=== PATIENT | female | born 1965 ===

== ENCOUNTER 2016-07-08 15:04 | Emergency (ER) | payer MEDICAID ==
[2016-07-08 15:05] VITALS: BMI 20.1
[2016-07-08 15:20] VITALS: BP 140/72; PULSE 72; RESP 20; TEMP 98.2; O2SAT 98
--- NOTE | 2016-07-08 16:05 | ED PDOC ---
Upper Extremity Pain/Injury Time Seen by Provider: 07/08/16 15:41 Chief Complaint (Nursing): Upper Extremity Problem/Injury Chief Complaint (Provider): wrist pain History Per: Patient History/Exam Limitations: no limitations Exacerbating Factor(s): Strenuous Use Of Affected Area, Movement Additional Complaint(s): F in ED with wrist pain injury occurred yesterday after falling in shower- admits to pain with ROM, motrin/tylenol not working. numbness to finger to left wrist on radial side. limited ROM due to pain. Past Medical History Reviewed: Historical Data, Nursing Documentation, Vital Signs Vital Signs: Last Vital Signs Temp 98.2 F 07/08/16 15:17 Pulse 72 07/08/16 15:17 Resp 20 07/08/16 15:17 BP 140/72 07/08/16 15:17 Pulse Ox 98 07/08/16 15:17 - Medical History PMH: Asthma, Back Problems, Bronchitis, Kidney Stones (RIGHT), Chronic Kidney Disease Denies: Diabetes, Hepatitis, HIV, HTN, Seizures, Sexually Transmitted Disease - Family History Family History: States: Unknown Family Hx - Immunization History Hx Tetanus Toxoid Vaccination: Yes Hx Influenza Vaccination: Yes Hx Pneumococcal Vaccination: Yes - Home Medications Home Medications: Ambulatory Orders Medication Instructions Recorded Albuterol HFA [Ventolin HFA 90 1 - 2 puff IH Q6H PRN #1 inhaler 07/02/16 mcg/actuation (8 g)] Famotidine [Pepcid] 20 mg PO BID #28 tab 07/02/16 Nicotine 7 mg/24 hr [Nicoderm CQ] 1 patch TD DAILY #14 patch 07/02/16 predniSONE [predniSONE Tab] 10 mg PO DAILY #110 tab 07/02/16 Tramadol HCl [Ultram] 50 mg PO Q6 #6 tab 07/08/16 - Allergies Allergies/Adverse Reactions: Allergies Allergy/AdvReac Type Severity Reaction Status Date / Time No Known Allergies Allergy Verified 07/08/16 15:17 Review of Systems ROS Statement: Except As Marked, All Systems Reviewed And Found Negative Musculoskeletal: Positive for: Other (wrist pain) Physical Exam - Reviewed Nursing Documentation Reviewed: Yes Vital Signs Reviewed: Yes - Physical Exam Appears: Positive for: Non-toxic, No Acute Distress, Uncomfortable (in pain/ crying. ) Head Exam: Positive for: ATRAUMATIC, NORMAL INSPECTION, NORMOCEPHALIC Skin: Positive for: Normal Color, Warm, DRY Cardiovascular/Chest: Positive for: Regular Rate, Rhythm Respiratory: Positive for: CNT, Normal Breath Sounds Extremity: Positive for: Other (left wrist: pain-on ROM tenderness to radial side-mild swelling to wrist. ) Neurologic/Psych: Positive for: Alert, Oriented - ECG O2 Sat by Pulse Oximetry: 98 - Radiology X-Ray: Interpreted by Vt X-Ray Interpretation: No Acute Disease - Progress ED Course And Treament: xray./ultram Medical Decision Making Medical Decision Making: dx: wrist pain velcro wrist splint ultram #6 tabs given Disposition - Clinical Impression Clinical Impression: Wrist injury - Patient ED Disposition Is Patient to be Admitted: No Counseled Patient/Family Regarding: Need For Followup, Rx Given - Disposition Disposition: Routine/Home Disposition Time: 16:04 Condition: STABLE Prescriptions: Tramadol HCl [Ultram] 50 mg PO Q6 #6 tab Instructions: Wrist Injury (ED)
--- NOTE | 2016-07-09 13:26 | RAD ---
PROCEDURE: Left Wrist Radiographs. HISTORY: wrist pain COMPARISON: None. FINDINGS: BONES: Bone alignment and mineralization are normal. There is no acute fracture or bone destruction. JOINTS: Normal. The proximal and distal carpal rows are maintained. SOFT TISSUES: Normal. OTHER FINDINGS: None. IMPRESSION: Normal examination.
== END 2016-07-08 16:10 | disposition home or self-care (01) ==
LOC: H.ER 15:04
DX: S69.92XA Unspecified injury of left wrist, hand and finger(s), initial encounter (principal); W19.XXXA Unspecified fall, initial encounter; Y92.002 Bathroom of unspecified non-institutional (private) residence as the place of occurrence of the external cause

== ENCOUNTER 2016-07-08 23:38 | Emergency (ER) | payer MEDICAID ==
[2016-07-08 23:39] VITALS: BMI 20.1
[2016-07-08 23:49] VITALS: BP 130/83; PULSE 72; RESP 20; TEMP 97.6; O2SAT 96
--- NOTE | 2016-07-09 00:50 | ED PDOC ---
Upper Extremity Pain/Injury Time Seen by Provider: 07/09/16 00:18 Chief Complaint (Nursing): Upper Extremity Problem/Injury Chief Complaint (Provider): Left Wrist Pain History Per: Patient History/Exam Limitations: no limitations Onset/Duration Of Symptoms: Days (x a couple of days) Current Symptoms Are (Timing): Still Present Severity: Moderate Additional Complaint(s): Oriana Hayes is a 51 year old female, with no pertinent past medical history, who presents to the ED on 07/09/16 for the evaluation of persistent left wrist pain that she has experienced since having fallen a couple of days ago. Patient was seen in the ED earlier for the same complaint, but reports that she has returned as the Rx Tramadol has provided no relief. No new complaints. Of note, as patient reports she is currently in recovery for opiate abuse, she has requested that she not receive narcotics/strong pain medications. PMD: none provided Past Medical History Reviewed: Historical Data, Nursing Documentation, Vital Signs Vital Signs: Last Vital Signs Temp 97.6 F 07/08/16 23:45 Pulse 72 07/08/16 23:45 Resp 20 07/08/16 23:45 BP 130/83 07/08/16 23:45 Pulse Ox 96 07/08/16 23:45 - Medical History PMH: Asthma, Back Problems, Bronchitis, Kidney Stones (RIGHT), Chronic Kidney Disease Denies: Diabetes, Hepatitis, HIV, HTN, Seizures, Sexually Transmitted Disease - Surgical History Surgical History: No Surg Hx - Family History Family History: States: Unknown Family Hx - Social History Current smoker - smoking cessation education provided: Yes Drugs: Opiates (snorts/sniffs heroin) - Immunization History Hx Tetanus Toxoid Vaccination: Yes Hx Influenza Vaccination: Yes Hx Pneumococcal Vaccination: Yes - Home Medications Home Medications: Ambulatory Orders Medication Instructions Recorded Albuterol HFA [Ventolin HFA 90 1 - 2 puff IH Q6H PRN #1 inhaler 07/02/16 mcg/actuation (8 g)] Famotidine [Pepcid] 20 mg PO BID #28 tab 07/02/16 Nicotine 7 mg/24 hr [Nicoderm CQ] 1 patch TD DAILY #14 patch 07/02/16 predniSONE [predniSONE Tab] 10 mg PO DAILY #110 tab 07/02/16 Tramadol HCl [Ultram] 50 mg PO Q6 #6 tab 07/08/16 - Allergies Allergies/Adverse Reactions: Allergies Allergy/AdvReac Type Severity Reaction Status Date / Time No Known Allergies Allergy Verified 07/08/16 15:17 Review of Systems Musculoskeletal: Positive for: Arm Pain (left wrist) Physical Exam - Reviewed Nursing Documentation Reviewed: Yes Vital Signs Reviewed: Yes - Physical Exam Appears: Positive for: Non-toxic, No Acute Distress Pulses-Radial (L): 2+ Extremity: Positive for: Normal ROM (pain with ROM of left wrist), Tenderness ( left wrist radial side), Capillary Refill (<2 seconds), Swelling (mild, left wrist). Negative for: Deformity Neurologic/Psych: Positive for: Alert, Oriented. Negative for: Motor/Sensory Deficits - ECG O2 Sat by Pulse Oximetry: 96 (RA) Pulse Ox Interpretation: Normal Medical Decision Making Medical Decision Makin:18 Initial Impression: left wrist pain Previous records reviewed: 07/08/16 ED Evaluation Initial Plan: * Motrin 600mg PO Scribe Attestation: Documented by Yaima Arora, acting as a scribe for Juliana Krishnan PA-C. Provider Scribe Attestation: All medical record entries made by the Scribe were at my direction and personally dictated by me. I have reviewed the chart and agree that the record accurately reflects my personal performance of the history, physical exam, medical decision making, and the department course for this patient. I have also personally directed, reviewed, and agree with the discharge instructions and disposition. Disposition - Clinical Impression Clinical Impression: Wrist injury - Disposition Referrals: Salbador Novak MD [Primary Care Provider] - Disposition: Routine/Home Disposition Time: 01:10 Condition: STABLE Instructions: Wrist Injury (ED)
== END 2016-07-09 01:16 | disposition home or self-care (01) ==
LOC: H.ER 23:38
DX: M25.532 Pain in left wrist (principal); N18.9 Chronic kidney disease, unspecified

== ENCOUNTER 2016-07-13 19:39 | Emergency (ER) | payer MEDICAID ==
[2016-07-13 19:39] VITALS: BMI 20.1
[2016-07-13 20:04] VITALS: BP 119/74; PULSE 62; RESP 20; TEMP 96.2; O2SAT 95
--- NOTE | 2016-07-13 20:20 | ED PDOC ---
HPI: Abdomen Time Seen by Provider: 07/13/16 20:15 Chief Complaint (Nursing): GI Problem Chief Complaint (Provider): constipation History Per: Patient History/Exam Limitations: no limitations Onset/Duration Of Symptoms: Days (x 2-3) Outside of [place] travel?: No Associated Symptoms: Constipation, Other (passing a lot of gas). denies: Fever , Chills, Nausea, Vomiting, Diarrhea Additional Complaint(s): Oriana Hayes is a 51 year old female, with a previous medical history of asthma, who presents to the ED with complaints of constipation ongoing for the past 2-3 days. Pt reports starting a methadone program last week. Pt reports associated symptoms of abdominal pain and heavy gas. Pt denies any nausea, vomiting, fever or chills. Past Medical History Reviewed: Historical Data, Nursing Documentation, Vital Signs Vital Signs: Last Vital Signs Temp 96.2 F L 07/13/16 20:02 Pulse 62 07/13/16 20:02 Resp 20 07/13/16 20:02 BP 119/74 07/13/16 20:02 Pulse Ox 95 07/13/16 20:22 - Medical History PMH: Asthma, Back Problems, Bronchitis, Kidney Stones (RIGHT), Chronic Kidney Disease Denies: Diabetes, Hepatitis, HIV, HTN, Seizures, Sexually Transmitted Disease - Family History Family History: States: Unknown Family Hx - Immunization History Hx Tetanus Toxoid Vaccination: Yes Hx Influenza Vaccination: Yes Hx Pneumococcal Vaccination: Yes - Home Medications Home Medications: Ambulatory Orders Medication Instructions Recorded Albuterol HFA [Ventolin HFA 90 1 - 2 puff IH Q6H PRN #1 inhaler 07/02/16 mcg/actuation (8 g)] Famotidine [Pepcid] 20 mg PO BID #28 tab 07/02/16 Nicotine 7 mg/24 hr [Nicoderm CQ] 1 patch TD DAILY #14 patch 07/02/16 predniSONE [predniSONE Tab] 10 mg PO DAILY #110 tab 07/02/16 Tramadol HCl [Ultram] 50 mg PO Q6 #6 tab 07/08/16 Docusate [Colace] 100 mg PO BID #20 cap 07/13/16 Phosphate Enema [Fleet Enema 135 133 ml RC ONCE #1 nma 07/13/16 Ml] Polyethylene Glycol 3350 [Miralax] 1 - 2 tsp PO BID #238 powder 07/13/16 - Allergies Allergies/Adverse Reactions: Allergies Allergy/AdvReac Type Severity Reaction Status Date / Time No Known Allergies Allergy Verified 07/08/16 15:17 Review of Systems ROS Statement: Except As Marked, All Systems Reviewed And Found Negative Constitutional: Negative for: Fever, Chills Gastrointestinal: Positive for: Abdominal Pain, Constipation. Negative for: Nausea, Vomiting, Diarrhea Physical Exam - Reviewed Nursing Documentation Reviewed: Yes Vital Signs Reviewed: Yes - Physical Exam Appears: Positive for: Well, Non-toxic, No Acute Distress Head Exam: Positive for: ATRAUMATIC, NORMAL INSPECTION, NORMOCEPHALIC Skin: Positive for: Normal Color, Warm, Dry Gastrointestinal/Abdominal: Positive for: Bowel Sounds, Soft, Tenderness ( diffuse). Negative for: Distended Neurologic/Psych: Positive for: Alert, Oriented - ECG O2 Sat by Pulse Oximetry: 95 (RA) Pulse Ox Interpretation: Normal Medical Decision Making Medical Decision Making: Initial Impression: constipation Initial Plan: * physical exam * disposition Scribe Attestation: Documented by Ene Haro, acting as a scribe for Estefany Alexandre PA-C. Provider Scribe Attestation: All medical record entries made by the Scribe were at my direction and personally dictated by me. I have reviewed the chart and agree that the record accurately reflects my personal performance of the history, physical exam, medical decision making, and the department course for this patient. I have also personally directed, reviewed, and agree with the discharge instructions and disposition Disposition - Clinical Impression Clinical Impression: Constipation due to opioid therapy - Disposition Disposition Time: 21:00 Condition: STABLE Prescriptions: Docusate [Colace] 100 mg PO BID #20 cap Phosphate Enema [Fleet Enema 135 Ml] 133 ml RC ONCE #1 nma Polyethylene Glycol 3350 [Miralax] 1 - 2 tsp PO BID #238 powder Instructions: Constipation (ED), High Fiber Diet (ED)
== END 2016-07-13 20:29 | disposition home or self-care (01) ==
LOC: H.ER 19:39
DX: K59.00 Constipation, unspecified (principal)

== ENCOUNTER 2016-07-16 19:50 | Emergency (ER) | payer MEDICAID ==
[2016-07-16 19:51] VITALS: BMI 20.1
[2016-07-16 21:02] VITALS: RESP 17
--- NOTE | 2016-07-16 21:11 | ED PDOC ---
HPI: General Adult Time Seen by Provider: 07/16/16 20:12 Chief Complaint (Nursing): Fever Chief Complaint (Provider): Myalgias in Arms and Legs/Fever History Per: Patient History/Exam Limitations: no limitations Onset/Duration Of Symptoms: Days (x2) Current Symptoms Are (Timing): Still Present Additional Complaint(s): Oriana Hayes is a 51 year old female with a history of heroin abuse and asthma that presents to the ED with body aches in her arms and legs, as well as a tactile fever that she has been experiencing for the past two days. Patient states that she used to be a heroin abuser, but started a methadone program 10 days ago for heroin addiction treatment. She denies any cough, rhinorrhea, shortness of breath, diarrhea, vomiting, or abdominal pain. PMD: Umer Novak Past Medical History Reviewed: Historical Data, Nursing Documentation, Vital Signs Vital Signs: Last Vital Signs Temp 98.9 F 07/16/16 19:59 Pulse 62 07/16/16 21:56 Resp 17 07/16/16 21:02 BP 106/55 L 07/16/16 21:56 Pulse Ox 96 07/16/16 21:16 - Medical History PMH: Asthma, Back Problems, Bronchitis, Kidney Stones (RIGHT), Chronic Kidney Disease Denies: Diabetes, Hepatitis, HIV, HTN, Seizures, Sexually Transmitted Disease - Family History Family History: States: Unknown Family Hx - Immunization History Hx Tetanus Toxoid Vaccination: Yes Hx Influenza Vaccination: Yes Hx Pneumococcal Vaccination: Yes - Home Medications Home Medications: Ambulatory Orders Medication Instructions Recorded Albuterol HFA [Ventolin HFA 90 1 - 2 puff IH Q6H PRN #1 inhaler 07/02/16 mcg/actuation (8 g)] Famotidine [Pepcid] 20 mg PO BID #28 tab 07/02/16 Nicotine 7 mg/24 hr [Nicoderm CQ] 1 patch TD DAILY #14 patch 07/02/16 predniSONE [predniSONE Tab] 10 mg PO DAILY #110 tab 07/02/16 Tramadol HCl [Ultram] 50 mg PO Q6 #6 tab 07/08/16 Docusate [Colace] 100 mg PO BID #20 cap 07/13/16 Phosphate Enema [Fleet Enema 135 133 ml RC ONCE #1 nma 07/13/16 Ml] Polyethylene Glycol 3350 [Miralax] 1 - 2 tsp PO BID #238 powder 07/13/16 - Allergies Allergies/Adverse Reactions: Allergies Allergy/AdvReac Type Severity Reaction Status Date / Time No Known Allergies Allergy Verified 07/08/16 15:17 Review of Systems Constitutional: Positive for: Fever, Other (body aches in her arms and legs) ENT: Negative for: Nose Discharge Respiratory: Negative for: Cough, Shortness of Breath Gastrointestinal: Negative for: Nausea, Vomiting, Abdominal Pain, Diarrhea Physical Exam - Reviewed Nursing Documentation Reviewed: Yes Vital Signs Reviewed: Yes - Physical Exam Appears: Positive for: Non-toxic, No Acute Distress (Patient appears comfortable ) Head Exam: Positive for: ATRAUMATIC, NORMOCEPHALIC Skin: Positive for: Normal Color, Warm. Negative for: Rash Cardiovascular/Chest: Positive for: Regular Rate, Rhythm. Negative for: Murmur Respiratory: Positive for: Normal Breath Sounds. Negative for: Respiratory Distress Gastrointestinal/Abdominal: Positive for: Soft. Negative for: Tenderness Neurologic/Psych: Positive for: Alert, Oriented. Negative for: Other (no slurred speech) - Laboratory Results Result Diagrams: 07/16/16 21:39 07/16/16 21:39 - ECG O2 Sat by Pulse Oximetry: 96 (RA) Pulse Ox Interpretation: Normal - Progress Re-evaluation Time: 01:20 Condition: Re-examined, Improved Medical Decision Making Medical Decision Makin:31 Initial Impression: Heroin Withdrawal Syndrome (currently on methadone) r/o UTI and (less likely) Flu Initial Plan: * CMP * CBC * Creatinine Phosphokinase * Urine dipstick * Toradol 30 mg IM * Clonidine 0.2 mg PO * Clonidine 1 patch TD Q7D * Reevalution Scribe Attestation: Documented by Elisha Echevarria, acting as a scribe for Autumn Song MD. Provider Scribe Attestation: All medical record entries made by the Adams were at my direction and personally dictated by me. I have reviewed the chart and agree that the record accurately reflects my personal performance of the history, physical exam, medical decision making, and the department course for this patient. I have also personally directed, reviewed, and agree with the discharge instructions and disposition Disposition - Clinical Impression Clinical Impression: Opioid withdrawal, Elevated creatine kinase level - Patient ED Disposition Is Patient to be Admitted: No Doctor Will See Patient In The: Office Counseled Patient/Family Regarding: Studies Performed, Diagnosis, Need For Followup - Disposition Referrals: [facility] [Outside] Disposition: Routine/Home Disposition Time: 01:21 Condition: GOOD Additional Instructions: Drink plenty of fluids. Take advil for pain. Follow up with your PCP in 2-3 days. Instructions: Opioid Withdrawal (ED)
[2016-07-16 21:46] LABS: BASO % 0.2 % (0.0-2.0); EOS % 0.2 % (0.0-4.0); HEMATOCRIT 32.6 % (34.0-47.0); LYMPH # 1.2 K/uL (1.0-4.3); LYMPH % 8.2 % (20.0-40.0); MEAN CELL VOLUME 94.2 fl (81.0-99.0); MEAN CORPUSCULAR HEMOGLOBIN 30.5 pg (27.0-31.0); MEAN CORPUSCULAR HGB CONC 32.4 g/dL (33.0-37.0); MEAN PLATELET VOLUME 9.2 fl (7.2-11.7); MONO # 0.9 K/uL (0.0-0.8); MONO % 5.9 % (0.0-10.0); NEUT # 12.3 K/uL (1.8-7.0); NEUT % 85.5 % (50.0-75.0); PLATELET COUNT 199 K/uL (130-400); RED CELL DISTRIBUTION WIDTH 14.5 % (11.5-14.5); WHITE BLOOD COUNT 14.4 K/uL (4.8-10.8)
[2016-07-16 22:09] LABS: ALB/GLOB RATIO 1.1 (1.0-2.1); ALKALINE PHOSPHATASE 76 U/L (38-126); ALT/SGPT 44 U/L (9-52); AST/SGOT 47 U/L (14-36); BILIRUBIN,TOTAL 0.6 mg/dl (0.2-1.3); BLOOD UREA NITROGEN 13 mg/dl (7-17); CALCIUM 8.2 mg/dL (8.4-10.2); CARBON DIOXIDE 26 mmol/L (22-30); CHLORIDE 99 mmol/L (98-107); GFR AFRICAN-AMERICAN > 60; GLUCOSE,RANDOM 119 mg/dL (65-105); POTASSIUM 3.4 MMOL/L (3.6-5.0); SODIUM 137 mmol/l (132-148); TOTAL PROTEIN 6.6 G/DL (6.3-8.2)
[2016-07-16] MEDS ORDERED: Sodium Chloride 0.9% 1,000 ML IV STA (22:13)
[2016-07-16 22:40] LABS: NEUTROPHIL 82 % (42-75); TOTAL CELLS COUNTED 100
[2016-07-17 01:31] VITALS: BP 112/69; PULSE 63; TEMP 98.1; O2SAT 98
== END 2016-07-17 01:35 | disposition home or self-care (01) ==
LOC: H.ER 19:50
DX: F11.10 Opioid abuse, uncomplicated (principal); R94.4 Abnormal results of kidney function studies; N18.9 Chronic kidney disease, unspecified; Z87.442 Personal history of urinary calculi; J45.909 Unspecified asthma, uncomplicated

== ENCOUNTER 2016-08-07 18:07 | Inpatient (IN) | payer MEDICAID ==
[2016-08-07 18:07] VITALS: BMI 20.1
[2016-08-07] MEDS ORDERED: Albuterol-Ipratrop 3 mg / 0.5 (3 ml) UD IH STA (18:15)
[2016-08-07] MEDS ORDERED: Magnesium Sulfate 2 gm/50 ml 2 GM/50 ML BAG IVPB ONE (18:16)
--- NOTE | 2016-08-07 18:20 | ED PDOC ---
HPI: SOB/CHF/COPD Time Seen by Provider: 08/07/16 18:10 Chief Complaint (Nursing): Shortness Of Breath Chief Complaint (Provider): Shortness of Breath History Per: Patient, EMS History/Exam Limitations: no limitations Onset/Duration Of Symptoms: Days (x2) Current Symptoms Are (Timing): Still Present Initiating Event: Upper Respiratory Illness Severity: Moderate Associated Symptoms: Fever (Tmax 101F), Productive Cough (yellow sputum), Other (wheezing). denies: Chest Pain, Bloody Cough, Ankle/Leg Swelling Additional Complaint(s): Oriana Hayes is a 51 year old female, with a past medical history inclusive of asthma, bronchitis and heroin abuse (snorts 8-9 bags daily, last yesterday), who presents to the ED on 08/07/16, via ALS, for the evaluation of a moderate amount of shortness of breath that she has experienced over the past 2 days. Associated fever (Tmax 101F) also reported in addition to both wheezing and a productive cough with yellow sputum, though she denies any chest pain, hemoptysis or extremity swelling. Paramedics had administered 2 nebulizer treatments as well as Solu-Medrol 125mg IV en route to hospital with only minimal improvement. PMD: Lobo Graham Past Medical History Reviewed: Historical Data, Nursing Documentation, Vital Signs Vital Signs: Last Vital Signs Temp 101 F H 08/07/16 18:08 Pulse 88 08/07/16 18:08 Resp 18 08/07/16 18:08 BP 146/86 08/07/16 18:08 Pulse Ox 99 08/07/16 18:38 - Medical History PMH: Asthma, Back Problems, Bronchitis, Kidney Stones (RIGHT), Chronic Kidney Disease Denies: Diabetes, Hepatitis, HIV, HTN, Seizures, Sexually Transmitted Disease - Surgical History Surgical History: No Surg Hx - Family History Family History: States: Unknown Family Hx - Social History Current smoker - smoking cessation education provided: Yes (heavy (>10 cigarettes/day)) Alcohol: None Drugs: Opiates (snorts 8-9 bags of heroin QD) - Immunization History Hx Tetanus Toxoid Vaccination: Yes Hx Influenza Vaccination: Yes Hx Pneumococcal Vaccination: Yes - Home Medications Home Medications: Ambulatory Orders Medication Instructions Recorded Albuterol HFA [Ventolin HFA 90 1 - 2 puff IH Q6H PRN #1 inhaler 07/02/16 mcg/actuation (8 g)] Famotidine [Pepcid] 20 mg PO BID #28 tab 07/02/16 Nicotine 7 mg/24 hr [Nicoderm CQ] 1 patch TD DAILY #14 patch 07/02/16 predniSONE [predniSONE Tab] 10 mg PO DAILY #110 tab 07/02/16 Tramadol HCl [Ultram] 50 mg PO Q6 #6 tab 07/08/16 Docusate [Colace] 100 mg PO BID #20 cap 07/13/16 Phosphate Enema [Fleet Enema 135 133 ml RC ONCE #1 nma 07/13/16 Ml] Polyethylene Glycol 3350 [Miralax] 1 - 2 tsp PO BID #238 powder 07/13/16 - Allergies Allergies/Adverse Reactions: Allergies Allergy/AdvReac Type Severity Reaction Status Date / Time No Known Allergies Allergy Verified 07/08/16 15:17 Review of Systems ROS Statement: Except As Marked, All Systems Reviewed And Found Negative Constitutional: Positive for: Fever (Tmax 101F) Cardiovascular: Negative for: Chest Pain, Edema Respiratory: Positive for: Cough, Shortness of Breath, Sputum (yellow), Wheezing. Negative for: Hemoptysis Physical Exam - Reviewed Nursing Documentation Reviewed: Yes Vital Signs Reviewed: Yes - Physical Exam Appears: Positive for: Non-toxic, No Acute Distress Head Exam: Positive for: ATRAUMATIC, NORMOCEPHALIC Skin: Positive for: Normal Color, Warm, Dry Eye Exam: Positive for: Normal appearance, PERRL ENT: Positive for: Normal ENT Inspection. Negative for: Pharyngeal Erythema, Tonsillar Exudate, Tonsillar Swelling Neck: Positive for: Normal, Painless ROM, Supple Cardiovascular/Chest: Positive for: Regular Rate, Rhythm. Negative for: Edema, Murmur Respiratory: Positive for: Rhonchi (b/l), Wheezing (b/l expiratory). Negative for: Accessory Muscle Use, Respiratory Distress Gastrointestinal/Abdominal: Positive for: Normal Exam, Soft. Negative for: Tenderness Extremity: Positive for: Normal ROM. Negative for: Swelling Neurologic/Psych: Positive for: Alert, Oriented - ECG O2 Sat by Pulse Oximetry: 99 (RA) Pulse Ox Interpretation: Normal Medical Decision Making Medical Decision Makin:10 Initial Impression: fever, cough, shortness of breath; will r/o pneumonia Initial Plan: * EKG * CXR * VBG Shock Panel * Labs * Upreg * Udip * Magnesium Sulfate 2gm IVPB * Duonebs 3ml INH * Peak Flow Pre/Post Treatment * Reevaluation Scribe Attestation: Documented by Yaima Arora, acting as a scribe for Robin Vidal MD. Provider Scribe Attestation: All medical record entries made by the Scribe were at my direction and personally dictated by me. I have reviewed the chart and agree that the record accurately reflects my personal performance of the history, physical exam, medical decision making, and the department course for this patient. I have also personally directed, reviewed, and agree with the discharge instructions and disposition. Disposition - Clinical Impression Clinical Impression: Exacerbation of asthma - Patient ED Disposition Is Patient to be Admitted: Transfer of Care - Disposition Disposition: Transfer of Care Disposition Time: 19:00 Condition: FAIR Patient Signed Over To: Steven Ruffin
[2016-08-07] MEDS ORDERED: Magnesium Sulfate 2 gm/50 ml 2 GM/50 ML BAG ONE (18:28)
[2016-08-07] MEDS ORDERED: Albuterol-Ipratrop 3 mg / 0.5 (3 ml) UD ONE (18:28)
--- NOTE | 2016-08-07 19:11 | ED PDOC ---
- Laboratory Results Result Diagrams: 08/07/16 19:19 08/07/16 18:40 - ECG O2 Sat by Pulse Oximetry: 99 (RA) Pulse Ox Interpretation: Normal Medical Decision Making Medical Decision Makin:00 Patient endorsed over to me by Robin Vidal MD, pending results of ED workup , reevaluation and final disposition. CXR appears similar to prior, though suspicious for pneumonia. Will treat with both Rocephin IVPB and Zithromax IVPB. 20:10 Upon provider reevaluation, patient is still experiencing shortness of breath despite administration of IV steroids, nebulizer treatments and magnesium sulfate. Wheezing is still ausculated bilaterally, with patient now being hypoxic with a pulse oximetry reading of 88% on room air. Patient will be hospitalized for further evaluation/treatment of asthma exacerbation and hypoxia. Plan has been discussed with patient, who is in agreement. Scribe Attestation: Documented by Yaima Arora, acting as a scribe for Steven Ruffin MD. Provider Scribe Attestation: All medical record entries made by the Scribe were at my direction and personally dictated by me. I have reviewed the chart and agree that the record accurately reflects my personal performance of the history, physical exam, medical decision making, and the department course for this patient. I have also personally directed, reviewed, and agree with the discharge instructions and disposition. Disposition - Clinical Impression Clinical Impression: Exacerbation of asthma - POA Present On Arrival: None - Disposition Disposition: Hospitalized as Observation Patient Disposition Time: 20:10 Condition: FAIR
[2016-08-07 19:22] LABS: BASO % 0.7 % (0.0-2.0); EOS % 0.1 % (0.0-4.0); HEMATOCRIT 36.9 % (34.0-47.0); LYMPH # 1.5 K/uL (1.0-4.3); LYMPH % 22.1 % (20.0-40.0); MEAN CELL VOLUME 92.4 fl (81.0-99.0); MEAN CORPUSCULAR HEMOGLOBIN 30.7 pg (27.0-31.0); MEAN CORPUSCULAR HGB CONC 33.3 g/dL (33.0-37.0); MEAN PLATELET VOLUME 9.3 fl (7.2-11.7); MONO # 0.8 K/uL (0.0-0.8); MONO % 11.9 % (0.0-10.0); NEUT # 4.3 K/uL (1.8-7.0); NEUT % 65.2 % (50.0-75.0); NRBC % 0.1 % (0.0-0.0); RED CELL DISTRIBUTION WIDTH 14.1 % (11.5-14.5); WHITE BLOOD COUNT 6.6 K/uL (4.8-10.8)
[2016-08-07 19:51] LABS: BLOOD UREA NITROGEN 10 mg/dl (7-17); CALCIUM 8.4 mg/dL (8.4-10.2); CARBON DIOXIDE 24 mmol/L (22-30); CHLORIDE 98 mmol/L (98-107); GFR AFRICAN-AMERICAN > 60; GLUCOSE,RANDOM 98 mg/dL (65-105); POTASSIUM 4.1 MMOL/L (3.6-5.0); SODIUM 133 mmol/l (132-148)
[2016-08-07 19:52] LABS: ALB/GLOB RATIO 0.9 (1.0-2.1); ALKALINE PHOSPHATASE 81 U/L (38-126); ALT/SGPT 26 U/L (9-52); AST/SGOT 31 U/L (14-36); BILIRUBIN,TOTAL 0.3 mg/dl (0.2-1.3); TOTAL PROTEIN 7.6 G/DL (6.3-8.2)
[2016-08-07] MEDS ORDERED: Sodium Chloride 0.9% 1,000 ML IV STA (20:03)
[2016-08-07] MEDS ORDERED: Azithromycin 500 MG in Sodium Chloride 0.9% 250 ML IVPB STA (20:03)
[2016-08-07] MEDS ORDERED: Albuterol-Ipratrop 3 mg / 0.5 (3 ml) UD INH STA ×2 (20:06→20:10)
[2016-08-08] MEDS: methylPREDNISolone 80 MG in Sodium Chloride 0.9% 50 ML IVPB SCH ×3 (01:05→16:20)
[2016-08-08] MEDS ORDERED: Albuterol-Ipratrop 3 mg / 0.5 (3 ml) UD INH PRN (02:16)
[2016-08-08 06:52] LABS: BASO % 0.2 % (0.0-2.0); HEMATOCRIT 36.9 % (34.0-47.0); LYMPH % 15.5 % (20.0-40.0); MEAN CELL VOLUME 92.4 fl (81.0-99.0); MEAN CORPUSCULAR HEMOGLOBIN 30.7 pg (27.0-31.0); MEAN CORPUSCULAR HGB CONC 33.3 g/dL (33.0-37.0); MEAN PLATELET VOLUME 9.3 fl (7.2-11.7); MONO # 0.3 K/uL (0.0-0.8); MONO % 4.7 % (0.0-10.0); NEUT % 79.6 % (50.0-75.0); WHITE BLOOD COUNT 6.3 K/uL (4.8-10.8)
[2016-08-08 07:09] LABS: ALB/GLOB RATIO 0.9 (1.0-2.1); ALKALINE PHOSPHATASE 72 U/L (38-126); ALT/SGPT 24 U/L (9-52); AST/SGOT 25 U/L (14-36); BILIRUBIN,TOTAL 0.3 mg/dl (0.2-1.3); BLOOD UREA NITROGEN 8 mg/dl (7-17); CALCIUM 8.7 mg/dL (8.4-10.2); CARBON DIOXIDE 27 mmol/L (22-30); CHLORIDE 101 mmol/L (98-107); GFR AFRICAN-AMERICAN > 60; GLUCOSE,RANDOM 139 mg/dL (65-105); POTASSIUM 5.3 MMOL/L (3.6-5.0); SODIUM 138 mmol/l (132-148); TOTAL PROTEIN 7.5 G/DL (6.3-8.2)
--- NOTE | 2016-08-08 07:14 | CP.PCM.HP ---
History of Present Illness - History of Present Illness History of Present Illness: pt admitted forpna and asthma exacerbation. pt is + smoker, has h/o heroin abuse on methadone-rn tarik called methadone program who verified 60mg methadone qd. pt offer no other complaitns besides wheezing, ocugh/congestion, nbw nad cxr reviwed. Present on Admission - Present on Admission Any Indicators Present on Admission: No Review of Systems - Respiratory Respiratory: As Per HPI, Cough, Wheezing, Chest Congestion Past Patient History - Infectious Disease Hx of Infectious Diseases: None - Past Medical History & Family History Past Medical History?: Yes - Past Social History Smoking Status: Current Some Days Smoker - CARDIAC Hx Hypertension: No - PULMONARY Hx Respiratory Disorders: Yes - NEUROLOGICAL Hx Seizures: No - HEENT Hx HEENT Problems: No - RENAL Hx Chronic Kidney Disease: Yes - ENDOCRINE/METABOLIC Hx Endocrine Disorders: No - HEMATOLOGICAL/ONCOLOGICAL Hx AIDS: No Hx Human Immunodeficiency Virus (HIV): No - INTEGUMENTARY Hx Dermatological Problems: Yes (TATTOOS) - MUSCULOSKELETAL/RHEUMATOLOGICAL Hx Musculoskeletal Disorders: Yes Hx Back Pain: Yes Hx Falls: Yes (FELL 5 DAYS AGO 06-21-) - GASTROINTESTINAL Hx Gastrointestinal Disorders: No - GENITOURINARY/GYNECOLOGICAL Hx Sexually Transmitted Disorders: No - PSYCHIATRIC Hx Psychophysiologic Disorder: Yes (SNORTS/SNIFFS HEROINE-USED TO BE IN A PROGRAM) Hx Substance Use: Yes (SNIFFS HERONE 8-9 BAGS DAILY.LAST USED YESTERDAY.) - SURGICAL HISTORY Hx Surgeries: Yes Other/Comment: rt kidney stones - ANESTHESIA Hx Anesthesia: Yes Hx Anesthesia Reactions: No Meds Allergies/Adverse Reactions: Allergies Allergy/AdvReac Type Severity Reaction Status Date / Time No Known Allergies Allergy Verified 08/07/16 20:02 Physical Exam - Constitutional Appears: Well, Non-toxic, No Acute Distress - Head Exam Head Exam: ATRAUMATIC, NORMAL INSPECTION, NORMOCEPHALIC - Eye Exam Eye Exam: EOMI, Normal appearance, PERRL Pupil Exam: NORMAL ACCOMODATION, PERRL - ENT Exam ENT Exam: Mucous Membranes Moist, Normal Exam - Neck Exam Neck exam: Positive for: Normal Inspection - Respiratory Exam Respiratory Exam: Clear to Auscultation Bilateral, NORMAL BREATHING PATTERN - Cardiovascular Exam Cardiovascular Exam: REGULAR RHYTHM, RRR, +S1, +S2 - GI/Abdominal Exam GI & Abdominal Exam: Normal Bowel Sounds, Soft. absent: Tenderness - Extremities Exam Extremities exam: Positive for: full ROM, normal capillary refill, normal inspection, pedal pulses present - Back Exam Back exam: NORMAL INSPECTION - Neurological Exam Neurological exam: Alert, CN II-XII Intact, Normal Gait, Oriented x3, Reflexes Normal - Psychiatric Exam Psychiatric exam: Normal Affect, Normal Mood - Skin Skin Exam: Dry, Intact, Normal Color, Warm Results - Vital Signs Recent Vital Signs: Last Vital Signs Temp 97.5 F L 08/08/16 05:02 Pulse 57 L 08/08/16 05:02 Resp 19 08/08/16 05:02 BP 111/67 08/08/16 05:02 Pulse Ox 98 08/08/16 05:02 - Labs Result Diagrams: 08/08/16 04:45 08/08/16 04:45 Labs: Laboratory Results - last 24 hr 08/07/16 20:45 Influenza Typ A,B (EIA) Negative for flu a/b Assessment & Plan (1) DVT prophylaxis Assessment and Plan: scd and aehose ambulation Status: Acute (2) Heroin abuse Assessment and Plan: on methadone, dose confirmed by rn Status: Acute (3) Exacerbation of asthma Assessment and Plan: w/ pna noted on cxr-rocephin, zithromax, duonebs/steroids phenergen trend cxr Status: Acute (4) Pneumonia Assessment and Plan: rocephin/zithromax Status: Acute Priority: High Decision To Admit - Pt Status Changed To: Hospital Disposition Of: Observation - . Bed Request Type: Telemetry Admitting Physician: Eveline Batista
[2016-08-08] MEDS: Albuterol-Ipratrop 3 mg / 0.5 (3 ml) UD INH SCH ×4 (08:25→20:04)
[2016-08-08] MEDS: guaiFENesin-DM 600-30 mg ER Tab PO SCH ×2 (08:34→16:21)
[2016-08-08] MEDS: Azithromycin 500 MG in Sodium Chloride 0.9% 250 ML IVPB SCH (08:36)
--- NOTE | 2016-08-08 08:42 | CARD ---
APPROVED REPORT EKG Measurement Heart [id number] <Conclusion> Normal sinus rhythm Moderate voltage criteria for LVH, may be normal variant Borderline ECG
[2016-08-08] MEDS ORDERED: cefTRIAXone 2 GM in Sodium Chloride 0.9% 100 ML IVPB SCH (09:00)
--- NOTE | 2016-08-08 11:05 | RAD ---
HISTORY: sob COMPARISON: Chest x-ray performed 04/24/15 TECHNIQUE: Chest PA and lateral FINDINGS: LUNGS: Central vascular congestion. Interstitial prominence. Hyperinflation may be seen in setting of COPD. Emphysematous changes. Please note that chest x-ray has limited sensitivity for the detection of pulmonary masses. PLEURA: No significant pleural effusion identified. No definite pneumothorax . CARDIOVASCULAR: Heart size appears top normal. OSSEOUS STRUCTURES: Osseous demineralization. Degenerative changes. VISUALIZED UPPER ABDOMEN: Unremarkable. OTHER FINDINGS: None. IMPRESSION: Central vascular congestion. Interstitial prominence. COPD/emphysema.
[2016-08-08 15:53] LABS: BLOOD UREA NITROGEN 11 mg/dl (7-17); CARBON DIOXIDE 28 mmol/L (22-30); CHLORIDE 96 mmol/L (98-107); GFR AFRICAN-AMERICAN > 60; GLUCOSE,RANDOM 122 mg/dL (65-105); POTASSIUM 4.7 MMOL/L (3.6-5.0); SODIUM 131 mmol/l (132-148)
[2016-08-08 20:25] LABS: BLOOD UREA NITROGEN 13 mg/dl (7-17); CALCIUM 8.7 mg/dL (8.4-10.2); CARBON DIOXIDE 25 mmol/L (22-30); CHLORIDE 95 mmol/L (98-107); GFR AFRICAN-AMERICAN > 60; GLUCOSE,RANDOM 172 mg/dL (65-105); POTASSIUM 4.4 MMOL/L (3.6-5.0); SODIUM 128 mmol/l (132-148)
[2016-08-08] MEDS: Menthol/Methyl Salicylate Oinment TOP PRN (22:03)
[2016-08-09] MEDS: methylPREDNISolone 80 MG in Sodium Chloride 0.9% 50 ML IVPB SCH ×3 (00:42→16:17)
--- NOTE | 2016-08-09 06:52 | CP.PCM.PN ---
Subjective - Date & Time of Evaluation Date of Evaluation: 08/09/16 Time of Evaluation: 06:52 - Subjective Subjective: pt comfortable in bed off o2. still wheezing but better. no f/c, n/v/d. bw improving. pt asking for 1 more day of therapya nd iv anbx. bw noted. rpeat cx rin am Objective - Vital Signs/Intake and Output Vital Signs (last 24 hours): Temp Pulse Resp BP Pulse Ox 97.9 F 57 L 19 134/77 95 08/09/16 05:09 08/09/16 05:09 08/09/16 05:09 08/09/16 05:09 08/09/16 05:09 - Medications Medications: Current Medications Albuterol/Ipratropium (Duoneb 3 Mg/0.5 Mg (3 Ml) Ud) 3 ml INH RQID [facility] Last Admin: 08/08/16 20:04 Dose: 3 ml Albuterol/Ipratropium (Duoneb 3 Mg/0.5 Mg (3 Ml) Ud) 3 ml INH RQ6 PRN PRN Reason: Shortness of Breath Last Admin: 08/08/16 02:32 Dose: 3 ml Camphor/Menthol (Bengay) 1 applic TOP QID PRN PRN Reason: pain Last Admin: 08/08/16 22:03 Dose: 1 applic Guaifenesin/Dextromethorphan (Mucinex-Dm 600-30 Mg) 2 tab PO BID [facility] Last Admin: 08/08/16 16:21 Dose: 2 tab Methylprednisolone 80 mg/ (Sodium Chloride) 50 mls @ 100 mls/hr IVPB Q8 [facility] Last Admin: 08/09/16 00:42 Dose: 100 mls/hr Ceftriaxone Sodium 1 gm/ (Sodium Chloride) 100 mls @ 100 mls/hr IVPB DAILY [facility] Last Admin: 08/08/16 09:54 Dose: 100 mls/hr Azithromycin 500 mg/ Sodium (Chloride) 250 mls @ 250 mls/hr IVPB DAILY [facility] Last Admin: 08/08/16 08:36 Dose: 250 mls/hr Methadone HCl (Methadone) 60 mg PO DAILY [facility] Last Admin: 08/08/16 09:52 Dose: 60 mg Nicotine (Nicoderm Cq) 1 patch TD DAILY [facility] Last Admin: 08/08/16 08:33 Dose: 1 patch - Labs Labs: 04/26/17 20:00 - Constitutional Appears: Well, Non-toxic, No Acute Distress - Head Exam Head Exam: ATRAUMATIC, NORMAL INSPECTION, NORMOCEPHALIC - Eye Exam Eye Exam: EOMI, Normal appearance, PERRL Pupil Exam: NORMAL ACCOMODATION, PERRL - ENT Exam ENT Exam: Mucous Membranes Moist, Normal Exam - Neck Exam Neck Exam: Full ROM, Normal Inspection. absent: Lymphadenopathy - Respiratory Exam Respiratory Exam: Wheezes, NORMAL BREATHING PATTERN Additional comments: improving - Cardiovascular Exam Cardiovascular Exam: REGULAR RHYTHM, RRR, +S1, +S2. absent: Murmur - GI/Abdominal Exam GI & Abdominal Exam: Soft, Normal Bowel Sounds. absent: Tenderness - Exam Bimanual exam: NORMAL BIMANUAL EXAM - Extremities Exam Extremities Exam: Full ROM, Normal Capillary Refill, Normal Inspection. absent : Joint Swelling, Pedal Edema - Back Exam Back Exam: NORMAL INSPECTION - Neurological Exam Neurological Exam: Alert, Awake, CN II-XII Intact, Normal Gait, Oriented x3 - Psychiatric Exam Psychiatric exam: Normal Affect, Normal Mood - Skin Skin Exam: Dry, Intact, Normal Color, Warm Assessment and Plan (1) DVT prophylaxis Status: Acute (2) Heroin abuse Status: Acute (3) Exacerbation of asthma Status: Acute (4) Pneumonia Status: Acute - Assessment and Plan (Free Text) Assessment: (1) DVT prophylaxis Assessment and Plan: scd and aehose ambulation Status: Acute (2) Heroin abuse Assessment and Plan: on methadone, dose confirmed by rn Status: Acute (3) Exacerbation of asthma Assessment and Plan: w/ pna noted on cxr-rocephin, zithromax, duonebs/steroids phenergen trend cxr Status: Acute (4) Pneumonia Assessment and Plan: rocephin/zithromax Status: Acute Priority: High
[2016-08-09 07:12] LABS: HEMATOCRIT 34.4 % (34.0-47.0); MEAN CELL VOLUME 92.6 fl (81.0-99.0); MEAN CORPUSCULAR HEMOGLOBIN 30.8 pg (27.0-31.0); MEAN CORPUSCULAR HGB CONC 33.3 g/dL (33.0-37.0); RED CELL DISTRIBUTION WIDTH 14.4 % (11.5-14.5); WHITE BLOOD COUNT 9.2 K/uL (4.8-10.8)
[2016-08-09 07:18] LABS: BLOOD UREA NITROGEN 11 mg/dl (7-17); CALCIUM 8.7 mg/dL (8.4-10.2); CARBON DIOXIDE 26 mmol/L (22-30); CHLORIDE 97 mmol/L (98-107); GFR AFRICAN-AMERICAN > 60; GLUCOSE,RANDOM 139 mg/dL (65-105); POTASSIUM 4.6 MMOL/L (3.6-5.0); SODIUM 134 mmol/l (132-148)
[2016-08-09] MEDS: Albuterol-Ipratrop 3 mg / 0.5 (3 ml) UD INH SCH ×4 (07:26→19:54)
[2016-08-09] MEDS: Azithromycin 500 MG in Sodium Chloride 0.9% 250 ML IVPB SCH (08:54)
[2016-08-09] MEDS: Menthol/Methyl Salicylate Oinment TOP PRN (09:04)
[2016-08-09 09:13] LABS: VENOUS BLOOD GAS BASE EXCESS 1.3 mmol/L (0.0-2.0); VENOUS BLOOD GAS PCO2 44 mmHg (40-60); VENOUS BLOOD PH 7.39 (7.32-7.43)
[2016-08-09] MEDS: guaiFENesin-DM 600-30 mg ER Tab PO SCH ×2 (09:56→16:17)
--- NOTE | 2016-08-09 14:16 | PQF GENQUE ---
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 Aspiration pneumonia Please document specific aspirate (food, liquids, etc.) Bacterial (specify organism) Bronchopneumonia (specify organism) Interstitual pneumonia Organizing pneumonia/BOOP RSV pneumonia Viral pneumonia OR Other pneumonia (specify organism or type) OR Unable to determine OR Unknown 2. Please specify the organism causing the pneumonia if known after work up completed Note: CAP, HAP, and HCAP indicate where the pneumonia was acquired, not a specific type. This form is a permanent part of the medical record Clarification of your documentation is requested to better reflect the severity of illness and intensity of treatment of your patient. Indicators present [] Specify: [] [] Specify: [] [] Specify: [] [] Specify: [] Location in the medical record that reflects the above clinical findings: [] Treatment Provided: [] PHYSICIAN'S RESPONSE Based on your medical judgment of the clinical indicators outlined above please clarify the following: [] Practitioner response bacterial CAP [] If unable to determine, please check the box, sign and date. Present On Admission (POA) Indicator: [x] Present at the time of admission [] Not present at the time of admission [] Clinically Undetermined In responding to this query, please exercise your independent professional judgment. The fact that a question is asked does not imply that any particular answer is desired or expected. Thank you for your clarification on this documentation. If you have any questions please call. * Thank you, Sofiya Tobin RN BSN ext. #[phone] MTDD
--- NOTE | 2016-08-09 14:22 | PQF GENQUE ---
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 of a moderate amount of SOB that she has experienced over the past 2 day; fever ( Tmax 101F) also reported in addition to both wheezing and a productive cough with yellow sputum, Paramedics had administered 2 nebulizer treatments as well as Solu-Medrol 125mg IV en route to hospital with only minimal improvement. H and P: H and P; pt admitted for pna and asthma exacerbation. pt is + smoker, has h/o heroin abuse on methadone-rn tarik called methadone program who verified 60mg methadone qd. PSYCH: Hx Psychophysiologic Disorder: Yes (SNORTS/SNIFFS HEROINE-used to be in a program) Hx Substance Use: Yes (SNIFFS HERONE 8-9 BAGS DAILY.LAST USED YESTERDAY Imp.: 2) Heroin abuse Assessment and Plan: on methadone, dose confirmed by rn Status: Acute (3) Exacerbation of asthma Assessment and Plan: w/ pna noted on cxr-rocephin, zithromax, duonebs/steroids phenergen trend cxr Status: Acute 4) Pneumonia Assessment and Plan: rocephin/zithromax Status: Acute Priority: High This form is a permanent part of the medical record Clarification of your documentation is requested to better reflect the severity of illness and intensity of treatment of your patient. Indicators present [] Specify: [] [] Specify: [] [] Specify: [] [] Specify: [] Location in the medical record that reflects the above clinical findings: [] Treatment Provided: [] PHYSICIAN'S RESPONSE Based on your medical judgment of the clinical indicators outlined above please clarify the following: [] Practitioner response mild intermittent [] If unable to determine, please check the box, sign and date. Present On Admission (POA) Indicator: [] Present at the time of admission [] Not present at the time of admission [] Clinically Undetermined In responding to this query, please exercise your independent professional judgment. The fact that a question is asked does not imply that any particular answer is desired or expected. Thank you for your clarification on this documentation. If you have any questions please call. * Thank you, Sofiya Tobin RN BSN ext. #[phone] MTDD
[2016-08-10] MEDS: methylPREDNISolone 80 MG in Sodium Chloride 0.9% 50 ML IVPB SCH (01:50)
[2016-08-10] MEDS ORDERED: methylPREDNISolone 40 MG in Sodium Chloride 0.9% 50 ML IVPB SCH (07:06)
[2016-08-10] MEDS: Albuterol-Ipratrop 3 mg / 0.5 (3 ml) UD INH SCH ×2 (07:22→11:08)
--- NOTE | 2016-08-10 07:50 | CP.PCM.PN ---
Subjective - Date & Time of Evaluation Date of Evaluation: 08/10/16 Time of Evaluation: 07:50 - Subjective Subjective: doing well no distress. off o2 x 48h. for dc n o f/c n/v/d. Objective - Vital Signs/Intake and Output Vital Signs (last 24 hours): Temp Pulse Resp BP Pulse Ox 98.2 F 60 17 155/81 H 96 08/10/16 01:00 08/10/16 01:00 08/10/16 01:00 08/10/16 01:00 08/10/16 01:00 - Medications Medications: Current Medications Acetaminophen (Tylenol 325mg Tab) 650 mg PO Q4 PRN PRN Reason: Pain, moderate (4-7) Last Admin: 08/09/16 20:56 Dose: 650 mg Albuterol/Ipratropium (Duoneb 3 Mg/0.5 Mg (3 Ml) Ud) 3 ml INH RQID [facility] Last Admin: 08/10/16 07:22 Dose: 3 ml Albuterol/Ipratropium (Duoneb 3 Mg/0.5 Mg (3 Ml) Ud) 3 ml INH RQ6 PRN PRN Reason: Shortness of Breath Last Admin: 08/08/16 02:32 Dose: 3 ml Camphor/Menthol (Bengay) 1 applic TOP QID PRN PRN Reason: pain Last Admin: 08/09/16 09:04 Dose: 1 applic Guaifenesin/Dextromethorphan (Mucinex-Dm 600-30 Mg) 2 tab PO BID [facility] Last Admin: 08/09/16 16:17 Dose: 2 tab Ceftriaxone Sodium 1 gm/ (Sodium Chloride) 100 mls @ 100 mls/hr IVPB DAILY [facility] Last Admin: 08/09/16 08:54 Dose: 100 mls/hr Azithromycin 500 mg/ Sodium (Chloride) 250 mls @ 250 mls/hr IVPB DAILY [facility] Last Admin: 08/09/16 08:54 Dose: 250 mls/hr Methylprednisolone 40 mg/ (Sodium Chloride) 50.64 mls @ 100 mls/hr IVPB Q8 [facility] Methadone HCl (Methadone) 60 mg PO DAILY [facility] Last Admin: 08/09/16 08:46 Dose: 60 mg Nicotine (Nicoderm Cq) 1 patch TD DAILY [facility] Last Admin: 08/09/16 08:47 Dose: 1 patch - Labs Labs: 08/09/16 05:35 08/09/16 05:35 - Constitutional Appears: Well, Non-toxic, No Acute Distress - Head Exam Head Exam: ATRAUMATIC, NORMAL INSPECTION, NORMOCEPHALIC - Eye Exam Eye Exam: EOMI, Normal appearance, PERRL Pupil Exam: NORMAL ACCOMODATION, PERRL - ENT Exam ENT Exam: Mucous Membranes Moist, Normal Exam - Neck Exam Neck Exam: Full ROM, Normal Inspection. absent: Lymphadenopathy - Respiratory Exam Respiratory Exam: Clear to Ausculation Bilateral, NORMAL BREATHING PATTERN - Cardiovascular Exam Cardiovascular Exam: REGULAR RHYTHM, RRR, +S1, +S2. absent: Murmur - GI/Abdominal Exam GI & Abdominal Exam: Soft, Normal Bowel Sounds. absent: Tenderness - Extremities Exam Extremities Exam: Full ROM, Normal Capillary Refill, Normal Inspection. absent : Joint Swelling, Pedal Edema - Back Exam Back Exam: NORMAL INSPECTION - Neurological Exam Neurological Exam: Alert, Awake, CN II-XII Intact, Normal Gait, Oriented x3 - Psychiatric Exam Psychiatric exam: Normal Affect, Normal Mood - Skin Skin Exam: Dry, Intact, Normal Color, Warm Assessment and Plan (1) DVT prophylaxis Assessment & Plan: scd nad ae hose, ambulation Status: Acute (2) Heroin abuse Assessment & Plan: methdone. to be restarted outpt. cm aware for need to contact program Status: Acute (3) Exacerbation of asthma Assessment & Plan: doing well, cont meds, for dc taper steroids Status: Acute (4) Pneumonia Assessment & Plan: cont rocephin/.zithromax Status: Acute
[2016-08-10 08:11] VITALS: BP 162/85; PULSE 98; RESP 18; TEMP 97.8; O2SAT 97
[2016-08-10 08:11] LABS: BASO % 0.1 % (0.0-2.0); HEMATOCRIT 34.8 % (34.0-47.0); LYMPH # 1.2 K/uL (1.0-4.3); LYMPH % 13.4 % (20.0-40.0); MEAN CELL VOLUME 93.4 fl (81.0-99.0); MEAN CORPUSCULAR HEMOGLOBIN 30.8 pg (27.0-31.0); MEAN PLATELET VOLUME 9.4 fl (7.2-11.7); MONO # 0.4 K/uL (0.0-0.8); NEUT # 7.3 K/uL (1.8-7.0); NEUT % 82.5 % (50.0-75.0); RED CELL DISTRIBUTION WIDTH 14.3 % (11.5-14.5); WHITE BLOOD COUNT 8.8 K/uL (4.8-10.8)
[2016-08-10 08:27] LABS: ALB/GLOB RATIO 0.9 (1.0-2.1); ALKALINE PHOSPHATASE 66 U/L (38-126); ALT/SGPT 30 U/L (9-52); AST/SGOT 27 U/L (14-36); BILIRUBIN,TOTAL 0.1 mg/dl (0.2-1.3); BLOOD UREA NITROGEN 12 mg/dl (7-17); CALCIUM 8.9 mg/dL (8.4-10.2); CARBON DIOXIDE 29 mmol/L (22-30); CHLORIDE 97 mmol/L (98-107); GFR AFRICAN-AMERICAN > 60; GLUCOSE,RANDOM 124 mg/dL (65-105); POTASSIUM 4.5 MMOL/L (3.6-5.0); SODIUM 134 mmol/l (132-148); TOTAL PROTEIN 7.3 G/DL (6.3-8.2)
[2016-08-10] MEDS: guaiFENesin-DM 600-30 mg ER Tab PO SCH (09:24)
[2016-08-10] MEDS: Azithromycin 500 MG in Sodium Chloride 0.9% 250 ML IVPB SCH (10:20)
[2016-08-10] MEDS: Menthol/Methyl Salicylate Oinment TOP PRN (13:26)
--- NOTE | 2016-08-11 21:17 | CP.PCM.DIS ---
Provider - Provider Date of Admission: 08/08/16 12:32 Attending physician: Eveline Batista MD Time Spent in preparation of Discharge (in minutes): 15 Diagnosis - Discharge Diagnosis (1) DVT prophylaxis Status: Acute (2) Heroin abuse Status: Acute (3) Exacerbation of asthma Status: Acute (4) Pneumonia Status: Acute Priority: High Hospital Course - Lab Results Lab Results: Most Recent Lab Values WBC 8.8 K/uL (4.8-10.8) 08/10/16 07:45 RBC 3.73 Mil/uL (3.80-5.20) L 08/10/16 07:45 Hgb 11.5 g/dL (12.0-16.0) L 08/10/16 07:45 Hct 34.8 % (34.0-47.0) 08/10/16 07:45 MCV 93.4 fl (81.0-99.0) 08/10/16 07:45 MCH 30.8 pg (27.0-31.0) 08/10/16 07:45 MCHC 33.0 g/dL (33.0-37.0) 08/10/16 07:45 RDW 14.3 % (11.5-14.5) 08/10/16 07:45 Plt Count 185 K/uL (130-400) 08/10/16 07:45 MPV 9.4 fl (7.2-11.7) 08/10/16 07:45 Neut % (Auto) 82.5 % (50.0-75.0) H 08/10/16 07:45 Lymph % (Auto) 13.4 % (20.0-40.0) L 08/10/16 07:45 Mcclain % (Auto) 4.0 % (0.0-10.0) 08/10/16 07:45 Eos % (Auto) 0.0 % (0.0-4.0) 08/10/16 07:45 Baso % (Auto) 0.1 % (0.0-2.0) 08/10/16 07:45 Neut # 7.3 K/uL (1.8-7.0) H 08/10/16 07:45 Lymph # 1.2 K/uL (1.0-4.3) 08/10/16 07:45 Mcclain # 0.4 K/uL (0.0-0.8) 08/10/16 07:45 Eos # 0.0 K/uL (0.0-0.7) 08/10/16 07:45 Baso # 0.0 K/uL (0.0-0.2) 08/10/16 07:45 pO2 59 mm/Hg (30-55) H 08/07/16 19:00 VBG pH 7.39 (7.32-7.43) 08/07/16 19:00 VBG pCO2 44 mmHg (40-60) 08/07/16 19:00 VBG HCO3 25.8 mmol/L 08/07/16 19:00 VBG Total CO2 28.0 mmol/L (22-28) 08/07/16 19:00 VBG O2 Sat (Calc) 95.3 % (40-65) H 08/07/16 19:00 VBG Base Excess 1.3 mmol/L (0.0-2.0) 08/07/16 19:00 VBG Potassium 3.9 mmol/L (3.6-5.2) 08/07/16 19:00 Sodium 127.0 mmol/L (132-148) L 08/07/16 19:00 Chloride 100.0 mmol/L (98-107) 08/07/16 19:00 Glucose 104 mg/dL (65-105) 08/07/16 19:00 Lactate 0.6 mmol/L (0.7-2.1) L 08/07/16 19:00 FiO2 21.0 % 08/07/16 19:00 Sodium 134 mmol/l (132-148) 08/10/16 07:45 Potassium 4.5 MMOL/L (3.6-5.0) 08/10/16 07:45 Chloride 97 mmol/L (98-107) L 08/10/16 07:45 Carbon Dioxide 29 mmol/L (22-30) 08/10/16 07:45 Anion Gap 13 (10-20) 08/10/16 07:45 BUN 12 mg/dl (7-17) 08/10/16 07:45 Creatinine 0.5 mg/dL (0.7-1.2) L 08/10/16 07:45 Est GFR ( Amer) > 60 08/10/16 07:45 Est GFR (Non-Af Amer) > 60 08/10/16 07:45 Random Glucose 124 mg/dL (65-105) H 08/10/16 07:45 Calcium 8.9 mg/dL (8.4-10.2) 08/10/16 07:45 Total Bilirubin 0.1 mg/dl (0.2-1.3) L 08/10/16 07:45 AST 27 U/L (14-36) 08/10/16 07:45 ALT 30 U/L (9-52) 08/10/16 07:45 Alkaline Phosphatase 66 U/L (38-126) 08/10/16 07:45 Total Protein 7.3 G/DL (6.3-8.2) 08/10/16 07:45 Albumin 3.5 g/dL (3.5-5.0) 08/10/16 07:45 Globulin 3.9 gm/dL (2.2-3.9) 08/10/16 07:45 Albumin/Globulin Ratio 0.9 (1.0-2.1) L 08/10/16 07:45 Venous Blood Potassium 3.9 mmol/L (3.6-5.2) 08/07/16 19:00 Urine Opiates Screen Negative (NEGATIVE) 08/07/16 19:30 Urine Methadone Screen Positive (NEGATIVE) H 08/07/16 19:30 Ur Barbiturates Screen Negative (NEGATIVE) 08/07/16 19:30 Ur Phencyclidine Scrn Negative (NEGATIVE) 08/07/16 19:30 Ur Amphetamines Screen Negative (NEGATIVE) 08/07/16 19:30 U Benzodiazepines Scrn Negative (NEGATIVE) 08/07/16 19:30 U Oth Cocaine Metabols Negative (NEGATIVE) 08/07/16 19:30 U Cannabinoids Screen Negative (NEGATIVE) 08/07/16 19:30 Influenza Typ A,B (EIA) Negative for flu a/b (NEGATIVE) 08/07/16 20:45 Discharge Exam - Head Exam Head Exam: ATRAUMATIC, NORMAL INSPECTION, NORMOCEPHALIC Discharge Plan - Discharge Medications Prescriptions: Albuterol HFA [Ventolin HFA 90 mcg/actuation (8 g)] 1 - 2 puff IH Q6H PRN #1 inhaler PRN Reason: Wheezing Amoxicillin/Clavulanate [Augmentin 875 MG-125 MG] 1 tab PO BID #14 tab guaiFENesin/Dextromethorphan [Mucinex-DM 600-30 mg] 2 tab PO BID #30 tab Menthol/Methyl Salicylate [BenGay] 1 applic TOP QID PRN #1 unit PRN Reason: pain Nicotine 7 mg/24 hr [Nicoderm CQ] 1 patch TD DAILY #14 patch predniSONE [Prednisone] 10 mg PO DAILY #60 tab - Follow Up Plan Condition: FAIR Disposition: HOME/ ROUTINE Instructions: Asthma (DC) Additional Instructions: doing well, no distress for dc final dx-asthma exacerbation
== END 2016-08-10 14:36 | disposition home or self-care (01) | DRG 89 ==
LOC: H.ER 18:07 → H.ERHOLD 20:10 → H.TEL 21:19 → OBSVTOIN 08-08 12:32 → H.MEDSURG1 08-09 14:20
PROVIDERS: ADMIT Family Medicine; ATTEND Family Medicine
DX: J15.9 Unspecified bacterial pneumonia (principal); R09.02 Hypoxemia; J45.21 Mild intermittent asthma with (acute) exacerbation; F11.10 Opioid abuse, uncomplicated; N18.9 Chronic kidney disease, unspecified; F17.210 Nicotine dependence, cigarettes, uncomplicated

== ENCOUNTER 2016-10-18 14:42 | Emergency (ER) | payer MEDICAID ==
[2016-10-18 14:42] VITALS: BMI 20.1
[2016-10-18 14:48] VITALS: PULSE 64; TEMP 97.6
[2016-10-18 15:03] VITALS: BP 138/78
[2016-10-18] MEDS ORDERED: Albuterol-Ipratrop 3 mg / 0.5 (3 ml) UD INH STA ×3 (15:05→16:25)
[2016-10-18 15:12] VITALS: RESP 18
--- NOTE | 2016-10-18 15:19 | ED PDOC ---
HPI: SOB/CHF/COPD Time Seen by Provider: 10/18/16 15:10 Chief Complaint (Nursing): Shortness Of Breath History Per: Patient History/Exam Limitations: clinical condition Onset/Duration Of Symptoms: Mins Current Symptoms Are (Timing): Still Present Quality: Sharp Exacerbating Factor(s): Coughing Current Respiratory Medications: See Home Med List Severity: Moderate Associated Symptoms: Chest Pain, Productive Cough. denies: Fever, Chills, Sweating, Bloody Cough, Heart Racing, Leg/Calf Pain, Ankle/Leg Swelling, Dizziness, Light-headedness Additional Complaint(s): CC: dyspnea HPI: 51 y/o woman w/ PMH of severe persistent asthma presents to the ED w/ dyspnea secondary to acute asthma exacerbation. The patient reports dyspnea started about 1 hour ago while she was at her [id number]'s house. The patient was speaking with her in-law when he began to have shortness of breath. The patient also complains of non-bloody productive cough w/ green/yellow sputum. The patient also has sharp pleuritic chest pain with inspiration. The patient used x2 puffs of her rescue inhaler about 30 minutes ago w/ no relief. The patient usually treats asthma w/ albuterol pump and home nebulizer. The patient received methadone treatment today @ noon as per regular schedule ( clinic in [place], receives treatment daily @ noon). The patient continues to smoke cigarettes at 0.5 pack/day but denies alcohol use. The patient denies headaches, dizziness, abdominal pain, n/v/d, dysuria, and fevers. PMH: severe persistent asthma (ventolin and nebulizer at home) PSH: right kidney (stones removed) SOC: smokes 0.5 pack/day, denies alcohol, on methadone 7 days a week at noon in [facility] ROS: negative for 12 points assessed unless otherwise reported in HPI - Risk Factors PE Risk Factors: Neg: Extremity Immobilization/Fx, Decreased Mobilty /Activity, Recent Major Surgery, Active Cancer, Previous DVT, Previous PE, CHF, Venous Stasis, Estrogen Usage, Recent Major Trauma Past Medical History Vital Signs: Last Vital Signs Temp 97.6 F 10/18/16 14:44 Pulse 64 10/18/16 14:44 Resp 18 10/18/16 15:10 BP 138/78 10/18/16 15:03 Pulse Ox 96 10/18/16 17:21 - Medical History PMH: Asthma, Back Problems, Bronchitis, Kidney Stones (RIGHT), Chronic Kidney Disease Denies: Diabetes, Hepatitis, HIV, HTN, Seizures, Sexually Transmitted Disease - Family History Family History: States: Unknown Family Hx - Immunization History Hx Tetanus Toxoid Vaccination: Yes Hx Influenza Vaccination: Yes Hx Pneumococcal Vaccination: Yes - Home Medications Home Medications: Ambulatory Orders Medication Instructions Recorded Albuterol HFA [Ventolin HFA 90 1 - 2 puff IH Q6H PRN #1 inhaler 08/10/16 mcg/actuation (8 g)] Methadone 60 mg PO DAILY tab 08/10/16 Albuterol 0.083% [Albuterol 3 ml IH Q4 #150 neb 10/01/16 Sulfate 3 Ml] Albuterol HFA [Ventolin HFA 90 2 puff IH Q6 #1 inhaler 10/01/16 mcg/actuation (8 g)] Prednisone [Deltasone] 3 tab PO DAILY #12 tablet 10/01/16 Albuterol HFA [Ventolin HFA 90 2 puff IH [id number] PRN #1 bottle 10/18/16 mcg/actuation (8 g)] Prednisone 50 mg PO DAILY #4 tab 10/18/16 - Allergies Allergies/Adverse Reactions: Allergies Allergy/AdvReac Type Severity Reaction Status Date / Time No Known Allergies Allergy Verified 08/07/16 20:02 Curb-65 Severity Score - CURB-65 Severity Score Confusion: No Bun >19mg/dl (>7mmol/L): No Respiratory Rate greater than/equal to 30: No Systolic BP <90 or Diastolic BP less than/equal 60mmHg: No Age >64: No Curb-65 Score: 0 Percentage 30-day mortality: 0.6% Wells Criteria for PE - Wells Criteria for Pulmonary Embolism Clinical Signs and Symptoms of DVT: No P.E is #1 Diagnosis, or Equally Likely: No Heart Rate >100: No Immobilization at least 3 days;Surgery previous 4 weeks: No Previous, objectively diagnosed PE or DVT: No Hemoptysis: No Malignancy w/treatment within 6 months, or palliative: No Total Score: 0 Review of Systems ROS Statement: Except As Marked, All Systems Reviewed And Found Negative Constitutional: Positive for: Weight loss. Negative for: Fever, Chills, Sweats Cardiovascular: Negative for: Palpitations, Edema Respiratory: Positive for: Cough, Shortness of Breath, Pleuritic Pain, Sputum, Wheezing. Negative for: Hemoptysis Gastrointestinal: Negative for: Nausea, Vomiting, Abdominal Pain, Diarrhea Genitourinary Female: Negative for: Dysuria Neurological: Negative for: Headache, Dizziness Psych: Positive for: Anxiety Physical Exam - Physical Exam Appears: Positive for: No Acute Distress (patient somnolent during interview) Head Exam: Positive for: ATRAUMATIC, NORMAL INSPECTION, NORMOCEPHALIC Skin: Positive for: Normal Color, Warm, Dry Cardiovascular/Chest: Positive for: Regular Rate, Rhythm, Edema, Tachycardia Respiratory: Positive for: Rhonchi, Wheezing (diffuse wheeze). Negative for: Accessory Muscle Use, Respiratory Distress Pulses-Carotid (L): 2+ Pulses-Carotid (R): 2+ Pulses-Radial (L): 2+ Pulses-Radial (R): 2+ Gastrointestinal/Abdominal: Positive for: Bowel Sounds. Negative for: Tenderness Extremity: Negative for: Tenderness, Pedal Edema, Calf Tenderness - Laboratory Results Result Diagrams: 10/18/16 15:25 10/18/16 15:25 - ECG O2 Sat by Pulse Oximetry: 96 Medical Decision Making Medical Decision Makin51 y/o woman w/ PMH of severe persistent asthma presents to the ED w/ dyspnea secondary to acute asthma exacerbation CBC w/ diff: mild anemia Hb 11.6 (baseline Hb) CMP: hypokalemic K+ 3.5 urine preg: menopausal blood culture EKG: NSR, no ST-elevation/depression, no inverted T waves, no prolonged QT interval, no prolonged segments CXR: no acute pulmonary disease process peak flow duoneb x2 methylprednisolone 125 mg IVP re-evaluated 16:40 feels better lung sounds less wheeze but still course k-dur 20 mg PO given duoneb x1 Discharge to home Disposition - Clinical Impression Clinical Impression: Acute asthma exacerbation, Exacerbation of asthma - Patient ED Disposition Is Patient to be Admitted: No Discussed With : Ene Sawyer Counseled Patient/Family Regarding: Studies Performed, Diagnosis, Need For Followup, Smoking Cessation - Disposition Referrals: [facility] [Outside] Disposition: Routine/Home Disposition Time: 17:20 Condition: STABLE Prescriptions: Albuterol HFA [Ventolin HFA 90 mcg/actuation (8 g)] 2 puff IH [id number] PRN #1 bottle PRN Reason: Shortness Of Breath Prednisone 50 mg PO DAILY #4 tab Instructions: Asthma (GEN), Bronchospasm (DC) Print Language: ICELANDIC - POA Present On Arrival: None
--- NOTE | 2016-10-18 15:20 | RAD ---
HISTORY: SOB COMPARISON: 08/07/2016. TECHNIQUE: Chest PA and lateral FINDINGS: LUNGS: Hyperinflation, manifestations of COPD. No active pulmonary disease. PLEURA: No significant pleural effusion identified. No pneumothorax apparent. CARDIOVASCULAR: Normal. OSSEOUS STRUCTURES: No significant abnormalities.Scoliosis, secondary degenerative change at multiple levels. VISUALIZED UPPER ABDOMEN: Normal. OTHER FINDINGS: None. IMPRESSION: No active disease. No significant interval change compared to the prior examination(s).
[2016-10-18] MEDS ORDERED: Albuterol-Ipratrop 3 mg / 0.5 (3 ml) UD ONE ×2 (15:31→16:47)
[2016-10-18 15:37] LABS: BASO # 0.1 K/uL (0.0-0.2); EOS # 0.1 K/uL (0.0-0.7); EOS % 1.1 % (0.0-4.0); HEMOGLOBIN 11.6 g/dL (12.0-16.0); LYMPH % 29.2 % (20.0-40.0); MEAN CELL VOLUME 92.5 fl (81.0-99.0); MEAN CORPUSCULAR HEMOGLOBIN 30.2 pg (27.0-31.0); MEAN CORPUSCULAR HGB CONC 32.7 g/dL (33.0-37.0); MEAN PLATELET VOLUME 8.3 fl (7.2-11.7); MONO # 0.6 K/uL (0.0-0.8); MONO % 9.5 % (0.0-10.0); NEUT # 4.1 K/uL (1.8-7.0); NEUT % 59.2 % (50.0-75.0); RBC 3.83 Mil/uL (3.80-5.20); RED CELL DISTRIBUTION WIDTH 14.5 % (11.5-14.5); WHITE BLOOD COUNT 6.9 K/uL (4.8-10.8)
[2016-10-18 15:57] LABS: ALB/GLOB RATIO 1.1 (1.0-2.1); ALBUMIN 3.5 g/dL (3.5-5.0); ALT/SGPT 39 U/L (9-52); AST/SGOT 30 U/L (14-36); BLOOD UREA NITROGEN 10 mg/dl (7-17); CALCIUM 8.4 mg/dL (8.4-10.2); GFR AFRICAN-AMERICAN > 60; GFR NON-AFRICAN AMERICAN > 60
[2016-10-18] MEDS ORDERED: Potassium Chloride 20 mEq ER Tab PO STA (16:16)
[2016-10-18] MEDS ORDERED: Potassium Chloride 20 mEq ER Tab PO ONE (16:43)
[2016-10-18] MEDS ORDERED: Albuterol 0.083% Inhal Sol (2.5 mg/3 mL) UD ONE (16:43)
[2016-10-18 18:03] VITALS: O2SAT 95
--- NOTE | 2016-10-19 14:53 | CARD ---
APPROVED REPORT EKG Measurement Heart [id number] <Conclusion> Normal sinus rhythm Minimal voltage criteria for LVH, may be normal variant Borderline ECG
== END 2016-10-18 18:22 | disposition home or self-care (01) ==
LOC: H.ER 14:42
DX: J45.901 Unspecified asthma with (acute) exacerbation (principal)

== ENCOUNTER 2016-11-04 20:26 | Emergency (ER) | payer MEDICAID ==
[2016-11-04 20:26] VITALS: BMI 20.1
[2016-11-04 20:38] VITALS: RESP 18; O2SAT 96
[2016-11-04] MEDS ORDERED: Albuterol-Ipratrop 3 mg / 0.5 (3 ml) UD INH STA ×2 (20:43→20:47)
[2016-11-04] MEDS ORDERED: Magnesium Sulfate 2 GM in Sodium Chloride 0.9% 100 ML IV STA (20:43)
[2016-11-04] MEDS ORDERED: Magnesium Sulfate 2 gm/50 ml 2 GM/50 ML BAG ONE (20:50)
[2016-11-04 21:07] LABS: BASO # 0.1 K/uL (0.0-0.2); BASO % 0.6 % (0.0-2.0); EOS # 0.1 K/uL (0.0-0.7); EOS % 0.7 % (0.0-4.0); HEMOGLOBIN 13.4 g/dL (12.0-16.0); LYMPH # 2.3 K/uL (1.0-4.3); LYMPH % 26.1 % (20.0-40.0); MEAN CELL VOLUME 92.3 fl (81.0-99.0); MEAN CORPUSCULAR HEMOGLOBIN 30.9 pg (27.0-31.0); MEAN CORPUSCULAR HGB CONC 33.5 g/dL (33.0-37.0); MEAN PLATELET VOLUME 8.1 fl (7.2-11.7); MONO # 0.6 K/uL (0.0-0.8); MONO % 6.8 % (0.0-10.0); NEUT # 5.8 K/uL (1.8-7.0); NEUT % 65.8 % (50.0-75.0); NRBC % 0.1 % (0.0-0.0); RBC 4.32 Mil/uL (3.80-5.20); RED CELL DISTRIBUTION WIDTH 14.9 % (11.5-14.5); WHITE BLOOD COUNT 8.9 K/uL (4.8-10.8)
[2016-11-04] MEDS ORDERED: Magnesium Sulfate 2 gm/50 ml 2 GM/50 ML BAG IVPB ONE (21:07)
[2016-11-04 21:08] LABS: ABG ALLEN TEST YES; ARTERIAL BLOOD GAS HCO3 28.3 mmol/L (21-28); ARTERIAL BLOOD GAS O2 SAT 99.4 % (95-98); ARTERIAL BLOOD GAS PCO2 57 mm/Hg (35-45); ARTERIAL BLOOD GAS PH 7.35 (7.35-7.45); ARTERIAL BLOOD GAS PO2 140 mm/Hg (80-100); ARTERIAL BLOOD GAS TCO2 33.2 mmol/L (22-28)
[2016-11-04 21:17] LABS: BLOOD UREA NITROGEN 13 mg/dl (7-17); CALCIUM 8.8 mg/dL (8.4-10.2); GFR AFRICAN-AMERICAN > 60; GFR NON-AFRICAN AMERICAN > 60
--- NOTE | 2016-11-04 21:17 | ED PDOC ---
HPI: SOB/CHF/COPD Time Seen by Provider: 11/04/16 20:35 Chief Complaint (Nursing): Shortness Of Breath Chief Complaint (Provider): Shortness of breath History Per: Patient, EMS History/Exam Limitations: no limitations Onset/Duration Of Symptoms: Hrs (since this morning, 11x hours prior to arrival) Current Symptoms Are (Timing): Still Present Initiating Event: Other (patient smoked crack cocaine this morning) Severity: Moderate Additional Complaint(s): 51 year old female with a pertinent medical history of asthma is brought into the ED by EMS with complaints of shortness of breath. Patient is an active smoker, and this morning she smoked crack cocaine, which is when she started experiencing shortness of breath. En-route to the hospital, patient was given 125mg solu-medrol and a dose of duoneb. Upon arrival to the ED she reported feeling slightly better. She denies having fevers, chills, chest pain, any other symptoms. PMD: Billy Novak MD Past Medical History Reviewed: Historical Data, Nursing Documentation, Vital Signs Vital Signs: Last Vital Signs Temp 98.7 F 11/04/16 20:37 Pulse 91 H 11/04/16 20:37 Resp 18 11/04/16 20:38 BP 149/94 H 11/04/16 20:37 Pulse Ox 96 11/04/16 21:26 - Medical History PMH: Asthma, Back Problems, Bronchitis, Kidney Stones (RIGHT), Chronic Kidney Disease Denies: Diabetes, Hepatitis, HIV, HTN, Seizures, Sexually Transmitted Disease - Family History Family History: States: Unknown Family Hx - Social History Current smoker - smoking cessation education provided: Yes Drugs: Other (crack cocaine, heroin) - Immunization History Hx Tetanus Toxoid Vaccination: Yes Hx Influenza Vaccination: Yes Hx Pneumococcal Vaccination: Yes - Home Medications Home Medications: Ambulatory Orders Medication Instructions Recorded Albuterol HFA [Ventolin HFA 90 1 - 2 puff IH Q6H PRN #1 inhaler 08/10/16 mcg/actuation (8 g)] Methadone 60 mg PO DAILY tab 08/10/16 Albuterol 0.083% [Albuterol 3 ml IH Q4 #150 neb 10/01/16 Sulfate 3 Ml] Albuterol HFA [Ventolin HFA 90 2 puff IH Q6 #1 inhaler 06/19/17 mcg/actuation (8 g)] Prednisone [Deltasone] 3 tab PO DAILY #12 tablet 10/01/16 Albuterol HFA [Ventolin HFA 90 2 puff IH [id number] PRN #1 bottle 10/18/16 mcg/actuation (8 g)] Prednisone 50 mg PO DAILY #4 tab 10/18/16 - Allergies Allergies/Adverse Reactions: Allergies Allergy/AdvReac Type Severity Reaction Status Date / Time No Known Allergies Allergy Verified 08/07/16 20:02 Review of Systems ROS Statement: Except As Marked, All Systems Reviewed And Found Negative Constitutional: Negative for: Fever, Chills Cardiovascular: Negative for: Chest Pain Respiratory: Positive for: Shortness of Breath Physical Exam - Reviewed Nursing Documentation Reviewed: Yes Vital Signs Reviewed: Yes - Physical Exam Appears: Positive for: Non-toxic, No Acute Distress. Negative for: Well (thin appearing) Head Exam: Positive for: ATRAUMATIC, NORMOCEPHALIC Skin: Positive for: Normal Color, Warm, Dry Eye Exam: Positive for: Normal appearance Cardiovascular/Chest: Positive for: Regular Rate, Rhythm Respiratory: Positive for: Wheezing (diffuse bilateral wheezing). Negative for : Respiratory Distress Extremity: Positive for: Normal ROM. Negative for: Tenderness, Deformity, Swelling Neurologic/Psych: Positive for: Alert, Oriented (3x, speaking in full sentences) - Laboratory Results Result Diagrams: 11/04/16 21:04 11/04/16 21:04 - ECG O2 Sat by Pulse Oximetry: 96 (RA) Pulse Ox Interpretation: Normal Nebulizer Treatments/Peak Flow - Duonebs Number of Bronchodilator Doses given?: 3 (1x dose enroute to ED, 2x doses in ED) - Pre/Post Peak Flow Pre Treatment Peak Flow: 2 (in ED) Post treatment Peak Flow: 2 (in ED) - Steroid Treatment Steroid: IV (125mg solumedrol administered by EMS) - Clinical Response Clinical Response: Improved Medical Decision Making Medical Decision Makin:35 Initial impression: 51 year old female with asthma exacerbation and crack cocaine abuse. Initial plan: * ABG shock panel * EKG * BMP * drug screen urinary * CBC * duoneb 3ml INH 2x times * magnesium sulfate 2gm sodium chloride .9% 100ml IV * magnesium sulfate 2gm in 50ml water IVPB * peak flow pre post treatment * urinalysis * reevaluation 2230 Pt's wheezing vastly improved. Pt. is feeling better, will prescribe prednisone and d/c home with return precautions. Counseled patient on smoking and drug cessation. Told to f/u w/ PMD in 1-2 days. Scribe Attestation: Documented by Nerissa Bales, acting as a scribe for Steven Ruffin MD. Provider Scribe Attestation: All medical record entries made by the Scribe were at my direction and personally dictated by me. I have reviewed the chart and agree that the record accurately reflects my personal performance of the history, physical exam, medical decision making, and the department course for this patient. I have also personally directed, reviewed, and agree with the discharge instructions and disposition. Disposition - Clinical Impression Clinical Impression: COPD exacerbation - Patient ED Disposition Is Patient to be Admitted: No - Disposition Referrals: Salbador Novak MD [Staff Provider] - Disposition: Routine/Home Disposition Time: 22:32 Condition: STABLE
[2016-11-04 22:52] VITALS: BP 131/72; PULSE 83; TEMP 98
--- NOTE | 2016-11-05 11:09 | CARD ---
APPROVED REPORT EKG Measurement Heart [id number] <Conclusion> Normal sinus rhythm Possible Left atrial enlargement Left ventricular hypertrophy Abnormal ECG
== END 2016-11-04 22:54 | disposition home or self-care (01) ==
LOC: H.ER 20:26
DX: J44.1 Chronic obstructive pulmonary disease with (acute) exacerbation (principal); F14.10 Cocaine abuse, uncomplicated; J45.901 Unspecified asthma with (acute) exacerbation; F17.200 Nicotine dependence, unspecified, uncomplicated

== ENCOUNTER 2016-11-25 00:26 | Emergency (ER) | payer MEDICAID ==
[2016-11-25 00:27] VITALS: BMI 20.1
[2016-11-25 00:54] VITALS: TEMP 98.6
[2016-11-25] MEDS ORDERED: Albuterol-Ipratrop 3 mg / 0.5 (3 ml) UD INH STA (00:55)
[2016-11-25] MEDS ORDERED: methylPREDNISolone 125 MG in Sodium Chloride 0.9% 50 ML IVPB STA (00:55)
[2016-11-25] MEDS ORDERED: Magnesium Sulfate 2 gm/50 ml 2 GM/50 ML BAG IVPB ONE (00:56)
[2016-11-25] MEDS ORDERED: Albuterol-Ipratrop 3 mg / 0.5 (3 ml) UD ONE (00:59)
--- NOTE | 2016-11-25 00:59 | ED PDOC ---
HPI: SOB/CHF/COPD Time Seen by Provider: 11/25/16 00:41 Chief Complaint (Nursing): Shortness Of Breath Chief Complaint (Provider): Shortness of Breath History Per: Patient History/Exam Limitations: no limitations Onset/Duration Of Symptoms: Hrs Current Symptoms Are (Timing): Still Present Initiating Event: Other Current Respiratory Medications: See Home Med List Severity: Moderate Pain Scale Rating Of: 0 Associated Symptoms: denies: Fever, Chills, Sweating, Chest Pain, Dizziness Similar Symptoms Previously: yes Recently: Seen In ED Additional History Per: Patient Additional Complaint(s): 51 y/o female with pmhx of Asthma, Back Problems, Bronchitis, COPD, Kidney Stones (RIGHT), Chronic Kidney Disease presents to the ED with cc of shortness of breath, states she was recently discharged from the hospital and has been taking her medications as prescribed, this morning she took her steriod and around 10pm when she started to feel short of breath she took her another inhaler that she does not remember the name, but did not feel better, so came to the ED. Denies any associated chest pain, dizziness, numbness, abdominal pain , dysuria or cough Past Medical History Vital Signs: Last Vital Signs Temp 98.6 F 11/25/16 00:40 Pulse 88 11/25/16 00:40 Resp 22 11/25/16 01:22 BP 130/93 H 11/25/16 00:40 Pulse Ox 98 11/25/16 02:35 - Medical History PMH: Asthma, Back Problems, Bronchitis, COPD, Kidney Stones (RIGHT), Chronic Kidney Disease Denies: Diabetes, Hepatitis, HIV, HTN, Seizures, Sexually Transmitted Disease - Family History Family History: States: Unknown Family Hx - Immunization History Hx Tetanus Toxoid Vaccination: Yes Hx Influenza Vaccination: Yes Hx Pneumococcal Vaccination: Yes - Home Medications Home Medications: Ambulatory Orders Medication Instructions Recorded Methadone 60 mg PO DAILY tab 08/10/16 Albuterol HFA [Ventolin HFA 90 2 puff IH [id number] PRN #1 bottle 11/09/16 mcg/actuation (8 g)] Albuterol HFA [Ventolin HFA 90 1 - 2 puff IH Q6 PRN #1 inhaler 11/25/16 mcg/actuation (8 g)] Methylprednisolone [Medrol Dosepak] 4 mg PO ASDIR #1 pkg 11/25/16 - Allergies Allergies/Adverse Reactions: Allergies Allergy/AdvReac Type Severity Reaction Status Date / Time No Known Allergies Allergy Verified 11/11/16 14:25 Review of Systems Constitutional: Negative for: Fever, Chills Cardiovascular: Negative for: Chest Pain, Palpitations Respiratory: Positive for: Shortness of Breath. Negative for: Cough, Pleuritic Pain Gastrointestinal: Negative for: Vomiting, Abdominal Pain Genitourinary Female: Negative for: Dysuria, Frequency Physical Exam - Physical Exam Appears: Positive for: Uncomfortable Cardiovascular/Chest: Positive for: Regular Rate, Rhythm, Chest Non Tender. Negative for: JVD, Murmur Respiratory: Positive for: Crackles, Wheezing Gastrointestinal/Abdominal: Positive for: Normal Exam, Bowel Sounds, Soft. Negative for: Tenderness Extremity: Negative for: Tenderness, Pedal Edema Neurologic/Psych: Positive for: Alert, drapery head former II-XII, Oriented - Laboratory Results Result Diagrams: 11/25/16 01:15 11/25/16 01:15 - ECG O2 Sat by Pulse Oximetry: 98 - Radiology X-Ray: Interpreted by Nm X-Ray Interpretation: No Acute Disease - Progress ED Course And Treament: cbc. cmp, urine tox albuterol neb X3 125mg solumedrol once Mg x1 chest xray re-evaluate At re-evaluation pt lungs improved greatly, reports feeling much better; pt is stable for discharge Nebulizer Treatments/Peak Flow - Duonebs Number of Bronchodilator Doses given?: 3 - Steroid Treatment Steroid: IV - Clinical Response Clinical Response: Improved Disposition - Clinical Impression Clinical Impression: Moderate COPD (chronic obstructive pulmonary disease) - Patient ED Disposition Is Patient to be Admitted: No - Disposition Disposition: Routine/Home Disposition Time: 03:10 Condition: IMPROVED Prescriptions: Albuterol HFA [Ventolin HFA 90 mcg/actuation (8 g)] 1 - 2 puff IH Q6 PRN #1 inhaler PRN Reason: Shortness Of Breath Methylprednisolone [Medrol Dosepak] 4 mg PO ASDIR #1 pkg Instructions: COPD (Chronic Obstructive Pulmonary Disease) (ED) Forms: [employer] (Togolese)
[2016-11-25] MEDS ORDERED: Magnesium Sulfate 2 gm/50 ml 2 GM/50 ML BAG ONE (01:00)
[2016-11-25] MEDS: Albuterol-Ipratrop 3 mg / 0.5 (3 ml) UD INH STA (01:04)
[2016-11-25 01:29] LABS: HEMOGLOBIN 12.4 g/dL (12.0-16.0); MEAN CORPUSCULAR HEMOGLOBIN 30.7 pg (27.0-31.0); RBC 4.04 Mil/uL (3.80-5.20); RED CELL DISTRIBUTION WIDTH 13.9 % (11.5-14.5); WHITE BLOOD COUNT 8.9 K/uL (4.8-10.8)
[2016-11-25 01:36] LABS: ALB/GLOB RATIO 1.2 (1.0-2.1); ALBUMIN 3.7 g/dL (3.5-5.0); ALT/SGPT 35 U/L (9-52); AST/SGOT 32 U/L (14-36); BLOOD UREA NITROGEN 12 mg/dl (7-17); CALCIUM 9.2 mg/dL (8.4-10.2); GFR AFRICAN-AMERICAN > 60; GFR NON-AFRICAN AMERICAN > 60
[2016-11-25 01:43] LABS: BARBITURATES, UR NEGATIVE (NEGATIVE); BENZODIAZEPINES, UR NEGATIVE (NEGATIVE); OPIATES, UR POSITIVE (NEGATIVE); PHENCYCLIDINE, UR NEGATIVE (NEGATIVE)
[2016-11-25 05:12] VITALS: BP 137/77; PULSE 75; RESP 16; O2SAT 97
--- NOTE | 2016-11-25 08:34 | RAD ---
HISTORY: sob COMPARISON: No prior. FINDINGS: LUNGS: No active pulmonary disease. PLEURA: No significant pleural effusion identified, no pneumothorax apparent. CARDIOVASCULAR: Normal. OSSEOUS STRUCTURES: No significant abnormalities. VISUALIZED UPPER ABDOMEN: Normal. OTHER FINDINGS: Bibasilar nodular densities possibly representing nipple . Recommend repeat with nipple markers. IMPRESSION: Bibasilar nodular densities possibly representing nipple . Recommend repeat with nipple markers.
== END 2016-11-25 06:25 | disposition home or self-care (01) ==
LOC: H.ER 00:26
DX: J44.9 Chronic obstructive pulmonary disease, unspecified (principal); F17.210 Nicotine dependence, cigarettes, uncomplicated; F19.10 Other psychoactive substance abuse, uncomplicated

== ENCOUNTER 2017-11-09 22:09 | Emergency (ER) | payer MEDICAID, OTHER ==
[2017-11-09 22:10] VITALS: BMI 23.8
[2017-11-09 22:38] VITALS: RESP 18
[2017-11-09] MEDS ORDERED: Albuterol-Ipratrop 3 mg / 0.5 (3 ml) UD INH STA ×2 (22:46)
--- NOTE | 2017-11-09 22:49 | ED PDOC ---
HPI: SOB/CHF/COPD Time Seen by Provider: 11/09/17 22:42 Chief Complaint (Nursing): Shortness Of Breath Chief Complaint (Provider): SOB History Per: Patient History/Exam Limitations: no limitations Additional Complaint(s): Pt reports SOB and wheezing X 1 day, used MDI at home without relief. Denies fever, CP, cough. Past Medical History Reviewed: Nursing Documentation, Vital Signs Vital Signs: Last Vital Signs Temp 98.3 F 11/09/17 23:45 Pulse 86 11/09/17 23:45 Resp 18 11/09/17 23:45 BP 140/96 H 11/09/17 23:45 Pulse Ox 94 L 11/09/17 23:45 - Medical History PMH: Asthma, Back Problems, Bronchitis, COPD, Kidney Stones (RIGHT), Chronic Kidney Disease Denies: HIV, HTN, Seizures, Sexually Transmitted Disease - Family History Family History: States: Unknown Family Hx - Social History Current smoker - smoking cessation education provided: Yes - Immunization History Hx Tetanus Toxoid Vaccination: Yes Hx Influenza Vaccination: Yes Hx Pneumococcal Vaccination: Yes - Home Medications Home Medications: Ambulatory Orders Medication Instructions Recorded Albuterol HFA [Ventolin HFA 90 2 puff IH BID PRN 03/09/ mcg/actuation (8 g)] Albuterol 0.083% [Albuterol 3 ml IH BID 08/11/17 Sulfate 3 Ml] Albuterol Sulfate [Proair Hfa] 0.09 mg IH 5XD #1 inh 08/11/17 Albuterol/Ipratropium [Duoneb 3 6 ml IH Q4H PRN #100 neb 08/11/17 MG/3 Ml-0.5 MG/3 Ml 3 Ml] Spacer, Inhalation [Aerochamber] 1 dev IH DAILY #1 dev 08/11/17 Albuterol/Ipratropium [Duoneb 3 3 ml IH QID PRN #50 neb 09/24/17 MG/3 Ml-0.5 MG/3 Ml 3 Ml] Prednisone [Deltasone] 20 mg PO DAILY #5 tablet 09/24/17 Albuterol 0.083% [Albuterol 0.083% 3 ml IH Q6H PRN #30 neb 11/09/17 Inhal Maryam (2.5 mg/3 ml) UD] Albuterol HFA [Ventolin HFA 90 2 puff IH [id number] PRN #1 bottle 11/09/17 mcg/actuation (8 g)] Prednisone 50 mg PO DAILY #4 tab 11/09/17 - Allergies Allergies/Adverse Reactions: Allergies Allergy/AdvReac Type Severity Reaction Status Date / Time No Known Allergies Allergy Verified 11/09/17 22:36 Review of Systems Constitutional: Negative for: Fever, Chills Cardiovascular: Negative for: Chest Pain, Palpitations Respiratory: Positive for: Shortness of Breath, Wheezing. Negative for: Cough, Sputum Gastrointestinal: Negative for: Abdominal Pain Skin: Negative for: Rash, Lesions Neurological: Negative for: Headache Physical Exam - Reviewed Nursing Documentation Reviewed: Yes Vital Signs Reviewed: Yes - Physical Exam Appears: Positive for: Well (Speaking full sentences), No Acute Distress Skin: Positive for: Normal Color, Warm, Dry Eye Exam: Positive for: Normal appearance, EOMI, PERRL Cardiovascular/Chest: Positive for: Regular Rate, Rhythm Respiratory: Positive for: Wheezing. Negative for: Decreased Breath Sounds, Accessory Muscle Use, Rales, Respiratory Distress Extremity: Positive for: Normal ROM Neurologic/Psych: Positive for: Alert, Oriented - Laboratory Results Result Diagrams: 11/09/17 23:21 11/09/17 23:21 - ECG Interpretation Of ECG: NSR @ 83, SHERIN, LVH. O2 Sat by Pulse Oximetry: 95 - Radiology X-Ray: Interpreted by Ne X-Ray Interpretation: No Acute Disease - Progress Re-evaluation Time: 23:30 Condition: Improved Medical Decision Making Medical Decision Makin yo female with wheezing. - labs - EKG - CXR - Albuterol/atrovent nebs - Solumedrol Disposition - Clinical Impression Clinical Impression: Asthma exacerbation - Disposition Disposition: Routine/Home Disposition Time: 23:40 Condition: IMPROVED Additional Instructions: FOLLOW-UP WITH PMD WITHIN 2 DAYS FOR REEVALUATION. Prescriptions: Albuterol HFA [Ventolin HFA 90 mcg/actuation (8 g)] 2 puff IH [id number] PRN #1 bottle PRN Reason: Shortness Of Breath Albuterol 0.083% [Albuterol 0.083% Inhal Maryam (2.5 mg/3 ml) UD] 3 ml IH Q6H PRN # 30 neb PRN Reason: Shortness Of Breath Prednisone 50 mg PO DAILY #4 tab Instructions: Asthma in Adults Forms: [facility] (Ukrainian)
[2017-11-09 23:28] LABS: BASO # 0.1 K/uL (0.0-0.2); BASO % 0.7 % (0.0-2.0); EOS % 0.5 % (0.0-4.0); HEMOGLOBIN 14.2 g/dL (12.0-16.0); LYMPH # 2.3 K/uL (1.0-4.3); LYMPH % 23.8 % (20.0-40.0); MEAN CELL VOLUME 94.1 fl (81.0-99.0); MEAN CORPUSCULAR HEMOGLOBIN 31.5 pg (27.0-31.0); MEAN CORPUSCULAR HGB CONC 33.5 g/dL (33.0-37.0); MEAN PLATELET VOLUME 9.6 fl (7.2-11.7); MONO % 10.7 % (0.0-10.0); NEUT # 6.1 K/uL (1.8-7.0); NEUT % 64.3 % (50.0-75.0); NRBC % 0.1 % (0.0-0.0); RBC 4.51 Mil/uL (3.80-5.20); RED CELL DISTRIBUTION WIDTH 13.1 % (11.5-14.5); WHITE BLOOD COUNT 9.5 K/uL (4.8-10.8)
[2017-11-09 23:39] LABS: ALB/GLOB RATIO 1.3 (1.0-2.1); ALBUMIN 4.2 g/dL (3.5-5.0); ALT/SGPT 46 U/L (9-52); AST/SGOT 31 U/L (14-36); BLOOD UREA NITROGEN 10 mg/dl (7-17); CALCIUM 9.1 mg/dL (8.4-10.2); GFR AFRICAN-AMERICAN > 60; GFR NON-AFRICAN AMERICAN > 60
[2017-11-09 23:45] VITALS: BP 140/96; PULSE 86
[2017-11-10 05:46] VITALS: TEMP 98.3
--- NOTE | 2017-11-10 09:08 | RAD ---
Date of service: 11/09/2017 HISTORY: Wheezing COMPARISON: Chest radiograph dated 11/25/2016. TECHNIQUE: Chest PA and lateral FINDINGS: LUNGS: No active pulmonary disease. PLEURA: No significant pleural effusion identified. No pneumothorax apparent. CARDIOVASCULAR: Cardiomediastinal silhouette stably prior. OSSEOUS STRUCTURES: Scoliosis, unchanged. VISUALIZED UPPER ABDOMEN: Normal. OTHER FINDINGS: None. IMPRESSION: No active disease.
[2017-11-10 10:47] VITALS: O2SAT 95
--- NOTE | 2017-11-11 17:53 | CARD ---
APPROVED REPORT Date of service: 11/09/2017 EKG Measurement Heart [id number] <Conclusion> Normal sinus rhythm Biatrial enlargement Left ventricular hypertrophy Abnormal ECG
== END 2017-11-09 22:45 | disposition home or self-care (01) ==
LOC: H.ER 22:09
DX: J45.901 Unspecified asthma with (acute) exacerbation (principal); F17.200 Nicotine dependence, unspecified, uncomplicated; N18.9 Chronic kidney disease, unspecified; Z87.442 Personal history of urinary calculi; J44.9 Chronic obstructive pulmonary disease, unspecified
CPT/HCPCS: 71046; 80053; 85025; 93005; 94150; 94640; 96374; 99285; J2930

== ENCOUNTER 2017-11-10 20:07 | Emergency (ER) | payer OTHER ==
[2017-11-10 20:07] VITALS: BMI 23.8
[2017-11-10] MEDS ORDERED: Magnesium Sulfate 1 GM in Dextrose 5% In Water 100 ML IV STA (20:38)
[2017-11-10] MEDS ORDERED: Magnesium Sulfate 2 gm/50 ml 2 GM/50 ML BAG ONE (20:47)
[2017-11-10] MEDS ORDERED: Albuterol-Ipratrop 3 mg / 0.5 (3 ml) UD ONE (20:48)
[2017-11-10] MEDS: Albuterol-Ipratrop 3 mg / 0.5 (3 ml) UD IH SCH ×3 (20:52→21:28)
[2017-11-10] MEDS ORDERED: Magnesium Sulfate 2 GM in Sodium Chloride 0.9% 100 ML IVPB ONE (21:03)
--- NOTE | 2017-11-10 21:05 | ED PDOC ---
HPI: SOB/CHF/COPD Time Seen by Provider: 11/10/17 20:33 Chief Complaint (Nursing): Respiratory Distress Chief Complaint (Provider): Asthma History Per: Patient History/Exam Limitations: no limitations Additional Complaint(s): Oriana Hayes is a 52 y/o female with history of asthma who presents to the ED complaining of asthma. Patient was seen yesterday for asthma exacerbation and was discharged with prescription for albuterol and prednisone. Patient states she took meds but she admits that she was smoking all day today which brought her asthma back on. She reports a cough but denies fever, chest pain, nausea or vomiting. Past Medical History Reviewed: Historical Data, Nursing Documentation, Vital Signs Vital Signs: Last Vital Signs Temp 97.1 F L 11/10/17 20:16 Pulse 88 11/10/17 20:16 Resp 18 11/10/17 20:38 BP 154/84 H 11/10/17 20:16 Pulse Ox 97 11/10/17 22:16 - Medical History PMH: Asthma, Back Problems, Bronchitis, COPD, Kidney Stones (RIGHT), Chronic Kidney Disease Denies: HIV, HTN, Seizures, Sexually Transmitted Disease - Family History Family History: States: Unknown Family Hx - Social History Current smoker - smoking cessation education provided: Yes - Immunization History Hx Tetanus Toxoid Vaccination: Yes Hx Influenza Vaccination: Yes Hx Pneumococcal Vaccination: Yes - Home Medications Home Medications: Ambulatory Orders Medication Instructions Recorded Albuterol HFA [Ventolin HFA 90 2 puff IH BID PRN 03/09/ mcg/actuation (8 g)] Albuterol 0.083% [Albuterol 3 ml IH BID 08/11/17 Sulfate 3 Ml] Albuterol Sulfate [Proair Hfa] 0.09 mg IH 5XD #1 inh 08/11/17 Albuterol/Ipratropium [Duoneb 3 6 ml IH Q4H PRN #100 neb 08/11/17 MG/3 Ml-0.5 MG/3 Ml 3 Ml] Spacer, Inhalation [Aerochamber] 1 dev IH DAILY #1 dev 08/11/17 Albuterol/Ipratropium [Duoneb 3 3 ml IH QID PRN #50 neb 09/24/17 MG/3 Ml-0.5 MG/3 Ml 3 Ml] Prednisone [Deltasone] 20 mg PO DAILY #5 tablet 09/24/17 Albuterol 0.083% [Albuterol 0.083% 3 ml IH Q6H PRN #30 neb 11/09/17 Inhal Maryam (2.5 mg/3 ml) UD] Albuterol HFA [Ventolin HFA 90 2 puff IH [id number] PRN #1 bottle 11/09/17 mcg/actuation (8 g)] Prednisone 50 mg PO DAILY #4 tab 11/09/17 - Allergies Allergies/Adverse Reactions: Allergies Allergy/AdvReac Type Severity Reaction Status Date / Time No Known Allergies Allergy Verified 11/09/17 22:36 Review of Systems ROS Statement: Except As Marked, All Systems Reviewed And Found Negative Constitutional: Negative for: Fever Cardiovascular: Negative for: Chest Pain Respiratory: Positive for: Cough Gastrointestinal: Negative for: Nausea, Vomiting Physical Exam - Reviewed Nursing Documentation Reviewed: Yes Vital Signs Reviewed: Yes - Physical Exam Comments: GENERAL APPEARANCE: Patient is awake, alert, oriented x 3. SKIN: Warm, dry; (-) cyanosis. EYES: (-) conjunctival pallor. ENMT: Mucous membranes moist. Airway patent: (-) stridor. Pharynx: (-) swelling, (-) erythema. NECK: (-) tenderness, (-) stiffness, (-) lymphadenopathy. CHEST AND RESPIRATORY: (+) bilateral expiratory and inspiratory wheezing; (-) rales, (-) rhonchi, (-) rub; breath sounds equal bilaterally, (+) mild respiratory distress. Able to speak full sentences. HEART AND CARDIOVASCULAR: (-) irregularity; (-) murmur, (-) gallop. ABDOMEN AND GI: Soft; (-) tenderness. EXTREMITIES: (-) deformity, (-) edema. NEURO AND PSYCH: Mental status as above; (-) focal findings. - Laboratory Results Result Diagrams: 11/10/17 21:01 11/10/17 21:01 - ECG O2 Sat by Pulse Oximetry: 97 (RA) Pulse Ox Interpretation: Normal Medical Decision Making Medical Decision Making: Time: 20:38 Initial Plan: --CMP --CBC w/ differential --CXR 2 views --Albuterol 3 ml IH --Magnesisum --Dextrose --Prednisone CXR : NAD, as read by PA On re-evaluation, patient reports improvement of symptoms, denies any chest pain or dyspnea. On exam, patient remains AAOx3, in no acute distress. Lungs still with faint b/l expiratory wheezing, cardiac RRR, repeat neuro exam shows no focal findings. Lab results reviewed : wbc 14, rest of labs wnl. Diagnostic results d/w the patient in great detail. Diagnosis of asthma exacerbation d/w the patient. Based on history, exam and diagnostic results, plan will be for observation as the patient returned for asthma exacerbation within 24 hours. However the patient is refusing. She wants to leave AMA. Patient refuses further care, evaluation or treatment in the ER. Patient informed of the reasons for the following and planned treatment, which patient understands, however still refuses. Patient informed of the risk and benefits of treatment. Informed that the risk could include worsening of current conditions, undiagnosed conditions, disability or even . Patient understands the following risk and the benefits of treatment. Patient has the capacity to make decisions and still refuses treatment by RN, PA and ER MD. Patient encouraged to return to the ER at any time and to follow up with pmd. Patient instructed to follow-up with the clinic in 1-2 days without fail. Advised to take medication as prescribed. Return to the emergency room at any time for any new or worsening symptoms. Patient states he fully agrees with and understands discharge instructions. States that he agrees with the plan and disposition. Verbalized and repeated discharge instructions and plan. I have given the patient opportunity to ask any additional questions. Scribe Attestation: Documented by Julien Santillan, acting as a scribe for Luz Bhatia PA-C Provider Scribe Attestation: All medical record entries made by the Scribe were at my direction and personally dictated by me. I have reviewed the chart and agree that the record accurately reflects my personal performance of the history, physical exam, medical decision making, and the department course for this patient. I have also personally directed, reviewed, and agree with the discharge instructions and disposition. Disposition - Clinical Impression Clinical Impression: Asthma exacerbation - Patient ED Disposition Is Patient to be Admitted: No (Patient wants to leave AMA.) Counseled Patient/Family Regarding: Studies Performed, Diagnosis, Need For Followup - Disposition Referrals: [facility] [Outside] Disposition: Against Medical Advice Disposition Time: 22:00 Condition: STABLE Additional Instructions: Thank you for letting us take care of you today. You are choosing to leave against medical advice. You were treated for asthma. The emergency medical care you received today was directed towards the acute presenting symptoms. Continue to take prescribed medication. It may take several days for your symptoms to resolve. Return to the Emergency Department at any time if symptoms worsen, do not improve, or if any other problems arise. Please contact your doctor in 2 days for re-evaluation and follow up / or call one of the physicians/clinics you have been referred to that are listed on the Patient Visit Information form that is included in your discharge packet. Bring any paperwork you were given at discharge with you along with any medications to your follow up visit. Our treatment cannot replace ongoing medical care by a primary care provider (PCP) outside of the emergency department. Thank you for allowing the [facility] team to be part of your care today. Instructions: Asthma, Adult (DC), Leaving Against Medical Advice Forms: [employer] ([place]) - PA / RELATIONS DIRECTOR / Resident Statement MD/DO has reviewed & agrees with the documentation as recorded.
[2017-11-10 21:10] LABS: BASO # 0.1 K/uL (0.0-0.2); BASO % 0.4 % (0.0-2.0); EOS % 0.1 % (0.0-4.0); MEAN CELL VOLUME 94.1 fl (81.0-99.0); MEAN CORPUSCULAR HEMOGLOBIN 31.2 pg (27.0-31.0); MEAN CORPUSCULAR HGB CONC 33.2 g/dL (33.0-37.0); MEAN PLATELET VOLUME 9.1 fl (7.2-11.7); MONO # 1.3 K/uL (0.0-0.8); MONO % 9.1 % (0.0-10.0); NEUT # 9.9 K/uL (1.8-7.0); NEUT % 69.4 % (50.0-75.0); RBC 4.47 Mil/uL (3.80-5.20); RED CELL DISTRIBUTION WIDTH 12.7 % (11.5-14.5); WHITE BLOOD COUNT 14.2 K/uL (4.8-10.8)
[2017-11-10 21:22] LABS: ALB/GLOB RATIO 1.3 (1.0-2.1); ALBUMIN 4.5 g/dL (3.5-5.0); ALT/SGPT 47 U/L (9-52); AST/SGOT 35 U/L (14-36); BLOOD UREA NITROGEN 17 mg/dl (7-17); CALCIUM 9.5 mg/dL (8.4-10.2); GFR AFRICAN-AMERICAN > 60; GFR NON-AFRICAN AMERICAN > 60
[2017-11-10] MEDS ORDERED: Magnesium Sulfate 2 gm/50 ml 2 GM/50 ML BAG IVPB ONE (21:30)
[2017-11-11 03:13] VITALS: BP 137/86; PULSE 83; RESP 16; TEMP 98
[2017-11-11 03:16] VITALS: O2SAT 96
--- NOTE | 2017-11-11 07:57 | RAD ---
Date of service: 11/10/2017 HISTORY: wheezing COMPARISON: No prior. TECHNIQUE: Chest PA and lateral FINDINGS: LUNGS: No active pulmonary disease. PLEURA: No significant pleural effusion identified. No pneumothorax apparent. CARDIOVASCULAR: Normal. OSSEOUS STRUCTURES: Stable thoracolumbar scoliosis. VISUALIZED UPPER ABDOMEN: Normal. OTHER FINDINGS: Bilateral nipple shadows reiterated. IMPRESSION: No interval acute cardiopulmonary disease appreciated.
[2017-11-11] MEDS ORDERED: Albuterol-Ipratrop 3 mg / 0.5 (3 ml) UD ONE (10:52)
== END 2017-11-10 22:28 | disposition left against medical advice (07) ==
LOC: H.ER 20:07
DX: J45.901 Unspecified asthma with (acute) exacerbation (principal); J44.9 Chronic obstructive pulmonary disease, unspecified; F17.200 Nicotine dependence, unspecified, uncomplicated
CPT/HCPCS: 71046; 80053; 85025; 94640; 96365; 96375; 99285; J2930

== ENCOUNTER 2017-11-11 05:55 | Observation (INO) | payer OTHER ==
[2017-11-11 06:12] VITALS: BMI 27.4
[2017-11-11] MEDS ORDERED: Albuterol-Ipratrop 3 mg / 0.5 (3 ml) UD ONE (06:32)
[2017-11-11] MEDS ORDERED: Albuterol-Ipratrop 3 mg / 0.5 (3 ml) UD INH STA ×2 (06:52)
--- NOTE | 2017-11-11 07:00 | ED PDOC ---
HPI: SOB/CHF/COPD Time Seen by Provider: 11/11/17 06:49 Chief Complaint (Nursing): Shortness Of Breath History Per: Patient History/Exam Limitations: no limitations Onset/Duration Of Symptoms: Mins Current Symptoms Are (Timing): Better Additional Complaint(s): Hx of COPD, active smoker returns to the ER for wheezing, states that her trigger was smoking cigarettes and stress at home. On arrival to ED, patient states she' starting to feel better. Denies intubations, has been admitted for COPD in criss past, never to ICU. Past Medical History Vital Signs: Last Vital Signs Temp 97.6 F 11/11/17 06:10 Pulse 91 H 11/11/17 06:10 Resp 20 11/11/17 06:10 BP 141/73 11/11/17 06:10 Pulse Ox 94 L 11/11/17 06:10 - Medical History PMH: Asthma, Back Problems, Bronchitis, COPD, Kidney Stones (RIGHT), Chronic Kidney Disease Denies: HIV, HTN, Seizures, Sexually Transmitted Disease - Family History Family History: States: Unknown Family Hx - Immunization History Hx Tetanus Toxoid Vaccination: Yes Hx Influenza Vaccination: Yes Hx Pneumococcal Vaccination: Yes - Home Medications Home Medications: Ambulatory Orders Medication Instructions Recorded Albuterol HFA [Ventolin HFA 90 2 puff IH BID PRN 03/09/17 mcg/actuation (8 g)] Albuterol 0.083% [Albuterol 3 ml IH BID 08/11/17 Sulfate 3 Ml] Albuterol Sulfate [Proair Hfa] 0.09 mg IH 5XD #1 inh 08/11/17 Albuterol/Ipratropium [Duoneb 3 6 ml IH Q4H PRN #100 neb 08/11/17 MG/3 Ml-0.5 MG/3 Ml 3 Ml] Spacer, Inhalation [Aerochamber] 1 dev IH DAILY #1 dev 08/11/17 Albuterol/Ipratropium [Duoneb 3 3 ml IH QID PRN #50 neb 09/24/17 MG/3 Ml-0.5 MG/3 Ml 3 Ml] Prednisone [Deltasone] 20 mg PO DAILY #5 tablet 09/24/17 Albuterol 0.083% [Albuterol 0.083% 3 ml IH Q6H PRN #30 neb 11/09/17 Inhal Maryam (2.5 mg/3 ml) UD] Albuterol HFA [Ventolin HFA 90 2 puff IH [id number] PRN #1 bottle 11/09/17 mcg/actuation (8 g)] Prednisone 50 mg PO DAILY #4 tab 11/09/17 - Allergies Allergies/Adverse Reactions: Allergies Allergy/AdvReac Type Severity Reaction Status Date / Time No Known Allergies Allergy Verified 11/09/17 22:36 Review of Systems ROS Statement: Except As Marked, All Systems Reviewed And Found Negative Respiratory: Positive for: Wheezing Physical Exam - Reviewed Nursing Documentation Reviewed: Yes Vital Signs Reviewed: Yes - Physical Exam Appears: Positive for: Well, Non-toxic, No Acute Distress Head Exam: Positive for: ATRAUMATIC, NORMAL INSPECTION, NORMOCEPHALIC Skin: Positive for: Normal Color, Warm, DRY Eye Exam: Positive for: EOMI, Normal appearance, PERRL ENT: Positive for: Normal ENT Inspection Neck: Positive for: Normal, Painless ROM Cardiovascular/Chest: Positive for: Regular Rate, Rhythm Respiratory: Positive for: Wheezing. Negative for: Accessory Muscle Use, Respiratory Distress Gastrointestinal/Abdominal: Positive for: Normal Exam, Soft Back: Positive for: Normal Inspection Extremity: Positive for: Normal ROM Neurologic/Psych: Positive for: Alert, Oriented - ECG O2 Sat by Pulse Oximetry: 94 Pulse Ox Interpretation: Normal Medical Decision Making Medical Decision MakinAM Patient retuns to ED for COPD Exacerbation No accessory muscle usage, no respiratory distress Admission offered to patient but once again declining Will give duonebs, patient already took steroids [address] Vidal pending re-eval after nebs Disposition - Clinical Impression Clinical Impression: COPD exacerbation - Patient ED Disposition Is Patient to be Admitted: Transfer of Care - Disposition Disposition: Transfer of Care Disposition Time: 07:00 Condition: STABLE Patient Signed Over To: Robin Vidal Handoff Comments: pending copd
[2017-11-11 10:49] VITALS: O2SAT 95
[2017-11-11] MEDS ORDERED: Albuterol-Ipratrop 3 mg / 0.5 (3 ml) UD IH STA (10:51)
--- NOTE | 2017-11-11 12:53 | ED PDOC ---
- ECG O2 Sat by Pulse Oximetry: 95 Medical Decision Making Medical Decision Making: Advised 24 hr obs and initially agreeable but now wishes to go home. awarte of risks including respiratory failure and . Disposition - Clinical Impression Clinical Impression: COPD exacerbation - POA Present On Arrival: None - Disposition Disposition: Routine/Home Disposition Time: 12:52 Condition: FAIR
[2017-11-11 13:00] VITALS: BP 144/88; PULSE 69; RESP 19; TEMP 98
--- NOTE | 2017-11-11 16:15 | CP.PCM.PCO ---
Physician Communication Note - Physician Communication Note Physician Communication Note: Signed out AMA from ER before I saw the patient
== END 2017-11-11 13:01 | disposition home or self-care (01) ==
LOC: H.ER 05:55 → H.ERHOLD 09:58
PROVIDERS: ADMIT Internal Medicine; ATTEND Internal Medicine
DX: J44.1 Chronic obstructive pulmonary disease with (acute) exacerbation (principal); F17.210 Nicotine dependence, cigarettes, uncomplicated; Z87.442 Personal history of urinary calculi
CPT/HCPCS: 94640; 99284; G0378

== ENCOUNTER 2017-11-12 23:28 | Emergency (ER) | payer OTHER ==
[2017-11-12 23:29] VITALS: BMI 27.4
[2017-11-12 23:57] VITALS: RESP 20; O2SAT 96
[2017-11-12] MEDS ORDERED: Albuterol-Ipratrop 3 mg / 0.5 (3 ml) UD INH STA ×3 (23:58→23:59)
[2017-11-13] MEDS ORDERED: Albuterol-Ipratrop 3 mg / 0.5 (3 ml) UD ONE ×3 (00:10→01:03)
[2017-11-13 00:36] LABS: BASO % 0.1 % (0.0-2.0); HEMOGLOBIN 13.5 g/dL (12.0-16.0); LYMPH # 0.5 K/uL (1.0-4.3); LYMPH % 4.3 % (20.0-40.0); MEAN CELL VOLUME 94.1 fl (81.0-99.0); MEAN CORPUSCULAR HEMOGLOBIN 31.4 pg (27.0-31.0); MEAN CORPUSCULAR HGB CONC 33.4 g/dL (33.0-37.0); MEAN PLATELET VOLUME 9.2 fl (7.2-11.7); MONO # 0.1 K/uL (0.0-0.8); MONO % 1.2 % (0.0-10.0); NEUT # 11.2 K/uL (1.8-7.0); NEUT % 94.4 % (50.0-75.0); PLATELET COUNT 282 K/uL (130-400); WHITE BLOOD COUNT 11.9 K/uL (4.8-10.8)
--- NOTE | 2017-11-13 00:39 | ED PDOC ---
HPI: SOB/CHF/COPD Time Seen by Provider: 11/12/17 23:45 Chief Complaint (Nursing): Shortness Of Breath Chief Complaint (Provider): Shortness Of Breath History Per: Patient History/Exam Limitations: no limitations Onset/Duration Of Symptoms: Days Current Symptoms Are (Timing): Still Present Additional Complaint(s): 52 y/o female with a PMHx of COPD, an active smoker, and multiple recent ER visits for COPD exacerbation returns to the ED for wheezing approximately 3 hours prior to arrival while walking outside. Patient is unsure of what triggered the wheezing. Patient denies smoking cigarettes today. Denies fever, chills, and cough. Of note, patient has left Against Medical Advice from the hospital yesterday. In the past, patient had been admitted for COPD but not admitted to the ICU. PMD: None Provided Past Medical History Reviewed: Historical Data, Nursing Documentation, Vital Signs Vital Signs: Last Vital Signs Temp 98.2 F 11/13/17 01:24 Pulse 87 11/13/17 01:24 Resp 20 11/13/17 01:24 BP 150/90 11/13/17 01:24 Pulse Ox 96 11/13/17 01:24 - Medical History PMH: Anxiety, Asthma, Back Problems, Bronchitis, COPD, Kidney Stones (RIGHT), Chronic Kidney Disease Denies: HIV, HTN, Seizures, Sexually Transmitted Disease - Surgical History Surgical History: No Surg Hx - Family History Family History: States: Unknown Family Hx - Immunization History Hx Tetanus Toxoid Vaccination: Yes Hx Influenza Vaccination: Yes Hx Pneumococcal Vaccination: Yes - Home Medications Home Medications: Ambulatory Orders Medication Instructions Recorded Albuterol 0.083% [Albuterol 0.083% 3 ml IH Q6H PRN #30 neb 11/09/17 Inhal Maryam (2.5 mg/3 ml) UD] Albuterol HFA [Ventolin HFA 90 2 puff IH [id number] PRN #1 bottle 11/09/17 mcg/actuation (8 g)] Prednisone 50 mg PO DAILY #4 tab 11/09/17 Albuterol HFA [Ventolin HFA 90 2 puff IH [id number] #1 puff 11/13/17 mcg/actuation (8 g)] Prednisone [Deltasone] 40 mg PO DAILY 3 Days #6 tablet 11/13/17 - Allergies Allergies/Adverse Reactions: Allergies Allergy/AdvReac Type Severity Reaction Status Date / Time No Known Allergies Allergy Verified 11/12/17 23:39 Review of Systems ROS Statement: Except As Marked, All Systems Reviewed And Found Negative Constitutional: Negative for: Fever, Chills Respiratory: Positive for: Wheezing. Negative for: Cough Physical Exam - Reviewed Nursing Documentation Reviewed: Yes Vital Signs Reviewed: Yes - Physical Exam Appears: Positive for: No Acute Distress Head Exam: Positive for: ATRAUMATIC, NORMOCEPHALIC Skin: Positive for: Normal Color, Warm, Dry Eye Exam: Positive for: Normal appearance, EOMI, PERRL Neck: Positive for: Normal, Painless ROM, Supple Cardiovascular/Chest: Positive for: Regular Rate, Rhythm. Negative for: Bradycardia Respiratory: Positive for: Wheezing (Bilateral ). Negative for: Accessory Muscle Use Gastrointestinal/Abdominal: Positive for: Normal Exam, Soft. Negative for: Tenderness Back: Positive for: Normal Inspection. Negative for: L CVA Tenderness, R CVA Tenderness Extremity: Positive for: Normal ROM Neurologic/Psych: Positive for: Alert, Oriented (x3), Other (Speaking full sentences ). Negative for: Motor/Sensory Deficits - Laboratory Results Result Diagrams: 11/13/17 00:04 11/13/17 00:04 - ECG O2 Sat by Pulse Oximetry: 96 (RA) Pulse Ox Interpretation: Normal Medical Decision Making Medical Decision Making: A/P: 52 y/o female with a PMHx of COPD presenting with moderate COPD exacerbation. -- Patient is not in any respiratory distress at this time. -- Will treat for COPD exacerbation -- Once again consider admission. Time: 3 Plan: -- VBG -- EKG -- BMP -- TROPONIN I -- CBC with differentials -- CXR One View -- Duoneb 3 mg/0.5 mg (3 ml) INH -- Duoneb 3 mg/0.5 mg (3 ml) INH -- Duoneb 3 mg/0.5 mg (3 ml) INH -- Duoneb 3 mg/0.5 mg (3 ml) INH -- Magnesium Sulfate 2 gm/50 ml Water IVPB -- SOLU-medrol 125 mg IVP -- Peak Flow Pre/Post Tx -- Peak Flow Pre/Post Tx Time: 108 Patient refuses further care, evaluation or treatment in the ER. Patient informed of the reasons for the following and planned treatment, which patient understands, however still refuses. Patient informed of the risk and benefits of treatment. Informed that the risk could include worsening of current conditions, undiagnosed conditions, disability or even . Patient understands the following risk and the benefits of treatment. Patient has the capacity to make decisions and still refuses treatment by RN, PA and ER MD. Patient encouraged to return to the ER at any time and to follow up with PMD. Scribe Attestation: Documented by Garry Mathis acting as a scribe for Dr. Steven Ruffin MD. Provider Scribe Attestation: All medical record entries made by the Scribe were at my direction and personally dictated by me. I have reviewed the chart and agree that the record accurately reflects my personal performance of the history, physical exam, medical decision making, and the department course for this patient. I have also personally directed, reviewed, and agree with the discharge instructions and disposition. Disposition - Clinical Impression Clinical Impression: Moderate COPD (chronic obstructive pulmonary disease) - Disposition Referrals: Salbador Novak MD [Staff Provider] - Disposition: Against Medical Advice Disposition Time: 01:09 Condition: STABLE Prescriptions: Albuterol HFA [Ventolin HFA 90 mcg/actuation (8 g)] 2 puff IH [id number] #1 puff Prednisone [Deltasone] 40 mg PO DAILY 3 Days #6 tablet Instructions: Exacerbation of COPD, Leaving Against Medical Advice Forms: [employer] (British)
[2017-11-13 00:44] LABS: VENOUS BLOOD GAS BASE EXCESS 5.2 mmol/L (0.0-2.0); VENOUS BLOOD GAS PCO2 59 mmHg (40-60); VENOUS BLOOD GAS PO2 59 mm/Hg (30-55); VENOUS BLOOD PH 7.35 (7.32-7.43)
[2017-11-13] MEDS ORDERED: Albuterol-Ipratrop 3 mg / 0.5 (3 ml) UD INH STA (00:54)
[2017-11-13] MEDS ORDERED: Magnesium Sulfate 2 gm/50 ml 2 GM/50 ML BAG IVPB ONE (00:54)
[2017-11-13 01:22] LABS: BLOOD UREA NITROGEN 12 mg/dl (7-17); CALCIUM 8.8 mg/dL (8.4-10.2); GFR AFRICAN-AMERICAN > 60; GFR NON-AFRICAN AMERICAN > 60
[2017-11-13 01:36] VITALS: BP 150/90; PULSE 87; TEMP 98.2
[2017-11-13 04:40] LABS: LYMPHOCYTE 6 % (20-50); MONOCYTE 1 % (0-10); NEUTROPHIL 93 % (42-75); PLATELET ESTIMATE NORMAL (NORMAL); TOTAL CELLS COUNTED 100
--- NOTE | 2017-11-13 09:14 | CARD ---
APPROVED REPORT Date of service: 11/12/2017 EKG Measurement Heart [id number] <Conclusion> Normal sinus rhythm Possible Left atrial enlargement Borderline ECG
--- NOTE | 2017-11-13 10:39 | RAD ---
Date of service: 11/13/2017 PROCEDURE: CHEST RADIOGRAPH, 1 VIEW HISTORY: asthma COMPARISON: 11/10/2017 FINDINGS: LUNGS: The lungs are hyperinflated and there is peribronchial thickening with chronic changes in both lungs. No focal consolidation. PLEURA: No pneumothorax or pleural fluid seen. CARDIOVASCULAR: Normal. OSSEOUS STRUCTURES: No significant abnormalities. VISUALIZED UPPER ABDOMEN: Normal. OTHER FINDINGS: None. IMPRESSION: No active pulmonary disease. COPD.
== END 2017-11-13 01:40 | disposition home or self-care (01) ==
LOC: H.ER 23:28
DX: J44.1 Chronic obstructive pulmonary disease with (acute) exacerbation (principal); F41.9 Anxiety disorder, unspecified
CPT/HCPCS: 71045; 80048; 82803; 84484; 85025; 93005; 94150; 94640; 96374; 99285; J2930

== ENCOUNTER 2017-11-14 07:41 | Observation (INO) | payer OTHER ==
[2017-11-14 07:42] VITALS: BMI 27.4
[2017-11-14] MEDS ORDERED: Albuterol-Ipratrop 3 mg / 0.5 (3 ml) UD INH STA ×4 (08:03→14:15)
[2017-11-14] MEDS ORDERED: Azithromycin 500 MG in Sodium Chloride 0.9% 250 ML IV STA (08:11)
[2017-11-14] MEDS ORDERED: Albuterol-Ipratrop 3 mg / 0.5 (3 ml) UD ONE ×2 (08:11→09:44)
--- NOTE | 2017-11-14 08:11 | ED PDOC ---
HPI: SOB/CHF/COPD Time Seen by Provider: 11/14/17 07:57 Chief Complaint (Nursing): Shortness Of Breath Chief Complaint (Provider): Shortness Of Breath History Per: Patient History/Exam Limitations: no limitations Onset/Duration Of Symptoms: Days (4) Additional Complaint(s): 52 years old female presents to the ED for evaluation of shortness of breath onset 4 days. Patient denies any chest pain or fever. PMD: Dr. Novak Past Medical History Reviewed: Historical Data, Nursing Documentation, Vital Signs Vital Signs: Last Vital Signs Temp 98.0 F 11/14/17 07:51 Pulse 92 H 11/14/17 07:51 Resp 22 11/14/17 07:51 BP 172/95 H 11/14/17 07:51 Pulse Ox 95 11/14/17 09:23 - Medical History PMH: Anxiety, Asthma, Back Problems, Bronchitis, COPD, Kidney Stones (RIGHT), Chronic Kidney Disease Denies: HIV, HTN, Seizures, Sexually Transmitted Disease - Surgical History Surgical History: No Surg Hx - Family History Family History: States: Unknown Family Hx - Social History Current smoker - smoking cessation education provided: Yes Alcohol: None Drugs: Denies - Immunization History Hx Tetanus Toxoid Vaccination: Yes Hx Influenza Vaccination: Yes Hx Pneumococcal Vaccination: Yes - Home Medications Home Medications: Ambulatory Orders Medication Instructions Recorded Albuterol 0.083% [Albuterol 0.083% 3 ml IH Q6H PRN #30 neb 11/09/17 Inhal Maryam (2.5 mg/3 ml) UD] Albuterol HFA [Ventolin HFA 90 2 puff IH [id number] PRN #1 bottle 11/09/17 mcg/actuation (8 g)] Prednisone 50 mg PO DAILY #4 tab 11/09/17 Albuterol HFA [Ventolin HFA 90 2 puff IH [id number] #1 puff 11/13/17 mcg/actuation (8 g)] Prednisone [Deltasone] 40 mg PO DAILY 3 Days #6 tablet 11/13/17 - Allergies Allergies/Adverse Reactions: Allergies Allergy/AdvReac Type Severity Reaction Status Date / Time No Known Allergies Allergy Verified 11/14/17 07:55 Review of Systems ROS Statement: Except As Marked, All Systems Reviewed And Found Negative Constitutional: Negative for: Fever Cardiovascular: Negative for: Chest Pain Respiratory: Positive for: Shortness of Breath Physical Exam - Reviewed Nursing Documentation Reviewed: Yes Vital Signs Reviewed: Yes - Physical Exam Appears: Positive for: Non-toxic, No Acute Distress Head Exam: Positive for: ATRAUMATIC, NORMOCEPHALIC Cardiovascular/Chest: Positive for: Regular Rate, Rhythm. Negative for: Murmur Respiratory: Positive for: Wheezing (bilateral) Neurologic/Psych: Positive for: Alert, Oriented (x3), Other (Speaks full sentences) - Laboratory Results Result Diagrams: 11/14/17 08:30 11/14/17 08:30 - ECG Interpretation Of ECG: NSR @ 78, LVH. O2 Sat by Pulse Oximetry: 95 (RA) Pulse Ox Interpretation: Normal - Progress Re-evaluation Time: 09:50 Condition: Unchanged Medical Decision Making Medical Decision Making: Time: 802 Initial Impression: COPD exacerbation Initial Plan: --EKG --CMP --CBC --Chest X-Ray --Albuterol 3 ml INH --SOLU-Medrol 125 mg IVP --Peak Flow Pre/Post Tx 0838 Chest X-Ray FINDINGS: LUNGS: No active pulmonary disease. PLEURA: No significant pleural effusion identified, no pneumothorax apparent. CARDIOVASCULAR: Normal. OSSEOUS STRUCTURES: No significant abnormalities. VISUALIZED UPPER ABDOMEN: Normal. OTHER FINDINGS: None. IMPRESSION: No interval acute cardiopulmonary disease appreciated. ----- Scribe Attestation: Documented by Lizzy Jonas, acting as a scribe for Ene Sawyer MD. Provider Scribe Attestation: All medical record entries made by the Scribe were at my direction and personally dictated by me. I have reviewed the chart and agree that the record accurately reflects my personal performance of the history, physical exam, medical decision making, and the department course for this patient. I have also personally directed, reviewed, and agree with the discharge instructions and disposition. Disposition - Clinical Impression Clinical Impression: COPD exacerbation - Patient ED Disposition Is Patient to be Admitted: Yes - Disposition Disposition Time: 10:01 Condition: STABLE Forms: [employer] ([place]ian) - Pt Status Changed To: Hospital Disposition Of: Observation - POA Present On Arrival: None
[2017-11-14] MEDS ORDERED: Azithromycin 500 MG IV IVPB ONE (08:14)
--- NOTE | 2017-11-14 08:40 | RAD ---
Date of service: 11/14/2017 HISTORY: SOB COMPARISON: Portable chest 11/13/2017. FINDINGS: LUNGS: No active pulmonary disease. PLEURA: No significant pleural effusion identified, no pneumothorax apparent. CARDIOVASCULAR: Normal. OSSEOUS STRUCTURES: No significant abnormalities. VISUALIZED UPPER ABDOMEN: Normal. OTHER FINDINGS: None. IMPRESSION: No interval acute cardiopulmonary disease appreciated.
[2017-11-14 08:48] LABS: BASO # 0.1 K/uL (0.0-0.2); BASO % 0.3 % (0.0-2.0); EOS % 0.2 % (0.0-4.0); HEMOGLOBIN 13.2 g/dL (12.0-16.0); LYMPH # 3.6 K/uL (1.0-4.3); LYMPH % 19.9 % (20.0-40.0); MEAN CELL VOLUME 94.7 fl (81.0-99.0); MEAN CORPUSCULAR HEMOGLOBIN 30.9 pg (27.0-31.0); MEAN CORPUSCULAR HGB CONC 32.6 g/dL (33.0-37.0); MEAN PLATELET VOLUME 9.2 fl (7.2-11.7); MONO # 1.6 K/uL (0.0-0.8); NEUT # 12.7 K/uL (1.8-7.0); NEUT % 70.6 % (50.0-75.0); RBC 4.29 Mil/uL (3.80-5.20); RED CELL DISTRIBUTION WIDTH 13.4 % (11.5-14.5)
[2017-11-14 08:56] LABS: ALB/GLOB RATIO 1.3 (1.0-2.1); ALBUMIN 4.1 g/dL (3.5-5.0); ALT/SGPT 49 U/L (9-52); AST/SGOT 38 U/L (14-36); BLOOD UREA NITROGEN 18 mg/dl (7-17); GFR AFRICAN-AMERICAN > 60; GFR NON-AFRICAN AMERICAN > 60
--- NOTE | 2017-11-14 09:18 | CARD ---
APPROVED REPORT Date of service: 11/14/2017 EKG Measurement Heart [id number] [place] [id number] <Conclusion> Normal sinus rhythm Voltage criteria for left ventricular hypertrophy Abnormal ECG
[2017-11-14] MEDS ORDERED: Magnesium Sulfate 2 gm/50 ml 2 GM/50 ML BAG IVPB STA (09:38)
[2017-11-14] MEDS ORDERED: Magnesium Sulfate 2 gm/50 ml 2 GM/50 ML BAG ONE (09:44)
[2017-11-14] MEDS: Tiotropium 18 mcg Cap For Inhalation INH SCH (15:21)
[2017-11-14] MEDS: Fluticasone-Salmeterol 250-50mcg Diskus IH SCH ×2 (15:21→20:54)
--- NOTE | 2017-11-14 15:47 | CP.PCM.HP ---
History of Present Illness - History of Present Illness History of Present Illness: 51 yo F with hx asthma, COPD and tobacco abuse admitted due to COPD exacerbation. Pt has been to ED multiple times in the past few days for similar symptoms but has signed out AMA. States that at home she takes ventolin two times a day and uses her albuterol inhaler more than 2x a day. Denies chest pain or other discomfort aside from SOB. In ED received duonebs x3, 125 mg solumedrol. CXR without active disease. Present on Admission - Present on Admission Any Indicators Present on Admission: No Review of Systems - Cardiovascular Cardiovascular: absent: Chest Pain - Respiratory Respiratory: Dyspnea, Wheezing Past Patient History - Infectious Disease Hx of Infectious Diseases: None - Past Medical History & Family History Past Medical History?: Yes - Past Social History Smoking Status: Heavy Smoker > 10 Cigarettes Daily - CARDIAC Hx Hypertension: No - PULMONARY Hx Asthma: Yes Hx Bronchitis: Yes Hx Chronic Obstructive Pulmonary Disease (COPD): Yes - NEUROLOGICAL Hx Seizures: No - HEENT Hx HEENT Problems: No - ENDOCRINE/METABOLIC Hx Endocrine Disorders: No - HEMATOLOGICAL/ONCOLOGICAL Hx Human Immunodeficiency Virus (HIV): No - MUSCULOSKELETAL/RHEUMATOLOGICAL Hx Musculoskeletal Disorders: Yes Hx Falls: No - GASTROINTESTINAL Hx Gastrointestinal Disorders: No - GENITOURINARY/GYNECOLOGICAL Hx Sexually Transmitted Disorders: No - PSYCHIATRIC Hx Anxiety: Yes - SURGICAL HISTORY Hx Surgeries: Yes Other/Comment: Kidney stone removal - ANESTHESIA Hx Anesthesia: Yes Hx Anesthesia Reactions: No Hx Malignant Hyperthermia: No Meds Allergies/Adverse Reactions: Allergies Allergy/AdvReac Type Severity Reaction Status Date / Time No Known Allergies Allergy Verified 11/14/17 07:55 Physical Exam - Constitutional Appears: Non-toxic - Head Exam Head Exam: NORMAL INSPECTION - Eye Exam Eye Exam: Normal appearance - ENT Exam ENT Exam: Mucous Membranes Moist - Respiratory Exam Respiratory Exam: Prolonged Expiratory Phase, Wheezes. absent: Respiratory Distress Additional comments: able to speak in full sentences and ambulate around room - Cardiovascular Exam Cardiovascular Exam: REGULAR RHYTHM, +S1, +S2 - GI/Abdominal Exam GI & Abdominal Exam: Soft - Extremities Exam Extremities exam: Positive for: normal inspection - Neurological Exam Neurological exam: Alert, Oriented x3 - Psychiatric Exam Psychiatric exam: Anxious - Skin Skin Exam: Normal Color, Warm Results - Vital Signs Recent Vital Signs: Last Vital Signs Temp 97 F L 11/14/17 12:28 Pulse 78 11/14/17 12:28 Resp 19 11/14/17 12:28 BP 140/76 11/14/17 12:28 Pulse Ox 98 11/14/17 12:28 - Labs Result Diagrams: 11/14/17 08:30 11/14/17 08:30 Labs: Laboratory Results - last 24 hr 11/14/17 11/14/17 08:30 08:30 WBC 18.0 H D RBC 4.29 Hgb 13.2 Hct 40.6 MCV 94.7 MCH 30.9 MCHC 32.6 L RDW 13.4 Plt Count 305 MPV 9.2 Neut % (Auto) 70.6 Lymph % (Auto) 19.9 L Taylor % (Auto) 9.0 Eos % (Auto) 0.2 Baso % (Auto) 0.3 Neut # (Auto) 12.7 H Lymph # (Auto) 3.6 Taylor # (Auto) 1.6 H Eos # (Auto) 0.0 Baso # (Auto) 0.1 Sodium 132 Potassium 4.1 Chloride 95 L Carbon Dioxide 32 H Anion Gap 9 L BUN 18 H Creatinine 0.5 L Est GFR ( Amer) > 60 Est GFR (Non-Af Amer) > 60 Random Glucose 112 H Calcium 9.0 Total Bilirubin 0.6 AST 38 H ALT 49 Alkaline Phosphatase 66 Total Protein 7.3 Albumin 4.1 Globulin 3.1 Albumin/Globulin Ratio 1.3 Assessment & Plan (1) COPD exacerbation Status: Acute - Assessment and Plan (Free Text) Plan: - stable, monitor for changes - advair 250/50 Q12 - spiriva daily - solumedrol 40 mg IV BID - O2 via NC @ 2L - scheduled duoneb treatments - resume home meds iron and protonix - reg diet - lovenox - rest of plan as ordered
[2017-11-14] MEDS: Albuterol-Ipratrop 3 mg / 0.5 (3 ml) UD INH SCH ×2 (16:43→20:05)
[2017-11-14] MEDS: MethylPREDNISolone 40 mg Vial IVP SCH (17:42)
[2017-11-15] MEDS: Albuterol-Ipratrop 3 mg / 0.5 (3 ml) UD INH SCH ×2 (07:22→11:14)
[2017-11-15 07:47] VITALS: BP 130/79; PULSE 59; RESP 19; TEMP 97.7; O2SAT 96
[2017-11-15] MEDS ORDERED: Azithromycin 500 MG in Sodium Chloride 0.9% 250 ML IVPB SCH (09:00)
[2017-11-15] MEDS ORDERED: methylPREDNISolone 40 MG in Sodium Chloride 0.9% 50 ML IVPB SCH (09:00)
[2017-11-15] MEDS: Fluticasone-Salmeterol 250-50mcg Diskus IH SCH (09:41)
[2017-11-15] MEDS: Enoxaparin 40 mg Syringe SC SCH ×2 (09:42→09:46)
[2017-11-15] MEDS: MethylPREDNISolone 40 mg Vial IVP SCH (09:42)
[2017-11-15] MEDS: Tiotropium 18 mcg Cap For Inhalation INH SCH (09:42)
[2017-11-15] MEDS ORDERED: Pantoprazole 40 mg EC Tab PO SCH (12:00)
--- NOTE | 2017-11-15 13:23 | CP.PCM.DIS ---
Provider - Provider Date of Admission: 11/14/17 10:13 Attending physician: Bhargav Martinez MD Primary care physician: Dr Novak Time Spent in preparation of Discharge (in minutes): 20 Diagnosis - Discharge Diagnosis (1) COPD exacerbation Status: Acute Hospital Course - Lab Results Lab Results: Micro Results 11/14/17 08:30 Blood-Venous Blood Culture - Preliminary NO GROWTH AFTER 24 HOURS 11/14/17 08:30 Blood-Venous Blood Culture - Preliminary NO GROWTH AFTER 24 HOURS Most Recent Lab Values WBC 18.0 K/uL (4.8-10.8) H D 11/14/17 08:30 RBC 4.29 Mil/uL (3.80-5.20) 11/14/17 08:30 Hgb 13.2 g/dL (12.0-16.0) 11/14/17 08:30 Hct 40.6 % (34.0-47.0) 11/14/17 08:30 MCV 94.7 fl (81.0-99.0) 11/14/17 08:30 MCH 30.9 pg (27.0-31.0) 11/14/17 08:30 MCHC 32.6 g/dL (33.0-37.0) L 11/14/17 08:30 RDW 13.4 % (11.5-14.5) 11/14/17 08:30 Plt Count 305 K/uL (130-400) 11/14/17 08:30 MPV 9.2 fl (7.2-11.7) 11/14/17 08:30 Neut % (Auto) 70.6 % (50.0-75.0) 11/14/17 08:30 Lymph % (Auto) 19.9 % (20.0-40.0) L 11/14/17 08:30 Bladen % (Auto) 9.0 % (0.0-10.0) 11/14/17 08:30 Eos % (Auto) 0.2 % (0.0-4.0) 11/14/17 08:30 Baso % (Auto) 0.3 % (0.0-2.0) 11/14/17 08:30 Neut # (Auto) 12.7 K/uL (1.8-7.0) H 11/14/17 08:30 Lymph # (Auto) 3.6 K/uL (1.0-4.3) 11/14/17 08:30 Bladen # (Auto) 1.6 K/uL (0.0-0.8) H 11/14/17 08:30 Eos # (Auto) 0.0 K/uL (0.0-0.7) 11/14/17 08:30 Baso # (Auto) 0.1 K/uL (0.0-0.2) 11/14/17 08:30 Sodium 132 mmol/l (132-148) 11/14/17 08:30 Potassium 4.1 MMOL/L (3.6-5.0) 11/14/17 08:30 Chloride 95 mmol/L (98-107) L 11/14/17 08:30 Carbon Dioxide 32 mmol/L (22-30) H 11/14/17 08:30 Anion Gap 9 (10-20) L 11/14/17 08:30 BUN 18 mg/dl (7-17) H 11/14/17 08:30 Creatinine 0.5 mg/dl (0.7-1.2) L 11/14/17 08:30 Est GFR ( Amer) > 60 11/14/17 08:30 Est GFR (Non-Af Amer) > 60 11/14/17 08:30 Random Glucose 112 mg/dL (65-105) H 11/14/17 08:30 Calcium 9.0 mg/dL (8.4-10.2) 11/14/17 08:30 Total Bilirubin 0.6 mg/dl (0.2-1.3) 11/14/17 08:30 AST 38 U/L (14-36) H 11/14/17 08:30 ALT 49 U/L (9-52) 11/14/17 08:30 Alkaline Phosphatase 66 U/L (38-126) 11/14/17 08:30 Total Protein 7.3 G/DL (6.3-8.2) 11/14/17 08:30 Albumin 4.1 g/dL (3.5-5.0) 11/14/17 08:30 Globulin 3.1 gm/dL (2.2-3.9) 11/14/17 08:30 Albumin/Globulin Ratio 1.3 (1.0-2.1) 11/14/17 08:30 - Hospital Course Hospital Course: 51 yo F with hx asthma, COPD and tobacco abuse admitted due to COPD exacerbation. She received 125 mg solumedrol in ED, as well as 3 duoneb tx. CXR no active disease. She was admitted to medical floor, and was started on Advair , Spiriva, and azithromycin. This morning, pt seen/examined with Dr. Martinez. States she feels much better and desires to go home. Denied chest pain, further shortness of breath, or other discomfort. Pt will be discharged on new regimen of medications and she is to follow up with PMD in 1 week. Discharge Exam - Head Exam Head Exam: NORMAL INSPECTION - Eye Exam Eye Exam: Normal appearance - Respiratory Exam Respiratory Exam: NORMAL BREATHING PATTERN. absent: Wheezes Additional comments: good air movement b/l - Cardiovascular Exam Cardiovascular Exam: REGULAR RHYTHM, +S1, +S2 - GI/Abdominal Exam GI & Abdominal Exam: Soft. absent: Tenderness - Extremities Exam Extremities exam: normal inspection - Back Exam Back exam: NORMAL INSPECTION - Neurological Exam Neurological exam: Alert, Oriented x3 - Skin Skin Exam: Normal Color, Warm Discharge Plan - Discharge Medications Prescriptions: Azithromycin [Zithromax] 500 mg PO DAILY #7 tab Fluticasone/Salmeterol 250/50 [Advair Diskus 250/50] 1 puff IH Q12 #1 puff Methylprednisolone [Medrol Dose Pack (21 tabs)] 4 mg PO DAILY #21 mg Tiotropium [Spiriva] 18 mcg INH DAILY #1 cap - Follow Up Plan Condition: STABLE Disposition: HOME/ ROUTINE Instructions: Exacerbation of COPD (DC) Additional Instructions: follow up with your primary MD 1 week Referrals: Kenneth Novak MD [Medical Doctor] -
== END 2017-11-15 11:50 | disposition home or self-care (01) ==
LOC: H.ER 07:41 → H.ERHOLD 10:13 → H.MEDSURG1 12:53
PROVIDERS: ADMIT Family Medicine; ATTEND Family Medicine
DX: J44.1 Chronic obstructive pulmonary disease with (acute) exacerbation (principal); N18.9 Chronic kidney disease, unspecified; Z87.442 Personal history of urinary calculi; F41.9 Anxiety disorder, unspecified; J40 Bronchitis, not specified as acute or chronic; F17.200 Nicotine dependence, unspecified, uncomplicated
CPT/HCPCS: 71045; 80053; 85025; 87040; 93005; 94640; 96365; 96374; 99285; G0378; J0456; J2920; J2930

== ENCOUNTER 2017-12-03 02:43 | Observation (INO) | payer OTHER ==
[2017-12-03 02:58] VITALS: BMI 25.7
[2017-12-03] MEDS ORDERED: Albuterol-Ipratrop 3 mg / 0.5 (3 ml) UD INH STA (02:58)
[2017-12-03] MEDS ORDERED: Albuterol-Ipratrop 3 mg / 0.5 (3 ml) UD ONE (03:09)
--- NOTE | 2017-12-03 03:25 | ED PDOC ---
HPI: SOB/CHF/COPD Time Seen by Provider: 12/03/17 02:53 Chief Complaint (Provider): Shortness of breath History Per: Patient History/Exam Limitations: no limitations Onset/Duration Of Symptoms: Days Current Symptoms Are (Timing): Still Present Quality: Tightness Additional Complaint(s): Oriana Hayes is a 52 year old female with a past medical history of asthma and substance abuse, who is presenting to the ED for evaluation of shortness of breath onset a few days ago. Patient states that she was admitted at [facility] 3 days ago and was discharges yesterday. She reports that the symptoms have worsened and complains of associated chest tightness. Patient denies any fevers or other acute medical complaints. PMD: none provided Past Medical History Reviewed: Historical Data, Nursing Documentation, Vital Signs Vital Signs: Last Vital Signs Temp 97.7 F 12/03/17 03:05 Pulse 86 12/03/17 03:05 Resp 19 12/03/17 03:35 BP 135/76 12/03/17 03:05 Pulse Ox 99 12/03/17 03:05 - Medical History PMH: Anxiety, Asthma, Back Problems, Bronchitis, COPD, Kidney Stones (RIGHT), Chronic Kidney Disease Denies: HIV, HTN, Seizures, Sexually Transmitted Disease - Surgical History Surgical History: No Surg Hx - Family History Family History: States: Unknown Family Hx - Social History Current smoker - smoking cessation education provided: Yes Alcohol: None Drugs: Denies - Immunization History Hx Tetanus Toxoid Vaccination: Yes Hx Influenza Vaccination: Yes Hx Pneumococcal Vaccination: Yes - Home Medications Home Medications: Ambulatory Orders Medication Instructions Recorded Albuterol HFA [Ventolin HFA 90 2 puff IH PRN PRN #1 inhaler 12/02/17 mcg/actuation (8 g)] Methylprednisolone [Medrol Dose 4 mg PO DAILY #21 mg 12/02/17 Pack (21 tabs)] - Allergies Allergies/Adverse Reactions: Allergies Allergy/AdvReac Type Severity Reaction Status Date / Time No Known Allergies Allergy Verified 11/16/17 13:47 Review of Systems ROS Statement: Except As Marked, All Systems Reviewed And Found Negative Constitutional: Negative for: Fever Cardiovascular: Positive for: Other (chest tightness) Respiratory: Positive for: Shortness of Breath Physical Exam - Reviewed Nursing Documentation Reviewed: Yes Vital Signs Reviewed: Yes - Physical Exam Appears: Positive for: Non-toxic, In Acute Distress (mild respiratory distress ) Head Exam: Positive for: ATRAUMATIC, NORMAL INSPECTION, NORMOCEPHALIC Skin: Positive for: Normal Color, Warm, DRY Eye Exam: Positive for: EOMI, Normal appearance, PERRL ENT: Positive for: Normal ENT Inspection Neck: Positive for: Normal, Painless ROM Cardiovascular/Chest: Positive for: Regular Rate, Rhythm. Negative for: Murmur Respiratory: Positive for: Wheezing (bilateral expretory), Respiratory Distress (mild) Gastrointestinal/Abdominal: Positive for: Normal Exam, Soft. Negative for: Tenderness Back: Positive for: Normal Inspection Extremity: Positive for: Normal ROM Neurologic/Psych: Positive for: Alert, Oriented. Negative for: Motor/Sensory Deficits - Laboratory Results Result Diagrams: 12/03/17 03:20 12/03/17 03:20 - Critical Care Total Time (In Min): 30 Documented Critical Care: Time excludes all time spent performint seperately billable procedures Medical Decision Making Medical Decision Making: Time: 2:58 Impression: 52 year old female with respiratory distress and asthma exacerbation Plan: --EKG --Alcohol Serum --CMP --Drug Screen --ED Urine --ED Urine Dipstick --CBC --Duoneb 9 ml INH --Magnesium Sulfate 2 gm in 50 ml IV --SOLU-Medrol 125 mg IVP --Peak Flow Pre/Post Tx Patient reports mild improvement in symptoms though she is known to have persistent wheezing. Given recent admission, patient will be placed on observation under Dr. Dixon, covering for Dr. Novak. Scribe Attestation: Documented by Anitha Castro, acting as a scribe for Alhaji Rossi MD. Provider Scribe Attestation: All medical record entries made by the Scribe were at my direction and personally dictated by me. I have reviewed the chart and agree that the record accurately reflects my personal performance of the history, physical exam, medical decision making, and the department course for this patient. I have also personally directed, reviewed, and agree with the discharge instructions and disposition. Disposition - Clinical Impression Clinical Impression: Exacerbation of asthma, COPD exacerbation - Patient ED Disposition Is Patient to be Admitted: Yes (Observation) - Disposition Disposition Time: 06:30 Condition: FAIR
[2017-12-03 03:27] LABS: BASO % 0.2 % (0.0-2.0); LYMPH # 2.3 K/uL (1.0-4.3); LYMPH % 16.1 % (20.0-40.0); MEAN CELL VOLUME 94.8 fl (81.0-99.0); MEAN CORPUSCULAR HEMOGLOBIN 32.1 pg (27.0-31.0); MEAN CORPUSCULAR HGB CONC 33.9 g/dL (33.0-37.0); MEAN PLATELET VOLUME 8.7 fl (7.2-11.7); NEUT % 76.7 % (50.0-75.0); NRBC % 0.1 % (0.0-0.0); RBC 3.72 Mil/uL (3.80-5.20); RED CELL DISTRIBUTION WIDTH 14.1 % (11.5-14.5); WHITE BLOOD COUNT 14.3 K/uL (4.8-10.8)
[2017-12-03] MEDS: Magnesium Sulfate 2 gm/50 ml 2 GM/50 ML BAG IV STA ×2 (03:30→04:42)
[2017-12-03 03:40] LABS: ALB/GLOB RATIO 1.3 (1.0-2.1); ALBUMIN 3.7 g/dL (3.5-5.0); ALT/SGPT 85 U/L (9-52); AST/SGOT 94 U/L (14-36); BLOOD UREA NITROGEN 26 mg/dl (7-17); GFR AFRICAN-AMERICAN > 60; GFR NON-AFRICAN AMERICAN > 60
[2017-12-03] MEDS: Magnesium Sulfate 1 GM in Dextrose 5% In Water 100 ML IV SCH ×2 (04:30→04:31)
[2017-12-03 08:29] VITALS: BP 123/72
--- NOTE | 2017-12-03 08:50 | CARD ---
APPROVED REPORT Date of service: 12/03/2017 EKG Measurement Heart [id number] <Conclusion> Sinus tachycardia Minimal voltage criteria for LVH, may be normal variant Borderline ECG
[2017-12-03 08:52] LABS: BARBITURATES, UR NEGATIVE (NEGATIVE); BENZODIAZEPINES, UR NEGATIVE (NEGATIVE); OPIATES, UR POSITIVE (NEGATIVE); PHENCYCLIDINE, UR NEGATIVE (NEGATIVE)
[2017-12-03 08:57] VITALS: TEMP 97.9
[2017-12-03] MEDS ORDERED: Pantoprazole 40 mg EC Tab PO SCH (10:00)
[2017-12-03] MEDS ORDERED: methylPREDNISolone 40 MG in Sodium Chloride 0.9% 50 ML IVPB SCH (10:00)
[2017-12-03] MEDS ORDERED: MethylPREDNISolone 40 mg Vial IVP SCH (10:15)
[2017-12-03 11:02] VITALS: PULSE 79
[2017-12-03] MEDS ORDERED: Albuterol-Ipratrop 3 mg / 0.5 (3 ml) UD INH SCH (12:00)
[2017-12-03 12:51] VITALS: RESP 18; O2SAT 97
--- NOTE | 2017-12-03 14:08 | CP.PCM.PCO ---
Physician Communication Note - Physician Communication Note Physician Communication Note: Podiatry consult placed; pt not seen
--- NOTE | 2017-12-04 18:37 | HP ---
Copied To: Gee Dixon MD Attending MD: Gee Dixon MD HISTORY OF PRESENT ILLNESS: The patient is a 52-year-old female with history of bronchial asthma and heroin abuse, presented to emergency room with symptoms of shortness of breath and wheezing. The patient has a longstanding history of asthma and obstructive lung disease. The patient is a smoker for more than 30 years. The patient is not compliant to medications or medical followup. The patient was evaluated in the emergency room and she was treated with bronchodilators and steroids. Due to persistence of symptoms, the patient was admitted to the hospital for further management. The patient is currently homeless and stated that she takes heroin every day. Other review of systems is generalized body aches and otherwise review of systems is negative. ALLERGIES: NO KNOWN ALLERGY. MEDICATIONS: The patient is not sure what are her home medications except for the albuterol. SOCIAL HISTORY: As above. PAST MEDICAL HISTORY: Obstructive lung disease. FAMILY HISTORY: Not contributory. PHYSICAL EXAMINATION: GENERAL: The patient was in bed, not in respiratory distress at the time of this examination. VITAL SIGNS: Blood pressure 127/74, temperature 98.1, respiratory rate 18, and pulse 80. HEENT: Pupils equal, reactive to light. Normal-appearing mucosa of the conjunctivae, oropharynx and nasal membrane mucosa. NECK: Supple. No JVD. No carotid bruit. No lymph node. No thyromegaly. CHEST AND LUNGS: Bilateral symmetrical expansion, bilateral rhonchi scattered all over lung metcalf with prolonged expiration. CARDIOVASCULAR SYSTEM: PMI not localized. S1, S2. No additional sounds. ABDOMEN: Normoactive bowel sounds. No tenderness. No organomegaly. No masses. EXTREMITIES: No cyanosis, no clubbing, no edema. CHIEF HOSPITAL ADMINISTRATOR: Alert, awake, oriented x2. No neurological deficit could be appreciated. ASSESSMENT: 1. Exacerbation of bronchial asthma/chronic obstructive lung disease. 2. Heroin abuse. PLAN: IV steroids, bronchodilators, and monitor closely for heroin withdrawal. We will give the patient clonidine as well as IV hydration. Gee Dixon MD
--- NOTE | 2017-12-05 06:11 | DS ---
Copied To: Gee Dixon MD Attending MD: Gee Dixon MD REASON FOR ADMISSION: This is a 52-year-old female who was admitted for exacerbation of obstructive lung disease. COURSE OF HOSPITALIZATION: The patient was admitted to medical floor, and she was started on bronchodilator as well as IV steroids. The patient stated that she was using heroin everyday. The patient was put on watch for any heroin withdrawal symptoms while she is being treated for her bronchial asthma exacerbation. The patient signed against medical advice, and she was alert, awake, oriented x3. ASSESSMENT: 1. Exacerbation of bronchial asthma. 2. History of heroin abuse. Gee Dixon MD
== END 2017-12-03 13:55 | disposition left against medical advice (07) ==
LOC: H.ER 02:43 → H.ERHOLD 06:25 → H.MEDSURG1 08:26
PROVIDERS: ADMIT Internal Medicine; ATTEND Internal Medicine
DX: J45.901 Unspecified asthma with (acute) exacerbation (principal); J44.1 Chronic obstructive pulmonary disease with (acute) exacerbation; F17.200 Nicotine dependence, unspecified, uncomplicated; F41.9 Anxiety disorder, unspecified; N18.9 Chronic kidney disease, unspecified
CPT/HCPCS: 80053; 80320; 80324; 80345; 80346; 80349; 80353; 80358; 80361; 81025; 83992; 85025; 93005; 94640; 96365; 96366; 96375; 96376; 99284; G0378; J2920; J2930; J3475

== ENCOUNTER 2017-12-04 03:51 | Emergency (ER) | payer OTHER ==
[2017-12-04 03:51] VITALS: BMI 25.7
[2017-12-04] MEDS ORDERED: Albuterol-Ipratrop 3 mg / 0.5 (3 ml) UD INH STA (04:03)
[2017-12-04] MEDS ORDERED: Magnesium Sulfate 2 gm/50 ml 2 GM/50 ML BAG IV STA (04:03)
[2017-12-04] MEDS ORDERED: Albuterol-Ipratrop 3 mg / 0.5 (3 ml) UD ONE (04:09)
--- NOTE | 2017-12-04 04:18 | ED PDOC ---
HPI: SOB/CHF/COPD Time Seen by Provider: 12/04/17 03:58 Chief Complaint (Nursing): Shortness Of Breath Chief Complaint (Provider): Shortness Of Breath History Per: Patient History/Exam Limitations: no limitations Onset/Duration Of Symptoms: Days (x2) Current Symptoms Are (Timing): Still Present Additional Complaint(s): 52 year old female with pmHx of asthma and opioid addiction, arrives to ED with shortness of breath and wheezing ongoing since yesterday. Patient was recently admitted by this provider less than 24 hours prior for similar symptoms, however, signed AMA due to not being able to receive pain medication secondary to hx of opioid addiction. She denies any further medical complaints. PMD: none provided Past Medical History Reviewed: Historical Data, Nursing Documentation, Vital Signs Vital Signs: Last Vital Signs Temp 98.1 F 12/04/17 03:59 Pulse 108 H 12/04/17 03:59 Resp 20 12/04/17 04:21 BP 139/74 12/04/17 03:59 Pulse Ox 97 12/04/17 05:55 - Medical History PMH: Anxiety, Asthma, Back Problems, Bronchitis, COPD, Kidney Stones (RIGHT), Chronic Kidney Disease Denies: HIV, HTN, Seizures, Sexually Transmitted Disease - Family History Family History: States: Unknown Family Hx - Social History Current smoker - smoking cessation education provided: Yes Alcohol: None Drugs: Opiates - Immunization History Hx Tetanus Toxoid Vaccination: Yes Hx Influenza Vaccination: Yes Hx Pneumococcal Vaccination: Yes - Home Medications Home Medications: Ambulatory Orders Medication Instructions Recorded Albuterol HFA [Ventolin HFA 90 2 puff IH PRN PRN #1 inhaler 12/02/17 mcg/actuation (8 g)] Methylprednisolone [Medrol Dose 4 mg PO DAILY #21 mg 12/02/17 Pack (21 tabs)] Albuterol 0.083% [Albuterol 0.083% 2.5 mg INH PRN PRN 12/03/17 Inhal Maryam (2.5 mg/3 ml) UD] Albuterol HFA [Ventolin HFA 90 1 - 2 puff IH Q6 PRN #1 inhaler 12/04/17 mcg/actuation (8 g)] Methylprednisolone [Medrol Dosepak] 4 mg PO ASDIR #1 pkg 12/04/17 - Allergies Allergies/Adverse Reactions: Allergies Allergy/AdvReac Type Severity Reaction Status Date / Time No Known Allergies Allergy Verified 12/03/17 06:30 Review of Systems ROS Statement: Except As Marked, All Systems Reviewed And Found Negative Respiratory: Positive for: Shortness of Breath, Wheezing Physical Exam - Reviewed Nursing Documentation Reviewed: Yes Vital Signs Reviewed: Yes - Physical Exam Appears: Positive for: In Acute Distress (mild) Head Exam: Positive for: ATRAUMATIC, NORMAL INSPECTION, NORMOCEPHALIC Skin: Positive for: Normal Color Eye Exam: Positive for: Normal appearance ENT: Positive for: Normal ENT Inspection Neck: Positive for: Normal Cardiovascular/Chest: Positive for: Regular Rate, Rhythm Respiratory: Positive for: Wheezing (expiratory bilaterally), Respiratory Distress (mild) Gastrointestinal/Abdominal: Positive for: Normal Exam, Soft. Negative for: Tenderness Extremity: Positive for: Normal ROM (upper/lower) Neurologic/Psych: Positive for: Alert, Oriented. Negative for: Motor/Sensory Deficits - ECG O2 Sat by Pulse Oximetry: 97 (RA) Pulse Ox Interpretation: Normal Medical Decision Making Medical Decision Making: Initial Impression: 52 year old female with COPD exacerbation. Initial Plan: * Duoneb 9ml INH * MgSulfate 2gm in 50ml IV * Solu-Medrol 125mg IVP Time: 551 --Upon provider reevaluation, patient is medically stable, reports markable improvement in symptoms and requires no further treatment in the ED at this time. Counseling was provided and all questions were answered regarding diagnosis. There is agreement to discharge plan. Return if symptoms persist or worsen. Clinical Impression: Asthma exacerbation Scribe Attestation: Documented by Mariaelena Young, acting as a scribe for Alhaji Rossi MD. Provider Scribe Attestation: All medical record entries made by the Scribe were at my direction and personally dictated by me. I have reviewed the chart and agree that the record accurately reflects my personal performance of the history, physical exam, medical decision making, and the department course for this patient. I have also personally directed, reviewed, and agree with the discharge instructions and disposition. Disposition - Clinical Impression Clinical Impression: Asthma exacerbation - Patient ED Disposition Is Patient to be Admitted: No Counseled Patient/Family Regarding: Studies Performed, Diagnosis, Need For Followup, Rx Given - Disposition Disposition: Routine/Home Disposition Time: 05:52 Condition: IMPROVED Prescriptions: Albuterol HFA [Ventolin HFA 90 mcg/actuation (8 g)] 1 - 2 puff IH Q6 PRN #1 inhaler PRN Reason: Shortness Of Breath Methylprednisolone [Medrol Dosepak] 4 mg PO ASDIR #1 pkg Instructions: Asthma in Adults Forms: [facility] ([employer])
[2017-12-04 06:25] VITALS: BP 126/74; PULSE 89; RESP 18; TEMP 98.4; O2SAT 100
== END 2017-12-04 06:00 | disposition home or self-care (01) ==
LOC: H.ER 03:51
DX: J45.901 Unspecified asthma with (acute) exacerbation (principal); F17.200 Nicotine dependence, unspecified, uncomplicated; J44.1 Chronic obstructive pulmonary disease with (acute) exacerbation; N18.9 Chronic kidney disease, unspecified; Z87.442 Personal history of urinary calculi
CPT/HCPCS: 96374; 99284; J2930

== ENCOUNTER 2017-12-09 18:28 | Emergency (ER) | payer OTHER ==
[2017-12-09 18:29] VITALS: BMI 25.7
[2017-12-09 18:33] VITALS: BP 130/80; PULSE 88; RESP 18; TEMP 98.5; O2SAT 99
[2017-12-09] MEDS ORDERED: Albuterol-Ipratrop 3 mg / 0.5 (3 ml) UD INH STA (19:29)
--- NOTE | 2017-12-09 19:45 | ED PDOC ---
HPI: Asthma Time Seen by Provider: 12/09/17 19:14 Chief Complaint (Nursing): Cough, Cold, Congestion Chief Complaint (Provider): asthma History Per: Patient History/Exam Limitations: no limitations Onset/Duration Of Symptoms: Days (1), Gradual, Persistent Associated Symptoms: Dyspnea, Cough, Hives, Itching. denies: Sputum Production , Hemoptysis, Fever, URI Precipitating Factors: Weather Change Past Medical History Reviewed: Historical Data, Nursing Documentation, Vital Signs Vital Signs: Last Vital Signs Temp 98.5 F 12/09/17 18:31 Pulse 88 12/09/17 18:31 Resp 18 12/09/17 18:31 BP 130/80 12/09/17 18:31 Pulse Ox 99 12/09/17 18:31 - Medical History PMH: Anxiety, Asthma, Back Problems, Bronchitis, COPD, Kidney Stones (RIGHT), Chronic Kidney Disease Denies: HIV, HTN, Seizures, Sexually Transmitted Disease - Family History Family History: States: Unknown Family Hx - Social History Current smoker - smoking cessation education provided: Yes - Immunization History Hx Tetanus Toxoid Vaccination: Yes Hx Influenza Vaccination: Yes Hx Pneumococcal Vaccination: Yes - Home Medications Home Medications: Ambulatory Orders Medication Instructions Recorded Albuterol HFA [Ventolin HFA 90 2 puff IH PRN PRN #1 inhaler 12/02/17 mcg/actuation (8 g)] Methylprednisolone [Medrol Dose 4 mg PO DAILY #21 mg 12/02/17 Pack (21 tabs)] Albuterol 0.083% [Albuterol 0.083% 2.5 mg INH PRN PRN 12/03/17 Inhal Maryam (2.5 mg/3 ml) UD] Albuterol HFA [Ventolin HFA 90 1 - 2 puff IH Q6 PRN #1 inhaler 12/04/17 mcg/actuation (8 g)] Methylprednisolone [Medrol Dosepak] 4 mg PO ASDIR #1 pkg 12/04/17 - Allergies Allergies/Adverse Reactions: Allergies Allergy/AdvReac Type Severity Reaction Status Date / Time No Known Allergies Allergy Verified 12/03/17 06:30 Review of Systems ROS Statement: Except As Marked, All Systems Reviewed And Found Negative (and as per HPI) ENT: Negative for: Nose Discharge, Throat Pain Cardiovascular: Positive for: Chest Pain, Light Headedness Respiratory: Positive for: Cough, Shortness of Breath, SOB with Exertion, Pleuritic Pain, Wheezing. Negative for: Sputum Physical Exam - Reviewed Nursing Documentation Reviewed: Yes Vital Signs Reviewed: Yes - Physical Exam Appears: Positive for: Non-toxic, No Acute Distress Head Exam: Positive for: ATRAUMATIC, NORMOCEPHALIC Skin: Positive for: Warm, Dry (multiple abrasions of varying ages c/w scratches) Eye Exam: Positive for: EOMI, PERRL ENT: Negative for: Pharyngeal Erythema, Tonsillar Exudate Neck: Positive for: Painless ROM, Supple Cardiovascular/Chest: Positive for: Regular Rate, Rhythm. Negative for: Murmur Respiratory: Positive for: Rhonchi, Wheezing. Negative for: Accessory Muscle Use, Respiratory Distress Gastrointestinal/Abdominal: Positive for: Soft. Negative for: Tenderness Back: Positive for: Normal Inspection. Negative for: Decreased ROM Extremity: Positive for: Normal ROM. Negative for: Deformity Lymphatic: Negative for: Adenopathy Neurologic/Psych: Positive for: Alert. Negative for: Motor/Sensory Deficits - ECG O2 Sat by Pulse Oximetry: 99 Disposition - Clinical Impression Clinical Impression: Asthma - Disposition Disposition: Routine/Home Disposition Time: 20:34 Condition: IMPROVED Instructions: Asthma, Adult (DC) Forms: [facility] (Italian)
== END 2017-12-09 20:35 | disposition home or self-care (01) ==
LOC: H.ER 18:28
DX: J45.909 Unspecified asthma, uncomplicated (principal); F17.200 Nicotine dependence, unspecified, uncomplicated; J44.9 Chronic obstructive pulmonary disease, unspecified; N18.9 Chronic kidney disease, unspecified; Z87.442 Personal history of urinary calculi
CPT/HCPCS: 94640; 96372; 99282; J2930

== ENCOUNTER 2017-12-11 03:14 | Emergency (ER) | payer OTHER ==
[2017-12-11] MEDS ORDERED: Albuterol-Ipratrop 3 mg / 0.5 (3 ml) UD INH STA (03:24)
[2017-12-11 03:30] VITALS: TEMP 98.2; BMI 27.6
[2017-12-11] MEDS ORDERED: Albuterol-Ipratrop 3 mg / 0.5 (3 ml) UD ONE (03:40)
--- NOTE | 2017-12-11 03:42 | ED PDOC ---
HPI: SOB/CHF/COPD Time Seen by Provider: 12/11/17 03:21 Chief Complaint (Nursing): Respiratory Distress Chief Complaint (Provider): Respiratory Distress History Per: Patient History/Exam Limitations: no limitations Onset/Duration Of Symptoms: Days Current Symptoms Are (Timing): Still Present Quality: "Pain" Additional Complaint(s): 52 year old female with pmHx of asthma and opioid addiction, arrives to ED with shortness of breath and wheezing ongoing since yesterday. Patient was recently seen and evaluated here for the same symptoms. She denies any further medical complaints. PMD: none provided Past Medical History Reviewed: Historical Data, Nursing Documentation, Vital Signs Vital Signs: Last Vital Signs Temp 98.2 F 12/11/17 03:26 Pulse 86 12/11/17 03:57 Resp 25 H 12/11/17 03:57 BP 148/86 12/11/17 03:26 Pulse Ox 100 12/11/17 03:57 - Medical History PMH: Anxiety, Asthma, Back Problems, Bronchitis, COPD, Kidney Stones (RIGHT), Chronic Kidney Disease Denies: HIV, HTN, Seizures, Sexually Transmitted Disease - Surgical History Surgical History: No Surg Hx - Family History Family History: States: Unknown Family Hx - Immunization History Hx Tetanus Toxoid Vaccination: Yes Hx Influenza Vaccination: Yes Hx Pneumococcal Vaccination: Yes - Home Medications Home Medications: Ambulatory Orders Medication Instructions Recorded Albuterol HFA [Ventolin HFA 90 2 puff IH PRN PRN #1 inhaler 12/02/17 mcg/actuation (8 g)] Methylprednisolone [Medrol Dose 4 mg PO DAILY #21 mg 12/02/17 Pack (21 tabs)] Albuterol 0.083% [Albuterol 0.083% 2.5 mg INH PRN PRN 12/03/17 Inhal Maryam (2.5 mg/3 ml) UD] Albuterol HFA [Ventolin HFA 90 1 - 2 puff IH Q6 PRN #1 inhaler 12/04/17 mcg/actuation (8 g)] Methylprednisolone [Medrol Dosepak] 4 mg PO ASDIR #1 pkg 12/04/17 - Allergies Allergies/Adverse Reactions: Allergies Allergy/AdvReac Type Severity Reaction Status Date / Time No Known Allergies Allergy Verified 12/11/17 03:25 Review of Systems ROS Statement: Except As Marked, All Systems Reviewed And Found Negative Respiratory: Positive for: Shortness of Breath, Wheezing Physical Exam - Reviewed Nursing Documentation Reviewed: Yes Vital Signs Reviewed: Yes - Physical Exam Appears: Positive for: In Acute Distress Head Exam: Positive for: ATRAUMATIC, NORMOCEPHALIC Skin: Positive for: Normal Color, Warm, Dry Eye Exam: Positive for: Normal appearance, EOMI, PERRL Neck: Positive for: Normal, Painless ROM Cardiovascular/Chest: Positive for: Regular Rate, Rhythm. Negative for: Murmur Respiratory: Positive for: Wheezing (bilateral expiratory ), Respiratory Distress (mild) Gastrointestinal/Abdominal: Positive for: Normal Exam, Soft. Negative for: Tenderness Back: Positive for: Normal Inspection. Negative for: L CVA Tenderness, R CVA Tenderness Extremity: Positive for: Normal ROM. Negative for: Deformity Neurologic/Psych: Positive for: Alert, Oriented. Negative for: Motor/Sensory Deficits - ECG O2 Sat by Pulse Oximetry: 92 (RA) Pulse Ox Interpretation: Normal Medical Decision Making Medical Decision Making: Time: 323 Impression: 52 y/o female with COPD exacerbation Plan: -- Duoneb 3 mg/0.5 ml (3 ml) UD 9 ml INH -- SOLU-Medrol 125 mg IVP -- Heplock Insertion -- Peak Flow Pre/Post Tx Time: 06 -- On re-evaluation, patient markedly in symptoms. Patient is stable for discharge home with a diagnosis of Asthma Exacerbation. Scribe Attestation: Documented by Garry Matihs acting as a scribe for Alhaji Rossi MD. Provider Scribe Attestation: All medical record entries made by the Scribe were at my direction and personally dictated by me. I have reviewed the chart and agree that the record accurately reflects my personal performance of the history, physical exam, medical decision making, and the department course for this patient. I have also personally directed, reviewed, and agree with the discharge instructions and disposition. Disposition - Clinical Impression Clinical Impression: Exacerbation of asthma - Patient ED Disposition Is Patient to be Admitted: No Counseled Patient/Family Regarding: Studies Performed, Diagnosis - Disposition Disposition: Routine/Home Disposition Time: 06:03 Condition: STABLE Instructions: Asthma in Adults Forms: [employer] (Upper Sorbian)
[2017-12-11 03:57] VITALS: PULSE 86
[2017-12-11 06:04] VITALS: BP 114/62; RESP 19
[2017-12-11 06:10] VITALS: O2SAT 96
== END 2017-12-11 06:14 | disposition home or self-care (01) ==
LOC: H.ER 03:14
DX: J45.901 Unspecified asthma with (acute) exacerbation (principal); J44.9 Chronic obstructive pulmonary disease, unspecified; F41.9 Anxiety disorder, unspecified
CPT/HCPCS: 94150; 94640; 96374; 99285; J2930

== ENCOUNTER 2017-12-12 02:31 | Emergency (ER) | payer OTHER ==
[2017-12-12 02:31] VITALS: BMI 25.7
[2017-12-12 02:45] VITALS: O2SAT 96
[2017-12-12] MEDS ORDERED: Albuterol-Ipratrop 3 mg / 0.5 (3 ml) UD INH STA (02:46)
[2017-12-12] MEDS ORDERED: Albuterol-Ipratrop 3 mg / 0.5 (3 ml) UD ONE (02:52)
--- NOTE | 2017-12-12 02:58 | ED PDOC ---
HPI: SOB/CHF/COPD Time Seen by Provider: 12/12/17 02:42 Chief Complaint (Nursing): Chest Pain Chief Complaint (Provider): Chest Pain History Per: Patient History/Exam Limitations: no limitations Onset/Duration Of Symptoms: Days Current Symptoms Are (Timing): Still Present Quality: "Pain" Additional Complaint(s): 52 y/o female with PMHx of asthma and opioid addiction presents to ED with shortness of breath and wheezing, onset 2 days ago. Patient was recently seen and evaluated here for the same symptoms. She denies any further medical complaints. PMD: none provided Past Medical History Reviewed: Historical Data, Nursing Documentation, Vital Signs Vital Signs: Last Vital Signs Temp 98.6 F 12/12/17 02:42 Pulse 97 H 12/12/17 02:42 Resp 22 12/12/17 02:57 BP 130/86 12/12/17 02:42 Pulse Ox 96 12/12/17 03:02 - Medical History PMH: Anxiety, Asthma, Back Problems, Bronchitis, COPD, Kidney Stones (RIGHT), Chronic Kidney Disease Denies: HIV, HTN, Seizures, Sexually Transmitted Disease - Surgical History Surgical History: No Surg Hx - Family History Family History: States: Unknown Family Hx - Immunization History Hx Tetanus Toxoid Vaccination: Yes Hx Influenza Vaccination: Yes Hx Pneumococcal Vaccination: Yes - Home Medications Home Medications: Ambulatory Orders Medication Instructions Recorded Albuterol HFA [Ventolin HFA 90 2 puff IH PRN PRN #1 inhaler 12/02/17 mcg/actuation (8 g)] Methylprednisolone [Medrol Dose 4 mg PO DAILY #21 mg 12/02/17 Pack (21 tabs)] Albuterol 0.083% [Albuterol 0.083% 2.5 mg INH PRN PRN 12/03/17 Inhal Maryam (2.5 mg/3 ml) UD] Albuterol HFA [Ventolin HFA 90 1 - 2 puff IH Q6 PRN #1 inhaler 12/04/17 mcg/actuation (8 g)] Methylprednisolone [Medrol Dosepak] 4 mg PO ASDIR #1 pkg 12/04/17 - Allergies Allergies/Adverse Reactions: Allergies Allergy/AdvReac Type Severity Reaction Status Date / Time No Known Allergies Allergy Verified 12/12/17 02:42 Review of Systems ROS Statement: Except As Marked, All Systems Reviewed And Found Negative Respiratory: Positive for: Shortness of Breath, Wheezing Physical Exam - Reviewed Nursing Documentation Reviewed: Yes Vital Signs Reviewed: Yes - Physical Exam Appears: Positive for: In Acute Distress Head Exam: Positive for: ATRAUMATIC, NORMOCEPHALIC Skin: Positive for: Normal Color, Warm, Dry Eye Exam: Positive for: Normal appearance, EOMI, PERRL Neck: Positive for: Normal, Painless ROM Cardiovascular/Chest: Positive for: Regular Rate, Rhythm. Negative for: Murmur Respiratory: Positive for: Wheezing (bilateral expiratory), Respiratory Distress (mild) Gastrointestinal/Abdominal: Positive for: Normal Exam, Soft. Negative for: Tenderness Extremity: Positive for: Normal ROM. Negative for: Deformity Neurologic/Psych: Positive for: Alert, Oriented. Negative for: Motor/Sensory Deficits - ECG O2 Sat by Pulse Oximetry: 96 (RA) Pulse Ox Interpretation: Normal Medical Decision Making Medical Decision Making: Time: 0246 Impression: 52 y/o female with COPD exacerbation Plan: -- Duoneb 3mg/5ml (3 ml) UD 9 ml INH -- PredniSONE 60 mg PO -- Peak Flow Pre/Post Tx Time: 0400 -- At this time, patient reports an improvement of symptoms. Patient is stable for discharge home with a diagnosis of asthma exacerbation. Scribe Attestation: Documented by Garry Mathis acting as a scribe for Alhaji Rossi MD. Provider Scribe Attestation: All medical record entries made by the Scribe were at my direction and personally dictated by me. I have reviewed the chart and agree that the record accurately reflects my personal performance of the history, physical exam, medical decision making, and the department course for this patient. I have also personally directed, reviewed, and agree with the discharge instructions and disposition. Disposition - Clinical Impression Clinical Impression: Exacerbation of asthma - Patient ED Disposition Is Patient to be Admitted: No Counseled Patient/Family Regarding: Studies Performed, Diagnosis - Disposition Disposition: Routine/Home Disposition Time: 04:00 Condition: STABLE Instructions: Asthma in Adults Forms: [facility] (Khmer)
[2017-12-12 04:17] VITALS: BP 122/79; PULSE 100; RESP 20; TEMP 98.4
== END 2017-12-12 04:19 | disposition home or self-care (01) ==
LOC: H.ER 02:31
DX: J45.901 Unspecified asthma with (acute) exacerbation (principal)

== ENCOUNTER 2017-12-12 21:16 | Emergency (ER) | payer OTHER ==
[2017-12-12 21:17] VITALS: BMI 25.7
--- NOTE | 2017-12-12 21:55 | ED PDOC ---
HPI: SOB/CHF/COPD Time Seen by Provider: 12/12/17 21:51 Chief Complaint (Nursing): Cough, Cold, Congestion Chief Complaint (Provider): SOB History Per: Patient Additional Complaint(s): 52 y/o female with PMHx of asthma and opioid addiction presents to ED with shortness of breath and wheezing. Pt admits she was outside smoking a cigarette prior to arrival. Patient was recently seen and evaluated here for the same symptoms. She denies any further medical complaints. PMD: none provided Past Medical History Reviewed: Historical Data, Nursing Documentation, Vital Signs Vital Signs: Last Vital Signs Temp 97.4 F L 12/12/17 21:46 Pulse 96 H 12/12/17 21:46 Resp 16 12/12/17 21:46 BP 166/78 H 12/12/17 21:46 Pulse Ox 94 L 12/12/17 21:56 - Medical History PMH: Anxiety, Asthma, Back Problems, Bronchitis, COPD, Kidney Stones (RIGHT), Chronic Kidney Disease Denies: HIV, HTN, Seizures, Sexually Transmitted Disease - Family History Family History: States: Unknown Family Hx - Living Arrangements Living Arrangements: Other - Social History Current smoker - smoking cessation education provided: Yes Alcohol: Social Drugs: Cannabis, Opiates - Immunization History Hx Tetanus Toxoid Vaccination: Yes Hx Influenza Vaccination: Yes Hx Pneumococcal Vaccination: Yes - Home Medications Home Medications: Ambulatory Orders Medication Instructions Recorded Albuterol HFA [Ventolin HFA 90 2 puff IH PRN PRN #1 inhaler 12/02/17 mcg/actuation (8 g)] Methylprednisolone [Medrol Dose 4 mg PO DAILY #21 mg 12/02/17 Pack (21 tabs)] Albuterol 0.083% [Albuterol 0.083% 2.5 mg INH PRN PRN 12/03/17 Inhal Maryam (2.5 mg/3 ml) UD] Albuterol HFA [Ventolin HFA 90 1 - 2 puff IH Q6 PRN #1 inhaler 12/04/17 mcg/actuation (8 g)] Methylprednisolone [Medrol Dosepak] 4 mg PO ASDIR #1 pkg 12/04/17 Albuterol HFA [Ventolin HFA 90 2 puff IH [id number] PRN #1 puff 12/12/17 mcg/actuation (8 g)] Methylprednisolone [Medrol Dose 4 mg PO DAILY #21 mg 12/12/17 Pack (21 tabs)] - Allergies Allergies/Adverse Reactions: Allergies Allergy/AdvReac Type Severity Reaction Status Date / Time No Known Allergies Allergy Verified 12/12/17 21:45 Review of Systems ROS Statement: Except As Marked, All Systems Reviewed And Found Negative Respiratory: Positive for: Shortness of Breath Physical Exam - Reviewed Nursing Documentation Reviewed: Yes Vital Signs Reviewed: Yes - Physical Exam Appears: Positive for: Non-toxic, No Acute Distress, Uncomfortable Head Exam: Positive for: ATRAUMATIC, NORMAL INSPECTION, NORMOCEPHALIC Skin: Positive for: Normal Color, Warm, DRY Eye Exam: Positive for: EOMI, Normal appearance, PERRL ENT: Positive for: Normal ENT Inspection Neck: Positive for: Normal, Painless ROM Cardiovascular/Chest: Positive for: Regular Rate, Rhythm Respiratory: Positive for: Wheezing Gastrointestinal/Abdominal: Positive for: Normal Exam, Soft Back: Positive for: Normal Inspection Extremity: Positive for: Normal ROM Neurologic/Psych: Positive for: Alert, Oriented - ECG O2 Sat by Pulse Oximetry: 94 Medical Decision Making Medical Decision Making: IV access established and treatment initiated with IV Solumderol, Duo neb x 3 Pt on r-eval reports feeling improved and is asking to go home. Lungs improved; however, still mild expiratory wheezing noted on re-eval repeat POX: 98% on RA Pt refusing any further treatment, reports she needs to go home to her kids. signed out by staff writer. Disposition - Clinical Impression Clinical Impression: Exacerbation of asthma - Patient ED Disposition Is Patient to be Admitted: No - Disposition Disposition: Routine/Home Disposition Time: 22:41 Condition: STABLE Prescriptions: Albuterol HFA [Ventolin HFA 90 mcg/actuation (8 g)] 2 puff IH [id number] PRN #1 puff PRN Reason: Shortness Of Breath Methylprednisolone [Medrol Dose Pack (21 tabs)] 4 mg PO DAILY #21 mg Instructions: Asthma in Adults Forms: [facility] [employer] ([place] Islander)
[2017-12-12] MEDS ORDERED: Albuterol-Ipratrop 3 mg / 0.5 (3 ml) UD INH STA (21:56)
[2017-12-12 23:25] VITALS: BP 128/80; PULSE 78; RESP 18; TEMP 98; O2SAT 100
== END 2017-12-12 23:24 | disposition home or self-care (01) ==
LOC: H.ER 21:16
DX: J45.901 Unspecified asthma with (acute) exacerbation (principal); F17.210 Nicotine dependence, cigarettes, uncomplicated
CPT/HCPCS: 94640; 96374; 99282; J2930

== ENCOUNTER 2017-12-16 22:37 | Emergency (ER) | payer OTHER ==
[2017-12-16 22:38] VITALS: BMI 25.7
[2017-12-16] MEDS ORDERED: Albuterol-Ipratrop 3 mg / 0.5 (3 ml) UD INH STA (23:01)
--- NOTE | 2017-12-16 23:26 | ED PDOC ---
HPI: SOB/CHF/COPD Time Seen by Provider: 12/16/17 22:55 Chief Complaint (Nursing): Shortness Of Breath Chief Complaint (Provider): Shortness Of Breath History Per: Patient History/Exam Limitations: no limitations Onset/Duration Of Symptoms: Hrs (x3 ) Current Symptoms Are (Timing): Still Present Additional Complaint(s): 52 year old female with a history of asthma and chronic heroin use presents to the ED with wheezing beginning 3 hours ago and worsening since onset. Symptoms are associated with non productive cough and shortness of breath. Patient is known to the ED for previous episodes of similar symptoms. Offers no other complaints. PMD: none provided Past Medical History Reviewed: Historical Data, Nursing Documentation, Vital Signs Vital Signs: Last Vital Signs Temp Pulse 83 12/16/17 23:41 Resp 22 12/16/17 23:15 BP 125/74 12/16/17 22:52 Pulse Ox 92 L 12/16/17 23:41 - Medical History PMH: Anxiety, Asthma, Back Problems, Bronchitis, COPD, Kidney Stones (RIGHT), Chronic Kidney Disease Denies: HIV, HTN, Seizures, Sexually Transmitted Disease - Surgical History Surgical History: No Surg Hx - Family History Family History: States: Unknown Family Hx - Social History Drugs: Opiates (admits to three bags of heroin intransally daily) - Immunization History Hx Tetanus Toxoid Vaccination: Yes Hx Influenza Vaccination: Yes Hx Pneumococcal Vaccination: Yes - Home Medications Home Medications: Ambulatory Orders Medication Instructions Recorded Albuterol HFA [Ventolin HFA 90 2 puff IH PRN PRN #1 inhaler 12/02/17 mcg/actuation (8 g)] Methylprednisolone [Medrol Dose 4 mg PO DAILY #21 mg 12/02/17 Pack (21 tabs)] Albuterol 0.083% [Albuterol 0.083% 2.5 mg INH PRN PRN 12/03/17 Inhal Maryam (2.5 mg/3 ml) UD] Albuterol HFA [Ventolin HFA 90 1 - 2 puff IH Q6 PRN #1 inhaler 12/04/17 mcg/actuation (8 g)] Methylprednisolone [Medrol Dosepak] 4 mg PO ASDIR #1 pkg 12/04/17 Albuterol HFA [Ventolin HFA 90 2 puff IH [id number] PRN #1 puff 12/12/17 mcg/actuation (8 g)] Methylprednisolone [Medrol Dose 4 mg PO DAILY #21 mg 12/12/17 Pack (21 tabs)] - Allergies Allergies/Adverse Reactions: Allergies Allergy/AdvReac Type Severity Reaction Status Date / Time No Known Allergies Allergy Verified 12/12/17 21:45 Review of Systems ROS Statement: Except As Marked, All Systems Reviewed And Found Negative Respiratory: Positive for: Cough (non productive), Shortness of Breath, Wheezing Physical Exam - Reviewed Nursing Documentation Reviewed: Yes Vital Signs Reviewed: Yes - Physical Exam Appears: Positive for: Non-toxic, No Acute Distress (somewhat sleepy) Head Exam: Positive for: ATRAUMATIC, NORMAL INSPECTION, NORMOCEPHALIC Skin: Positive for: Warm, Dry Eye Exam: Positive for: EOMI, PERRL ENT: Negative for: Pharyngeal Erythema, Tonsillar Exudate Neck: Positive for: Painless ROM, Supple Cardiovascular/Chest: Positive for: Regular Rate, Rhythm. Negative for: Murmur Respiratory: Positive for: Rhonchi (bilaterally), Wheezing (bilaterally), Respiratory Distress (mild ). Negative for: Accessory Muscle Use Gastrointestinal/Abdominal: Positive for: Soft. Negative for: Tenderness Extremity: Positive for: Normal ROM. Negative for: Deformity Lymphatic: Negative for: Adenopathy Neurologic/Psych: Positive for: Alert. Negative for: Motor/Sensory Deficits - ECG ECG: Positive for: Interpreted By Me, Viewed By Me ECG Rhythm: Positive for: Normal QRS, Normal ST Segment, Sinus Rhythm (normal) Rate: 83 O2 Sat by Pulse Oximetry: 92 (RA) Pulse Ox Interpretation: Normal Medical Decision Making Medical Decision Makin:01 Impression: asthma exacerbation Initial Plan: --Duoneb 9 ml INH --Peak flow pre/ post Scribe Attestation: Documented by Eliana Duarte, acting as a scribe for Yuko Richmond MD Provider Scribe Attestation: All medical record entries made by the Scribe were at my direction and personally dictated by me. I have reviewed the chart and agree that the record accurately reflects my personal performance of the history, physical exam, medical decision making, and the department course for this patient. I have also personally directed, reviewed, and agree with the discharge instructions and disposition. Disposition - Clinical Impression Clinical Impression: Asthma exacerbation, Heroin abuse - Disposition Disposition: Routine/Home Disposition Time: 23:48 Condition: IMPROVED Instructions: Asthma, Adult (DC), Opioid Use Disorder
[2017-12-17 00:12] VITALS: BP 120/71; PULSE 89; RESP 20; TEMP 98.1; O2SAT 99
== END 2017-12-17 00:11 | disposition home or self-care (01) ==
LOC: H.ER 22:37
DX: J45.901 Unspecified asthma with (acute) exacerbation (principal); F11.10 Opioid abuse, uncomplicated

== ENCOUNTER 2017-12-17 16:26 | Emergency (ER) | payer OTHER ==
[2017-12-17 16:26] VITALS: BMI 25.7
[2017-12-17] MEDS ORDERED: Albuterol-Ipratrop 3 mg / 0.5 (3 ml) UD INH STA ×2 (17:25→18:34)
--- NOTE | 2017-12-17 17:35 | ED PDOC ---
HPI: SOB/CHF/COPD Time Seen by Provider: 12/17/17 16:30 Chief Complaint (Nursing): Shortness Of Breath Chief Complaint (Provider): Shortness of Breath History Per: Patient History/Exam Limitations: no limitations Onset/Duration Of Symptoms: Mins Current Symptoms Are (Timing): Still Present Additional Complaint(s): 52 year old female, with a past medical history of asthma and COPD presents to the ED complaining of SOB which started in the ED when she was visiting a patient. Patient reports she felt wheezing, SOB, and onset of an asthma attack. Denies fever, cough, and nausea. PMD: none provided Past Medical History Reviewed: Historical Data, Nursing Documentation, Vital Signs Vital Signs: Last Vital Signs Temp 97 F L 12/17/17 19:04 Pulse 78 12/17/17 19:04 Resp 19 12/17/17 19:04 BP 128/78 12/17/17 19:04 Pulse Ox 98 12/17/17 19:04 - Medical History PMH: Anxiety, Asthma, Back Problems, Bronchitis, COPD, Kidney Stones (RIGHT), Chronic Kidney Disease Denies: HIV, HTN, Seizures, Sexually Transmitted Disease - Surgical History Surgical History: No Surg Hx - Family History Family History: States: Unknown Family Hx - Social History Current smoker - smoking cessation education provided: Yes (3 cigarettes a day) Drugs: Opiates - Immunization History Hx Tetanus Toxoid Vaccination: Yes Hx Influenza Vaccination: Yes Hx Pneumococcal Vaccination: Yes - Home Medications Home Medications: Ambulatory Orders Medication Instructions Recorded Albuterol HFA [Ventolin HFA 90 2 puff IH PRN PRN #1 inhaler 12/02/17 mcg/actuation (8 g)] Methylprednisolone [Medrol Dose 4 mg PO DAILY #21 mg 12/02/17 Pack (21 tabs)] Albuterol 0.083% [Albuterol 0.083% 2.5 mg INH PRN PRN 12/03/17 Inhal Maryam (2.5 mg/3 ml) UD] Albuterol HFA [Ventolin HFA 90 1 - 2 puff IH Q6 PRN #1 inhaler 12/04/17 mcg/actuation (8 g)] Methylprednisolone [Medrol Dosepak] 4 mg PO ASDIR #1 pkg 12/04/17 Albuterol HFA [Ventolin HFA 90 2 puff IH [id number] PRN #1 puff 12/12/17 mcg/actuation (8 g)] Methylprednisolone [Medrol Dose 4 mg PO DAILY #21 mg 12/12/17 Pack (21 tabs)] predniSONE [Prednisone] 40 mg PO DAILY #8 tab 12/17/17 - Allergies Allergies/Adverse Reactions: Allergies Allergy/AdvReac Type Severity Reaction Status Date / Time No Known Allergies Allergy Verified 12/17/17 16:29 Review of Systems ROS Statement: Except As Marked, All Systems Reviewed And Found Negative Constitutional: Negative for: Fever Respiratory: Positive for: SOB with Exertion, Wheezing. Negative for: Cough Gastrointestinal: Negative for: Nausea Physical Exam - Reviewed Nursing Documentation Reviewed: Yes Vital Signs Reviewed: Yes - Physical Exam Appears: Positive for: Non-toxic, No Acute Distress Head Exam: Positive for: ATRAUMATIC, NORMOCEPHALIC Skin: Positive for: Normal Color, Warm, Dry Eye Exam: Positive for: Normal appearance ENT: Positive for: Normal ENT Inspection Neck: Positive for: Normal, Painless ROM Cardiovascular/Chest: Positive for: Regular Rate, Rhythm Respiratory: Positive for: Wheezing, Other (Good air entry bilaterally). Negative for: Accessory Muscle Use Gastrointestinal/Abdominal: Positive for: Normal Exam Extremity: Positive for: Normal ROM Neurologic/Psych: Positive for: Alert, Oriented. Negative for: Motor/Sensory Deficits - ECG O2 Sat by Pulse Oximetry: 99 (RA) Pulse Ox Interpretation: Normal Medical Decision Making Medical Decision Making: Initial Plan: asthma exac. --Albuterol 3mL INH --Prednisone 40mg PO --Peak flow pt got nebulizer, steroids and feels much better on reeval, pt wheezing decreased 18:37 Patient is stable for discharge with diagnosis of asthma attack. Scribe Attestation: Documented by Yung Cesar acting as a scribe for Callum Rizvi MD. Provider Scribe Attestation: All medical record entries made by the Aamiribtim were at my direction and personally dictated by me. I have reviewed the chart and agree that the record accurately reflects my personal performance of the history, physical exam, medical decision making, and the department course for this patient. I have also personally directed, reviewed, and agree with the discharge instructions and disposition. Disposition - Clinical Impression Clinical Impression: Asthma attack - Patient ED Disposition Is Patient to be Admitted: No Counseled Patient/Family Regarding: Studies Performed, Diagnosis, Need For Followup - Disposition Disposition: Routine/Home Disposition Time: 18:37 Condition: IMPROVED Additional Instructions: follow up with your primary doctor in 1-2 days return to the ED with any worsening or concerning symptoms Prescriptions: predniSONE [Prednisone] 40 mg PO DAILY #8 tab Instructions: Asthma, Adult (DC) Forms: [employer] ([place]er)
[2017-12-17] MEDS ORDERED: Albuterol-Ipratrop 3 mg / 0.5 (3 ml) UD ONE ×2 (17:39→18:42)
[2017-12-17 19:05] VITALS: BP 128/78; PULSE 78; RESP 19; TEMP 97
[2017-12-18 07:56] VITALS: O2SAT 99
== END 2017-12-17 19:05 | disposition home or self-care (01) ==
LOC: H.ER 16:26
DX: J45.909 Unspecified asthma, uncomplicated (principal); F17.210 Nicotine dependence, cigarettes, uncomplicated; N18.9 Chronic kidney disease, unspecified; Z87.442 Personal history of urinary calculi

== ENCOUNTER 2017-12-19 14:06 | Emergency (ER) | payer OTHER ==
[2017-12-19 14:06] VITALS: BMI 25.7
[2017-12-19] MEDS ORDERED: Albuterol-Ipratrop 3 mg / 0.5 (3 ml) UD INH STA ×2 (15:14→17:41)
--- NOTE | 2017-12-19 15:58 | ED PDOC ---
HPI: SOB/CHF/COPD Time Seen by Provider: 12/19/17 14:36 Chief Complaint (Nursing): Shortness Of Breath Chief Complaint (Provider): Shortness of breath History Per: Patient History/Exam Limitations: no limitations Onset/Duration Of Symptoms: Hrs Additional History Per: Patient Additional Complaint(s): 52yo female, comes to ER stating she developed an asthma attack earlier today and reports she has run out of her Ventolin. She admits to using 3 bags of heroin earlier today as well. She denies any fever, chills, chest pain, palpitations or hematemesis. No other complaints. Past Medical History Reviewed: Historical Data, Nursing Documentation, Vital Signs Vital Signs: Last Vital Signs Temp 99.0 F 12/19/17 14:08 Pulse 73 12/19/17 17:17 Resp 17 12/19/17 17:17 BP 146/78 12/19/17 15:24 Pulse Ox 95 12/19/17 18:49 - Medical History PMH: Anxiety, Asthma, Back Problems, Bronchitis, COPD, Kidney Stones (RIGHT), Chronic Kidney Disease Denies: HIV, HTN, Seizures, Sexually Transmitted Disease - Family History Family History: States: Unknown Family Hx - Social History Drugs: Other (heroin) - Immunization History Hx Tetanus Toxoid Vaccination: Yes Hx Influenza Vaccination: Yes Hx Pneumococcal Vaccination: Yes - Home Medications Home Medications: Ambulatory Orders Medication Instructions Recorded Albuterol HFA [Ventolin HFA 90 2 puff IH PRN PRN #1 inhaler 12/02/17 mcg/actuation (8 g)] Methylprednisolone [Medrol Dose 4 mg PO DAILY #21 mg 12/02/17 Pack (21 tabs)] Albuterol 0.083% [Albuterol 0.083% 2.5 mg INH PRN PRN 12/03/17 Inhal Maryam (2.5 mg/3 ml) UD] Albuterol HFA [Ventolin HFA 90 1 - 2 puff IH Q6 PRN #1 inhaler 12/04/17 mcg/actuation (8 g)] Methylprednisolone [Medrol Dosepak] 4 mg PO ASDIR #1 pkg 12/04/17 Albuterol HFA [Ventolin HFA 90 2 puff IH [id number] PRN #1 puff 12/12/17 mcg/actuation (8 g)] Methylprednisolone [Medrol Dose 4 mg PO DAILY #21 mg 12/12/17 Pack (21 tabs)] predniSONE [Prednisone] 40 mg PO DAILY #8 tab 12/17/17 Albuterol HFA [Ventolin HFA 90 2 puff IH [id number] PRN #1 each 12/19/17 mcg/actuation (8 g)] - Allergies Allergies/Adverse Reactions: Allergies Allergy/AdvReac Type Severity Reaction Status Date / Time No Known Allergies Allergy Verified 12/19/17 14:08 Review of Systems ROS Statement: Except As Marked, All Systems Reviewed And Found Negative Constitutional: Negative for: Fever, Chills Cardiovascular: Negative for: Chest Pain, Palpitations Respiratory: Positive for: Shortness of Breath. Negative for: Hemoptysis Gastrointestinal: Negative for: Hematemesis Physical Exam - Reviewed Nursing Documentation Reviewed: Yes Vital Signs Reviewed: Yes - Physical Exam Appears: Positive for: Non-toxic, No Acute Distress Head Exam: Positive for: ATRAUMATIC, NORMAL INSPECTION, NORMOCEPHALIC Skin: Positive for: Normal Color, Warm, DRY Eye Exam: Positive for: EOMI, Normal appearance, PERRL Neck: Positive for: Normal, Painless ROM, Supple Cardiovascular/Chest: Positive for: Regular Rate, Rhythm Respiratory: Positive for: Wheezing (bilateral expiratory wheeze), Other ( speaking in full sentences). Negative for: Respiratory Distress Gastrointestinal/Abdominal: Positive for: Normal Exam, Soft Back: Positive for: Normal Inspection Extremity: Positive for: Normal ROM. Negative for: Pedal Edema Neurologic/Psych: Positive for: Alert, Oriented, Other (patient sleepy but easily arousable) - ECG ECG: Positive for: Interpreted By Me ECG Rhythm: Positive for: Sinus Rhythm. Negative for: ST/T Changes Rate: 84 O2 Sat by Pulse Oximetry: 95 (RA) Pulse Ox Interpretation: Normal Medical Decision Making Medical Decision Making: Impression: Asthma exacerbation Plan: -- Duoneb 3ml INH x 3 -- Prednisone 40mg PO -- EKG 1810 On re-evaluation, pt. reports feeling better. POX on monitor 96% on RA. Scribe Attestation: Documented by Barbra Benavidez acting as a scribe for BRIA Jamison Provider Scribe Attestation: All medical record entries made by the Scribe were at my direction and personally dictated by me. I have reviewed the chart and agree that the record accurately reflects my personal performance of the history, physical exam, medical decision making, and the department course for this patient. I have also personally directed, reviewed, and agree with the discharge instructions and disposition. Disposition - Clinical Impression Clinical Impression: Bronchospasm, acute - Patient ED Disposition Is Patient to be Admitted: No - Disposition Referrals: [facility] [Outside] [facility] [Outside] Disposition: Routine/Home Disposition Time: 18:15 Condition: IMPROVED Additional Instructions: SAMUEL GUILLERMO, thank you for letting us take care of you today. Your provider was Nerissa Pak MD and you were treated for DIFFICULTY BREATHING,ASTHMA. The emergency medical care you received today was directed at your acute symptoms. If you were prescribed any medication, please fill it and take as directed. It may take several days for your symptoms to resolve. Return to the Emergency Department if your symptoms worsen, do not improve, or if you have any other problems. Please contact your doctor or call one of the physicians/clinics you have been referred to that are listed on the Patient Visit Information form that is included in your discharge packet. Bring any paperwork you were given at discharge with you along with any medications you are taking to your follow up visit. Our treatment cannot replace ongoing medical care by a primary care provider outside of the emergency department. Thank you for allowing the [facility] team to be part of your care today. If you had an X-Ray or CT scan: A Radiologist will review the ED reading if any change in treatment is needed we will contact you. If you had a blood, urine, or wound culture: It will take several days for the results, if any change in treatment is needed we will contact you. If you had an STI test: It will take 48 hours for the results. Please call after 1 week if you have not heard back. Prescriptions: Albuterol HFA [Ventolin HFA 90 mcg/actuation (8 g)] 2 puff IH [id number] PRN #1 each PRN Reason: Wheezing Forms: [employer] (Cuban)
[2017-12-19 17:18] VITALS: RESP 17
[2017-12-19] MEDS ORDERED: Albuterol-Ipratrop 3 mg / 0.5 (3 ml) UD ONE (17:40)
[2017-12-19 18:58] VITALS: BP 123/62; PULSE 72; TEMP 98.8; O2SAT 94
--- NOTE | 2017-12-20 07:54 | CARD ---
APPROVED REPORT Date of service: 12/19/2017 EKG Measurement Heart [id number] <Conclusion> Sinus rhythm with premature supraventricular complexes Minimal voltage criteria for LVH, may be normal variant Borderline ECG
== END 2017-12-19 18:56 | disposition home or self-care (01) ==
LOC: H.ER 14:06
DX: J98.01 Acute bronchospasm (principal)

== ENCOUNTER 2017-12-22 14:22 | Emergency (ER) | payer OTHER ==
[2017-12-22 14:22] VITALS: BMI 25.7
[2017-12-22 14:30] VITALS: TEMP 97.9
[2017-12-22] MEDS ORDERED: Albuterol-Ipratrop 3 mg / 0.5 (3 ml) UD INH STA ×2 (15:35→17:14)
--- NOTE | 2017-12-22 16:40 | ED PDOC ---
HPI: SOB/CHF/COPD Time Seen by Provider: 12/22/17 14:38 Chief Complaint (Nursing): Shortness Of Breath Chief Complaint (Provider): Shortness Of Breath History Per: Patient History/Exam Limitations: no limitations Onset/Duration Of Symptoms: Days (x1) Current Symptoms Are (Timing): Still Present Additional Complaint(s): 52 y/o female with a PMHx of anxiety, asthma, back problems, bronchitis, COPD and chronic kidney disease presents to the ED complaining of shortness of breath , onset earlier today. Patient is well known to provider and ER staff for frequent visits of similar symptoms. Patient reports of finishing prednisone course yesterday and is here today for further treatment. Denies any other complaints. PMD: Kenneth Novak. Past Medical History Reviewed: Historical Data, Nursing Documentation, Vital Signs Vital Signs: Last Vital Signs Temp 97.9 F 12/22/17 18:05 Pulse 92 H 12/22/17 18:05 Resp 18 12/22/17 18:05 BP 118/90 12/22/17 18:05 Pulse Ox 96 12/22/17 18:05 - Medical History PMH: Anxiety, Asthma, Back Problems, Bronchitis, COPD, Kidney Stones (RIGHT), Chronic Kidney Disease Denies: HIV, HTN, Seizures, Sexually Transmitted Disease - Surgical History Surgical History: No Surg Hx - Family History Family History: States: Unknown Family Hx - Immunization History Hx Tetanus Toxoid Vaccination: Yes Hx Influenza Vaccination: Yes Hx Pneumococcal Vaccination: Yes - Home Medications Home Medications: Ambulatory Orders Medication Instructions Recorded Albuterol HFA [Ventolin HFA 90 2 puff IH PRN PRN #1 inhaler 12/02/17 mcg/actuation (8 g)] Methylprednisolone [Medrol Dose 4 mg PO DAILY #21 mg 12/02/17 Pack (21 tabs)] Albuterol 0.083% [Albuterol 0.083% 2.5 mg INH PRN PRN 12/03/17 Inhal Maryam (2.5 mg/3 ml) UD] Albuterol HFA [Ventolin HFA 90 1 - 2 puff IH Q6 PRN #1 inhaler 12/04/17 mcg/actuation (8 g)] Methylprednisolone [Medrol Dosepak] 4 mg PO ASDIR #1 pkg 12/04/17 Albuterol HFA [Ventolin HFA 90 2 puff IH [id number] PRN #1 puff 12/12/17 mcg/actuation (8 g)] Methylprednisolone [Medrol Dose 4 mg PO DAILY #21 mg 12/12/17 Pack (21 tabs)] predniSONE [Prednisone] 40 mg PO DAILY #8 tab 12/17/17 Albuterol HFA [Ventolin HFA 90 2 puff IH [id number] PRN #1 each 12/19/17 mcg/actuation (8 g)] Albuterol HFA [Ventolin HFA 90 2 puff IH [id number] PRN #1 bottle 12/22/17 mcg/actuation (8 g)] Prednisone 50 mg PO DAILY #4 tab 12/22/17 Albuterol HFA [Ventolin HFA 90 2 puff IH Q6 #1 inhaler 12/23/17 mcg/actuation (8 g)] - Allergies Allergies/Adverse Reactions: Allergies Allergy/AdvReac Type Severity Reaction Status Date / Time No Known Allergies Allergy Verified 12/20/17 19:14 Review of Systems ROS Statement: Except As Marked, All Systems Reviewed And Found Negative Respiratory: Positive for: Shortness of Breath Physical Exam - Reviewed Nursing Documentation Reviewed: Yes Vital Signs Reviewed: Yes - Physical Exam Appears: Positive for: No Acute Distress Head Exam: Positive for: ATRAUMATIC, NORMOCEPHALIC Skin: Positive for: Normal Color, Warm, Dry Eye Exam: Positive for: Normal appearance, EOMI, PERRL Neck: Positive for: Normal, Painless ROM Cardiovascular/Chest: Positive for: Regular Rate, Rhythm. Negative for: Murmur Respiratory: Positive for: Normal Breath Sounds. Negative for: Respiratory Distress Gastrointestinal/Abdominal: Positive for: Normal Exam, Soft. Negative for: Tenderness Extremity: Positive for: Normal ROM. Negative for: Deformity Neurologic/Psych: Positive for: Alert, Oriented. Negative for: Motor/Sensory Deficits - ECG ECG Rhythm: Positive for: Sinus Rhythm. Negative for: ST/T Changes Interpretation Of Abn EKG: Left Ventricular Hypertrophy noted Rate: 67 O2 Sat by Pulse Oximetry: 97 (RA) Pulse Ox Interpretation: Normal Medical Decision Making Medical Decision Making: Time: 1536 Impression: Shortness of breath Plan: -- EKG -- Duoneb 3mg/5ml UD 3 ml INH -- PredniSONE 50 mg PO -- Peak Flow Pre/Post Tx Scribe Attestation: Documented by Garry Mathis acting as a scribe for Ene Sawyer MD. Provider Scribe Attestation: All medical record entries made by the Scribe were at my direction and personally dictated by me. I have reviewed the chart and agree that the record accurately reflects my personal performance of the history, physical exam, medical decision making, and the department course for this patient. I have also personally directed, reviewed, and agree with the discharge instructions and disposition. Disposition - Clinical Impression Clinical Impression: Asthma - Disposition Disposition: Routine/Home Disposition Time: 17:54 Condition: IMPROVED Additional Instructions: FOLLOW-UP WITH PMD WITHIN 2 DAYS FOR REEVALUATION. Prescriptions: Albuterol HFA [Ventolin HFA 90 mcg/actuation (8 g)] 2 puff IH [id number] PRN #1 bottle PRN Reason: Shortness Of Breath Prednisone 50 mg PO DAILY #4 tab Instructions: Asthma in Adults, Quitting Smoking Forms: [facility] (Turkmen)
[2017-12-22 18:09] VITALS: BP 118/90; RESP 18
--- NOTE | 2017-12-22 21:43 | CARD ---
APPROVED REPORT Date of service: 12/22/2017 EKG Measurement Heart [id number] <Conclusion> Normal sinus rhythm Possible Left atrial enlargement Left ventricular hypertrophy Abnormal ECG
[2017-12-28 09:54] VITALS: PULSE 67; O2SAT 97
== END 2017-12-22 18:13 | disposition home or self-care (01) ==
LOC: H.ER 14:22
DX: J45.909 Unspecified asthma, uncomplicated (principal)

== ENCOUNTER 2018-01-06 20:15 | Emergency (ER) | payer OTHER ==
[2018-01-06 20:15] VITALS: BMI 25.7
[2018-01-06 20:26] VITALS: BP 137/80; PULSE 92; TEMP 98.8; O2SAT 98
[2018-01-06 20:35] VITALS: RESP 21
[2018-01-06] MEDS ORDERED: Albuterol-Ipratrop 3 mg / 0.5 (3 ml) UD IH STA (20:39)
--- NOTE | 2018-01-06 20:43 | ED PDOC ---
HPI: SOB/CHF/COPD Chief Complaint (Provider): asthma History Per: Patient History/Exam Limitations: no limitations Onset/Duration Of Symptoms: Days (3) Current Symptoms Are (Timing): Still Present Quality: "Pain" <Kayla Garces - Last Filed: 01/06/18 22:14> <Ene Sawyer - Last Filed: 01/09/18 08:00> Time Seen by Provider: 01/06/18 20:31 Chief Complaint (Nursing): Respiratory Distress Additional Complaint(s): 52 y/o female presents for evaluation of wheezing x 3 days. States she has been using her inhaler and nebulizer without improvement. Patient also reports right-sided chest pain, worse with movement and deep breaths. Denies fever, headache, dizziness, palpitations, nausea/vomiting, abdominal pain, leg pain/swelling. Patient states she relapsed and is now back to using heroin. (Kayla Garces) 52 y/o female presents for evaluation of wheezing x 3 days. States she has been using her inhaler and nebulizer without improvement. Patient also reports right-sided chest pain, worse with movement and deep breaths. Denies fever, headache, dizziness, palpitations, nausea/vomiting, abdominal pain, leg pain/swelling. Patient states she relapsed and is now back to using heroin. (Ene Sawyer) Past Medical History Reviewed: Historical Data, Nursing Documentation, Vital Signs - Medical History PMH: Anxiety, Asthma, Back Problems, Bronchitis, COPD, Gastritis, Kidney Stones (RIGHT), Pneumonia, Chronic Kidney Disease Denies: HIV, HTN, Seizures, Sexually Transmitted Disease - Surgical History Surgical History: No Surg Hx - Family History Family History: States: Unknown Family Hx - Immunization History Hx Tetanus Toxoid Vaccination: Yes Hx Influenza Vaccination: Yes Hx Pneumococcal Vaccination: Yes <Kayla Garces - Last Filed: 01/06/18 22:14> <Ene Sawyer - Last Filed: 01/09/18 08:00> Vital Signs: Last Vital Signs Temp 98.8 F 01/06/18 20:22 Pulse 92 H 01/06/18 20:22 Resp 21 01/06/18 20:32 BP 137/80 01/06/18 20:22 Pulse Ox 98 01/06/18 22:15 - Home Medications Home Medications: Ambulatory Orders Medication Instructions Recorded Methylprednisolone [Medrol Dose 4 mg PO DAILY #21 mg 12/02/17 Pack (21 tabs)] RX: Albuterol HFA [Ventolin HFA 90 2 puff IH PRN PRN #1 inhaler 12/02/17 mcg/actuation (8 g)] Albuterol 0.083% [Albuterol 0.083% 2.5 mg INH PRN PRN 12/03/17 Inhal Maryam (2.5 mg/3 ml) UD] Methylprednisolone [Medrol Dosepak] 4 mg PO ASDIR #1 pkg 12/04/17 RX: Albuterol HFA [Ventolin HFA 90 1 - 2 puff IH Q6 PRN #1 inhaler 12/04/17 mcg/actuation (8 g)] Methylprednisolone [Medrol Dose 4 mg PO DAILY #21 mg 12/12/17 Pack (21 tabs)] RX: Albuterol HFA [Ventolin HFA 90 2 puff IH [id number] PRN #1 puff 12/12/17 mcg/actuation (8 g)] predniSONE [Prednisone] 40 mg PO DAILY #8 tab 12/17/17 Albuterol HFA [Ventolin HFA 90 2 puff IH [id number] PRN #1 each 12/19/17 mcg/actuation (8 g)] RX: Albuterol HFA [Ventolin HFA 90 2 puff IH [id number] PRN #1 bottle 12/22/17 mcg/actuation (8 g)] RX: Prednisone 50 mg PO DAILY #4 tab 12/22/17 Albuterol HFA [Ventolin HFA 90 2 puff IH Q6 #1 inhaler 12/23/17 mcg/actuation (8 g)] RX: Naproxen [Naprosyn] 500 mg PO Q12 PRN #20 tablet 01/06/18 RX: Prednisone 50 mg PO DAILY #4 tablet 01/06/18 Albuterol Sulfate [Ventolin Hfa] 1 puff IH Q4 #1 unit 01/08/18 RX: Promethazine DM [Phenergan DM 5 ml PO Q6 PRN #150 ml 01/08/18 Syrup] RX: predniSONE [predniSONE Tab] 40 mg PO DAILY #10 tab 01/08/18 - Allergies Allergies/Adverse Reactions: Allergies Allergy/AdvReac Type Severity Reaction Status Date / Time No Known Allergies Allergy Verified 01/08/18 12:15 Review of Systems ROS Statement: Except As Marked, All Systems Reviewed And Found Negative Cardiovascular: Positive for: Chest Pain Respiratory: Positive for: Shortness of Breath, Wheezing <Kayla Garces - Last Filed: 01/06/18 22:14> Physical Exam - Reviewed Nursing Documentation Reviewed: Yes Vital Signs Reviewed: Yes - Physical Exam Appears: Positive for: Well, Non-toxic, No Acute Distress Head Exam: Positive for: ATRAUMATIC, NORMAL INSPECTION, NORMOCEPHALIC Skin: Positive for: Normal Color Eye Exam: Positive for: Normal appearance ENT: Positive for: Normal ENT Inspection Cardiovascular/Chest: Positive for: Regular Rate, Rhythm. Negative for: Chest Non Tender (moderate tenderness upon palpation right anterior chest wall; no edema, ecchymosis noted) Respiratory: Positive for: Wheezing (diffuse expiratory wheezing) Back: Positive for: Normal Inspection Extremity: Positive for: Normal ROM. Negative for: Calf Tenderness Neurologic/Psych: Positive for: Alert, Oriented (x3) <Kayla Garces - Last Filed: 01/06/18 22:14> - Laboratory Results Result Diagrams: 01/06/18 21:08 01/06/18 21:08 - ECG O2 Sat by Pulse Oximetry: 98 - Radiology X-Ray: Viewed By Nc X-Ray Interpretation: No Acute Disease <Kayla Garces - Last Filed: 01/06/18 22:14> - Laboratory Results Result Diagrams: 01/06/18 21:08 01/06/18 21:08 <Ene Sawyer - Last Filed: 01/09/18 08:00> - Progress ED Course And Treament: labs, ekg, chest xray, duonebs, IV solumedrol, IV toradol On re-eval, patient states she is feeling better and requesting to be discharged Patient educated on findings, discharged with rx Naproxen, Prednisone Advised to continue inhalers/nebs PRN Follow up PMD 2-3 days Return precautions given Patient demonstrates full understanding of discharge instructions Patient requires no further intervention in the ED and is stable for discharge at this time (Kayla Garces) labs, ekg, chest xray, duonebs, IV solumedrol, IV toradol On re-eval, patient states she is feeling better and requesting to be discharged Patient educated on findings, discharged with rx Naproxen, Prednisone Advised to continue inhalers/nebs PRN Follow up PMD 2-3 days Return precautions given Patient demonstrates full understanding of discharge instructions Patient requires no further intervention in the ED and is stable for discharge at this time (Ene Sawyer) Disposition - Patient ED Disposition Is Patient to be Admitted: No Counseled Patient/Family Regarding: Studies Performed, Diagnosis, Need For Followup, Rx Given - Disposition Disposition: Routine/Home Disposition Time: 22:15 <Kayla Garces - Last Filed: 01/06/18 22:14> <Ene Sawyer - Last Filed: 01/09/18 08:00> - Clinical Impression Clinical Impression: Asthma, Chest wall pain - Disposition Condition: IMPROVED Prescriptions: RX: Naproxen [Naprosyn] 500 mg PO Q12 PRN #20 tablet PRN Reason: Pain, Moderate (4-7) RX: Prednisone 50 mg PO DAILY #4 tablet Instructions: Asthma in Adults, Costochondritis Forms: [facility] (Iranian) Attending/Attestation - Attestation I have personally seen and examined this patient.: No <Ene Sawyer - Last Filed: 01/09/18 08:00>
[2018-01-06] MEDS ORDERED: Albuterol-Ipratrop 3 mg / 0.5 (3 ml) UD ONE (20:57)
[2018-01-06 21:13] LABS: BASO # 0.1 K/uL (0.0-0.2); BASO % 0.8 % (0.0-2.0); EOS # 0.1 K/uL (0.0-0.7); HEMOGLOBIN 12.4 g/dL (12.0-16.0); LYMPH # 1.5 K/uL (1.0-4.3); LYMPH % 18.8 % (20.0-40.0); MEAN CELL VOLUME 95.2 fl (81.0-99.0); MEAN CORPUSCULAR HEMOGLOBIN 31.7 pg (27.0-31.0); MEAN CORPUSCULAR HGB CONC 33.3 g/dL (33.0-37.0); MEAN PLATELET VOLUME 8.1 fl (7.2-11.7); MONO # 0.8 K/uL (0.0-0.8); NEUT # 5.3 K/uL (1.8-7.0); NEUT % 69.4 % (50.0-75.0); NRBC % 0.1 % (0.0-0.0); RBC 3.91 Mil/uL (3.80-5.20); RED CELL DISTRIBUTION WIDTH 13.6 % (11.5-14.5); WHITE BLOOD COUNT 7.7 K/uL (4.8-10.8)
[2018-01-06 21:40] LABS: ALB/GLOB RATIO 1.2 (1.0-2.1); ALBUMIN 3.5 g/dL (3.5-5.0); ALT/SGPT 38 U/L (9-52); AST/SGOT 44 U/L (14-36); BLOOD UREA NITROGEN 9 mg/dl (7-17); CALCIUM 9.1 mg/dL (8.4-10.2); GFR NON-AFRICAN AMERICAN > 60
--- NOTE | 2018-01-07 12:35 | RAD ---
HISTORY: Asthma COMPARISON: No prior. TECHNIQUE: Chest PA and lateral FINDINGS: LINES AND TUBES: None. LUNG AND PLEURA: The lungs are hyperinflated and there is peribronchial thickening with chronic changes in both lungs. No pleural effusion or pneumothorax. HEART AND MEDIASTINUM: The heart is not enlarged. The hilar and mediastinal contours are within normal limits. SKELETAL STRUCTURES: There are lobular calcifications lateral to the right humeral head which may represent calcific tendinitis. Otherwise the bones are within normal limits for the patient's age. VISUALIZED UPPER ABDOMEN: Normal. OTHER FINDINGS: None. IMPRESSION: No active pulmonary disease. COPD.
== END 2018-01-06 22:20 | disposition home or self-care (01) ==
LOC: H.ER 20:15
DX: R07.9 Chest pain, unspecified (principal); J45.909 Unspecified asthma, uncomplicated; J44.9 Chronic obstructive pulmonary disease, unspecified; N18.9 Chronic kidney disease, unspecified; Z87.442 Personal history of urinary calculi
CPT/HCPCS: 71046; 80053; 81025; 84484; 85025; 96374; 99285; J1885; J2930

== ENCOUNTER 2018-01-08 12:14 | Emergency (ER) | payer OTHER ==
[2018-01-08 12:14] VITALS: BMI 25.7
[2018-01-08] MEDS ORDERED: Albuterol-Ipratrop 3 mg / 0.5 (3 ml) UD INH STA ×3 (12:39→13:22)
[2018-01-08] MEDS ORDERED: Albuterol 0.083% Inhal Sol (2.5 mg/3 mL) UD INH STA (12:39)
[2018-01-08] MEDS ORDERED: Albuterol-Ipratrop 3 mg / 0.5 (3 ml) UD ONE (12:58)
[2018-01-08] MEDS ORDERED: Albuterol 0.083% Inhal Sol (2.5 mg/3 mL) UD ONE (12:58)
--- NOTE | 2018-01-08 13:44 | ED PDOC ---
HPI: SOB/CHF/COPD Chief Complaint (Provider): Asthma Exacerbation History Per: Patient History/Exam Limitations: no limitations Onset/Duration Of Symptoms: Sudden Onset Current Symptoms Are (Timing): Still Present Additional Complaint(s): 52 y/o female presenting for evaluation of asthma exacerbation onset just prior to arrival. Patient states she was seen here 2 days ago for similar symptoms and discharged after treatment, but she never filled her prescriptions. Denies any fevers, chills, or chest pain. Denies intubations but does report hospital admissions secondary to her asthma. Of note, patient is well known to ED staff for frequent visits. PMD: Dr. Cervantes LMP: > 1 year ago <Nerissa Beltran - Last Filed: 01/10/18 16:19> <Kemar Cook - Last Filed: 01/15/18 10:12> Time Seen by Provider: 01/08/18 12:34 Chief Complaint (Nursing): Cough, Cold, Congestion Past Medical History Reviewed: Historical Data, Nursing Documentation, Vital Signs Vital Signs: Last Vital Signs Temp 98.4 F 01/08/18 12:15 Pulse 83 01/08/18 12:15 Resp 16 01/08/18 12:15 BP 149/90 01/08/18 12:15 Pulse Ox 95 01/08/18 12:15 - Medical History PMH: Anxiety, Asthma, Back Problems, Bronchitis, COPD, Gastritis, Kidney Stones (RIGHT), Pneumonia, Chronic Kidney Disease - Surgical History Surgical History: No Surg Hx - Family History Family History: States: Unknown Family Hx - Social History Current smoker - smoking cessation education provided: Yes (3 cigarettes per day) <Nerissa Beltran - Last Filed: 01/10/18 16:19> Vital Signs: Last Vital Signs Temp 98.1 F 01/08/18 15:15 Pulse 88 01/08/18 15:15 Resp 20 01/08/18 15:15 BP 137/89 01/08/18 15:15 Pulse Ox 95 01/10/18 16:23 <Kemar Cook - Last Filed: 01/15/18 10:12> - Home Medications Home Medications: Ambulatory Orders Medication Instructions Recorded Albuterol HFA [Ventolin HFA 90 0.02 puff IH Q4 PRN 01/12/18 mcg/actuation (8 g)] Albuterol/Ipratropium [Combivent 1 puff IH DAILY 01/12/18 Respimat] Naproxen [Naprosyn] 500 mg PO Q12 PRN 01/12/18 predniSONE [Prednisone] 50 mg PO DAILY 01/12/18 - Allergies Allergies/Adverse Reactions: Allergies Allergy/AdvReac Type Severity Reaction Status Date / Time No Known Allergies Allergy Verified 01/13/18 23:39 Review of Systems ROS Statement: Except As Marked, All Systems Reviewed And Found Negative Constitutional: Negative for: Fever, Chills Cardiovascular: Negative for: Chest Pain Respiratory: Positive for: Shortness of Breath <Nerissa Beltran - Last Filed: 01/10/18 16:19> Physical Exam - Reviewed Nursing Documentation Reviewed: Yes Vital Signs Reviewed: Yes - Physical Exam Comments: GENERAL APPEARANCE: Patient is awake, alert, oriented x 3, in no acute distress. Resting comfortably. SKIN: Warm, dry; (-) cyanosis. EYES: (-) conjunctival pallor. ENMT: Mucous membranes moist. Airway patent: (-) stridor. (-) nasal flaring. NECK: Supple, FROM CHEST AND RESPIRATORY: (+) diffuse expiratory wheezing; (-) rales, (-) rhonchi, (-) rub, (-) accessory muscle use; decreased breath sounds bilaterally. Respirations mildly labored, but speaking in full sentences. HEART AND CARDIOVASCULAR: (-) irregularity ABDOMEN AND GI: Soft; (-) tenderness (-) guarding (-) distention. EXTREMITIES: (-) deformity, (-) edema. NEURO AND PSYCH: Mental status as above; (-) focal findings. Gait: steady. Speech: clear. (-) facial asymmetry (-) aphasia <Nerissa Beltran - Last Filed: 01/10/18 16:19> - ECG O2 Sat by Pulse Oximetry: 95 (RA) Pulse Ox Interpretation: Normal <Nerissa Beltran - Last Filed: 01/10/18 16:19> Medical Decision Making Medical Decision Makin Initial Impression: Asthma exacerbation Plan: -Albuterol 2.5mg INH x2 -Duoneb 3mL INH x3 -Solu-Medrol 125mg IVP -clinical research monitor -Reevaluation 1415 Patient requesting food tray at this time. Reports significant improvement of symptoms. Patient states that her daughter was supposed to fill her prescriptions from her prior ED visit but is requesting additional Rx in case the previous ones were misplaced. 1505 On exam, patient remains AAOx3, in no acute distress. Lungs clear to auscultation, cardiac RRR, repeat neuro exam shows no focal findings. Patient requesting discharge at this time. VSS, stable for discharge. Lab/Diagnostic results d/w the patient in great detail. Diagnosis of asthma exacerbation, SOB d/w the patient. Based on history, exam and diagnostic results, plan will be for outpatient follow up. Patient instructed to follow-up with pmd / referral provided / the clinic in 1- 2 days without fail. Advised to take medication as prescribed. Return to the emergency room at any time for any new or worsening symptoms. Patient states she fully agrees with and understands discharge instructions. States that she agrees with the plan and disposition. Verbalized and repeated discharge instructions and plan. I have given the patient opportunity to ask any additional questions. Scribe Attestation: Documented by Michael Gonzalez, acting as a scribe for Nerissa Beltran PA-C. Provider Scribe Attestation: All medical record entries made by the Scribe were at my direction and personally dictated by me. I have reviewed the chart and agree that the record accurately reflects my personal performance of the history, physical exam, medical decision making, and the department course for this patient. I have also personally directed, reviewed, and agree with the discharge instructions and disposition. <Nerissa Beltran - Last Filed: 01/10/18 16:19> Disposition - Patient ED Disposition Is Patient to be Admitted: No Counseled Patient/Family Regarding: Studies Performed, Diagnosis, Need For Followup, Rx Given, Smoking Cessation - Disposition Disposition: Routine/Home Disposition Time: 15:05 - POA Present On Arrival: None <Nerissa Beltran - Last Filed: 01/10/18 16:19> <Kemar Cook - Last Filed: 01/15/18 10:12> - Clinical Impression Clinical Impression: Chronic cough, Tobacco abuse, Asthma exacerbation - Disposition Referrals: Kenneth Novak MD [Medical Doctor] - Condition: STABLE Additional Instructions: The emergency medical care you received today was directed towards the acute presenting symptoms. If you were prescribed any medication, please fill it and give as directed. It may take several days for your symptoms to resolve. Return to the Emergency Department at any time if symptoms worsen, do not improve, or if any other problems arise. Please contact your doctor in 2 days for re-evaluation and follow up / or call one of the physicians/clinics you have been referred to that are listed on the Patient Visit Information form that is included in your discharge packet. Bring any paperwork you were given at discharge with you along with any medications to your follow up visit. Our treatment cannot replace ongoing medical care by a primary care provider (PCP) outside of the emergency department. Instructions: Asthma in Adults, Cough in Adults, Smoking: Not Just Harmful to Your Lungs and Heart, Medicines for Asthma Forms: [facility] ([place]) Print Language: PERSIAN Addendum Addendum: 01/15/18 10:12 Reviewed chart and agree with evaluation, plan, and care by PA. <Kemar Cook - Last Filed: 01/15/18 10:12>
[2018-01-08 15:23] VITALS: BP 137/89; PULSE 88; RESP 20; TEMP 98.1
[2018-01-08] MEDS ORDERED: Albuterol 0.083% Inhal Sol (2.5 mg/3 mL) UD INH SCH (20:00)
[2018-01-10 16:22] VITALS: O2SAT 95
== END 2018-01-08 15:15 | disposition home or self-care (01) ==
LOC: H.ER 12:14
DX: J45.901 Unspecified asthma with (acute) exacerbation (principal); R05 Cough; F17.210 Nicotine dependence, cigarettes, uncomplicated
CPT/HCPCS: 94640; 96372; 99283; J2930

== ENCOUNTER 2018-01-11 03:43 | Emergency (ER) | payer OTHER ==
[2018-01-11 03:43] VITALS: BMI 25.7
[2018-01-11 04:31] VITALS: RESP 16
[2018-01-11] MEDS ORDERED: Albuterol-Ipratrop 3 mg / 0.5 (3 ml) UD INH STA (05:33)
--- NOTE | 2018-01-11 05:36 | ED PDOC ---
HPI: SOB/CHF/COPD Time Seen by Provider: 01/11/18 03:50 Chief Complaint (Nursing): Respiratory Distress History Per: Patient History/Exam Limitations: no limitations Onset/Duration Of Symptoms: Hrs Current Symptoms Are (Timing): Still Present Additional Complaint(s): Hx of asthma, heroin abuse presenting with mild exacerbation, unsure of her trigger. States a mild dry cough, no fevers, no chills. No nausea, vomiting, no chest pain. Past Medical History Reviewed: Historical Data, Nursing Documentation, Vital Signs Vital Signs: Last Vital Signs Temp 97.8 F 01/11/18 04:28 Pulse 87 01/11/18 04:28 Resp 16 01/11/18 04:28 BP 154/86 H 01/11/18 04:28 Pulse Ox 95 01/11/18 04:28 - Medical History PMH: Anxiety, Asthma, Back Problems, Bronchitis, COPD, Gastritis, Kidney Stones (RIGHT), Pneumonia, Chronic Kidney Disease Denies: HIV, HTN, Seizures, Sexually Transmitted Disease - Family History Family History: States: Unknown Family Hx - Immunization History Hx Tetanus Toxoid Vaccination: Yes Hx Influenza Vaccination: Yes Hx Pneumococcal Vaccination: Yes - Home Medications Home Medications: Ambulatory Orders Medication Instructions Recorded Albuterol HFA [Ventolin HFA 90 2 puff IH PRN PRN #1 inhaler 12/02/17 mcg/actuation (8 g)] Methylprednisolone [Medrol Dose 4 mg PO DAILY #21 mg 12/02/17 Pack (21 tabs)] Albuterol 0.083% [Albuterol 0.083% 2.5 mg INH PRN PRN 12/03/17 Inhal Maryam (2.5 mg/3 ml) UD] Albuterol HFA [Ventolin HFA 90 1 - 2 puff IH Q6 PRN #1 inhaler 12/04/17 mcg/actuation (8 g)] Methylprednisolone [Medrol Dosepak] 4 mg PO ASDIR #1 pkg 12/04/17 Albuterol HFA [Ventolin HFA 90 2 puff IH [id number] PRN #1 puff 12/12/17 mcg/actuation (8 g)] Methylprednisolone [Medrol Dose 4 mg PO DAILY #21 mg 12/12/17 Pack (21 tabs)] predniSONE [Prednisone] 40 mg PO DAILY #8 tab 12/17/17 Albuterol HFA [Ventolin HFA 90 2 puff IH [id number] PRN #1 each 12/19/17 mcg/actuation (8 g)] Albuterol HFA [Ventolin HFA 90 2 puff IH [id number] PRN #1 bottle 12/22/17 mcg/actuation (8 g)] Prednisone 50 mg PO DAILY #4 tab 12/22/17 Albuterol HFA [Ventolin HFA 90 2 puff IH Q6 #1 inhaler 12/23/17 mcg/actuation (8 g)] Naproxen [Naprosyn] 500 mg PO Q12 PRN #20 tablet 01/06/18 Prednisone 50 mg PO DAILY #4 tablet 01/06/18 Albuterol Sulfate [Ventolin Hfa] 1 puff IH Q4 #1 unit 01/08/18 Promethazine DM [Phenergan DM 5 ml PO Q6 PRN #150 ml 01/08/18 Syrup] predniSONE [predniSONE Tab] 40 mg PO DAILY #10 tab 01/08/18 - Allergies Allergies/Adverse Reactions: Allergies Allergy/AdvReac Type Severity Reaction Status Date / Time No Known Allergies Allergy Verified 01/08/18 12:15 Review of Systems ROS Statement: Except As Marked, All Systems Reviewed And Found Negative Respiratory: Positive for: Cough, Wheezing Physical Exam - Reviewed Nursing Documentation Reviewed: Yes Vital Signs Reviewed: Yes - Physical Exam Appears: Positive for: Well, Non-toxic, No Acute Distress Head Exam: Positive for: ATRAUMATIC, NORMAL INSPECTION, NORMOCEPHALIC Skin: Positive for: Normal Color, Warm, DRY Eye Exam: Positive for: EOMI, Normal appearance, PERRL ENT: Positive for: Normal ENT Inspection Neck: Positive for: Normal, Painless ROM Cardiovascular/Chest: Positive for: Regular Rate, Rhythm Respiratory: Positive for: Normal Breath Sounds, Wheezing. Negative for: Decreased Breath Sounds, Accessory Muscle Use, Crackles, Rales, Rhonchi, Stridor, Respiratory Distress Gastrointestinal/Abdominal: Positive for: Normal Exam, Bowel Sounds, Soft. Negative for: Tenderness Back: Positive for: Normal Inspection Extremity: Positive for: Normal ROM Neurologic/Psych: Positive for: Alert, Oriented - ECG O2 Sat by Pulse Oximetry: 95 Pulse Ox Interpretation: Normal Medical Decision Making Medical Decision Makin Patient presenting with asthma exacerbation --Patient was sound asleep prior to evaluation, normal vitals --Mild exacerbation with wheezing, no respiratory distress, speaking full sentences --Will provide duoneb treatment and re-eval Disposition - Clinical Impression Clinical Impression: Asthma - Patient ED Disposition Is Patient to be Admitted: No - Disposition Disposition: Routine/Home Disposition Time: 06:00 Condition: IMPROVED Instructions: Asthma in Adults
[2018-01-11] MEDS ORDERED: Albuterol-Ipratrop 3 mg / 0.5 (3 ml) UD ONE (06:20)
[2018-01-11 06:47] VITALS: BP 143/72; PULSE 76; TEMP 97.9; O2SAT 97
== END 2018-01-11 06:47 | disposition home or self-care (01) ==
LOC: H.ER 03:43
DX: J44.9 Chronic obstructive pulmonary disease, unspecified (principal); N18.9 Chronic kidney disease, unspecified; Z87.442 Personal history of urinary calculi

== ENCOUNTER 2018-01-11 21:05 | Emergency (ER) | payer OTHER ==
[2018-01-11 21:05] VITALS: BMI 25.7
[2018-01-11 21:16] VITALS: BP 134/77; PULSE 93; TEMP 98.2
[2018-01-11] MEDS ORDERED: Albuterol-Ipratrop 3 mg / 0.5 (3 ml) UD IH STA ×2 (21:20→21:21)
--- NOTE | 2018-01-11 21:28 | ED PDOC ---
HPI: SOB/CHF/COPD Time Seen by Provider: 01/11/18 21:14 Chief Complaint (Nursing): Shortness Of Breath Chief Complaint (Provider): Shortness of breath, wheezing, cough History Per: Patient History/Exam Limitations: no limitations Onset/Duration Of Symptoms: Days (2) Additional Complaint(s): Oriana Hayes, a 52 year old female with past medical history of asthma and COPD, presents to the emergency department with shortness of breath, wheezing, cough and right sided chest pain onset 2 days ago. Patient has been seen multiple times for same symptoms, is non compliant and continues to smoke. She denies fever. Past Medical History Reviewed: Historical Data, Nursing Documentation, Vital Signs Vital Signs: Last Vital Signs Temp 98.2 F 01/11/18 21:13 Pulse 93 H 01/11/18 21:13 Resp 20 01/11/18 21:13 BP 134/77 01/11/18 21:13 Pulse Ox 93 L 01/11/18 21:13 - Medical History PMH: Anxiety, Asthma, Back Problems, Bronchitis, COPD, Gastritis, Kidney Stones (RIGHT), Pneumonia, Chronic Kidney Disease Denies: HIV, HTN, Seizures, Sexually Transmitted Disease - Family History Family History: States: Unknown Family Hx - Immunization History Hx Tetanus Toxoid Vaccination: Yes Hx Influenza Vaccination: Yes Hx Pneumococcal Vaccination: Yes - Home Medications Home Medications: Ambulatory Orders Medication Instructions Recorded Albuterol HFA [Ventolin HFA 90 2 puff IH PRN PRN #1 inhaler 12/02/17 mcg/actuation (8 g)] Methylprednisolone [Medrol Dose 4 mg PO DAILY #21 mg 12/02/17 Pack (21 tabs)] Albuterol 0.083% [Albuterol 0.083% 2.5 mg INH PRN PRN 12/03/17 Inhal Maryam (2.5 mg/3 ml) UD] Albuterol HFA [Ventolin HFA 90 1 - 2 puff IH Q6 PRN #1 inhaler 12/04/17 mcg/actuation (8 g)] Methylprednisolone [Medrol Dosepak] 4 mg PO ASDIR #1 pkg 12/04/17 Albuterol HFA [Ventolin HFA 90 2 puff IH [id number] PRN #1 puff 12/12/17 mcg/actuation (8 g)] Methylprednisolone [Medrol Dose 4 mg PO DAILY #21 mg 12/12/17 Pack (21 tabs)] predniSONE [Prednisone] 40 mg PO DAILY #8 tab 12/17/17 Albuterol HFA [Ventolin HFA 90 2 puff IH [id number] PRN #1 each 12/19/17 mcg/actuation (8 g)] Albuterol HFA [Ventolin HFA 90 2 puff IH [id number] PRN #1 bottle 12/22/17 mcg/actuation (8 g)] Prednisone 50 mg PO DAILY #4 tab 12/22/17 Albuterol HFA [Ventolin HFA 90 2 puff IH Q6 #1 inhaler 12/23/17 mcg/actuation (8 g)] Naproxen [Naprosyn] 500 mg PO Q12 PRN #20 tablet 01/06/18 Prednisone 50 mg PO DAILY #4 tablet 01/06/18 Albuterol Sulfate [Ventolin Hfa] 1 puff IH Q4 #1 unit 01/08/18 Promethazine DM [Phenergan DM 5 ml PO Q6 PRN #150 ml 01/08/18 Syrup] predniSONE [predniSONE Tab] 40 mg PO DAILY #10 tab 01/08/18 Albuterol HFA [Ventolin HFA 90 2 puff IH Q4H #1 puff 01/11/18 mcg/actuation (8 g)] Azithromycin [Zithromax] 250 mg PO DAILY #6 tab 01/11/18 Prednisone 50 mg PO DAILY #5 tab 01/11/18 - Allergies Allergies/Adverse Reactions: Allergies Allergy/AdvReac Type Severity Reaction Status Date / Time No Known Allergies Allergy Verified 01/11/18 21:13 Review of Systems ROS Statement: Except As Marked, All Systems Reviewed And Found Negative Constitutional: Negative for: Fever Cardiovascular: Positive for: Chest Pain (right sided) Respiratory: Positive for: Cough, Shortness of Breath, Wheezing Physical Exam - Reviewed Nursing Documentation Reviewed: Yes Vital Signs Reviewed: Yes - Physical Exam Appears: Positive for: Well, Non-toxic, No Acute Distress Head Exam: Positive for: ATRAUMATIC, NORMAL INSPECTION, NORMOCEPHALIC Cardiovascular/Chest: Positive for: Regular Rate, Rhythm Respiratory: Positive for: Rhonchi, Wheezing (expiratory), Respiratory Distress Neurologic/Psych: Positive for: Alert, Oriented - Laboratory Results Result Diagrams: 01/11/18 21:30 01/11/18 21:30 - ECG O2 Sat by Pulse Oximetry: 93 (RA) Pulse Ox Interpretation: Abnormal Medical Decision Making Medical Decision Making: Time: 21:14 Initial Impression: Initial Plan: --EKG --CMP --CBC w/ differential --Albuterol 3 mL inh --Solu-medrol 125 mg IVP --Peak flow pre and post Advised pt to remain for further tx and xray. Pt wishes to leave aware of risks including pneumonia and respiratory failure and Scribe Attestation: Documented by Juana Mena, acting as a scribe for Robin Vidal MD. Provider Scribe Attestation: All medical record entries made by the Scribe were at my direction and personally dictated by me. I have reviewed the chart and agree that the record accurately reflects my personal performance of the history, physical exam, medical decision making, and the department course for this patient. I have also personally directed, reviewed, and agree with the discharge instructions and disposition. Disposition - Clinical Impression Clinical Impression: Asthma, Bronchitis - Patient ED Disposition Is Patient to be Admitted: No Counseled Patient/Family Regarding: Diagnosis, Need For Followup, Rx Given - Disposition Referrals: [facility] [Outside] Disposition: Routine/Home Disposition Time: 22:23 Condition: FAIR Prescriptions: Albuterol HFA [Ventolin HFA 90 mcg/actuation (8 g)] 2 puff IH Q4H #1 puff Azithromycin [Zithromax] 250 mg PO DAILY #6 tab Prednisone 50 mg PO DAILY #5 tab Instructions: Acute Bronchitis, Asthma in Adults Forms: [employer] (Vincentian)
[2018-01-11 21:51] LABS: BASO # 0.1 K/uL (0.0-0.2); BASO % 0.4 % (0.0-2.0); LYMPH # 0.9 K/uL (1.0-4.3); LYMPH % 4.2 % (20.0-40.0); MEAN CELL VOLUME 94.2 fl (81.0-99.0); MEAN CORPUSCULAR HEMOGLOBIN 31.4 pg (27.0-31.0); MEAN CORPUSCULAR HGB CONC 33.4 g/dL (33.0-37.0); MEAN PLATELET VOLUME 8.6 fl (7.2-11.7); MONO # 1.1 K/uL (0.0-0.8); MONO % 5.1 % (0.0-10.0); NEUT % 90.3 % (50.0-75.0); PLATELET COUNT 358 K/uL (130-400); WHITE BLOOD COUNT 22.2 K/uL (4.8-10.8)
[2018-01-11 22:05] LABS: ALB/GLOB RATIO 1.1 (1.0-2.1); ALBUMIN 3.6 g/dL (3.5-5.0); ALT/SGPT 41 U/L (9-52); AST/SGOT 39 U/L (14-36); BLOOD UREA NITROGEN 24 mg/dl (7-17); CALCIUM 9.2 mg/dL (8.4-10.2); GFR NON-AFRICAN AMERICAN > 60
[2018-01-11 22:24] VITALS: O2SAT 93
[2018-01-11 22:30] LABS: ANISOCYTOSIS SLIGHT; BANDS 1 % (0-2); LYMPHOCYTE 4 % (20-50); MONOCYTE 8 % (0-10); NEUTROPHIL 87 % (42-75); PLATELET ESTIMATE NORMAL (NORMAL); TOTAL CELLS COUNTED 100
[2018-01-11 22:31] LABS: LARGE PLATELETS PRESENT
[2018-01-11 22:32] VITALS: RESP 20
--- NOTE | 2018-01-12 09:14 | CARD ---
APPROVED REPORT Date of service: 01/11/2018 EKG Measurement Heart [id number] <Conclusion> Normal sinus rhythm Minimal voltage criteria for LVH, may be normal variant Borderline ECG
== END 2018-01-11 22:28 | disposition home or self-care (01) ==
LOC: H.ER 21:05
DX: J45.909 Unspecified asthma, uncomplicated (principal); J40 Bronchitis, not specified as acute or chronic; N18.9 Chronic kidney disease, unspecified; Z87.442 Personal history of urinary calculi; Z91.19 Patient's noncompliance with other medical treatment and regimen
CPT/HCPCS: 80053; 81025; 85025; 93005; 94640; 96374; 99284; J2930

== ENCOUNTER 2018-01-12 12:51 | Observation (INO) | payer OTHER ==
[2018-01-12 12:52] VITALS: BMI 25.7
[2018-01-12] MEDS ORDERED: Albuterol-Ipratrop 3 mg / 0.5 (3 ml) UD ONE ×4 (13:07→20:45)
--- NOTE | 2018-01-12 13:46 | ED PDOC ---
Addendum entered and electronically signed by Yuko Martin PA-C 01/12/18 18:20: Addendum Addendum: 01/12/18 18:20 Dr. Dixon returned call, admit to hospitalist Addendum entered and electronically signed by Yuko Martin PA-C 01/12/18 18:12: Addendum Addendum: 01/12/18 18:11 Correction: [address] Dixon with no return call. Dr. Meade took admission Original Note: HPI: Chest Pain Time Seen by Provider: 01/12/18 13:08 Chief Complaint (Nursing): Chest Pain Chief Complaint (Provider): CP History Per: Patient Additional Complaint(s): Oriana Hayes, a 52 year old female with past medical history of asthma and COPD, presents to the emergency department with shortness of breath, wheezing, cough and right sided chest pain onset 3 days now. Patient has been seen multiple times for same symptoms, is non compliant and continues to smoke. She denies fever. Yesterday evening Pt in ED for the same and was advised further treatment and XR and pt signed out AMA Past Medical History Reviewed: Nursing Documentation, Vital Signs Vital Signs: Last Vital Signs Temp 98.3 F 01/12/18 12:57 Pulse 84 01/12/18 12:57 Resp 22 01/12/18 12:57 BP 161/84 H 01/12/18 12:57 Pulse Ox 93 L 01/12/18 12:57 - Medical History PMH: Anxiety, Asthma, Back Problems, Bronchitis, COPD, Gastritis, Kidney Stones (RIGHT), Pneumonia, Chronic Kidney Disease Denies: HIV, HTN, Seizures, Sexually Transmitted Disease - Family History Family History: States: Unknown Family Hx - Living Arrangements Living Arrangements: Other - Social History Current smoker - smoking cessation education provided: Yes Alcohol: > 2 Drinks/Day Drugs: Cannabis, Cocaine - Home Medications Home Medications: Ambulatory Orders Medication Instructions Recorded Albuterol HFA [Ventolin HFA 90 0.02 puff IH Q4 PRN 01/12/18 mcg/actuation (8 g)] Albuterol/Ipratropium [Combivent 1 puff IH DAILY 01/12/18 Respimat] Naproxen [Naprosyn] 500 mg PO Q12 PRN 01/12/18 predniSONE [Prednisone] 50 mg PO DAILY 01/12/18 - Allergies Allergies/Adverse Reactions: Allergies Allergy/AdvReac Type Severity Reaction Status Date / Time No Known Allergies Allergy Verified 01/11/18 21:13 ALEXANDRA Risk Score for UA/NSTEMI - ALEXANDRA Risk Score Age > 64: NO 3 or more CAD Risk Factors: NO Known CAD (Stenosis greater than 50%): NO Aspirin use in past 7 days: NO Severe Angina: NO EKG ST changes greater than 0.5mm: NO Positive Cardiac Marker: NO ALEXANDRA Score: 0 Risk %: 5% Curb-65 Severity Score - CURB-65 Severity Score Confusion: No Bun >19mg/dl (>7mmol/L): Yes Respiratory Rate greater than/equal to 30: No Systolic BP <90 or Diastolic BP less than/equal 60mmHg: No Age >64: No Curb-65 Score: 1 Percentage 30-day mortality: 2.7% Wells Criteria for PE - Wells Criteria for Pulmonary Embolism Clinical Signs and Symptoms of DVT: No P.E is #1 Diagnosis, or Equally Likely: No Heart Rate >100: No Immobilization at least 3 days;Surgery previous 4 weeks: No Previous, objectively diagnosed PE or DVT: No Hemoptysis: No Malignancy w/treatment within 6 months, or palliative: No Total Score: 0 Review of Systems ROS Statement: Except As Marked, All Systems Reviewed And Found Negative Cardiovascular: Positive for: Chest Pain Respiratory: Positive for: Cough, Shortness of Breath Physical Exam - Reviewed Nursing Documentation Reviewed: Yes Vital Signs Reviewed: Yes - Physical Exam Appears: Positive for: Non-toxic, No Acute Distress, Uncomfortable Head Exam: Positive for: ATRAUMATIC, NORMAL INSPECTION, NORMOCEPHALIC Skin: Positive for: Normal Color, Warm, DRY Eye Exam: Positive for: EOMI, Normal appearance, PERRL ENT: Positive for: Normal ENT Inspection Neck: Positive for: Normal, Painless ROM Cardiovascular/Chest: Positive for: Regular Rate, Rhythm Respiratory: Positive for: Decreased Breath Sounds, Wheezing Gastrointestinal/Abdominal: Positive for: Normal Exam, Soft Back: Positive for: Normal Inspection Extremity: Positive for: Normal ROM Neurologic/Psych: Positive for: Alert, Oriented - Laboratory Results Result Diagrams: 01/12/18 14:14 01/12/18 14:14 - ECG O2 Sat by Pulse Oximetry: 93 Medical Decision Making Medical Decision Making: Pt placed on compliance monitor, POX: 93% on RA, P: 102 T: 99.8 F IV access established and and treatment initiated with Duo nebs and solumedrol CXR: RLL pneumonia, as read by PA-C IV Rocephin and Zithro started WBC 22.4 Pt advised admission at this time and agreed. pt also admitted to last using heroin yesterday am. Case d/w Dr. Dixon, Pts PMD Dr. Higginbotham. Hospitalist, Dr. Hall at bedside for admission Disposition - Clinical Impression Clinical Impression: Pneumonia, Chest pain, Substance abuse, Sepsis - Patient ED Disposition Is Patient to be Admitted: Yes - Disposition Referrals: Salbador Novak MD [Primary Care Provider] - Disposition Time: 17:16 Condition: STABLE Forms: [facility] (Georgian) - POA Present On Arrival: None
[2018-01-12] MEDS: Albuterol-Ipratrop 3 mg / 0.5 (3 ml) UD INH STA ×2 (13:50→17:39)
[2018-01-12 14:25] LABS: BASO # 0.1 K/uL (0.0-0.2); BASO % 0.5 % (0.0-2.0); HEMOGLOBIN 12.9 g/dL (12.0-16.0); LYMPH # 1.7 K/uL (1.0-4.3); LYMPH % 7.4 % (20.0-40.0); MEAN CELL VOLUME 95.4 fl (81.0-99.0); MEAN CORPUSCULAR HEMOGLOBIN 30.6 pg (27.0-31.0); MEAN PLATELET VOLUME 8.9 fl (7.2-11.7); MONO # 1.1 K/uL (0.0-0.8); MONO % 5.1 % (0.0-10.0); NEUT # 19.5 K/uL (1.8-7.0); RBC 4.21 Mil/uL (3.80-5.20); WHITE BLOOD COUNT 22.4 K/uL (4.8-10.8)
[2018-01-12 14:36] LABS: ALB/GLOB RATIO 1.1 (1.0-2.1); ALT/SGPT 42 U/L (9-52); AST/SGOT 32 U/L (14-36); BLOOD UREA NITROGEN 20 mg/dl (7-17); CALCIUM 9.3 mg/dL (8.4-10.2); GFR NON-AFRICAN AMERICAN > 60
--- NOTE | 2018-01-12 15:02 | RAD ---
Date of service: 01/12/2018 HISTORY: cp, asthma exacerpation COMPARISON: Chest radiograph dated 01/06/2018. TECHNIQUE: Chest PA and lateral FINDINGS: LUNGS: New patchy right middle lobe opacities. PLEURA: No significant pleural effusion identified. No pneumothorax apparent. CARDIOVASCULAR: Atherosclerotic aortic calcifications. Cardiomediastinal silhouette stably prominent OSSEOUS STRUCTURES: Unchanged. VISUALIZED UPPER ABDOMEN: Normal. OTHER FINDINGS: None. IMPRESSION: New patchy right middle lobe opacities.
[2018-01-12] MEDS ORDERED: Azithromycin 500 MG in Sodium Chloride 0.9% 250 ML IVPB STA (16:14)
[2018-01-12] MEDS ORDERED: cefTRIAXone (Rocephin) 1 gm Inj ONE (16:33)
[2018-01-12] MEDS ORDERED: Azithromycin 500 MG IV IVPB ONE (16:33)
[2018-01-12 16:41] LABS: VENOUS BLOOD GAS BASE EXCESS 7.4 mmol/L (0.0-2.0); VENOUS BLOOD GAS PCO2 40 mmHg (40-60); VENOUS BLOOD GAS PO2 53 mm/Hg (30-55)
[2018-01-12] MEDS ORDERED: Albuterol-Ipratrop 3 mg / 0.5 (3 ml) UD INH STA (17:00)
[2018-01-12] MEDS ORDERED: Vancomycin 1 g Inj ONE (17:32)
[2018-01-12] MEDS ORDERED: Sodium Chloride 0.9% 1,000 ML IV SCH (17:45)
[2018-01-12] MEDS ORDERED: Albuterol 0.083% Inhal Sol (2.5 mg/3 mL) UD INH PRN (17:45)
[2018-01-12] MEDS ORDERED: Sodium Chloride 3% for Inhalation 4 ML VIAL.NEB IH PRN (17:48)
[2018-01-12] MEDS ORDERED: Magnesium Sulfate 2 gm/50 ml 2 GM/50 ML BAG IVPB ONE (17:54)
[2018-01-12 18:04] LABS: ABG ALLEN TEST YES; ARTERIAL BLOOD GAS HCO3 27.2 mmol/L (21-28); ARTERIAL BLOOD GAS HEMOGLOBIN 12.7 g/dL (11.7-17.4); ARTERIAL BLOOD GAS O2 CAPACITY 16.8 mL/dL (16-24); ARTERIAL BLOOD GAS O2 CONTENT 16.6 ML/dL (15-23); ARTERIAL BLOOD GAS O2 SAT 99.1 % (95-98); ARTERIAL BLOOD GAS PCO2 39 mm/Hg (35-45); ARTERIAL BLOOD GAS PH 7.45 (7.35-7.45); ARTERIAL BLOOD GAS PO2 72 mm/Hg (80-100); ARTERIAL BLOOD GAS TCO2 28.3 mmol/L (22-28)
[2018-01-12] MEDS ORDERED: Magnesium Sulfate 2 gm/50 ml 2 GM/50 ML BAG ONE (18:15)
[2018-01-12 18:49] VITALS: TEMP 98.7
--- NOTE | 2018-01-12 19:06 | CP.PCM.HP ---
<Nate Richter - Last Filed: 01/12/18 18:33> History of Present Illness - History of Present Illness History of Present Illness: CC: Dyspnea HPI: 52 y/o woman w/ pmh of asthma, COPD, and anxiety presents to the ED w/ dyspnea. Patient reports dyspnea w/ associated right sided chest pain that started 1-2 days ago in the morning. Patient reports dyspnea started at rest and has been constant. Patient used ventolin inhaler w/o relief. Patient reports right sided chest pain is sharp in nature, reproducible on palpation, and non-radiating. Patient also reports dry cough. Patient has multiple ED visits for similar complaints, most recently last night but left AMA. Patient is non-adherent w/ medication and reports that she continues to smoke 1 pack of cigarettes per day. Patient denies headaches, dizziness, abdominal pain, nausea, vomiting, diarrhea, dysuria, fever, recent illness, sick contacts, or recent travel. ED course: vitals: 99.4 F, 86 beats/min, 150/90 mm Hg, resp 19, O2 98% NC 2L CBC: 22.4>12.9/40.1<371 CMP: 136/4.0, 97/29, 20/0.5, glucose 94, AST 32, ALT 42, alk phos 91 troponin: <0.0120 ABG: pCO2 39, pO2 72, pH 7.45, HCO3 27.2, lactate 1.5 EKG: NSR, no acute ST elevation/depression CXR: new patchy right middle lobe opacities duoneb x 2 ativan 1 mg IV once solu-medrol 125 mg IV once rocephin 1gm IV once vancomycin 1 gm IV once PMH: Dr. Novak PMH: asthma, COPD, and anxiety allergies: NKDA Meds: see med list PSH: lithotripsy Fam: father HTN, denies Fam Hx NH or stroke SOC: smokes 1 pack/day for over 20+ years, denies alcohol, denies current drug use, has Hx of heroin abuse ROS: 12 points assessed and negative unless otherwise in HPI Present on Admission - Present on Admission Any Indicators Present on Admission: No History of DVT/PE: No History of Uncontrolled Diabetes: No Urinary Catheter: No Decubitus Ulcer Present: No Review of Systems - Constitutional Constitutional: absent: Chills, Fever, Headache - EENT Eyes: absent: Change in Vision - Cardiovascular Cardiovascular: As Per HPI, Chest Pain - Respiratory Respiratory: As Per HPI, Cough, Dyspnea, Wheezing - Gastrointestinal Gastrointestinal: absent: Abdominal Pain, Diarrhea, Nausea, Vomiting - Genitourinary Genitourinary: absent: Dysuria - Integumentary Integumentary: absent: Rash - Neurological Neurological: absent: Dizziness, Headaches Past Patient History - Infectious Disease Hx of Infectious Diseases: None - Past Medical History & Family History Past Medical History?: Yes - Past Social History Alcohol: > 2 Drinks/Day Drugs: Cannabis, Cocaine - CARDIAC Hx Hypertension: No - PULMONARY Hx Asthma: Yes Hx Bronchitis: Yes Hx Chronic Obstructive Pulmonary Disease (COPD): Yes Hx Pneumonia: Yes - NEUROLOGICAL Hx Seizures: No - HEENT Hx HEENT Problems: No - RENAL Hx Chronic Kidney Disease: Yes Hx Kidney Stones: Yes (RIGHT) - ENDOCRINE/METABOLIC Hx Endocrine Disorders: No - HEMATOLOGICAL/ONCOLOGICAL Hx Human Immunodeficiency Virus (HIV): No - INTEGUMENTARY Hx Dermatological Problems: Yes Other/Comment: tattoos - MUSCULOSKELETAL/RHEUMATOLOGICAL Hx Musculoskeletal Disorders: Yes Hx Falls: No - GASTROINTESTINAL Hx Gastritis: Yes - GENITOURINARY/GYNECOLOGICAL Hx Sexually Transmitted Disorders: No - PSYCHIATRIC Hx Anxiety: Yes - SURGICAL HISTORY Hx Surgeries: Yes Other/Comment: Kidney stone removal - ANESTHESIA Hx Anesthesia: Yes Hx Anesthesia Reactions: No Hx Malignant Hyperthermia: No Meds Allergies/Adverse Reactions: Allergies Allergy/AdvReac Type Severity Reaction Status Date / Time No Known Allergies Allergy Verified 01/11/18 21:13 Physical Exam - Constitutional Appears: Non-toxic, No Acute Distress - Head Exam Head Exam: ATRAUMATIC, NORMAL INSPECTION, NORMOCEPHALIC - Eye Exam Eye Exam: EOMI, Normal appearance Pupil Exam: PERRL - ENT Exam ENT Exam: Mucous Membranes Dry - Neck Exam Neck exam: Positive for: Full Rom. Negative for: Tenderness - Respiratory Exam Respiratory Exam: Decreased Breath Sounds, Rhonchi (right sided at the base), Wheezes (diffuse). absent: Accessory Muscle Use, Rales, Respiratory Distress - Cardiovascular Exam Cardiovascular Exam: REGULAR RHYTHM, RRR, +S1, +S2. absent: Tachycardia - GI/Abdominal Exam GI & Abdominal Exam: Normal Bowel Sounds, Soft. absent: Distended, Tenderness - Extremities Exam Extremities exam: Positive for: normal inspection. Negative for: calf tenderness, pedal edema, tenderness - Neurological Exam Neurological exam: Alert, Oriented x3 - Skin Skin Exam: Dry, Intact, Normal Color, Warm Results - Vital Signs Recent Vital Signs: Last Vital Signs Temp 99.4 F 01/12/18 16:45 Pulse 86 01/12/18 18:11 Resp 19 01/12/18 18:11 BP 150/90 01/12/18 17:17 Pulse Ox 98 01/12/18 18:11 - Labs Result Diagrams: 01/12/18 14:14 01/12/18 14:14 Labs: Laboratory Results - last 24 hr 01/12/18 01/12/18 01/12/18 14:14 14:14 16:28 WBC 22.4 H RBC 4.21 Hgb 12.9 Hct 40.1 MCV 95.4 MCH 30.6 MCHC 32.0 L RDW 14.0 Plt Count 371 MPV 8.9 Neut % (Auto) 87.0 H Lymph % (Auto) 7.4 L [place] % (Auto) 5.1 Eos % (Auto) 0.0 Baso % (Auto) 0.5 Neut # (Auto) 19.5 H Lymph # (Auto) 1.7 [place] # (Auto) 1.1 H Eos # (Auto) 0.0 Baso # (Auto) 0.1 pCO2 pO2 53 HCO3 ABG pH ABG Total CO2 ABG O2 Saturation ABG O2 Content ABG Base Excess ABG Hemoglobin ABG Carboxyhemoglobin POC ABG HHb (Measured) ABG Methemoglobin ABG O2 Capacity Jordan Test VBG pH 7.50 H VBG pCO2 40 VBG HCO3 30.5 VBG Total CO2 32.4 H VBG O2 Sat (Calc) 93.3 H VBG Base Excess 7.4 H VBG Potassium 3.9 A-a O2 Difference Hgb O2 Saturation Glucose 173 H Lactate 1.5 Vent Mode FiO2 28.0 Sodium 136 131.0 L Potassium 4.0 Chloride 97 L 98.0 Carbon Dioxide 29 Anion Gap 14 BUN 20 H Creatinine 0.5 L Est GFR ( Amer) > 60 Est GFR (Non-Af Amer) > 60 Random Glucose 94 Calcium 9.3 Total Bilirubin 0.7 AST 32 ALT 42 Alkaline Phosphatase 91 Troponin I < 0.0120 Total Protein 7.5 Albumin 4.0 Globulin 3.5 Albumin/Globulin Ratio 1.1 Venous Blood Potassium 3.9 01/12/18 17:56 WBC RBC Hgb Hct MCV MCH MCHC RDW Plt Count MPV Neut % (Auto) Lymph % (Auto) [place] % (Auto) Eos % (Auto) Baso % (Auto) Neut # (Auto) Lymph # (Auto) [place] # (Auto) Eos # (Auto) Baso # (Auto) pCO2 39 pO2 72 L HCO3 27.2 ABG pH 7.45 ABG Total CO2 28.3 H ABG O2 Saturation 99.1 H ABG O2 Content 16.6 ABG Base Excess 3.0 ABG Hemoglobin 12.7 ABG Carboxyhemoglobin 3.1 H POC ABG HHb (Measured) 0.8 ABG Methemoglobin 3.1 H ABG O2 Capacity 16.8 Jordan Test Yes VBG pH VBG pCO2 VBG HCO3 VBG Total CO2 VBG O2 Sat (Calc) VBG Base Excess VBG Potassium A-a O2 Difference 236.0 Hgb O2 Saturation 93.0 L Glucose Lactate Vent Mode Aerosol mask FiO2 50.0 Sodium Potassium Chloride Carbon Dioxide Anion Gap BUN Creatinine Est GFR ( Amer) Est GFR (Non-Af Amer) Random Glucose Calcium Total Bilirubin AST ALT Alkaline Phosphatase Troponin I Total Protein Albumin Globulin Albumin/Globulin Ratio Venous Blood Potassium Assessment & Plan (1) Dyspnea Status: Acute (2) Chest pain Status: Acute (3) Asthma Status: Chronic (4) COPD (chronic obstructive pulmonary disease) Status: Chronic - Assessment and Plan (Free Text) Assessment: 52 y/o woman w/ pmh of asthma, COPD, and anxiety presents to the ED w/ dyspnea Plan: Dyspnea - possibly due to CAP w/ superimposed COPD and asthma exacerbation - vital signs stable - CBC: 22.4>12.9/40.1<371 - CMP: 136/4.0, 97/29, 20/0.5, glucose 94, AST 32, ALT 42, alk phos 91 - troponin: <0.0120 - ABG: pCO2 39, pO2 72, pH 7.45, HCO3 27.2, lactate 1.5 - EKG: NSR, no acute ST elevation/depression - CXR: new patchy right middle lobe opacities - duoneb x 2 - ativan 1 mg IV once - solu-medrol 125 mg IV once - rocephin 1gm IV once - vancomycin 1 gm IV once - magnesium 2m IV once - f/u CBC, BMP - f/u blood and sputum culture - duonebs QID - albuterol Q4h prn - lactobacillus acidophilus 1 cap PO BID - solu-medrol 60 mg IV Q6h - singulair 10 mg PO HS - IVF NS @ 100 mL/hr - rocephin 1 gm IV daily - azithromycin 500 mg IV daily - monitor for acute changes - admit to Tele Chest Pain - most likely pleuritic unlikely cardiac - right sided - reproducible with palpation - troponin <0.0120 - EKG: NSR, no acute ST elevation/depression - monitor for acute changes Asthma - chronic, mild intermittent - home medication is ventolin and nebulizer - c/w albuterol, duoneb, solu-medrol COPD - chronic - continues to smoke - c/w albuterol, duoneb, solu-medrol, singulair Prophylactic measures - DVT: lovenox 40 mg SC daily - GI: protonix 40 mg PO daily <Kee Hall - Last Filed: 01/12/18 20:11> Results - Vital Signs Recent Vital Signs: Last Vital Signs Temp 98.7 F 01/12/18 18:47 Pulse 98 H 01/12/18 19:30 Resp 16 01/12/18 19:30 BP 134/84 01/12/18 19:30 Pulse Ox 91 L 01/12/18 19:30 - Labs Result Diagrams: 01/12/18 14:14 01/12/18 14:14 Labs: Laboratory Results - last 24 hr 01/12/18 01/12/18 01/12/18 14:14 14:14 16:28 WBC 22.4 H RBC 4.21 Hgb 12.9 Hct 40.1 MCV 95.4 MCH 30.6 MCHC 32.0 L RDW 14.0 Plt Count 371 MPV 8.9 Neut % (Auto) 87.0 H Lymph % (Auto) 7.4 L [place] % (Auto) 5.1 Eos % (Auto) 0.0 Baso % (Auto) 0.5 Neut # (Auto) 19.5 H Lymph # (Auto) 1.7 [place] # (Auto) 1.1 H Eos # (Auto) 0.0 Baso # (Auto) 0.1 pCO2 pO2 53 HCO3 ABG pH ABG Total CO2 ABG O2 Saturation ABG O2 Content ABG Base Excess ABG Hemoglobin ABG Carboxyhemoglobin POC ABG HHb (Measured) ABG Methemoglobin ABG O2 Capacity Jordan Test VBG pH 7.50 H VBG pCO2 40 VBG HCO3 30.5 VBG Total CO2 32.4 H VBG O2 Sat (Calc) 93.3 H VBG Base Excess 7.4 H VBG Potassium 3.9 A-a O2 Difference Hgb O2 Saturation Glucose 173 H Lactate 1.5 Vent Mode FiO2 28.0 Sodium 136 131.0 L Potassium 4.0 Chloride 97 L 98.0 Carbon Dioxide 29 Anion Gap 14 BUN 20 H Creatinine 0.5 L Est GFR ( Amer) > 60 Est GFR (Non-Af Amer) > 60 Random Glucose 94 Calcium 9.3 Total Bilirubin 0.7 AST 32 ALT 42 Alkaline Phosphatase 91 Troponin I < 0.0120 Total Protein 7.5 Albumin 4.0 Globulin 3.5 Albumin/Globulin Ratio 1.1 Venous Blood Potassium 3.9 01/12/18 17:56 WBC RBC Hgb Hct MCV MCH MCHC RDW Plt Count MPV Neut % (Auto) Lymph % (Auto) [place] % (Auto) Eos % (Auto) Baso % (Auto) Neut # (Auto) Lymph # (Auto) [place] # (Auto) Eos # (Auto) Baso # (Auto) pCO2 39 pO2 72 L HCO3 27.2 ABG pH 7.45 ABG Total CO2 28.3 H ABG O2 Saturation 99.1 H ABG O2 Content 16.6 ABG Base Excess 3.0 ABG Hemoglobin 12.7 ABG Carboxyhemoglobin 3.1 H POC ABG HHb (Measured) 0.8 ABG Methemoglobin 3.1 H ABG O2 Capacity 16.8 Jordan Test Yes VBG pH VBG pCO2 VBG HCO3 VBG Total CO2 VBG O2 Sat (Calc) VBG Base Excess VBG Potassium A-a O2 Difference 236.0 Hgb O2 Saturation 93.0 L Glucose Lactate Vent Mode Aerosol mask FiO2 50.0 Sodium Potassium Chloride Carbon Dioxide Anion Gap BUN Creatinine Est GFR ( Amer) Est GFR (Non-Af Amer) Random Glucose Calcium Total Bilirubin AST ALT Alkaline Phosphatase Troponin I Total Protein Albumin Globulin Albumin/Globulin Ratio Venous Blood Potassium Attending/Attestation - Attestation I have personally seen and examined this patient.: Yes I have fully participated in the care of the patient.: Yes I have reviewed all pertinent clinical information: Yes
[2018-01-12] MEDS ORDERED: Albuterol-Ipratrop 3 mg / 0.5 (3 ml) UD INH SCH (20:00)
[2018-01-12] MEDS ORDERED: methylPREDNISolone 60 MG in Sodium Chloride 0.9% 50 ML IVPB SCH (22:00)
--- NOTE | 2018-01-13 00:10 | CARD ---
APPROVED REPORT Date of service: 01/12/2018 EKG Measurement Heart [id number] <Conclusion> Normal sinus rhythm Minimal voltage criteria for LVH, may be normal variant Borderline ECG
[2018-01-13 02:31] VITALS: BP 165/78; PULSE 82; RESP 18; O2SAT 100
[2018-01-13 03:10] LABS: BARBITURATES, UR NEGATIVE (NEGATIVE); BENZODIAZEPINES, UR NEGATIVE (NEGATIVE); OPIATES, UR POSITIVE (NEGATIVE); PHENCYCLIDINE, UR NEGATIVE (NEGATIVE)
[2018-01-13 06:37] LABS: BASO # 0.1 K/uL (0.0-0.2); BASO % 0.3 % (0.0-2.0); HEMOGLOBIN 11.4 g/dL (12.0-16.0); LYMPH # 0.6 K/uL (1.0-4.3); LYMPH % 2.4 % (20.0-40.0); MEAN CELL VOLUME 94.8 fl (81.0-99.0); MEAN CORPUSCULAR HEMOGLOBIN 30.5 pg (27.0-31.0); MEAN CORPUSCULAR HGB CONC 32.2 g/dL (33.0-37.0); MEAN PLATELET VOLUME 8.6 fl (7.2-11.7); MONO # 0.7 K/uL (0.0-0.8); MONO % 3.2 % (0.0-10.0); NEUT # 22.1 K/uL (1.8-7.0); NEUT % 94.1 % (50.0-75.0); PLATELET COUNT 313 K/uL (130-400); RBC 3.74 Mil/uL (3.80-5.20); RED CELL DISTRIBUTION WIDTH 13.9 % (11.5-14.5); WHITE BLOOD COUNT 23.5 K/uL (4.8-10.8)
[2018-01-13 06:49] LABS: BLOOD UREA NITROGEN 17 mg/dl (7-17); CALCIUM 8.5 mg/dL (8.4-10.2); GFR NON-AFRICAN AMERICAN > 60
[2018-01-13] MEDS ORDERED: Pantoprazole 40 mg EC Tab PO SCH (09:00)
[2018-01-13] MEDS ORDERED: Enoxaparin 40 mg Syringe SC SCH (09:00)
[2018-01-13] MEDS ORDERED: Azithromycin 500 MG in Sodium Chloride 0.9% 250 ML IVPB SCH (09:00)
[2018-01-13] MEDS ORDERED: Lactobacillus Acidophilus 500 MU Cap PO SCH (09:00)
[2018-01-13 10:13] LABS: LYMPHOCYTE 2 % (20-50); MONOCYTE 3 % (0-10); NEUTROPHIL 95 % (42-75); PLATELET ESTIMATE NORMAL (NORMAL); TOTAL CELLS COUNTED 100
[2018-01-13 10:14] LABS: ANISOCYTOSIS SLIGHT; LARGE PLATELETS PRESENT; OVALOCYTES SLIGHT
== END 2018-01-13 06:20 | disposition left against medical advice (07) ==
LOC: H.ER 12:51 → SUPCPDRO 12:51 → INTOOBSV 17:29 → H.ERHOLD 17:29
PROVIDERS: ADMIT Internal Medicine; ATTEND Internal Medicine
DX: R06.00 Dyspnea, unspecified (principal); N18.9 Chronic kidney disease, unspecified; J44.9 Chronic obstructive pulmonary disease, unspecified; F14.10 Cocaine abuse, uncomplicated; Z91.19 Patient's noncompliance with other medical treatment and regimen; F17.210 Nicotine dependence, cigarettes, uncomplicated; F41.9 Anxiety disorder, unspecified; K29.70 Gastritis, unspecified, without bleeding; J45.20 Mild intermittent asthma, uncomplicated; R07.9 Chest pain, unspecified; F12.10 Cannabis abuse, uncomplicated
CPT/HCPCS: 71046; 80048; 80053; 80324; 80345; 80346; 80349; 80353; 80358; 80361; 82803; 83992; 84484; 85025; 87040; 87149; 87181; 87205; 93005; 96365; 96366; 96368; 96375; 96376; 99285; G0378; J0696; J1885; J2060; J2930; J7030

== ENCOUNTER 2018-01-13 21:55 | Emergency (ER) | payer OTHER ==
[2018-01-13 21:55] VITALS: BMI 25.7
[2018-01-13 23:41] VITALS: TEMP 98.3
[2018-01-14] MEDS ORDERED: Sodium Chloride 0.9% 1,000 ML IV STA (00:29)
[2018-01-14] MEDS ORDERED: cefTRIAXone 2 GM in Sodium Chloride 0.9% 100 ML IVPB STA (00:30)
[2018-01-14] MEDS ORDERED: Azithromycin 500 MG in Sodium Chloride 0.9% 250 ML IVPB STA (00:30)
[2018-01-14 00:58] LABS: VENOUS BLOOD GAS PCO2 48 mmHg (40-60); VENOUS BLOOD GAS PO2 52 mm/Hg (30-55)
[2018-01-14 01:08] LABS: BASO # 0.1 K/uL (0.0-0.2); BASO % 0.4 % (0.0-2.0); HEMOGLOBIN 11.9 g/dL (12.0-16.0); LYMPH # 1.9 K/uL (1.0-4.3); LYMPH % 8.2 % (20.0-40.0); MEAN CELL VOLUME 93.7 fl (81.0-99.0); MEAN CORPUSCULAR HEMOGLOBIN 31.6 pg (27.0-31.0); MEAN CORPUSCULAR HGB CONC 33.7 g/dL (33.0-37.0); MEAN PLATELET VOLUME 8.4 fl (7.2-11.7); MONO # 1.7 K/uL (0.0-0.8); MONO % 7.4 % (0.0-10.0); NEUT # 19.1 K/uL (1.8-7.0); RBC 3.75 Mil/uL (3.80-5.20); RED CELL DISTRIBUTION WIDTH 13.7 % (11.5-14.5); WHITE BLOOD COUNT 22.7 K/uL (4.8-10.8)
[2018-01-14] MEDS ORDERED: Albuterol-Ipratrop 3 mg / 0.5 (3 ml) UD INH STA ×2 (01:11)
[2018-01-14] MEDS ORDERED: Albuterol-Ipratrop 3 mg / 0.5 (3 ml) UD ONE (01:18)
[2018-01-14 01:29] LABS: BLOOD UREA NITROGEN 25 mg/dl (7-17); CALCIUM 8.9 mg/dL (8.4-10.2); GFR NON-AFRICAN AMERICAN > 60
[2018-01-14 01:34] LABS: BARBITURATES, UR NEGATIVE (NEGATIVE)
[2018-01-14 01:39] LABS: BENZODIAZEPINES, UR NEGATIVE (NEGATIVE); OPIATES, UR POSITIVE (NEGATIVE); PHENCYCLIDINE, UR NEGATIVE (NEGATIVE)
--- NOTE | 2018-01-14 01:50 | ED PDOC ---
HPI: SOB/CHF/COPD Time Seen by Provider: 01/13/18 23:42 Chief Complaint (Nursing): Shortness Of Breath Chief Complaint (Provider): Shortness of breath History Per: Patient History/Exam Limitations: no limitations Onset/Duration Of Symptoms: Hrs (x24) Additional Complaint(s): Oriana Hayes, a 52 year old female with past medical history of asthma and heroin abuse, presents to the emergency department with right sided chest pain, cough and subjective fever. Patient was diagnosed yesterday with pneumonia, eloped from the ED and returns today for symptoms. No further medical complaints. Past Medical History Reviewed: Historical Data, Nursing Documentation, Vital Signs Vital Signs: Last Vital Signs Temp 98.3 F 01/13/18 23:39 Pulse 99 H 01/13/18 23:39 Resp 22 01/13/18 23:39 BP 144/94 H 01/13/18 23:39 Pulse Ox 99 01/13/18 23:39 - Medical History PMH: Anxiety, Asthma, Back Problems, Bronchitis, COPD, Gastritis, Kidney Stones (RIGHT), Pneumonia, Chronic Kidney Disease Denies: HIV, HTN, Seizures, Sexually Transmitted Disease - Family History Family History: States: Unknown Family Hx - Social History Drugs: Other (heroin) - Immunization History Hx Tetanus Toxoid Vaccination: Yes Hx Influenza Vaccination: Yes Hx Pneumococcal Vaccination: Yes - Home Medications Home Medications: Ambulatory Orders Medication Instructions Recorded Albuterol HFA [Ventolin HFA 90 0.02 puff IH Q4 PRN 01/12/18 mcg/actuation (8 g)] Albuterol/Ipratropium [Combivent 1 puff IH DAILY 01/12/18 Respimat] Naproxen [Naprosyn] 500 mg PO Q12 PRN 01/12/18 predniSONE [Prednisone] 50 mg PO DAILY 01/12/18 - Allergies Allergies/Adverse Reactions: Allergies Allergy/AdvReac Type Severity Reaction Status Date / Time No Known Allergies Allergy Verified 01/13/18 23:39 Review of Systems ROS Statement: Except As Marked, All Systems Reviewed And Found Negative Constitutional: Positive for: Fever (subjective) Cardiovascular: Positive for: Chest Pain (right sided) Respiratory: Positive for: Cough Physical Exam - Reviewed Nursing Documentation Reviewed: Yes Vital Signs Reviewed: Yes - Physical Exam Appears: Positive for: Well, Non-toxic, No Acute Distress Head Exam: Positive for: ATRAUMATIC Skin: Positive for: Normal Color Eye Exam: Positive for: Normal appearance ENT: Positive for: Normal ENT Inspection Neck: Positive for: Normal Cardiovascular/Chest: Positive for: Regular Rate, Rhythm Respiratory: Positive for: Wheezing (bilateral), Other (Speaking full sentences). Negative for: Respiratory Distress Gastrointestinal/Abdominal: Positive for: Normal Exam. 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 Negative for: Motor/Sensory Deficits - Laboratory Results Result Diagrams: 01/14/18 00:50 01/14/18 00:50 - ECG O2 Sat by Pulse Oximetry: 99 (RA) Pulse Ox Interpretation: Normal Medical Decision Making Medical Decision Making: Time: 23:42 A/P: patient with history of asthma and heroin abuse presents with pneumonia and asthma exacerbation, patient will require admission for pneumonia with IV antibiotics and nebulizer treatment, Dr. Monson aware of patient Initial Plan: --Venous blood gas --BMP --Urine drug screen --Troponin --CBC w/ differential --Cxr portable --Catapres 0.2 mg PO --Albuterol 3 ml INH --Sodim chloride 1000 ml IV --Rocephin 100 ml IVPB --Solu-medrol 125 mg IVP --Toradol 30 mg IVP --Zithromax 500 mg IV 230AM Patient eloped from ER. Scribe Attestation: Documented by Juana Mena, acting as a scribe for Steven Ruffin MD. Provider Scribe Attestation: All medical record entries made by the Scribe were at my direction and personally dictated by me. I have reviewed the chart and agree that the record accurately reflects my personal performance of the history, physical exam, medical decision making, and the department course for this patient. I have also personally directed, reviewed, and agree with the discharge instructions and disposition. Disposition - Clinical Impression Clinical Impression: Exacerbation of asthma, Pneumonia - Disposition Disposition: Eloped Disposition Time: 02:30 Condition: UNKNOWN
[2018-01-14 03:10] VITALS: BP 158/99
[2018-01-14 05:10] VITALS: PULSE 89; RESP 18; O2SAT 100
--- NOTE | 2018-01-14 11:54 | RAD ---
Date of service: 01/14/2018 HISTORY: R sided cP, cough COMPARISON: 01/12/2018 FINDINGS: LUNGS: No active pulmonary disease. PLEURA: No significant pleural effusion identified, no pneumothorax apparent. CARDIOVASCULAR: Normal. OSSEOUS STRUCTURES: No significant abnormalities. VISUALIZED UPPER ABDOMEN: Normal. OTHER FINDINGS: None. IMPRESSION: No active disease.
--- NOTE | 2018-01-21 15:18 | PQF ---
PROVIDER RESPONSE TEXT: Provider was unable to determine a response for this query. REVIEWER QUERY TEXT: COPD Specificity Hx. of COPD - Chronic Obstructive Pulmonary Disease is documented in the Medical Record. Please speci fy if the condition is : -- Stable -- OR in Exacerbation - acute --Or: COPD is ruled out -- Other, please specify ER record: PMH: Anxiety, Asthma, Back Problems, Bronchitis, COPD, Gastritis, Kidney Stones (RIGHT), Pneumonia, Chronic Kidney Disease Attending admission order: Admitting diagnoses.:Pneumonia, Asthma Exacerbation, Heroin Withdrawal The patient's Clinical Indicators include: xx Query created by: Sofiya Tobin on 01/15/2018 8:50 AM Electronically signed by: Kayla FRASER 01/20/2018 8:20 PM
== END 2018-01-14 03:00 | disposition left against medical advice (07) ==
LOC: H.ER 21:55 → UNDOADMOB 01-14 00:33 → INTOOBSV 01-14 00:33 → H.ERHOLD 01-14 00:33 → UNDODISOB 01-14 03:00
DX: J45.901 Unspecified asthma with (acute) exacerbation (principal); J18.9 Pneumonia, unspecified organism
CPT/HCPCS: 71045; 80048; 80324; 80345; 80346; 80349; 80353; 80358; 80361; 82803; 83992; 84484; 85025; 87040; 87149; 87181; 87205; 94640; 96374; 96375; 99283; J0696; J1885; J2930; J7030

== ENCOUNTER 2018-01-20 03:28 | Emergency (ER) | payer OTHER ==
[2018-01-20 03:52] VITALS: BMI 23.8
[2018-01-20] MEDS ORDERED: Albuterol-Ipratrop 3 mg / 0.5 (3 ml) UD INH STA ×2 (04:05→04:06)
[2018-01-20] MEDS ORDERED: Albuterol-Ipratrop 3 mg / 0.5 (3 ml) UD ONE (04:15)
--- NOTE | 2018-01-20 05:09 | ED PDOC ---
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 Patient reports she finished a course of antibiotics for pneumonia and bacteremia. She states she doesn't have fever any more but is still having dry cough. PMD: none provided Past Medical History Reviewed: Historical Data, Nursing Documentation, Vital Signs Vital Signs: Last Vital Signs Temp 99.0 F 01/20/18 03:51 Pulse 97 H 01/20/18 03:51 Resp 18 01/20/18 03:51 BP 169/115 H 01/20/18 03:51 Pulse Ox 98 01/20/18 03:51 - Medical History PMH: Anxiety, Asthma, Back Problems, Bronchitis, COPD, Gastritis, Kidney Stones (RIGHT), Pneumonia, Chronic Kidney Disease Denies: HIV, HTN, Seizures, Sexually Transmitted Disease - Surgical History Surgical History: No Surg Hx - Family History Family History: States: Unknown Family Hx - Social History Alcohol: > 2 Drinks/Day - Immunization History Hx Tetanus Toxoid Vaccination: Yes Hx Influenza Vaccination: Yes Hx Pneumococcal Vaccination: Yes - Home Medications Home Medications: Ambulatory Orders Medication Instructions Recorded Albuterol HFA [Ventolin HFA 90 0.09 mg IH DAILY PRN 01/15/18 mcg/actuation (8 g)] Azithromycin [Zithromax] 250 mg PO DAILY 01/15/18 Prednisone 50 mg PO DAILY 01/15/18 - Allergies Allergies/Adverse Reactions: Allergies Allergy/AdvReac Type Severity Reaction Status Date / Time No Known Allergies Allergy Verified 01/20/18 03:51 Review of Systems ROS Statement: Except As Marked, All Systems Reviewed And Found Negative Constitutional: Negative for: Fever Respiratory: Positive for: Cough (dry), Wheezing Physical Exam - Reviewed Nursing Documentation Reviewed: Yes Vital Signs Reviewed: Yes - Physical Exam Appears: Positive for: Non-toxic, No Acute Distress (Speaking full sentences) Head Exam: Positive for: ATRAUMATIC, NORMOCEPHALIC Skin: Positive for: Normal Color, Warm, Dry Eye Exam: Positive for: Normal appearance Neck: Positive for: Normal, Painless ROM Cardiovascular/Chest: Positive for: Regular Rate, Rhythm. Negative for: Murmur Respiratory: Positive for: Wheezing (bilateral). Negative for: Accessory Muscle Use, Respiratory Distress Extremity: Positive for: Normal ROM Neurologic/Psych: Positive for: Alert, Oriented. Negative for: Motor/Sensory Deficits - ECG O2 Sat by Pulse Oximetry: 98 (RA) Pulse Ox Interpretation: Normal Medical Decision Making Medical Decision Making: Initial Impression: Mild to moderate COPD exacerbation Initial Plan: --Albuterol 3mL INH --Prednisone 40mg PO --Peak flow Scribe Attestation: Documented by Yung Cesar acting as a scribe for Steven Ruffin MD. Provider Scribe Attestation: All medical record entries made by the Scribe were at my direction and personally dictated by me. I have reviewed the chart and agree that the record accurately reflects my personal performance of the history, physical exam, medical decision making, and the department course for this patient. I have also personally directed, reviewed, and agree with the discharge instructions and disposition. Disposition - Disposition
[2018-01-20 07:48] VITALS: RESP 17
[2018-01-20 07:49] VITALS: BP 151/87; PULSE 76; TEMP 98; O2SAT 96
== END 2018-01-20 06:30 | disposition home or self-care (01) ==
LOC: H.ER 03:28
DX: J44.9 Chronic obstructive pulmonary disease, unspecified (principal)

== ENCOUNTER 2018-01-21 06:43 | Inpatient (IN) | payer OTHER ==
[2018-01-21 06:43] VITALS: BMI 23.8
[2018-01-21] MEDS ORDERED: Albuterol-Ipratrop 3 mg / 0.5 (3 ml) UD IH STA ×3 (07:18→08:39)
--- NOTE | 2018-01-21 07:23 | ED PDOC ---
HPI: CCC, URI, Sore Throat Time Seen by Provider: 01/21/18 07:09 Chief Complaint (Nursing): Respiratory Distress History Per: Patient Onset/Duration Of Symptoms: Days (2) Current Symptoms Are (Timing): Still Present Associated Symptoms: Cough, Sputum. denies: Fever Severity: Moderate Additional Complaint(s): SOB, wheezing, cough productive yellow sputum assoc with right sided chest pain. Denies fever. Sxs x 2days. Recently hospitalized for pneumonia. Past Medical History Vital Signs: Last Vital Signs Temp 98.5 F 01/21/18 06:58 Pulse 105 H 01/21/18 06:58 Resp 19 01/21/18 07:07 BP 158/102 H 01/21/18 06:58 Pulse Ox 93 L 01/21/18 06:58 - Medical History PMH: Anxiety, Asthma, Back Problems, Bronchitis, COPD, Gastritis, Kidney Stones (RIGHT), Pneumonia, Chronic Kidney Disease Denies: HIV, HTN, Seizures, Sexually Transmitted Disease - Family History Family History: States: Unknown Family Hx - Immunization History Hx Tetanus Toxoid Vaccination: Yes Hx Influenza Vaccination: Yes Hx Pneumococcal Vaccination: Yes - Home Medications Home Medications: Ambulatory Orders Medication Instructions Recorded Albuterol HFA [Ventolin HFA 90 0.09 mg IH DAILY PRN 01/15/18 mcg/actuation (8 g)] Azithromycin [Zithromax] 250 mg PO DAILY 01/15/18 Prednisone 50 mg PO DAILY 01/15/18 - Allergies Allergies/Adverse Reactions: Allergies Allergy/AdvReac Type Severity Reaction Status Date / Time No Known Allergies Allergy Verified 01/20/18 03:51 Review of Systems ROS Statement: Except As Marked, All Systems Reviewed And Found Negative Constitutional: Negative for: Fever Cardiovascular: Positive for: Chest Pain Respiratory: Positive for: Cough, Shortness of Breath, Sputum, Wheezing Physical Exam - Reviewed Nursing Documentation Reviewed: Yes Vital Signs Reviewed: Yes - Physical Exam Appears: Positive for: Non-toxic, No Acute Distress Head Exam: Positive for: ATRAUMATIC, NORMAL INSPECTION, NORMOCEPHALIC Skin: Positive for: Normal Color, Warm, DRY Eye Exam: Positive for: EOMI, Normal appearance, PERRL ENT: Positive for: Normal ENT Inspection Neck: Positive for: Normal, Painless ROM Cardiovascular/Chest: Positive for: Regular Rate, Rhythm, Tachycardia Respiratory: Positive for: Rhonchi, Wheezing. Negative for: Respiratory Distress Gastrointestinal/Abdominal: Positive for: Normal Exam, Soft Back: Positive for: Normal Inspection Extremity: Positive for: Normal ROM Neurologic/Psych: Positive for: Alert, Oriented - Laboratory Results Result Diagrams: 01/21/18 07:27 01/21/18 07:27 - ECG O2 Sat by Pulse Oximetry: 93 Disposition - Clinical Impression Clinical Impression: Exacerbation of asthma, Pneumonia, Sepsis - Patient ED Disposition Is Patient to be Admitted: Yes - Disposition Disposition Time: 09:46 Condition: FAIR Forms: 0xdata (Macedonian) - Pt Status Changed To: Hospital Disposition Of: Inpatient - Admit Certification Admit to Inpatient:: After my assessment, the patient will require hospitalizati on for at least two midnights. This is because of the severity of symptoms shown, intensity of services needed, and/or the medical risk in this patient being treated as an outpatient. - POA Present On Arrival: None
[2018-01-21 08:10] LABS: BASO # 0.1 K/uL (0.0-0.2); BASO % 0.3 % (0.0-2.0); EOS # 0.1 K/uL (0.0-0.7); EOS % 0.3 % (0.0-4.0); HEMOGLOBIN 12.2 g/dL (12.0-16.0); LYMPH # 2.6 K/uL (1.0-4.3); LYMPH % 11.1 % (20.0-40.0); MEAN CELL VOLUME 92.1 fl (81.0-99.0); MEAN CORPUSCULAR HEMOGLOBIN 30.9 pg (27.0-31.0); MEAN CORPUSCULAR HGB CONC 33.5 g/dL (33.0-37.0); MEAN PLATELET VOLUME 8.1 fl (7.2-11.7); MONO # 1.6 K/uL (0.0-0.8); MONO % 6.7 % (0.0-10.0); NEUT # 19.4 K/uL (1.8-7.0); NEUT % 81.6 % (50.0-75.0); RBC 3.95 Mil/uL (3.80-5.20); RED CELL DISTRIBUTION WIDTH 13.9 % (11.5-14.5); WHITE BLOOD COUNT 23.7 K/uL (4.8-10.8)
[2018-01-21 08:30] LABS: ALBUMIN 3.3 g/dL (3.5-5.0); BLOOD UREA NITROGEN 11 mg/dl (7-17); CALCIUM 8.3 mg/dL (8.4-10.2); GFR NON-AFRICAN AMERICAN > 60
[2018-01-21 08:31] LABS: ALT/SGPT 35 U/L (9-52); AST/SGOT 32 U/L (14-36)
[2018-01-21] MEDS ORDERED: Piperacillin/Tazobact 3.375 GM in Sodium Chloride 0.9% 100 ML IVPB STA (08:37)
[2018-01-21] MEDS ORDERED: Albuterol-Ipratrop 3 mg / 0.5 (3 ml) UD ONE (08:48)
[2018-01-21] MEDS ORDERED: Piperacillin/Tazobact 3.375 gm Inj IVPB ONE (08:48)
[2018-01-21 08:58] LABS: VENOUS BLOOD GAS BASE EXCESS 5.4 mmol/L (0.0-2.0); VENOUS BLOOD GAS PCO2 38 mmHg (40-60); VENOUS BLOOD GAS PO2 73 mm/Hg (30-55); VENOUS BLOOD PH 7.49 (7.32-7.43)
[2018-01-21] MEDS ORDERED: Vancomycin 1 g Inj ONE (10:10)
--- NOTE | 2018-01-21 10:46 | RAD ---
Date of service: 01/21/2018 HISTORY: cough COMPARISON: Chest radiograph 01/14/2018. TECHNIQUE: Chest PA and lateral FINDINGS: LUNGS: Inspiratory volume is diminished which resulting crowding of the bilateral bronchovascular markings. No definitive airspace disease is appreciated with crowding of the bronchovascular markings noted at the bilateral bases somewhat. PLEURA: No significant pleural effusion identified. No pneumothorax apparent. CARDIOVASCULAR: Normal. OSSEOUS STRUCTURES: No significant abnormalities. VISUALIZED UPPER ABDOMEN: Normal. OTHER FINDINGS: None. IMPRESSION: Carotid bronchovascular markings are seen at the bases related to diminished inspiratory volume. No definite acute infiltrate or pleural effusion bilaterally. No pulmonary vascular congestion. Clinically correlate. Follow-up chest radiography available.
--- NOTE | 2018-01-21 11:23 | CARD ---
APPROVED REPORT Date of service: 01/21/2018 EKG Measurement Heart [id number] <Conclusion> Sinus tachycardia Otherwise normal ECG
[2018-01-21 11:38] LABS: BARBITURATES, UR NEGATIVE (NEGATIVE); BENZODIAZEPINES, UR NEGATIVE (NEGATIVE); OPIATES, UR POSITIVE (NEGATIVE); PHENCYCLIDINE, UR NEGATIVE (NEGATIVE)
[2018-01-21 13:07] VITALS: BP 152/86; RESP 20; TEMP 98.2; O2SAT 99
[2018-01-21 13:19] VITALS: PULSE 78
[2018-01-21] MEDS ORDERED: Dextrose 5%/0.45% NS 1,000 ML IV SCH (14:45)
[2018-01-21] MEDS ORDERED: Albuterol-Ipratrop 3 mg / 0.5 (3 ml) UD INH SCH (14:45)
--- NOTE | 2018-01-21 15:45 | CP.PCM.CON ---
History of Present Illness - History of Present Illness History of Present Illness: pt is 52 ys old female with previous psychiatric disorder of opiate use , cocaine use and bipolar disorder, reported multiple inpatient hospitalizations for detox, last in 10/[address] [facility], non compliant with medication or follow up pt relapsed on heroin using 8 bags last night also smoked cociane, she presented to ER due to respiratory difficulties and accordingly admitted for treatment of pneumonia pt on evaluation reported feeling depressed in context of the withdrawal symptoms, denied any current suicidal or homicidal ideation denied perceptual disturbances alert awake ox3 poor insight and judgment Past Patient History - Infectious Disease Hx of Infectious Diseases: None - Past Medical History & Family History Past Medical History?: Yes - Past Social History Smoking Status: Smoker Currrent Status Unknown - CARDIAC Hx Hypertension: No - PULMONARY Hx Asthma: Yes Hx Bronchitis: Yes Hx Chronic Obstructive Pulmonary Disease (COPD): Yes Hx Pneumonia: Yes - NEUROLOGICAL Hx Seizures: No - HEENT Hx HEENT Problems: No - RENAL Hx Chronic Kidney Disease: Yes - ENDOCRINE/METABOLIC Hx Endocrine Disorders: No - HEMATOLOGICAL/ONCOLOGICAL Hx AIDS: No Hx Human Immunodeficiency Virus (HIV): No - INTEGUMENTARY Hx Dermatological Problems: No - MUSCULOSKELETAL/RHEUMATOLOGICAL Hx Musculoskeletal Disorders: No Hx Falls: No - GASTROINTESTINAL Hx Gastritis: Yes - GENITOURINARY/GYNECOLOGICAL Hx Sexually Transmitted Disorders: No - PSYCHIATRIC Hx Anxiety: Yes Hx Substance Use: Yes - SURGICAL HISTORY Hx Surgeries: Yes Other/Comment: Kidney stone removal - ANESTHESIA Hx Anesthesia: Yes Hx Anesthesia Reactions: No Hx Malignant Hyperthermia: No Meds Allergies/Adverse Reactions: Allergies Allergy/AdvReac Type Severity Reaction Status Date / Time No Known Allergies Allergy Verified 01/20/18 03:51 - Medications Medications: Current Medications Acetaminophen (Tylenol 325mg Tab) 650 mg PO Q4 PRN PRN Reason: Pain, moderate (4-7) Albuterol/Ipratropium (Duoneb 3 Mg/0.5 Mg (3 Ml) Ud) 3 ml INH RQ6 TALIA Last Admin: 01/21/18 15:34 Dose: 3 ml Clonidine HCl (Catapres) 0.1 mg PO BID TALIA Enoxaparin Sodium (Lovenox) 40 mg SC DAILY TALIA; Protocol Vancomycin HCl 750 mg/ Sodium (Chloride) 250 mls @ 250 mls/hr IVPB Q12H TALIA; Protocol Piperacillin Sod/Tazobactam (Sod 3.375 gm/ Sodium Chloride) 100 mls @ 100 mls/hr IVPB Q8 TALIA; Protocol Dextrose/Sodium Chloride (Dextrose 5%/0.45% Ns 1000 Ml) 1,000 mls @ 100 mls/hr IV .Q10H TALIA Stop: 01/22/18 14:39 Ketorolac Tromethamine (Toradol) 15 mg IVP Q6 PRN PRN Reason: Pain, severe (8-10) Methylprednisolone (Solu-Medrol) 20 mg IVP Q8 TALIA Results - Vital Signs Recent Vital Signs: Last Vital Signs Temp 98.2 F 01/21/18 13:06 Pulse 78 01/21/18 13:06 Resp 20 01/21/18 13:06 BP 152/86 H 01/21/18 13:06 Pulse Ox 99 01/21/18 13:06 - Labs Result Diagrams: 01/21/18 07:27 01/21/18 07:27 Labs: Laboratory Results - last 24 hr 01/21/18 01/21/18 01/21/18 07:27 07:27 08:50 WBC 23.7 H RBC 3.95 Hgb 12.2 Hct 36.4 MCV 92.1 MCH 30.9 MCHC 33.5 RDW 13.9 Plt Count 531 H D MPV 8.1 Neut % (Auto) 81.6 H Lymph % (Auto) 11.1 L Atkinson % (Auto) 6.7 Eos % (Auto) 0.3 Baso % (Auto) 0.3 Neut # (Auto) 19.4 H Lymph # (Auto) 2.6 Atkinson # (Auto) 1.6 H Eos # (Auto) 0.1 Baso # (Auto) 0.1 pO2 73 H VBG pH 7.49 H VBG pCO2 38 L VBG HCO3 29.1 VBG Total CO2 30.2 H VBG O2 Sat (Calc) 99.3 H VBG Base Excess 5.4 H VBG Potassium 3.3 L Glucose 150 H Lactate 0.6 L FiO2 21.0 Sodium 129 L 126.0 L Potassium 3.6 Chloride 93 L 93.0 L Carbon Dioxide 30 Anion Gap 10 BUN 11 Creatinine 0.4 L Est GFR ( Amer) > 60 Est GFR (Non-Af Amer) > 60 Random Glucose 116 H Calcium 8.3 L Total Bilirubin 0.2 AST 32 ALT 35 Alkaline Phosphatase 74 Total Protein 6.7 Albumin 3.3 L Globulin 3.4 Albumin/Globulin Ratio 1.0 Venous Blood Potassium 3.3 L Urine Opiates Screen Urine Methadone Screen Ur Barbiturates Screen Ur Phencyclidine Scrn Ur Amphetamines Screen U Benzodiazepines Scrn U Oth Cocaine Metabols U Cannabinoids Screen 01/21/18 10:35 WBC RBC Hgb Hct MCV MCH MCHC RDW Plt Count MPV Neut % (Auto) Lymph % (Auto) Atkinson % (Auto) Eos % (Auto) Baso % (Auto) Neut # (Auto) Lymph # (Auto) Atkinson # (Auto) Eos # (Auto) Baso # (Auto) pO2 VBG pH VBG pCO2 VBG HCO3 VBG Total CO2 VBG O2 Sat (Calc) VBG Base Excess VBG Potassium Glucose Lactate FiO2 Sodium Potassium Chloride Carbon Dioxide Anion Gap BUN Creatinine Est GFR ( Amer) Est GFR (Non-Af Amer) Random Glucose Calcium Total Bilirubin AST ALT Alkaline Phosphatase Total Protein Albumin Globulin Albumin/Globulin Ratio Venous Blood Potassium Urine Opiates Screen Positive H Urine Methadone Screen Negative Ur Barbiturates Screen Negative Ur Phencyclidine Scrn Negative Ur Amphetamines Screen Negative U Benzodiazepines Scrn Negative U Oth Cocaine Metabols Positive H U Cannabinoids Screen Negative Assessment & Plan - Assessment and Plan (Free Text) Assessment: opiate use disorder severe cocaine use disorder severe bipolar disorder Plan: start clonidine protocol for opiate withdrawal start seroquel 100mg qhs pt would benefit from voluntary admission to psychiatry for medication stabilization and referral to inpatient rehab upon medical clearance
[2018-01-21] MEDS ORDERED: SODIUM CHLORIDE 0.9% IV SCH (17:00)
[2018-01-21] MEDS ORDERED: MethylPREDNISolone 40 mg Vial IVP SCH (17:00)
[2018-01-21] MEDS ORDERED: METHYLPREDNISOLONE IV SCH (17:00)
[2018-01-21] MEDS ORDERED: Piperacillin/Tazobact 3.375 GM in Sodium Chloride 0.9% 100 ML IVPB SCH (21:00)
--- NOTE | 2018-01-22 03:48 | HP ---
HISTORY OF PRESENT ILLNESS: The patient is a 52-year-old female with history of heroin and cocaine abuse and multiple emergency room visits and hospital admissions, presented to emergency room with symptoms of cough and wheezing. The patient was evaluated in the emergency room and she had a chest x-ray done that showed no definite acute infiltrate or pleural effusion bilaterally. No pulmonary vascular congestions. The patient was admitted for clinical pneumonia. FAMILY HISTORY: Not known. SOCIAL HISTORY: Positive for smoking, EtOH, cocaine, and heroin abuse. REVIEW OF SYSTEMS: Other review of systems is generalized body aches. ALLERGY: NO KNOWN ALLERGY. MEDICATIONS: None. PHYSICAL EXAMINATION: GENERAL: The patient is in mild respiratory distress. VITAL SIGNS: Blood pressure 136/81, temperature 98.9, respiratory rate 16, and pulse 86. HEENT: Pupils equal, reactive to light. Normal-appearing mucosa of the conjunctivae, oropharynx and nasal membrane mucosa. NECK: Supple. No JVD. No carotid bruit. No lymph node. No thyromegaly. CARDIOPULMONARY: PMI not localized. S1, S2. No additional sounds. CHEST: Lungs, bilateral symmetrical expansion with scattered rhonchi all over lung metcalf, coarse rales. ABDOMEN: Normoactive bowel sounds. No organomegaly. No masses. EXTREMITIES: No cyanosis, no clubbing. MANAGER GAS: Alert, awake, oriented x2. No neurological deficit could be appreciated. ASSESSMENT: Exacerbation of obstructive lung disease, cocaine and heroin abuse, acute bronchitis. PLAN: Continue current IV antibiotics, watch for any withdrawal symptoms, give clonidine 0.1 mg twice a day, and we will give IV steroids and nebulizer treatment. Gee Dixon MD
--- NOTE | 2018-01-22 04:13 | DS ---
REASON FOR ADMISSION: This is a 52-year-old female with history of both cocaine and heroin abuse, was admitted through emergency room for pneumonia. COURSE OF HOSPITALIZATION: The patient was in the emergency room and she was given IV antibiotics. The patient was admitted to telemetry floor and orders were given. The patient insisted to sign against medical advice and left the hospital in spite of understanding the consequences of her decision. The patient has done the same also before. FINAL DIAGNOSES: Pneumonia, cocaine and heroin abuse. [facility] MD Zack
[2018-01-22] MEDS ORDERED: Enoxaparin 40 mg Syringe SC SCH (09:00)
--- NOTE | 2018-01-23 08:45 | PQF ---
PROVIDER RESPONSE TEXT: Probable community acquired clinical pneumonia REVIEWER QUERY TEXT: Pneumonia Specificity Pneumonia is documented in the Medical Record. Please specify the type of pneumonia and the causative organism (includes probable or suspected) Such as: Type: -- Aspiration pneumonia (please also specify the aspirate) -- Bacterial (please document suspected or probable organism) -- Bronchopneumonia (please document suspected or probable organism) -- Interstitial pneumonia -- Organizing pneumonia / BOOP -- Pneumonia with influenza, swapnil flu, or H1N1 flu -- Tuberculosis, pulmonary -- Viral -- Other, please specify -- Unable to determine The patient's Clinical Indicators include: Patient presents with sob, wheezing and a productive cough with yellow sputum and right sided chest p ain per the ER with a recent admission for pneumonia. CXR: "Carotid bronchovascular markings are seen at the bases related to diminished inspiratory volume . No definite acute infiltrate or pleural effusion bilaterally. No pulmonary vascular congestion.." WBC 23.7 with a L shift TEMP: 98.5, 98.9, 98.9, 98.2 HR: 105, 86, 86, 78, 79 BP: 158/102, 136/81, 136/81, 152/86 R: 16, 19, 16, 16, 20 RX: Zosyn, Vancomycin, Solumedol, Duonebs Query created by: Saige Larson on 01/22/2018 6:40 AM Electronically signed by: Gee Dixon MD 01/23/2018 8:42 AM
--- NOTE | 2018-01-23 08:45 | PQF ---
PROVIDER RESPONSE TEXT: Pt. Does not have sepsis. REVIEWER QUERY TEXT: Rule Out Sepsis Clarification Sepsis is documented in the Medical Record.by the ER MD but not mentioned again. Please clarify wheth er Sepsis is ruled in or ruled out: -- Patient has sepsis - Please document confirmed, suspected or probable causative organism - Please document confirmed, suspected or probable localized infection - Please clarify if sepsis is related to a device - Please clarify if sepsis was present on admission -- Sepsis was ruled out (include corresponding diagnosis for patient?s clinical picture and treatment ) -- Patient had sepsis which is resolved -- Other, please specify The patient's Clinical Indicators include: Patient presents with sob, wheezing and a productive cough with yellow sputum and right sided chest p ain per the ER with a recent admission for pneumonia. CXR: "Carotid bronchovascular markings are seen at the bases related to diminished inspiratory volume . No definite acute infiltrate or pleural effusion bilaterally. No pulmonary vascular congestion.." WBC 23.7 with a L shift TEMP: 98.5, 98.9, 98.9, 98.2 HR: 105, 86, 86, 78, 79 BP: 158/102, 136/81, 136/81, 152/86 R: 16, 19, 16, 16, 20 RX: Zosyn, Vancomycin Query created by: Saige Larson on 01/22/2018 6:39 AM Electronically signed by: Gee Dixon MD 01/23/2018 8:42 AM
== END 2018-01-21 17:10 | disposition left against medical advice (07) | DRG 541 ==
LOC: H.ER 06:43 → H.ERHOLD 09:44 → H.TEL 12:30
PROVIDERS: ADMIT Internal Medicine; ATTEND Internal Medicine
PROC: 3E0F7GC Introduction of Other Therapeutic Substance into Respiratory Tract, Via Natural or Artificial Opening (ICD-10-PCS; principal; 2018-01-21)
DX: J44.0 Chronic obstructive pulmonary disease with (acute) lower respiratory infection (principal); J18.9 Pneumonia, unspecified organism; F14.20 Cocaine dependence, uncomplicated; F11.23 Opioid dependence with withdrawal; F11.20 Opioid dependence, uncomplicated; J45.901 Unspecified asthma with (acute) exacerbation; N18.9 Chronic kidney disease, unspecified; J20.9 Acute bronchitis, unspecified; F31.9 Bipolar disorder, unspecified; Z87.01 Personal history of pneumonia (recurrent); Z87.442 Personal history of urinary calculi; F41.9 Anxiety disorder, unspecified; K29.70 Gastritis, unspecified, without bleeding; R06.03 Acute respiratory distress

== ENCOUNTER 2018-02-14 08:42 | Emergency (ER) | payer OTHER ==
[2018-02-14 08:42] VITALS: BMI 22.8
[2018-02-14 11:56] VITALS: BP 120/81; PULSE 80; RESP 16; TEMP 98; O2SAT 100
--- NOTE | 2018-02-14 12:15 | ED PDOC ---
HPI: Eye Injury/Pain Time Seen by Provider: 02/14/18 09:23 Chief Complaint (Nursing): ENT Problem Chief Complaint (Provider): Eye swelling and Thraot pain History Per: Patient History/Exam Limitations: no limitations Onset/Duration Of Symptoms: Days Current Symptoms Are (Timing): Still Present Associated Symptoms: Swelling, Itching Additional Complaint(s): 52 year old female presents to the ER for an evaluation of minor obstructive eye itchiness and swelling. Also reports of sore throat. She denies fever, visual changes, shortness of breath, chest pain, rash or history of allergic reaction. Of note: patient was seen at [facility] and prescribed levaquin for pneumonia. She states she was able to take the prescription to obtain the medications. PMD: Lauro Monson Past Medical History Reviewed: Historical Data, Nursing Documentation, Vital Signs Vital Signs: Last Vital Signs Temp 98.0 F 02/14/18 11:54 Pulse 80 02/14/18 11:54 Resp 16 02/14/18 11:54 BP 120/81 02/14/18 11:54 Pulse Ox 100 02/14/18 11:54 - Medical History PMH: Anxiety, Asthma, Back Problems, Bronchitis, COPD, Gastritis, Kidney Stones (RIGHT), Pneumonia, Chronic Kidney Disease Denies: HIV, HTN, Seizures, Sexually Transmitted Disease - Family History Family History: States: Unknown Family Hx - Social History Current smoker - smoking cessation education provided: Yes (Light Smoker < 10 Cigarettes Daily) Alcohol: Occasional Drugs: Other (herion) - Immunization History Hx Tetanus Toxoid Vaccination: Yes Hx Influenza Vaccination: Yes Hx Pneumococcal Vaccination: Yes - Home Medications Home Medications: Ambulatory Orders Medication Instructions Recorded RX: Albuterol HFA [Ventolin HFA 90 2 puff IH [id number] #1 puff 02/07/18 mcg/actuation (8 g)] RX: Gabapentin [Neurontin] 400 mg PO TID #90 cap 02/07/18 RX: Mirtazapine [Remeron] 30 mg PO HS #30 tab 02/07/18 RX: QUEtiapine [Seroquel] 100 mg PO HS #30 tab 02/07/18 Albuterol/Ipratropium [Duoneb 3 1 ea IH QID #50 neb 02/09/18 MG/3 Ml-0.5 MG/3 Ml 3 Ml] RX: Prednisone [Deltasone] 20 mg PO DAILY #5 tablet 02/13/18 levoFLOXacin [Levaquin] 500 mg PO DAILY #10 tab 02/13/18 RX: Erythromycin 0.5% 1 applic BOTHEYES Q6 #1 tube 02/14/18 [Erythromycin] RX: Nebulizer [Aeroeclipse II] 1 each MC Q4 PRN #1 each 02/14/18 - Allergies Allergies/Adverse Reactions: Allergies Allergy/AdvReac Type Severity Reaction Status Date / Time No Known Allergies Allergy Verified 02/13/18 04:02 Review of Systems ROS Statement: Except As Marked, All Systems Reviewed And Found Negative Constitutional: Negative for: Fever Eyes: Positive for: Eyelid Inflammation, Other (itchiness). Negative for: Vision Change ENT: Positive for: Throat Pain. Negative for: Throat Swelling Cardiovascular: Negative for: Chest Pain Respiratory: Negative for: Shortness of Breath Skin: Negative for: Rash Physical Exam - Reviewed Nursing Documentation Reviewed: Yes Vital Signs Reviewed: Yes - Physical Exam Appears: Positive for: Non-toxic, No Acute Distress Head Exam: Positive for: ATRAUMATIC, NORMAL INSPECTION, NORMOCEPHALIC Skin: Positive for: Normal Color, Warm, Dry. Negative for: Rash Eye Exam: Positive for: Conjunctival injection (bilateral), Other (no tears or discharge). Negative for: Periorbital swelling, Periorbital tenderness ENT: Positive for: Pharyngeal Erythema. Negative for: Tonsillar Exudate Neck: Positive for: Normal Cardiovascular/Chest: Positive for: Regular Rate, Rhythm. Negative for: Murmur Respiratory: Positive for: Normal Breath Sounds. Negative for: Decreased Breath Sounds, Wheezing, Respiratory Distress Neurologic/Psych: Positive for: Alert, Oriented (x3). Negative for: Motor/Sensory Deficits - ECG O2 Sat by Pulse Oximetry: 100 (RA) Pulse Ox Interpretation: Normal Medical Decision Making Medical Decision Making: Time: 1015 Initial Impression: Throat culture Rapid Strep Group A Antigen Reevaluation Result of Group A Beta Strep Ag is negative Scribe Attestation: Documented by My Lopez, acting as a scribe for Domingo Mancini PA-C Provider Scribe Attestation: All medical record entries made by the Scribe were at my direction and personally dictated by me. I have reviewed the chart and agree that the record accurately reflects my personal performance of the history, physical exam, medical decision making, and the department course for this patient. I have also personally directed, reviewed, and agree with the discharge instructions and disposition. Disposition - Clinical Impression Clinical Impression: Conjunctivitis - Patient ED Disposition Is Patient to be Admitted: No - Disposition Referrals: [facility] [Outside] Disposition: Routine/Home Disposition Time: 11:13 Condition: STABLE Additional Instructions: SAMUEL GUILLERMO, thank you for letting us take care of you today. Your provider was Sharlene Sosa MD and you were treated for EYE PROBLEM. The emergency medical care you received today was directed at your acute symptoms. If you were prescribed any medication, please fill it and take as directed. It may take several days for your symptoms to resolve. Return to the Emergency Department if your symptoms worsen, do not improve, or if you have any other problems. Please contact your doctor or call one of the physicians/clinics you have been referred to that are listed on the Patient Visit Information form that is included in your discharge packet. Bring any paperwork you were given at discharge with you along with any medications you are taking to your follow up visit. Our treatment cannot replace ongoing medical care by a primary care provider outside of the emergency department. Thank you for allowing the [facility] team to be part of your care today. If you had an X-Ray or CT scan: A Radiologist will review the ED reading if any change in treatment is needed we will contact you. If you had a blood, urine, or wound culture: It will take several days for the results, if any change in treatment is needed we will contact you. If you had an STI test: It will take 48 hours for the results. Please call after 1 week if you have not heard back. Prescriptions: RX: Erythromycin 0.5% [Erythromycin] 1 applic BOTHEYES Q6 #1 tube RX: Nebulizer [Aeroeclipse II] 1 each MC Q4 PRN #1 each PRN Reason: Wheezing Instructions: Conjunctivitis (Monaeytim) (DC) Forms: [employer] (Hungarian) Print Language: THAI
== END 2018-02-14 11:56 | disposition home or self-care (01) ==
LOC: H.ER 08:42
DX: H10.9 Unspecified conjunctivitis (principal)

== ENCOUNTER 2018-02-20 23:16 | Emergency (ER) | payer OTHER ==
[2018-02-20 23:16] VITALS: BMI 22.8
[2018-02-20 23:21] VITALS: TEMP 98.3
[2018-02-20] MEDS ORDERED: Albuterol-Ipratrop 3 mg / 0.5 (3 ml) UD INH STA ×3 (23:29→23:30)
[2018-02-21] MEDS ORDERED: Albuterol-Ipratrop 3 mg / 0.5 (3 ml) UD INH STA (00:28)
--- NOTE | 2018-02-21 01:02 | ED PDOC ---
HPI: SOB/CHF/COPD Time Seen by Provider: 02/20/18 23:18 Chief Complaint (Nursing): Shortness Of Breath History Per: Patient History/Exam Limitations: no limitations Onset/Duration Of Symptoms: Days Current Symptoms Are (Timing): Still Present Additional Complaint(s): Hx of asthma, COPD, opiate abuse presenting with shortness of breath, wheezing. States symptoms x 2 days despite usage of albuterol at home. +Smoker and +drug use recently. States dry cough, no fevers. Past Medical History Reviewed: Historical Data, Nursing Documentation, Vital Signs Vital Signs: Last Vital Signs Temp 98.3 F 02/20/18 23:19 Pulse 82 02/20/18 23:19 Resp 20 02/21/18 00:49 BP 135/76 02/20/18 23:19 Pulse Ox 100 02/20/18 23:19 - Medical History PMH: Anxiety, Asthma, Back Problems, Bronchitis, COPD, Gastritis, Kidney Stones (RIGHT), Pneumonia, Chronic Kidney Disease Denies: HIV, HTN, Seizures, Sexually Transmitted Disease - Family History Family History: States: Unknown Family Hx - Immunization History Hx Tetanus Toxoid Vaccination: Yes Hx Influenza Vaccination: Yes Hx Pneumococcal Vaccination: Yes - Home Medications Home Medications: Ambulatory Orders Medication Instructions Recorded Albuterol HFA [Ventolin HFA 90 2 puff IH [id number] #1 puff 02/07/18 mcg/actuation (8 g)] Gabapentin [Neurontin] 400 mg PO TID #90 cap 02/07/18 Mirtazapine [Remeron] 30 mg PO HS #30 tab 02/07/18 QUEtiapine [Seroquel] 100 mg PO HS #30 tab 02/07/18 Albuterol/Ipratropium [Duoneb 3 1 ea IH QID #50 neb 02/09/18 MG/3 Ml-0.5 MG/3 Ml 3 Ml] Prednisone [Deltasone] 20 mg PO DAILY #5 tablet 02/13/18 levoFLOXacin [Levaquin] 500 mg PO DAILY #10 tab 02/13/18 Erythromycin 0.5% [Erythromycin] 1 applic BOTHEYES Q6 #1 tube 02/14/18 Nebulizer [Aeroeclipse II] 1 each MC Q4 PRN #1 each 02/14/18 predniSONE [predniSONE Tab] 60 mg PO DAILY #9 tab 02/21/18 - Allergies Allergies/Adverse Reactions: Allergies Allergy/AdvReac Type Severity Reaction Status Date / Time No Known Allergies Allergy Verified 02/20/18 23:19 Review of Systems ROS Statement: Except As Marked, All Systems Reviewed And Found Negative Respiratory: Positive for: Cough, Shortness of Breath, Wheezing Physical Exam - Reviewed Nursing Documentation Reviewed: Yes Vital Signs Reviewed: Yes - Physical Exam Appears: Positive for: Well, Non-toxic, No Acute Distress Head Exam: Positive for: ATRAUMATIC, NORMAL INSPECTION, NORMOCEPHALIC Skin: Positive for: Normal Color, Warm, DRY Eye Exam: Positive for: EOMI, Normal appearance, PERRL ENT: Positive for: Normal ENT Inspection Neck: Positive for: Normal, Painless ROM Cardiovascular/Chest: Positive for: Regular Rate, Rhythm Respiratory: Positive for: Normal Breath Sounds, Wheezing. Negative for: Accessory Muscle Use, Crackles, Rales, Rhonchi, Stridor, Respiratory Distress Gastrointestinal/Abdominal: Positive for: Normal Exam, Soft Back: Positive for: Normal Inspection Extremity: Positive for: Normal ROM Neurologic/Psych: Positive for: Alert, Oriented - ECG O2 Sat by Pulse Oximetry: 100 Pulse Ox Interpretation: Normal Medical Decision Making Medical Decision Makin Patient presenting with COPD/asthma exacerbation --No respiratory distress noted, normal vitals --Will continue nebulizer treatment, solumedrol --Patient eating and drinking in room 200 --No longer wheezing --Walking around ER unencumbered --Will d/c home Disposition - Clinical Impression Clinical Impression: COPD exacerbation - Patient ED Disposition Is Patient to be Admitted: No - Disposition Referrals: Kenneth Novak MD [Family Provider] - Disposition: Routine/Home Disposition Time: 02:06 Condition: IMPROVED Prescriptions: predniSONE [predniSONE Tab] 60 mg PO DAILY #9 tab Instructions: Exacerbation of COPD Forms: [employer] (Wolof)
[2018-02-21 02:21] VITALS: BP 145/65; PULSE 84; RESP 18; O2SAT 97
== END 2018-02-21 02:20 | disposition home or self-care (01) ==
LOC: H.ER 23:16
DX: J44.1 Chronic obstructive pulmonary disease with (acute) exacerbation (principal); F11.10 Opioid abuse, uncomplicated; F41.9 Anxiety disorder, unspecified
CPT/HCPCS: 94640; 96372; 99284; J2930

== ENCOUNTER 2018-02-23 02:04 | Emergency (ER) | payer OTHER ==
[2018-02-23 02:04] VITALS: BMI 22.8
[2018-02-23] MEDS ORDERED: Albuterol-Ipratrop 3 mg / 0.5 (3 ml) UD ONE ×2 (02:28→02:29)
[2018-02-23 02:29] VITALS: PULSE 84
[2018-02-23] MEDS ORDERED: Albuterol-Ipratrop 3 mg / 0.5 (3 ml) UD INH STA ×3 (02:37)
--- NOTE | 2018-02-23 04:46 | ED PDOC ---
HPI: Chest Pain Time Seen by Provider: 02/23/18 02:12 Chief Complaint (Nursing): Chest Pain Chief Complaint (Provider): Chest Pain History Per: Patient History/Exam Limitations: no limitations Onset/Duration Of Symptoms: Days Current Symptoms Are (Timing): Still Present Additional Complaint(s): 52 y/o female with a PMHx of asthma and COPD presents to the ED for shortness of breath and wheezing. Patient was seen and evaluated at [facility] for same symptoms. Patient is a smoker. PMD: none Past Medical History Reviewed: Historical Data, Nursing Documentation, Vital Signs Vital Signs: Last Vital Signs Temp 97.7 F 02/23/18 02:27 Pulse 84 02/23/18 02:27 Resp 17 02/23/18 02:27 BP 132/71 02/23/18 02:27 Pulse Ox 94 L 02/23/18 02:27 - Medical History PMH: Anxiety, Asthma, Back Problems, Bronchitis, COPD, Gastritis, Kidney Stones (RIGHT), Pneumonia, Chronic Kidney Disease Denies: HIV, HTN, Seizures, Sexually Transmitted Disease - Surgical History Surgical History: No Surg Hx - Family History Family History: States: Unknown Family Hx - Social History Current smoker - smoking cessation education provided: Yes - Immunization History Hx Tetanus Toxoid Vaccination: Yes Hx Influenza Vaccination: Yes Hx Pneumococcal Vaccination: Yes - Home Medications Home Medications: Ambulatory Orders Medication Instructions Recorded Albuterol HFA [Ventolin HFA 90 2 puff IH [id number] #1 puff 02/07/18 mcg/actuation (8 g)] Gabapentin [Neurontin] 400 mg PO TID #90 cap 02/07/18 Mirtazapine [Remeron] 30 mg PO HS #30 tab 02/07/18 QUEtiapine [Seroquel] 100 mg PO HS #30 tab 02/07/18 Albuterol/Ipratropium [Duoneb 3 1 ea IH QID #50 neb 02/09/18 MG/3 Ml-0.5 MG/3 Ml 3 Ml] Prednisone [Deltasone] 20 mg PO DAILY #5 tablet 02/13/18 Nebulizer [Aeroeclipse II] 1 each MC Q4 PRN #1 each 02/14/18 predniSONE [predniSONE Tab] 60 mg PO DAILY #9 tab 02/21/18 Albuterol Sulfate [Proair 90 mcg IH Q4 PRN #1 aer.pow.ba 02/22/18 Respiclick] predniSONE [Prednisone] 40 mg PO DAILY #10 tab 02/22/18 predniSONE [predniSONE Tab] 60 mg PO DAILY #9 tab 02/23/18 - Allergies Allergies/Adverse Reactions: Allergies Allergy/AdvReac Type Severity Reaction Status Date / Time No Known Allergies Allergy Verified 02/23/18 02:29 Review of Systems ROS Statement: Except As Marked, All Systems Reviewed And Found Negative Respiratory: Positive for: Shortness of Breath, Wheezing Physical Exam - Reviewed Nursing Documentation Reviewed: Yes Vital Signs Reviewed: Yes - Physical Exam Appears: Positive for: No Acute Distress Head Exam: Positive for: ATRAUMATIC, NORMOCEPHALIC Skin: Positive for: Normal Color, Warm, Dry Eye Exam: Positive for: Normal appearance, EOMI, PERRL Neck: Positive for: Normal, Painless ROM Cardiovascular/Chest: Positive for: Regular Rate, Rhythm. Negative for: Murmur Respiratory: Positive for: Wheezing (bilateral). Negative for: Respiratory Distress Gastrointestinal/Abdominal: Positive for: Normal Exam, Soft. Negative for: Tenderness Extremity: Positive for: Normal ROM. Negative for: Pedal Edema, Deformity Neurologic/Psych: Positive for: Alert, Oriented (x3). Negative for: Motor/Sensory Deficits - ECG O2 Sat by Pulse Oximetry: 94 (RA) Pulse Ox Interpretation: Normal Medical Decision Making Medical Decision Making: Time: 236 A/P: 52 y/o female with a PMHx of asthma and COPD presents to the ED with shortness of breath and wheezing. -- No respiratory distress noted on exam. Patient's vitals are within normal limits. -- Will continue with nebulizer treatment and predniSONE. -- Duoneb 3mg/0.5mg (3ml) UD 3 ml -- Duoneb 3mg/0.5mg (3ml) UD 3 ml -- Duoneb 3mg/0.5mg (3ml) UD 3 ml -- Motrin 600 mg PO -- PredniSONE 60 mg PO -- Peak flow Pre/Post Tx 630AM --Patient no longer wheezing --Feeling better, vitals stable --Will discharge home ____ Scribe Attestation: Documented by Garry Mathis, acting as a scribe for Steven Ruffin MD. Provider Scribe Attestation: All medical record entries made by the Scribe were at my direction and personally dictated by me. I have reviewed the chart and agree that the record accurately reflects my personal performance of the history, physical exam, medical decision making, and the department course for this patient. I have also personally directed, reviewed, and agree with the discharge instructions and disposition. Disposition - Clinical Impression Clinical Impression: COPD exacerbation - Patient ED Disposition Is Patient to be Admitted: No - Disposition Referrals: Salbador Novak MD [Family Provider] - Disposition Time: 06:33 Condition: STABLE Prescriptions: predniSONE [predniSONE Tab] 60 mg PO DAILY #9 tab Instructions: Exacerbation of COPD Forms: [employer] (Malawian)
[2018-02-23 05:55] VITALS: BP 138/70; RESP 16; TEMP 97.6
[2018-02-23 06:34] VITALS: O2SAT 94
== END 2018-02-23 06:45 | disposition home or self-care (01) ==
LOC: H.ER 02:04
DX: J44.1 Chronic obstructive pulmonary disease with (acute) exacerbation (principal); F17.200 Nicotine dependence, unspecified, uncomplicated; F41.9 Anxiety disorder, unspecified

== ENCOUNTER 2018-02-24 18:31 | Emergency (ER) | payer OTHER ==
[2018-02-24 18:32] VITALS: BMI 22.8
[2018-02-24 18:46] VITALS: TEMP 98.1; O2SAT 97
[2018-02-24] MEDS ORDERED: Albuterol-Ipratrop 3 mg / 0.5 (3 ml) UD INH ONE (19:50)
[2018-02-24] MEDS ORDERED: Albuterol-Ipratrop 3 mg / 0.5 (3 ml) UD ONE (20:31)
--- NOTE | 2018-02-24 21:07 | ED PDOC ---
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 When walking today and tripped and fell forward on water bottle, hitting chest on the cap. After she stood up feeling anxious which triggered asthma and SOB. Reports it is worse with inspiration. Denies radiation to left arm or jaw, dizziness, palpitation, nausea or vomiting. Past Medical History Reviewed: Historical Data, Nursing Documentation, Vital Signs Vital Signs: Last Vital Signs Temp 98.1 F 02/24/18 18:44 Pulse 89 02/24/18 18:44 Resp 16 02/24/18 18:44 BP 168/100 H 02/24/18 18:44 Pulse Ox 97 02/24/18 18:44 - Medical History PMH: Anxiety, Asthma, Back Problems, Bronchitis, COPD, Gastritis, Kidney Stones (RIGHT), Pneumonia, Chronic Kidney Disease Denies: HIV, HTN, Seizures, Sexually Transmitted Disease - Family History Family History: States: Unknown Family Hx - Social History Drugs: Other (heroin) - Immunization History Hx Tetanus Toxoid Vaccination: Yes Hx Influenza Vaccination: Yes Hx Pneumococcal Vaccination: Yes - Home Medications Home Medications: Ambulatory Orders Medication Instructions Recorded Albuterol HFA [Ventolin HFA 90 2 puff IH [id number] #1 puff 02/07/18 mcg/actuation (8 g)] Gabapentin [Neurontin] 400 mg PO TID #90 cap 02/07/18 Mirtazapine [Remeron] 30 mg PO HS #30 tab 02/07/18 QUEtiapine [Seroquel] 100 mg PO HS #30 tab 02/07/18 Albuterol/Ipratropium [Duoneb 3 1 ea IH QID #50 neb 02/09/18 MG/3 Ml-0.5 MG/3 Ml 3 Ml] Prednisone [Deltasone] 20 mg PO DAILY #5 tablet 02/13/18 Nebulizer [Aeroeclipse II] 1 each MC Q4 PRN #1 each 02/14/18 predniSONE [predniSONE Tab] 60 mg PO DAILY #9 tab 02/21/18 Albuterol Sulfate [Proair 90 mcg IH Q4 PRN #1 aer.pow.ba 02/22/18 Respiclick] predniSONE [Prednisone] 40 mg PO DAILY #10 tab 02/22/18 predniSONE [predniSONE Tab] 60 mg PO DAILY #9 tab 02/23/18 - Allergies Allergies/Adverse Reactions: Allergies Allergy/AdvReac Type Severity Reaction Status Date / Time No Known Allergies Allergy Verified 02/23/18 02:29 Review of Systems ROS Statement: Except As Marked, All Systems Reviewed And Found Negative Cardiovascular: Negative for: Palpitations Respiratory: Positive for: Shortness of Breath Gastrointestinal: Negative for: Nausea, Vomiting Neurological: Negative for: Dizziness Physical Exam - Reviewed Nursing Documentation Reviewed: Yes Vital Signs Reviewed: Yes - Physical Exam Appears: Positive for: Well, Non-toxic, No Acute Distress Head Exam: Positive for: ATRAUMATIC, NORMAL INSPECTION, NORMOCEPHALIC Skin: Positive for: Normal Color, Warm, Dry. Negative for: Rash Eye Exam: Positive for: EOMI, Normal appearance, PERRL ENT: Positive for: Normal ENT Inspection Cardiovascular/Chest: Positive for: Regular Rate, Rhythm. Negative for: Murmur Respiratory: Positive for: Wheezing (diffuse expiatory wheezes bilaterally), Other (visual inspection of chest shows no erythema or swelling, point- tenderness on left lateral sternum/rib on palpation ) Gastrointestinal/Abdominal: Positive for: Normal Exam, Soft. Negative for: Tenderness Neurologic/Psych: Positive for: Alert, Oriented (x3), Mood/Affect (coherent ). Negative for: Motor/Sensory Deficits - ECG O2 Sat by Pulse Oximetry: 97 (RA) Pulse Ox Interpretation: Normal Medical Decision Making Medical Decision Making: Time: 1949 Initial Plan: EKG Chest Two Views [RAD] Duoneb 3mg/0.5mg Ibuprofen 600mg Reevaluation Patient left without completing treatment, being re-evaluated or signing any documents after nebulizer treatment. chest X-ray w/o any acute abnormality. Scribe Attestation: Documented by My Lopez, acting as a scribe for Carmen Shelton PA-C Provider Scribe Attestation: All medical record entries made by the Scribe were at my direction and personally dictated by me. I have reviewed the chart and agree that the record accurately reflects my personal performance of the history, physical exam, medical decision making, and the department course for this patient. I have also personally directed, reviewed, and agree with the discharge instructions and d isposition. Disposition - Clinical Impression Clinical Impression: Asthma, Musculoskeletal chest pain - Patient ED Disposition Is Patient to be Admitted: No - Disposition Disposition: Eloped (left w/o re-evaluation or discharge papers/instr uctions/prescriptions.) Disposition Time: 21:34 Condition: STABLE Forms: [employer] (Bolivian)
[2018-02-24 21:35] VITALS: BP 148/86; PULSE 91; RESP 17
--- NOTE | 2018-02-25 06:47 | CARD ---
APPROVED REPORT Date of service: 02/24/2018 EKG Measurement Heart [id number] <Conclusion> Normal sinus rhythm Voltage criteria for left ventricular hypertrophy Abnormal ECG
--- NOTE | 2018-02-25 08:54 | RAD ---
Date of service: 02/24/2018 HISTORY: Shortness of breath COMPARISON: 02/09/2018 TECHNIQUE: Chest PA and lateral FINDINGS: LINES AND TUBES: None. LUNG AND PLEURA: The lungs are hyperinflated and there is peribronchial thickening with chronic changes in both lungs. No pleural effusion or pneumothorax. HEART AND MEDIASTINUM: The heart is not enlarged. No aortic atherosclerotic calcification present. The hilar and mediastinal contours are within normal limits. SKELETAL STRUCTURES: The bony structures are within normal limits for the patient's age. VISUALIZED UPPER ABDOMEN: Normal. OTHER FINDINGS: None. IMPRESSION: No active pulmonary disease.
== END 2018-02-24 21:35 | disposition left against medical advice (07) ==
LOC: H.ER 18:31
DX: J45.909 Unspecified asthma, uncomplicated (principal); R07.9 Chest pain, unspecified; M79.10 Myalgia, unspecified site; J44.9 Chronic obstructive pulmonary disease, unspecified; R07.89 Other chest pain; N18.9 Chronic kidney disease, unspecified; W01.0XXA Fall on same level from slipping, tripping and stumbling without subsequent striking against object, initial encounter; Y93.01 Activity, walking, marching and hiking; Z87.442 Personal history of urinary calculi

== ENCOUNTER 2018-03-17 07:21 | Emergency (ER) | payer OTHER ==
[2018-03-17 07:21] VITALS: BMI 25.0
[2018-03-17 07:26] VITALS: O2SAT 95
[2018-03-17] MEDS ORDERED: Albuterol-Ipratrop 3 mg / 0.5 (3 ml) UD ONE (09:30)
[2018-03-17] MEDS: Albuterol-Ipratrop 3 mg / 0.5 (3 ml) UD INH STA (09:36)
[2018-03-17 09:50] VITALS: BP 149/84; PULSE 76; RESP 16; TEMP 98.1
--- NOTE | 2018-03-17 13:37 | ED PDOC ---
HPI: SOB/CHF/COPD Time Seen by Provider: 03/17/18 07:30 Chief Complaint (Nursing): Respiratory Distress Chief Complaint (Provider): Respiratory Distress History Per: Patient History/Exam Limitations: no limitations Onset/Duration Of Symptoms: Days Current Symptoms Are (Timing): Still Present Additional Complaint(s): 52 year old female with a history of drug abuse, insomnia, hepatitis C, asthma and COPD presents to the ED for asthma treatment for troubled breathing, states asthma acting up. no fever/cough/vomiting. Patient is a frequent visitor to the ER and is sleeping upon evaluation. Denies any other complaints. PMD: Dr. Novak Past Medical History Reviewed: Historical Data, Nursing Documentation, Vital Signs Vital Signs: Last Vital Signs Temp 98.1 F 03/17/18 09:46 Pulse 76 03/17/18 09:46 Resp 16 03/17/18 09:46 BP 149/84 03/17/18 09:46 Pulse Ox 95 03/17/18 09:46 - Medical History PMH: Anxiety, Asthma, Back Problems, Bronchitis, COPD, Depression, Kidney Stones (RIGHT), Pneumonia, Chronic Kidney Disease Denies: Gastritis (Patient denies gatritis), HIV, HTN, Seizures, Sexually Transmitted Disease - Family History Family History: States: Unknown Family Hx - Social History Current smoker - smoking cessation education provided: Yes (Heavy Smoker > 10 Cigarettes Daily) Alcohol: None Drugs: Other (heroin) - Immunization History Hx Tetanus Toxoid Vaccination: Yes Hx Influenza Vaccination: Yes Hx Pneumococcal Vaccination: Yes - Home Medications Home Medications: Ambulatory Orders Medication Instructions Recorded RX: Albuterol HFA [Ventolin HFA 90 1 - 2 puff IH Q4H PRN #1 bottle 03/10/18 mcg/actuation (8 g)] - Allergies Allergies/Adverse Reactions: Allergies Allergy/AdvReac Type Severity Reaction Status Date / Time No Known Allergies Allergy Verified 03/16/18 09:43 Review of Systems ROS Statement: Except As Marked, All Systems Reviewed And Found Negative Constitutional: Negative for: Fever, Chills Cardiovascular: Negative for: Chest Pain Respiratory: Positive for: Shortness of Breath. Negative for: Cough Gastrointestinal: Negative for: Nausea, Vomiting, Abdominal Pain, Diarrhea Physical Exam - Reviewed Nursing Documentation Reviewed: Yes Vital Signs Reviewed: Yes - Physical Exam Appears: Positive for: Non-toxic, No Acute Distress Head Exam: Positive for: ATRAUMATIC, NORMAL INSPECTION, NORMOCEPHALIC Skin: Positive for: Normal Color, Warm, Dry. Negative for: Rash Eye Exam: Positive for: EOMI, Normal appearance, PERRL ENT: Positive for: Normal ENT Inspection Neck: Positive for: Normal, Painless ROM Cardiovascular/Chest: Positive for: Regular Rate, Rhythm. Negative for: Murmur Respiratory: Positive for: Rhonchi (mild), Other (good entry bilateral ). Negative for: Wheezing, Respiratory Distress Gastrointestinal/Abdominal: Positive for: Normal Exam Back: Positive for: Normal Inspection Extremity: Positive for: Normal ROM. Negative for: Tenderness, Pedal Edema, Deformity Neurologic/Psych: Positive for: Alert, Oriented (x3). Negative for: Motor/Sensory Deficits - ECG O2 Sat by Pulse Oximetry: 95 (RA) Pulse Ox Interpretation: Normal Medical Decision Making Medical Decision Making: Time: 902 Initial Plan: asthma, acut fiona chronic Albuterol 3ml Peak Flow Pre/Post Reevaluation Clinical Impression: asthma attack pt feels better upon reevaluation, lungs clear to auscultation. sleeping and resting in no bed in no distress. speaking in full sentences. no tachypnea or labored breathing. Upon provider reevaluation patient is feeling better, is medically stable, and requires no further treatment in the ED at this time. Patient will be discharged home. Counseling was provided and all questions were answered regarding diagnosis and need for follow up with PMD. There is agreement to discharge plan. Return if symptoms persist or worsen. Scribe Attestation: Documented by My Lopez, acting as a scribe for Callum Rizvi MD. Provider Scribe Attestation: All medical record entries made by the Scribe were at my direction and personally dictated by me. I have reviewed the chart and agree that the record accurately reflects my personal performance of the history, physical exam, medical decision making, and the department course for this patient. I have also personally directed, reviewed, and agree with the discharge instructions and disposition. Disposition - Clinical Impression Clinical Impression: Asthma attack - Patient ED Disposition Is Patient to be Admitted: No Counseled Patient/Family Regarding: Studies Performed, Diagnosis, Need For Followup - Disposition Disposition: Routine/Home Disposition Time: 10:45 Condition: IMPROVED Additional Instructions: follow up with your primary doctor in 1-2 days return to the ED with any worsening or concerning symptoms Instructions: Asthma, Adult (DC) Forms: [employer] (Slovenian)
== END 2018-03-17 09:46 | disposition home or self-care (01) ==
LOC: H.ER 07:21
DX: J45.909 Unspecified asthma, uncomplicated (principal); B19.20 Unspecified viral hepatitis C without hepatic coma; F17.210 Nicotine dependence, cigarettes, uncomplicated

== ENCOUNTER 2018-03-21 02:29 | Emergency (ER) | payer OTHER ==
[2018-03-21 02:29] VITALS: BMI 25.0
[2018-03-21] MEDS ORDERED: Albuterol-Ipratrop 3 mg / 0.5 (3 ml) UD ONE (02:47)
--- NOTE | 2018-03-21 03:22 | ED PDOC ---
HPI: SOB/CHF/COPD Chief Complaint (Nursing): Shortness Of Breath History Per: Patient History/Exam Limitations: no limitations Onset/Duration Of Symptoms: Hrs Current Symptoms Are (Timing): Still Present Recently: Seen In ED, Treated By A Physician Additional Complaint(s): Patient well known to ED for asthma and COPD exacerbations presenting with exacerbation, states it started this afternoon, believes trigger to be cold exposure. Denies fever or abnormal cough. States she smoked cigarettes today but denies drugs. PMD: Salbador Novak M.D. Past Medical History Reviewed: Historical Data, Nursing Documentation, Vital Signs Vital Signs: Last Vital Signs Temp 97.8 F 03/21/18 02:44 Pulse 95 H 03/21/18 02:44 Resp 14 03/21/18 02:44 BP 130/78 03/21/18 02:44 Pulse Ox 95 03/21/18 02:44 - Medical History PMH: Anxiety, Asthma, Back Problems, Bronchitis, COPD, Depression, Kidney Stones (RIGHT), Pneumonia, Chronic Kidney Disease Denies: Gastritis (Patient denies gatritis), HIV, HTN, Seizures, Sexually Transmitted Disease - Family History Family History: States: Unknown Family Hx - Immunization History Hx Tetanus Toxoid Vaccination: Yes Hx Influenza Vaccination: Yes Hx Pneumococcal Vaccination: Yes - Home Medications Home Medications: Ambulatory Orders Medication Instructions Recorded Albuterol HFA [Ventolin HFA 90 1 - 2 puff IH Q4H PRN #1 bottle 03/10/18 mcg/actuation (8 g)] predniSONE [predniSONE Tab] 60 mg PO DAILY #9 tab 03/21/18 - Allergies Allergies/Adverse Reactions: Allergies Allergy/AdvReac Type Severity Reaction Status Date / Time No Known Allergies Allergy Verified 03/21/18 02:43 Review of Systems ROS Statement: Except As Marked, All Systems Reviewed And Found Negative Respiratory: Positive for: Wheezing Physical Exam - Reviewed Nursing Documentation Reviewed: Yes Vital Signs Reviewed: Yes - Physical Exam Appears: Positive for: Well, Non-toxic, No Acute Distress Head Exam: Positive for: ATRAUMATIC, NORMAL INSPECTION, NORMOCEPHALIC Skin: Positive for: Normal Color, Warm, DRY Eye Exam: Positive for: EOMI, Normal appearance, PERRL ENT: Positive for: Normal ENT Inspection Neck: Positive for: Normal, Painless ROM Cardiovascular/Chest: Positive for: Regular Rate, Rhythm Respiratory: Positive for: Wheezing (Bilaterally), Other (Speaking full sentences). Negative for: Accessory Muscle Use, Crackles, Rales, Rhonchi, Stridor, Respiratory Distress Gastrointestinal/Abdominal: Positive for: Normal Exam, Soft Back: Positive for: Normal Inspection Extremity: Positive for: Normal ROM Neurologic/Psych: Positive for: Alert, Oriented - ECG O2 Sat by Pulse Oximetry: 95 Medical Decision Making Medical Decision MakinAM Patient presenting with exacerbation of COPD/Asthma --Speaking full sentences, not hypoxic, no respiratory distress noted --Will treat with nebulizer treatments and prednisone 530AM --Patient breathing much better, less wheezing --Advised smoking cessation and followup with PMD --Very well appearing upon discharge Disposition - Clinical Impression Clinical Impression: COPD exacerbation - Patient ED Disposition Is Patient to be Admitted: No Counseled Patient/Family Regarding: Need For Followup, Rx Given, Smoking Cessation - Disposition Referrals: Salbador Novak MD [Staff Provider] - Disposition: Routine/Home Disposition Time: 05:32 Condition: IMPROVED Prescriptions: predniSONE [predniSONE Tab] 60 mg PO DAILY #9 tab Instructions: Exacerbation of COPD Forms: [employer] (Singaporean)
[2018-03-21] MEDS ORDERED: Albuterol-Ipratrop 3 mg / 0.5 (3 ml) UD INH STA ×3 (03:24)
[2018-03-21 06:46] VITALS: BP 128/77; PULSE 91; RESP 16; TEMP 98.2; O2SAT 96
== END 2018-03-21 06:45 | disposition home or self-care (01) ==
LOC: H.ER 02:29
DX: J44.1 Chronic obstructive pulmonary disease with (acute) exacerbation (principal)

== ENCOUNTER 2018-03-21 21:54 | Emergency (ER) | payer OTHER ==
[2018-03-21 21:55] VITALS: BMI 25.0
[2018-03-21 22:01] VITALS: BP 132/84; PULSE 103; TEMP 97.5; O2SAT 94
[2018-03-21 22:03] VITALS: RESP 22
[2018-03-21] MEDS ORDERED: Albuterol-Ipratrop 3 mg / 0.5 (3 ml) UD IH STA ×3 (22:08)
[2018-03-21] MEDS ORDERED: Albuterol-Ipratrop 3 mg / 0.5 (3 ml) UD ONE (22:14)
--- NOTE | 2018-03-21 22:17 | ED PDOC ---
HPI: SOB/CHF/COPD Time Seen by Provider: 03/21/18 22:06 Chief Complaint (Nursing): Shortness Of Breath Chief Complaint (Provider): wheezing History Per: Patient History/Exam Limitations: no limitations Onset/Duration Of Symptoms: Hrs Current Symptoms Are (Timing): Still Present Additional Complaint(s): 52 y/o female presents for evaluation of wheezing x 2 hours. Patient admits to smoking despite symptoms. Denies fever, chest pain, shortness of breath, palpitations, leg pain/swelling. Taking albuterol inhaler and prednisone PO with little improvement Past Medical History Reviewed: Historical Data, Nursing Documentation, Vital Signs Vital Signs: Last Vital Signs Temp 97.5 F L 03/21/18 22:01 Pulse 103 H 03/21/18 22:01 Resp 22 03/21/18 22:01 BP 132/84 03/21/18 22:01 Pulse Ox 94 L 03/21/18 22:01 - Medical History PMH: Anxiety, Asthma, Back Problems, Bronchitis, COPD, Depression, Kidney Stones (RIGHT), Pneumonia, Chronic Kidney Disease Denies: Gastritis (Patient denies gatritis), HIV, HTN, Seizures, Sexually Transmitted Disease - Family History Family History: States: Unknown Family Hx - Immunization History Hx Tetanus Toxoid Vaccination: Yes Hx Influenza Vaccination: Yes Hx Pneumococcal Vaccination: Yes - Home Medications Home Medications: Ambulatory Orders Medication Instructions Recorded Albuterol HFA [Ventolin HFA 90 1 - 2 puff IH Q4H PRN #1 bottle 03/10/18 mcg/actuation (8 g)] predniSONE [predniSONE Tab] 60 mg PO DAILY #9 tab 03/21/18 - Allergies Allergies/Adverse Reactions: Allergies Allergy/AdvReac Type Severity Reaction Status Date / Time No Known Allergies Allergy Verified 03/21/18 22:01 Review of Systems ROS Statement: Except As Marked, All Systems Reviewed And Found Negative Respiratory: Positive for: Wheezing Physical Exam - Reviewed Nursing Documentation Reviewed: Yes Vital Signs Reviewed: Yes - Physical Exam Appears: Positive for: Well, Non-toxic, No Acute Distress Head Exam: Positive for: ATRAUMATIC, NORMAL INSPECTION, NORMOCEPHALIC Skin: Positive for: Normal Color Eye Exam: Positive for: Normal appearance ENT: Positive for: Normal ENT Inspection Cardiovascular/Chest: Positive for: Regular Rate, Rhythm Respiratory: Positive for: Wheezing (diffuse expiratory wheezing). Negative for : Crackles, Rales, Rhonchi Gastrointestinal/Abdominal: Positive for: Normal Exam Back: Positive for: Normal Inspection Extremity: Positive for: Normal ROM Neurologic/Psych: Positive for: Alert, Oriented (x3) - ECG O2 Sat by Pulse Oximetry: 94 - Progress ED Course And Treament: -duoneb x3 On re-eval, wheezing improved. Patient states she is feeling better but requesting injection of steroid for better relief. -solumedrol IM Patient educated on findings, advised to continue current medications Follow up PMD within 2-3 days Return precautions given Disposition - Clinical Impression Clinical Impression: Asthma - Patient ED Disposition Is Patient to be Admitted: No Counseled Patient/Family Regarding: Diagnosis, Need For Followup - Disposition Disposition: Routine/Home Disposition Time: 23:30 Condition: IMPROVED Instructions: Asthma in Adults
== END 2018-03-21 23:25 | disposition home or self-care (01) ==
LOC: H.ER 21:54
DX: J45.909 Unspecified asthma, uncomplicated (principal)
CPT/HCPCS: 94150; 94640; 96372; 99285; J2930

== ENCOUNTER 2018-03-22 17:08 | Emergency (ER) | payer OTHER ==
[2018-03-22 17:08] VITALS: BMI 25.0
[2018-03-22] MEDS ORDERED: Albuterol-Ipratrop 3 mg / 0.5 (3 ml) UD INH STA (17:47)
--- NOTE | 2018-03-22 17:52 | ED PDOC ---
HPI: SOB/CHF/COPD Time Seen by Provider: 03/22/18 17:28 Chief Complaint (Nursing): Respiratory Distress Chief Complaint (Provider): SOB History Per: Patient History/Exam Limitations: no limitations Additional Complaint(s): 52 y/o F with hx of asthma and substance abuse who was BIBA for asthma exacerbation. Pt states that she was at [facility] and was walking outside when she began feeling SOB. 911 was called and she was given SoluMedrol 125mg IV x 1, albuterol neb x 1 and DuoNeb x 1 in the field. She has been seen in this ED several times in the past week for similar complaints and has received IV Solumedrol each time. She was given a prescription for Prednisone 20mg PO BID on 03/20 but only picked up the prescription yesterday. Pt currently feels a little better than when the ambulance picked her up. Pt admits that she has had a cough productive of greenish sputum for the past 2 weeks but denies C/P, fevers, palpitations, dizziness. Past Medical History Vital Signs: Last Vital Signs Temp 98.4 F 03/22/18 17:12 Pulse 98 H 03/22/18 17:34 Resp 19 03/22/18 17:34 BP 157/101 H 03/22/18 17:12 Pulse Ox 7 L 03/22/18 17:34 - Medical History PMH: Anxiety, Asthma, Back Problems, Bronchitis, COPD, Depression, Kidney Stones (RIGHT), Pneumonia, Chronic Kidney Disease Denies: Gastritis (Patient denies gatritis), HIV, HTN, Seizures, Sexually Transmitted Disease - Family History Family History: States: Unknown Family Hx - Immunization History Hx Tetanus Toxoid Vaccination: Yes Hx Influenza Vaccination: Yes Hx Pneumococcal Vaccination: Yes - Home Medications Home Medications: Ambulatory Orders Medication Instructions Recorded Albuterol HFA [Ventolin HFA 90 1 - 2 puff IH Q4H PRN #1 bottle 03/10/18 mcg/actuation (8 g)] predniSONE [predniSONE Tab] 60 mg PO DAILY #9 tab 03/21/18 Azithromycin 250 mg PO DAILY 4 Days tablet 03/22/18 Albuterol/Ipratropium [Duoneb 3 3 ml IH TID #30 neb 03/23/18 MG/3 Ml-0.5 MG/3 Ml 3 Ml] Nebulizer [Aeroeclipse II] 1 each PRN PRN #1 each 03/23/18 - Allergies Allergies/Adverse Reactions: Allergies Allergy/AdvReac Type Severity Reaction Status Date / Time No Known Allergies Allergy Verified 03/23/18 22:59 Physical Exam - Reviewed Nursing Documentation Reviewed: Yes Vital Signs Reviewed: Yes - Physical Exam Appears: Positive for: Uncomfortable Head Exam: Positive for: ATRAUMATIC Skin: Positive for: Normal Color Eye Exam: Positive for: Conjunctival injection (B/L) ENT: Positive for: Normal ENT Inspection Neck: Positive for: Normal Cardiovascular/Chest: Positive for: Regular Rate, Rhythm Respiratory: Positive for: Rhonchi (diffuse B/L). Negative for: Wheezing Back: Positive for: Normal Inspection Lymphatic: Positive for: Normal Exam Neurologic/Psych: Positive for: Alert, Oriented - ECG O2 Sat by Pulse Oximetry: 7 Medical Decision Making Medical Decision Making: Rapid flu CXR PA and lateral DuoNeb x 1 Re-evaluated: improvement in wheezing and feeling better. Rapid flu negative. Chest x-ray with possible new infiltrate, Given a dose of Zithromax 500mg PO x 1 in ED and then d/c'ed home with Azithromycin 250mg PO X 4 days. Return instructions given. Disposition - Clinical Impression Clinical Impression: Acute bronchitis with chronic obstructive pulmonary disease (COPD) - Patient ED Disposition Is Patient to be Admitted: No Counseled Patient/Family Regarding: Studies Performed, Diagnosis, Need For Followup - Disposition Referrals: [facility] [Outside] Disposition: Routine/Home Disposition Time: 20:07 Condition: STABLE Additional Instructions: Take antibiotics as prescribed. Continue Prednisone as prescribed. Use nebulizer regularly. Prescriptions: Azithromycin 250 mg PO DAILY 4 Days tablet Instructions: Acute Bronchitis, Adult (DC), COPD Including Emphysema (DC) Forms: [employer] (Korean) Print Language: SIERRA LEONEAN
[2018-03-22] MEDS ORDERED: Albuterol-Ipratrop 3 mg / 0.5 (3 ml) UD ONE (17:56)
[2018-03-22 20:08] VITALS: BP 143/82; PULSE 80; RESP 17; TEMP 98
--- NOTE | 2018-03-23 09:48 | RAD ---
Date of service: 03/22/2018 HISTORY: shortness of breath, cough COMPARISON: 02/27/2018 TECHNIQUE: Chest PA and lateral FINDINGS: LUNGS: New right lower lobe infiltrate versus discoid atelectasis. Interstitial changes. PLEURA: No significant pleural effusion identified. No pneumothorax apparent. CARDIOVASCULAR: No aortic atherosclerotic calcification present. Normal cardiac size. No pulmonary vascular congestion. OSSEOUS STRUCTURES: No significant abnormalities. VISUALIZED UPPER ABDOMEN: Normal. OTHER FINDINGS: None. IMPRESSION: New right lower lobe infiltrate versus discoid atelectasis. Interstitial changes.
[2018-03-24 21:53] VITALS: O2SAT 7
== END 2018-03-22 20:07 | disposition home or self-care (01) ==
LOC: H.ER 17:08
DX: J20.9 Acute bronchitis, unspecified (principal); J44.0 Chronic obstructive pulmonary disease with (acute) lower respiratory infection; Z86.59 Personal history of other mental and behavioral disorders; J45.901 Unspecified asthma with (acute) exacerbation; N18.9 Chronic kidney disease, unspecified; Z79.899 Other long term (current) drug therapy; Z87.442 Personal history of urinary calculi

== ENCOUNTER 2018-03-23 09:51 | Emergency (ER) | payer OTHER ==
[2018-03-23 09:57] VITALS: BP 155/91; PULSE 90; TEMP 97.6; O2SAT 96; BMI 21.9
[2018-03-23] MEDS ORDERED: Albuterol-Ipratrop 3 mg / 0.5 (3 ml) UD ONE ×2 (10:05→10:13)
[2018-03-23] MEDS ORDERED: Albuterol-Ipratrop 3 mg / 0.5 (3 ml) UD INH STA ×2 (10:11→10:40)
[2018-03-23 10:29] LABS: BASO % 0.3 % (0.0-2.0); EOS % 0.1 % (0.0-4.0); LYMPH % 17.9 % (20.0-40.0); MEAN CELL VOLUME 91.2 fl (81.0-99.0); MEAN CORPUSCULAR HEMOGLOBIN 28.8 pg (27.0-31.0); MEAN CORPUSCULAR HGB CONC 31.6 g/dL (33.0-37.0); MEAN PLATELET VOLUME 7.7 fl (7.2-11.7); MONO # 1.1 K/uL (0.0-0.8); MONO % 9.7 % (0.0-10.0); NEUT # 8.1 K/uL (1.8-7.0); NRBC % 0.1 % (0.0-0.0); RBC 3.81 Mil/uL (3.80-5.20); RED CELL DISTRIBUTION WIDTH 14.4 % (11.5-14.5); WHITE BLOOD COUNT 11.3 K/uL (4.8-10.8)
[2018-03-23 10:44] VITALS: RESP 24
[2018-03-23 10:53] LABS: ALB/GLOB RATIO 1.2 (1.0-2.1); ALBUMIN 3.5 g/dL (3.5-5.0); ALT/SGPT 45 U/L (9-52); AST/SGOT 53 U/L (14-36); BLOOD UREA NITROGEN 15 mg/dl (7-17); CALCIUM 8.7 mg/dL (8.4-10.2); GFR NON-AFRICAN AMERICAN > 60
--- NOTE | 2018-03-23 11:27 | ED PDOC ---
HPI: SOB/CHF/COPD Time Seen by Provider: 03/23/18 10:11 Chief Complaint (Nursing): Shortness Of Breath Chief Complaint (Provider): Asthma Exacerbation History Per: Patient History/Exam Limitations: no limitations Onset/Duration Of Symptoms: Days (two) Current Symptoms Are (Timing): Better (on arrival) Initiating Event: Out Of Medications, Exposure To Smoke Additional Complaint(s): Pt presents to the ED for second time in two days with a history of asthma and COPD; on last visit for same symptoms, pt had a CXR and was given a rx of allbuterol inhaler which she did not fill. Pt is an active smoker and smoking cessation advice was provided Past Medical History Reviewed: Historical Data, Nursing Documentation, Vital Signs Vital Signs: Last Vital Signs Temp 97.6 F 03/23/18 09:56 Pulse 90 03/23/18 09:56 Resp 24 03/23/18 10:42 BP 155/91 H 03/23/18 09:56 Pulse Ox 96 03/23/18 09:56 - Medical History PMH: Anxiety, Asthma, Back Problems, Bronchitis, COPD, Depression, Kidney Stones (RIGHT), Pneumonia, Chronic Kidney Disease Denies: Gastritis (Patient denies gatritis), HIV, HTN, Seizures, Sexually Transmitted Disease - Family History Family History: States: Unknown Family Hx - Immunization History Hx Tetanus Toxoid Vaccination: Yes Hx Influenza Vaccination: Yes Hx Pneumococcal Vaccination: Yes - Home Medications Home Medications: Ambulatory Orders Medication Instructions Recorded Albuterol HFA [Ventolin HFA 90 1 - 2 puff IH Q4H PRN #1 bottle 03/10/18 mcg/actuation (8 g)] predniSONE [predniSONE Tab] 60 mg PO DAILY #9 tab 03/21/18 Azithromycin 250 mg PO DAILY 4 Days tablet 03/22/18 Albuterol/Ipratropium [Duoneb 3 3 ml IH TID #30 neb 03/23/18 MG/3 Ml-0.5 MG/3 Ml 3 Ml] Nebulizer [Aeroeclipse II] 1 each MC PRN PRN #1 each 03/23/18 - Allergies Allergies/Adverse Reactions: Allergies Allergy/AdvReac Type Severity Reaction Status Date / Time No Known Allergies Allergy Verified 03/21/18 22:01 Curb-65 Severity Score - CURB-65 Severity Score Confusion: No Respiratory Rate greater than/equal to 30: No Systolic BP <90 or Diastolic BP less than/equal 60mmHg: No Age >64: No Curb-65 Score: 0 Percentage 30-day mortality: 0.6% Review of Systems ROS Statement: Except As Marked, All Systems Reviewed And Found Negative Respiratory: Positive for: Cough, Shortness of Breath, Wheezing Physical Exam - Reviewed Nursing Documentation Reviewed: Yes Vital Signs Reviewed: Yes - Physical Exam Appears: Positive for: Uncomfortable Head Exam: Positive for: ATRAUMATIC, NORMAL INSPECTION Skin: Positive for: Normal Color, Warm, Dry ENT: Positive for: Pharynx Is (nonerythemic and without exudate or lesion) Neck: Positive for: Normal, Painless ROM, Supple. Negative for: Decreased ROM Cardiovascular/Chest: Positive for: Regular Rate, Rhythm, Chest Non Tender. Negative for: Edema, Gallop, Murmur, Bradycardia, Tachycardia Respiratory: Positive for: Wheezing. Negative for: Accessory Muscle Use, Crackles, Rales, Rhonchi, Stridor, Respiratory Distress Pulses-Carotid (L): 2+ Pulses-Carotid (R): 2+ Pulses-Radial (L): 2+ Pulses-Radial (R): 2+ (pt wheezing in upper lung quadrants upon presentation; after medication, wheezing subsided and patient is resting and eatting in bed requesting discharge) - Laboratory Results Result Diagrams: 03/23/18 10:20 03/23/18 10:20 - ECG O2 Sat by Pulse Oximetry: 96 Nebulizer Treatments/Peak Flow - Duonebs Number of Bronchodilator Doses given?: 3 - Clinical Response Clinical Response: Improved Medical Decision Making Medical Decision Making: second day with asthma exacerbation and pt has not filled medications tx in ED with decadron and nebs with positive results rx given for allbuterlal and nebulizer Disposition - Clinical Impression Clinical Impression: Asthma attack, Exacerbation of asthma - Patient ED Disposition Is Patient to be Admitted: No Doctor Will See Patient In The: Office Counseled Patient/Family Regarding: Diagnosis, Need For Followup, Rx Given - Disposition Referrals: [facility] [Outside] Disposition: Routine/Home Disposition Time: 11:31 Condition: STABLE Prescriptions: Albuterol/Ipratropium [Duoneb 3 MG/3 Ml-0.5 MG/3 Ml 3 Ml] 3 ml IH TID #30 neb Nebulizer [Aeroeclipse II] 1 each MC PRN PRN #1 each PRN Reason: Wheezing Instructions: Asthma in Adults, Avoiding Asthma Triggers, Inhalers
== END 2018-03-23 12:18 | disposition home or self-care (01) ==
LOC: H.ER 09:51
DX: J45.901 Unspecified asthma with (acute) exacerbation (principal)
CPT/HCPCS: 80053; 85025; 94640; 96374; 99283; J1100

== ENCOUNTER 2018-03-28 05:46 | Emergency (ER) | payer OTHER ==
[2018-03-28 05:46] VITALS: BMI 21.9
[2018-03-28 06:35] VITALS: BP 157/83; PULSE 89; RESP 17; TEMP 98.1; O2SAT 95
--- NOTE | 2018-03-28 06:45 | ED PDOC ---
HPI: SOB/CHF/COPD Time Seen by Provider: 03/28/18 06:42 Chief Complaint (Nursing): Shortness Of Breath Chief Complaint (Provider): Shortness Of Breath History Per: Patient History/Exam Limitations: no limitations Additional Complaint(s): 52 y/o female with a well-known history of COPD and asthma, noncompliance, heroin abuse and multiple visits for bed seeking behavior presents to the ED for shortness of breath. Patient was in the waiting room overnight, removed by security and at that time she was registered to be seen. She was actively smoking prior to arrival. PMD: none provided Past Medical History Reviewed: Historical Data, Nursing Documentation, Vital Signs Vital Signs: Last Vital Signs Temp 98.1 F 03/28/18 06:31 Pulse 89 03/28/18 06:31 Resp 17 03/28/18 06:37 BP 157/83 H 03/28/18 06:31 Pulse Ox 95 03/28/18 06:37 - Medical History PMH: Anxiety, Asthma, Back Problems, Bronchitis, COPD, Depression, Kidney Stones (RIGHT), Pneumonia, Chronic Kidney Disease Denies: Gastritis (Patient denies gatritis), HIV, HTN, Seizures, Sexually Transmitted Disease - Family History Family History: States: Unknown Family Hx - Living Arrangements Living Arrangements: Other (homeless) - Social History Current smoker - smoking cessation education provided: Yes Drugs: Opiates (Heroin) - Immunization History Hx Tetanus Toxoid Vaccination: Yes Hx Influenza Vaccination: Yes Hx Pneumococcal Vaccination: Yes - Home Medications Home Medications: Ambulatory Orders Medication Instructions Recorded Albuterol HFA [Ventolin HFA 90 1 - 2 puff IH Q4H PRN #1 bottle 03/10/18 mcg/actuation (8 g)] predniSONE [predniSONE Tab] 60 mg PO DAILY #9 tab 03/21/18 Azithromycin 250 mg PO DAILY 4 Days tablet 03/22/18 Albuterol/Ipratropium [Duoneb 3 3 ml IH TID #30 neb 03/23/18 MG/3 Ml-0.5 MG/3 Ml 3 Ml] Nebulizer [Aeroeclipse II] 1 each MC PRN PRN #1 each 03/23/18 - Allergies Allergies/Adverse Reactions: Allergies Allergy/AdvReac Type Severity Reaction Status Date / Time No Known Allergies Allergy Verified 03/28/18 06:35 Review of Systems ROS Statement: Except As Marked, All Systems Reviewed And Found Negative Respiratory: Positive for: Shortness of Breath Physical Exam - Reviewed Nursing Documentation Reviewed: Yes Vital Signs Reviewed: Yes - Physical Exam Appears: Positive for: Well, Non-toxic, No Acute Distress Head Exam: Positive for: ATRAUMATIC, NORMOCEPHALIC Skin: Positive for: Normal Color, Warm, Dry Eye Exam: Positive for: EOMI, Normal appearance, PERRL Neck: Positive for: Normal, Painless ROM Cardiovascular/Chest: Positive for: Regular Rate, Rhythm. Negative for: Murmur Respiratory: Positive for: Wheezing (expiratory bilaterally), Respiratory Distress (mild) Gastrointestinal/Abdominal: Positive for: Normal Exam, Soft. Negative for: Tenderness Back: Positive for: Normal Inspection Extremity: Positive for: Normal ROM. Negative for: Pedal Edema, Deformity Neurologic/Psych: Positive for: Alert, Oriented. Negative for: Motor/Sensory Deficits - ECG O2 Sat by Pulse Oximetry: 95 (RA) Pulse Ox Interpretation: Normal Medical Decision Making Medical Decision Making: Time: 06:42 Initial Impression: 52 y/o female with acute COPD exacerbation in setting of recurrent complaints Initial Plan: * Duoneb * Prednisone 06:48 Patient is stable for discharge. Diagnosis is COPD. Scribe Attestation: Documented by Julien Santillan acting as a scribe for Alhaji Rossi MD. Provider Scribe Attestation: All medical record entries made by the Scribe were at my direction and personally dictated by me. I have reviewed the chart and agree that the record accurately reflects my personal performance of the history, physical exam, medical decision making, and the department course for this patient. I have also personally directed, reviewed, and agree with the discharge instructions and disposition. Disposition - Disposition Forms: [employer] (Bengali)
[2018-03-28] MEDS ORDERED: Albuterol-Ipratrop 3 mg / 0.5 (3 ml) UD INH STA (06:48)
== END 2018-03-28 07:29 | disposition home or self-care (01) ==
LOC: H.ER 05:46
DX: J44.1 Chronic obstructive pulmonary disease with (acute) exacerbation (principal)

== ENCOUNTER 2018-04-03 00:28 | Emergency (ER) | payer OTHER ==
[2018-04-03 00:28] VITALS: BMI 21.9
[2018-04-03 00:44] VITALS: TEMP 98.6
[2018-04-03] MEDS ORDERED: Albuterol-Ipratrop 3 mg / 0.5 (3 ml) UD IH STA ×2 (01:23→01:24)
--- NOTE | 2018-04-03 01:30 | ED PDOC ---
HPI: SOB/CHF/COPD Time Seen by Provider: 04/03/18 00:57 Chief Complaint (Nursing): Respiratory Distress Chief Complaint (Provider): shortness of breath History Per: Patient History/Exam Limitations: no limitations Onset/Duration Of Symptoms: Hrs Current Symptoms Are (Timing): Better Additional Complaint(s): 52 y/o female history of heroin abuse, asthma, COPD brought in by EMS for evaluation of shortness of breath x 1 hour. States symptoms consistent with her previous asthma/COPD attacks. Patient states she was given one duoneb treatment en route to ED and feels a little better. Reports headache. Requesting food. Past Medical History Reviewed: Historical Data, Nursing Documentation, Vital Signs Vital Signs: Last Vital Signs Temp 98.6 F 04/03/18 00:40 Pulse 79 04/03/18 00:40 Resp 22 04/03/18 00:40 BP 141/92 H 04/03/18 00:40 Pulse Ox 100 04/03/18 00:40 - Medical History PMH: Anxiety, Asthma, Back Problems, Bronchitis, COPD, Depression, Kidney Stones (RIGHT), Pneumonia, Chronic Kidney Disease Denies: Gastritis (Patient denies gatritis), HIV, HTN, Seizures, Sexually Transmitted Disease - Surgical History Surgical History: No Surg Hx - Family History Family History: States: Unknown Family Hx - Immunization History Hx Tetanus Toxoid Vaccination: Yes Hx Influenza Vaccination: Yes Hx Pneumococcal Vaccination: Yes - Home Medications Home Medications: Ambulatory Orders Medication Instructions Recorded Albuterol HFA [Ventolin HFA 90 1 - 2 puff IH Q4H PRN #1 bottle 03/10/18 mcg/actuation (8 g)] predniSONE [predniSONE Tab] 60 mg PO DAILY #9 tab 03/21/18 Azithromycin 250 mg PO DAILY 4 Days tablet 03/22/18 Albuterol/Ipratropium [Duoneb 3 3 ml IH TID #30 neb 03/23/18 MG/3 Ml-0.5 MG/3 Ml 3 Ml] Nebulizer [Aeroeclipse II] 1 each MC PRN PRN #1 each 03/23/18 Albuterol Sulfate [Proair Hfa] 0.09 mg IH Q6 PRN #1 inh 03/28/18 predniSONE [predniSONE Tab] 60 mg PO QAM #12 tab 03/28/18 Prednisone 50 mg PO DAILY #4 tablet 04/03/18 - Allergies Allergies/Adverse Reactions: Allergies Allergy/AdvReac Type Severity Reaction Status Date / Time No Known Allergies Allergy Verified 03/28/18 06:35 Review of Systems ROS Statement: Except As Marked, All Systems Reviewed And Found Negative Respiratory: Positive for: Cough, Shortness of Breath Physical Exam - Reviewed Nursing Documentation Reviewed: Yes Vital Signs Reviewed: Yes - Physical Exam Appears: Positive for: Well, Non-toxic, No Acute Distress Head Exam: Positive for: ATRAUMATIC, NORMAL INSPECTION, NORMOCEPHALIC Skin: Positive for: Normal Color Eye Exam: Positive for: Normal appearance ENT: Positive for: Normal ENT Inspection Cardiovascular/Chest: Positive for: Regular Rate, Rhythm Respiratory: Positive for: Rhonchi, Wheezing. Negative for: Respiratory Distress Gastrointestinal/Abdominal: Positive for: Normal Exam Back: Positive for: Normal Inspection Extremity: Positive for: Normal ROM Neurologic/Psych: Positive for: Alert, Oriented (x3) - ECG O2 Sat by Pulse Oximetry: 100 - Progress ED Course And Treament: -IV solumedrol -duoneb x 2 On re-eval, patient states she is feeling better. Wheezing/rhonchi improved Patient educated on findings, discharged with rx Prednisone Disposition - Clinical Impression Clinical Impression: COPD (chronic obstructive pulmonary disease) - Patient ED Disposition Is Patient to be Admitted: No Counseled Patient/Family Regarding: Diagnosis, Need For Followup, Rx Given - Disposition Disposition: Routine/Home Disposition Time: 03:16 Condition: IMPROVED Prescriptions: Prednisone 50 mg PO DAILY #4 tablet Instructions: Chronic Obstructive Pulmonary Disease (COPD), Including Emphysema
[2018-04-03 02:20] VITALS: RESP 20
[2018-04-03 04:59] VITALS: BP 135/87; PULSE 88; O2SAT 96
--- NOTE | 2018-04-04 15:15 | CARD ---
APPROVED REPORT Date of service: 04/03/2018 EKG Measurement Heart [id number] [id number] <Conclusion> Normal sinus rhythm Normal ECG
== END 2018-04-03 05:13 | disposition home or self-care (01) ==
LOC: H.ER 00:28
DX: J44.9 Chronic obstructive pulmonary disease, unspecified (principal)
CPT/HCPCS: 93005; 94640; 96374; 99284; J2930

== ENCOUNTER 2018-04-04 09:02 | Emergency (ER) | payer OTHER ==
[2018-04-04 09:02] VITALS: BMI 21.9
[2018-04-04 09:10] VITALS: BP 153/97; PULSE 97; RESP 20; TEMP 98
[2018-04-04] MEDS ORDERED: Albuterol-Ipratrop 3 mg / 0.5 (3 ml) UD INH STA (09:40)
[2018-04-04 09:41] VITALS: O2SAT 96
[2018-04-04] MEDS ORDERED: Albuterol-Ipratrop 3 mg / 0.5 (3 ml) UD ONE (09:50)
--- NOTE | 2018-04-04 09:52 | ED PDOC ---
HPI: SOB/CHF/COPD Time Seen by Provider: 04/04/18 09:16 Chief Complaint (Nursing): Shortness Of Breath History Per: Patient Additional Complaint(s): Pt. c/o wheezing. Has been using her albuterol inhaler and neb without relief. Also states she's been taking her prescribed Prednisone. Denies fever, hemoptysis, chest pain. Past Medical History Reviewed: Historical Data, Nursing Documentation, Vital Signs Vital Signs: Last Vital Signs Temp 98 F 04/04/18 09:09 Pulse 97 H 04/04/18 09:09 Resp 20 04/04/18 09:09 BP 153/97 H 04/04/18 09:09 Pulse Ox 96 04/04/18 09:37 - Medical History PMH: Anxiety, Asthma, Back Problems, Bronchitis, COPD, Depression, Kidney Stones (RIGHT), Pneumonia, Chronic Kidney Disease Denies: Gastritis (Patient denies gatritis), HIV, HTN, Seizures, Sexually Transmitted Disease - Family History Family History: States: No Known Family Hx - Immunization History Hx Tetanus Toxoid Vaccination: Yes Hx Influenza Vaccination: Yes Hx Pneumococcal Vaccination: Yes - Home Medications Home Medications: Ambulatory Orders Medication Instructions Recorded RX: Albuterol HFA [Ventolin HFA 90 1 - 2 puff IH Q4H PRN #1 bottle 03/10/18 mcg/actuation (8 g)] RX: predniSONE [predniSONE Tab] 60 mg PO DAILY #9 tab 03/21/18 RX: Azithromycin 250 mg PO DAILY 4 Days tablet 03/22/18 Albuterol/Ipratropium [Duoneb 3 3 ml IH TID #30 neb 03/23/18 MG/3 Ml-0.5 MG/3 Ml 3 Ml] RX: Nebulizer [Aeroeclipse II] 1 each MC PRN PRN #1 each 03/23/18 Albuterol Sulfate [Proair Hfa] 0.09 mg IH Q6 PRN #1 inh 03/28/18 RX: predniSONE [predniSONE Tab] 60 mg PO QAM #12 tab 03/28/18 RX: Prednisone 50 mg PO DAILY #4 tablet 04/03/18 - Allergies Allergies/Adverse Reactions: Allergies Allergy/AdvReac Type Severity Reaction Status Date / Time No Known Allergies Allergy Verified 04/04/18 09:24 Review of Systems ROS Statement: Except As Marked, All Systems Reviewed And Found Negative Respiratory: Positive for: Wheezing Physical Exam - Physical Exam Appears: Positive for: Well, Non-toxic, No Acute Distress Skin: Positive for: Normal Color, Warm. Negative for: Rash Eye Exam: Positive for: Normal appearance Cardiovascular/Chest: Positive for: Regular Rate, Rhythm Respiratory: Positive for: Wheezing (b/l). Negative for: Respiratory Distress Neurologic/Psych: Positive for: Alert, Oriented (x3) - ECG O2 Sat by Pulse Oximetry: 96 - Progress ED Course And Treament: On re-evaluation, pt. reports good relief of wheezing and dyspnea. Lungs clear b/l. Pt. left ED prior to getting discharge instructions. Disposition - Clinical Impression Clinical Impression: Bronchospasm - Patient ED Disposition Is Patient to be Admitted: No - Disposition Disposition: Routine/Home Disposition Time: 09:16 Condition: IMPROVED Additional Instructions: SAMUEL GUILLERMO, thank you for letting us take care of you today. Your provider was Ene Sawyer MD and you were treated for POSS ASTHMA. The emergency medical care you received today was directed at your acute symptoms. If you were prescribed any medication, please fill it and take as directed. It may take several days for your symptoms to resolve. Return to the Emergency Department if your symptoms worsen, do not improve, or if you have any other problems. Please contact your doctor or call one of the physicians/clinics you have been referred to that are listed on the Patient Visit Information form that is included in your discharge packet. Bring any paperwork you were given at discharge with you along with any medications you are taking to your follow up visit. Our treatment cannot replace ongoing medical care by a primary care provider outside of the emergency department. Thank you for allowing the [facility] team to be part of your care today. If you had an X-Ray or CT scan: A Radiologist will review the ED reading if any change in treatment is needed we will contact you. If you had a blood, urine, or wound culture: It will take several days for the results, if any change in treatment is needed we will contact you. If you had an STI test: It will take 48 hours for the results. Please call after 1 week if you have not heard back. Forms: [employer] (Bermudian)
--- NOTE | 2018-04-10 05:51 | CARD ---
APPROVED REPORT Date of service: 04/04/2018 EKG Measurement Heart [id number] <Conclusion> Normal sinus rhythm Minimal voltage criteria for LVH, may be normal variant Borderline ECG
== END 2018-04-04 11:20 | disposition home or self-care (01) ==
LOC: H.ER 09:02
DX: J98.01 Acute bronchospasm (principal); Z86.59 Personal history of other mental and behavioral disorders; J44.9 Chronic obstructive pulmonary disease, unspecified; N18.9 Chronic kidney disease, unspecified; Z87.442 Personal history of urinary calculi

== ENCOUNTER 2018-04-06 22:02 | Emergency (ER) | payer OTHER ==
[2018-04-06 22:02] VITALS: BMI 21.9
[2018-04-06 22:12] VITALS: BP 173/87; PULSE 108; RESP 18; TEMP 98; O2SAT 94
[2018-04-06] MEDS ORDERED: Albuterol-Ipratrop 3 mg / 0.5 (3 ml) UD ONE ×2 (22:25→22:29)
[2018-04-06] MEDS: Albuterol-Ipratrop 3 mg / 0.5 (3 ml) UD INH STA ×3 (22:25→23:00)
--- NOTE | 2018-04-06 22:39 | ED PDOC ---
HPI: SOB/CHF/COPD Time Seen by Provider: 04/06/18 22:13 Chief Complaint (Nursing): Cough, Cold, Congestion Chief Complaint (Provider): Cough History Per: Patient History/Exam Limitations: no limitations Additional History Per: Patient Additional Complaint(s): 52 y/o female with ahistory of COPD and asthma, and multiple visits for bed seeking behavior presents to the ED for cough. Patient states her asthma "is acting up" but otherwise denies any fever, chills, chest pain, vomiting or abdominal pain. She has no additional complaints. Past Medical History Reviewed: Historical Data, Nursing Documentation, Vital Signs Vital Signs: Last Vital Signs Temp 98.0 F 04/06/18 22:09 Pulse 108 H 04/06/18 22:09 Resp 18 04/06/18 22:09 BP 173/87 H 04/06/18 22:09 Pulse Ox 94 L 04/06/18 22:09 - Medical History PMH: Anxiety, Asthma, Back Problems, Bronchitis, COPD, Depression, Kidney Stones (RIGHT), Pneumonia, Chronic Kidney Disease Denies: Gastritis (Patient denies gatritis), HIV, HTN, Seizures, Sexually Transmitted Disease - Family History Family History: States: Unknown Family Hx - Immunization History Hx Tetanus Toxoid Vaccination: Yes Hx Influenza Vaccination: Yes Hx Pneumococcal Vaccination: Yes - Home Medications Home Medications: Ambulatory Orders Medication Instructions Recorded Albuterol HFA [Ventolin HFA 90 1 - 2 puff IH Q4H PRN #1 bottle 03/10/18 mcg/actuation (8 g)] predniSONE [predniSONE Tab] 60 mg PO DAILY #9 tab 03/21/18 Azithromycin 250 mg PO DAILY 4 Days tablet 03/22/18 Albuterol/Ipratropium [Duoneb 3 3 ml IH TID #30 neb 03/23/18 MG/3 Ml-0.5 MG/3 Ml 3 Ml] Nebulizer [Aeroeclipse II] 1 each MC PRN PRN #1 each 03/23/18 Albuterol Sulfate [Proair Hfa] 0.09 mg IH Q6 PRN #1 inh 03/28/18 predniSONE [predniSONE Tab] 60 mg PO QAM #12 tab 03/28/18 Prednisone 50 mg PO DAILY #4 tablet 04/03/18 - Allergies Allergies/Adverse Reactions: Allergies Allergy/AdvReac Type Severity Reaction Status Date / Time No Known Allergies Allergy Verified 04/04/18 09:24 Review of Systems ROS Statement: Except As Marked, All Systems Reviewed And Found Negative (per HPI) Constitutional: Negative for: Fever, Chills Cardiovascular: Negative for: Chest Pain Respiratory: Positive for: Cough Gastrointestinal: Negative for: Nausea, Vomiting, Abdominal Pain Physical Exam - Reviewed Nursing Documentation Reviewed: Yes Vital Signs Reviewed: Yes - Physical Exam Appears: Positive for: Non-toxic, No Acute Distress Head Exam: Positive for: ATRAUMATIC, NORMAL INSPECTION, NORMOCEPHALIC Skin: Positive for: Normal Color Eye Exam: Positive for: Normal appearance Neck: Positive for: Supple Cardiovascular/Chest: Positive for: Regular Rate, Rhythm Respiratory: Positive for: Wheezing. Negative for: Respiratory Distress Gastrointestinal/Abdominal: Positive for: Normal Exam, Soft Extremity: Positive for: Normal ROM Neurologic/Psych: Positive for: Alert, Oriented - ECG O2 Sat by Pulse Oximetry: 94 (RA) Pulse Ox Interpretation: Abnormal Medical Decision Making Medical Decision Making: Impression: 52yo female, well known to ER, with cough Plan: * Duoneb 9ml INH 2338 Patient reports improvement of symptoms and medically stable for discharge. Diagnosis is COPD. Scribe Attestation: Documented by Barbra Benavidez, acting as a scribe for Alhaji Rossi MD. Provider Scribe Attestation: All medical record entries made by the Scribe were at my direction and personally dictated by me. I have reviewed the chart and agree that the record accurately reflects my personal performance of the history, physical exam, medical decision making, and the department course for this patient. I have also personally directed, reviewed, and agree with the discharge instructions and disposition. Disposition - Clinical Impression Clinical Impression: COPD exacerbation - Patient ED Disposition Is Patient to be Admitted: No - Disposition Disposition: Routine/Home Disposition Time: 23:38 Condition: STABLE Instructions: Chronic Obstructive Pulmonary Disease (COPD), Including Emphysema Forms: [employer] (Bangladeshi)
== END 2018-04-06 22:40 | disposition home or self-care (01) ==
LOC: H.ER 22:02
DX: J44.1 Chronic obstructive pulmonary disease with (acute) exacerbation (principal)

== ENCOUNTER 2018-05-06 09:59 | Emergency (ER) | payer OTHER ==
[2018-05-06 10:15] VITALS: BP 153/98; RESP 20; TEMP 98.8; O2SAT 100; BMI 21.9
[2018-05-06] MEDS ORDERED: Albuterol-Ipratrop 3 mg / 0.5 (3 ml) UD IH STA (10:20)
[2018-05-06] MEDS ORDERED: Albuterol-Ipratrop 3 mg / 0.5 (3 ml) UD INH STA (10:20)
[2018-05-06] MEDS ORDERED: Magnesium Sulfate 2 gm/50 ml 2 GM/50 ML BAG IVPB ONE (10:20)
--- NOTE | 2018-05-06 10:22 | ED PDOC ---
HPI: SOB/CHF/COPD Time Seen by Provider: 05/06/18 10:09 Chief Complaint (Nursing): Shortness Of Breath Chief Complaint (Provider): Shortness of breath History Per: Patient History/Exam Limitations: no limitations Onset/Duration Of Symptoms: Hrs Current Symptoms Are (Timing): Still Present Quality: Tightness Associated Symptoms: Light-headedness. denies: Fever, Chills, Ankle/Leg Swelling Additional History Per: Patient Additional Complaint(s): 52yo female, with history of asthma, brought to ER by EMS for evaluation of asthma exacerbation. Patient reports shortness of breath, coughing and chest tightness. She was given two treatments of duoneb and Solumedrol 125mg IV by ALS prior to arrival. Patient otherwise denies any abdominal pain, vomiting, weakness, numbness, and offers no additional complaints. Feels same as her usual asthma exacerbation. PMD: None provided Past Medical History Reviewed: Historical Data, Nursing Documentation, Vital Signs Vital Signs: Last Vital Signs Temp 98.8 F 05/06/18 10:15 Pulse 86 05/06/18 10:15 Resp 20 05/06/18 10:15 BP 153/98 H 05/06/18 10:15 Pulse Ox 100 05/06/18 10:15 - Medical History PMH: Anxiety, Asthma, Back Problems, Bronchitis, COPD, Depression, Kidney Stones (RIGHT), Pneumonia, Chronic Kidney Disease Denies: HIV, HTN, Seizures, Sexually Transmitted Disease Comment Only: Gastritis (Patient denies gatritis) - Surgical History Surgical History: No Surg Hx - Family History Family History: States: No Known Family Hx - Immunization History Hx Tetanus Toxoid Vaccination: Yes Hx Influenza Vaccination: Yes Hx Pneumococcal Vaccination: Yes - Home Medications Home Medications: Ambulatory Orders Medication Instructions Recorded Azithromycin 250 mg PO DAILY 4 Days tablet 03/22/18 Albuterol/Ipratropium [Duoneb 3 3 ml IH TID #30 neb 03/23/18 MG/3 Ml-0.5 MG/3 Ml 3 Ml] Nebulizer [Aeroeclipse II] 1 each MC PRN PRN #1 each 03/23/18 Albuterol HFA [Ventolin HFA 90 1 - 2 puff IH Q4H PRN #1 bottle 04/08/18 mcg/actuation (8 g)] Fluticasone/Salmeterol 250/50 1 puff IH Q12 #1 inh 04/08/18 [Advair Diskus] Levofloxacin [Levaquin] 750 mg PO DAILY #4 tablet 04/12/18 Benzonatate 200 mg PO TID #21 capsule 04/15/18 predniSONE [predniSONE Tab] 60 mg PO QAM #12 tab 04/19/18 predniSONE [Prednisone] 40 mg PO DAILY #10 tab 04/25/18 Albuterol 0.083% [Albuterol 3 ml IH Q8 #1 neb 04/26/18 Sulfate 3 Ml] Fluticasone/Salmeterol 100/50 1 puff INH BID #1 puff 04/26/18 [Advair Diskus 100/50] Non-Formulary 1 ea .ROUTE Q6 #1 ea 04/26/18 predniSONE [predniSONE Tab] 60 mg PO DAILY #9 tab 04/28/18 Albuterol Sulfate [Proair Hfa] 0.09 mg IH Q6H PRN #2 inh 05/06/18 predniSONE [predniSONE Tab] 20 mg PO BID 5 Days tab 05/06/18 - Allergies Allergies/Adverse Reactions: Allergies Allergy/AdvReac Type Severity Reaction Status Date / Time No Known Allergies Allergy Verified 05/06/18 10:13 Review of Systems ROS Statement: Except As Marked, All Systems Reviewed And Found Negative Constitutional: Negative for: Fever, Chills Cardiovascular: Negative for: Chest Pain Respiratory: Positive for: Cough, Shortness of Breath, Wheezing Gastrointestinal: Negative for: Nausea, Vomiting, Abdominal Pain Neurological: Negative for: Weakness, Numbness Physical Exam - Reviewed Nursing Documentation Reviewed: Yes Vital Signs Reviewed: Yes - Physical Exam Appears: Positive for: Non-toxic Head Exam: Positive for: ATRAUMATIC, NORMAL INSPECTION, NORMOCEPHALIC Skin: Positive for: Normal Color Eye Exam: Positive for: Normal appearance ENT: Positive for: Nasal Congestion Neck: Positive for: Normal, Painless ROM, Supple Cardiovascular/Chest: Positive for: Regular Rate, Rhythm Respiratory: Positive for: Wheezing (b/l). Negative for: Decreased Breath Sounds, Accessory Muscle Use Gastrointestinal/Abdominal: Positive for: Soft. Negative for: Tenderness Back: Positive for: Normal Inspection. Negative for: L CVA Tenderness, R CVA Tenderness Extremity: Positive for: Normal ROM. Negative for: Tenderness, Pedal Edema Neurologic/Psych: Positive for: Alert, Oriented - ECG ECG: Positive for: Interpreted By Me, Viewed By Me ECG Rhythm: Positive for: Normal ST Segment, Sinus Rhythm Rate: 84 O2 Sat by Pulse Oximetry: 100 (RA) Pulse Ox Interpretation: Normal - Progress ED Course And Treament: 1233: Stable. AAOx3. Pain free. Tolerated PO. Fu with pcp. Asking for more food. Seen in ER multiple times. Medical Decision Making Medical Decision Making: Impression: Shortness of breath, asthma exacerbation Plan: -- Duoneb 3ml INH x 2 -- Magnesium 2gm IVPB Scribe Attestation: Documented by Barbra Benavidez acting as a scribe for Kemar Cook MD. Provider Attestation: All medical record entries made by the Scribe were at my direction and personally dictated by me. I have reviewed the chart and agree that the record accurately reflects my personal performance of the history, physical exam, medical decision making, and the department course for this patient. I have also personally directed, reviewed, and agree with the discharge instructions and disposition. Disposition - Clinical Impression Clinical Impression: Asthma attack - Patient ED Disposition Is Patient to be Admitted: No Counseled Patient/Family Regarding: Studies Performed, Diagnosis, Need For Followup, Rx Given - Disposition Referrals: [facility] [Outside] - 05/07/18 Disposition: Routine/Home Disposition Time: 12:34 Condition: STABLE Additional Instructions: Return if not better in 3 days. Prescriptions: Albuterol Sulfate [Proair Hfa] 0.09 mg IH Q6H PRN #2 inh PRN Reason: Wheezing predniSONE [predniSONE Tab] 20 mg PO BID 5 Days tab Instructions: Asthma, Adult (DC)
[2018-05-06] MEDS ORDERED: Magnesium Sulfate 2 gm/50 ml 2 GM/50 ML BAG ONE (10:30)
[2018-05-06] MEDS ORDERED: Albuterol-Ipratrop 3 mg / 0.5 (3 ml) UD ONE (10:31)
[2018-05-06 10:37] VITALS: PULSE 84
--- NOTE | 2018-05-06 19:41 | CARD ---
APPROVED REPORT Date of service: 05/06/2018 EKG Measurement Heart [id number] <Conclusion> Normal sinus rhythm Minimal voltage criteria for LVH, may be normal variant Borderline ECG
== END 2018-05-06 13:01 | disposition home or self-care (01) ==
LOC: H.ER 09:59
DX: J45.901 Unspecified asthma with (acute) exacerbation (principal); Z86.59 Personal history of other mental and behavioral disorders; J44.9 Chronic obstructive pulmonary disease, unspecified; N18.9 Chronic kidney disease, unspecified; Z79.899 Other long term (current) drug therapy; Z87.442 Personal history of urinary calculi

== ENCOUNTER 2018-05-25 14:47 | Emergency (ER) | payer OTHER ==
[2018-05-25 14:47] VITALS: BMI 20.1
[2018-05-25 14:54] VITALS: TEMP 97.7; O2SAT 96
[2018-05-25] MEDS ORDERED: Albuterol-Ipratrop 3 mg / 0.5 (3 ml) UD ONE ×2 (15:05→15:31)
[2018-05-25] MEDS ORDERED: Albuterol-Ipratrop 3 mg / 0.5 (3 ml) UD INH STA ×2 (15:15→15:16)
[2018-05-25 15:39] LABS: BASO % 0.5 % (0.0-2.0); LYMPH # 0.7 K/uL (1.0-4.3); LYMPH % 6.9 % (20.0-40.0); MEAN CELL VOLUME 87.1 fl (81.0-99.0); MEAN CORPUSCULAR HGB CONC 32.1 g/dL (33.0-37.0); MEAN PLATELET VOLUME 7.4 fl (7.2-11.7); MONO # 0.4 K/uL (0.0-0.8); MONO % 3.9 % (0.0-10.0); NEUT # 8.5 K/uL (1.8-7.0); NEUT % 88.7 % (50.0-75.0); PLATELET COUNT 412 K/uL (130-400); RBC 3.92 Mil/uL (3.80-5.20); RED CELL DISTRIBUTION WIDTH 16.6 % (11.5-14.5); WHITE BLOOD COUNT 9.5 K/uL (4.8-10.8)
[2018-05-25 16:11] LABS: ALB/GLOB RATIO 1.3 (1.0-2.1); ALBUMIN 3.7 g/dL (3.5-5.0); ALT/SGPT 37 U/L (9-52); AST/SGOT 32 U/L (14-36); BLOOD UREA NITROGEN 14 mg/dl (7-17); CALCIUM 8.7 mg/dL (8.4-10.2); GFR NON-AFRICAN AMERICAN > 60
--- NOTE | 2018-05-25 16:46 | ED PDOC ---
HPI: SOB/CHF/COPD Time Seen by Provider: 05/25/18 15:08 Chief Complaint (Nursing): Respiratory Distress Chief Complaint (Provider): SOB History Per: Patient History/Exam Limitations: no limitations Additional Complaint(s): Pt reports SOB and wheezing X 1 day, chest tightness. Denies fever, CP, palpitations. Against Medical Advice - AMA Patient Left Against Medical Advice: The patient declines admission to the hospital and wishes to leave the Emergency Department. This action is against my medical advice. This decision was made with informed refusal. The patient was told that admission to the hospital is necessary. Explanation of the reasons why were discussed. The risks of leaving were explained to the patient and include, but are not limited to, worsening of known or currently unknown conditions, permanent disability and from undiagnosed or untreated conditions. The patient has the capacity to make this informed decision and understands my explanation of the current medical problem and risks of leaving. The patient voluntarily accepts these risks and signed an AMA form documenting our conversation. The patient was given the opportunity to ask questions and reconsider. The patient was encouraged to return to the Emergency Department at any time for further care. Past Medical History Reviewed: Nursing Documentation, Vital Signs Vital Signs: Last Vital Signs Temp 97.7 F 05/25/18 14:51 Pulse 107 H 05/25/18 14:51 Resp 22 05/25/18 14:51 BP 147/91 H 05/25/18 14:51 Pulse Ox 96 05/25/18 14:51 - Medical History PMH: Anxiety, Asthma, Back Problems, Bronchitis, COPD, Depression, Kidney Stones (RIGHT), Pneumonia, Chronic Kidney Disease Denies: HIV, HTN, Seizures, Sexually Transmitted Disease Comment Only: Gastritis (Patient denies gatritis) - Family History Family History: States: Unknown Family Hx - Social History Current smoker - smoking cessation education provided: Yes - Immunization History Hx Tetanus Toxoid Vaccination: Yes Hx Influenza Vaccination: Yes Hx Pneumococcal Vaccination: Yes - Home Medications Home Medications: Ambulatory Orders Medication Instructions Recorded RX: Nebulizer [Aeroeclipse II] 1 each MC PRN PRN #1 each 03/23/18 RX: Benzonatate 200 mg PO TID #21 capsule 04/15/18 RX: Albuterol 0.083% [Albuterol 3 ml IH Q8 #1 neb 01/12/19 0.083% Inhal Maryam (2.5 mg/3 ml) UD] RX: Fluticasone/Salmeterol 100/50 1 puff INH BID #1 puff 04/26/18 [Advair Diskus 100/50] RX: Non-Formulary 1 ea .ROUTE Q6 #1 ea 04/26/18 RX: predniSONE [predniSONE Tab] 20 mg PO BID 5 Days tab 05/06/18 Fluticasone/Salmeterol 250/50 1 dsk IH Q4H #2 puff 05/08/18 [Advair Diskus] Methylprednisolone [Medrol Dose 4 mg PO DAILY #21 mg 05/08/18 Pack (21 tabs)] RX: Albuterol HFA [Ventolin HFA 90 1 - 2 puff IH Q4H PRN #1 bottle 05/08/18 mcg/actuation (8 g)] RX: levoFLOXacin [Levaquin] 750 mg PO DAILY #5 tab 05/08/18 - Allergies Allergies/Adverse Reactions: Allergies Allergy/AdvReac Type Severity Reaction Status Date / Time No Known Allergies Allergy Verified 05/07/18 13:52 Review of Systems Constitutional: Negative for: Fever, Chills Cardiovascular: Negative for: Chest Pain, Palpitations Respiratory: Positive for: Cough, Shortness of Breath Gastrointestinal: Negative for: Nausea, Vomiting, Abdominal Pain, Diarrhea Neurological: Negative for: Headache Physical Exam - Reviewed Nursing Documentation Reviewed: Yes Vital Signs Reviewed: Yes - Physical Exam Appears: Positive for: Well, No Acute Distress (Speaking full sentences) Skin: Positive for: Normal Color, Warm, Dry Eye Exam: Positive for: Normal appearance, EOMI, PERRL Cardiovascular/Chest: Positive for: Regular Rate, Rhythm Respiratory: Positive for: Wheezing. Negative for: Decreased Breath Sounds, Accessory Muscle Use, Respiratory Distress Neurologic/Psych: Positive for: Alert, Oriented - Laboratory Results Result Diagrams: 05/25/18 15:30 05/25/18 15:30 Lab Results: Total Bilirubin 0.3 mg/dl (0.2-1.3) 05/25/18 15:30 AST 32 U/L (14-36) 05/25/18 15:30 ALT 37 U/L (9-52) 05/25/18 15:30 Alkaline Phosphatase 83 U/L (38-126) 05/25/18 15:30 Total Protein 6.6 G/DL (6.3-8.2) 05/25/18 15:30 Albumin 3.7 g/dL (3.5-5.0) 05/25/18 15:30 Globulin 2.9 gm/dL (2.2-3.9) 05/25/18 15:30 Albumin/Globulin Ratio 1.3 (1.0-2.1) 05/25/18 15:30 - ECG O2 Sat by Pulse Oximetry: 96 Medical Decision Making Medical Decision Makin yo female with wheezing. - labs - EKG - CXR - Albuterol/atrovent nebs - Solumedrol Disposition - Clinical Impression Clinical Impression: COPD exacerbation - Disposition Disposition: Against Medical Advice Disposition Time: 17:10 Condition: UNKNOWN Forms: [employer] (Jordanian)
--- NOTE | 2018-05-25 16:59 | RAD ---
Date of service: 05/25/2018 HISTORY: SOB COMPARISON: Chest radiograph dated 04/28/2018. TECHNIQUE: Chest PA and lateral FINDINGS: LUNGS: No active pulmonary disease. Questionable right middle lobe infiltrate. PLEURA: No significant pleural effusion identified. No pneumothorax apparent. CARDIOVASCULAR: Aortic atherosclerotic calcifications. Cardiomediastinal silhouette within normal limits. OSSEOUS STRUCTURES: Changed. VISUALIZED UPPER ABDOMEN: Normal. OTHER FINDINGS: None. IMPRESSION: Questionable right middle lobe infiltrate.
[2018-05-25 17:23] VITALS: BP 140/90; PULSE 95; RESP 20
[2018-05-25 17:53] LABS: ANISOCYTOSIS SLIGHT; LYMPHOCYTE 10 % (20-50); MONOCYTE 3 % (0-10); NEUTROPHIL 86 % (42-75); OVALOCYTES SLIGHT; PLATELET ESTIMATE SLIGHTLY INCREASED (NORMAL); REACTIVE LYMPHOCYTES 1 % (0-0); STOMATOCYTES SLIGHT; TOTAL CELLS COUNTED 100
[2018-05-25 17:54] LABS: LARGE PLATELETS PRESENT
--- NOTE | 2018-05-26 09:11 | CARD ---
APPROVED REPORT Date of service: 05/25/2018 EKG Measurement Heart [id number] <Conclusion> Normal sinus rhythm Normal Electrocardiogram
== END 2018-05-25 17:18 | disposition left against medical advice (07) ==
LOC: H.ER 14:47
DX: J44.1 Chronic obstructive pulmonary disease with (acute) exacerbation (principal); Z87.442 Personal history of urinary calculi; F17.200 Nicotine dependence, unspecified, uncomplicated; N18.9 Chronic kidney disease, unspecified; Z86.59 Personal history of other mental and behavioral disorders
CPT/HCPCS: 71046; 80053; 81025; 85025; 93005; 94640; 96374; 99284; J2930